=== PATIENT | female | born 2000 | race Caucasian/White ===

== ENCOUNTER 2023-04-11 10:17 | Outpatient (OUT) | payer OTHER, SELFPAY ==
[2023-04-11 11:06] LABS: HCG Quantitative <1 mIU/mL
[2023-04-13 12:04] LABS: HCG Quantitative <1 mIU/mL
== END 2023-04-11 10:18 | disposition home or self-care (01) ==
LOC: LAB 10:24
PROVIDERS: PCP Family Medicine; Visit Provider Obstetrics & Gynecology
DX: N92.5 Other specified irregular menstruation (principal)
CPT/HCPCS: 36415; 84702

== ENCOUNTER 2023-04-13 08:44 | Outpatient (OUT) | payer OTHER, SELFPAY | END 2023-04-13 08:45 | disposition home or self-care (01) | LOC: LAB 04-15 08:46 | PROVIDERS: Visit Provider Obstetrics & Gynecology | DX: N92.6 Irregular menstruation, unspecified (principal) | CPT/HCPCS: 36415; 84702 ==

== ENCOUNTER 2023-04-18 22:11 | Emergency (ER) | payer OTHER, SELFPAY ==
[2023-04-18 22:30] VITALS: BP 122/67; RESP 16; O2SAT 97; BMI 29.1
--- NOTE | 2023-04-18 22:38 | PC.NURSE ---
stuffy nose, sore throat, and headache for 2 weeks.
--- NOTE | 2023-04-18 22:39 | ED.URI1 ---
HPI - URI/Sore Throat General Chief Complaint: Upper Respiratory Infection Stated Complaint: headache Time Seen by Provider: 04/18/23 22:39 Source: patient Limitations: no limitations History of Present Illness HPI Narrative: patient presents complaining of a migraine headache. States long history of migraine headache. Has been taking OTC medications without benefit. No visual complaint or paresthesia. No weakness or fever. Similar to past migraines Related Data Allergies Allergy/AdvReac Type Severity Reaction Status Date / Time No Known Drug Allergies Allergy Verified 04/18/23 22:30 Review of Systems ROS Status of ROS 10 or more systems reviewed and unremarkable except as noted in history and below [facility] Medical History (Updated 04/18/23 @ 23:37 by Tae Glaser MD) Exam Constitutional Vital Signs, click to edit/add: Last Vital Signs Resp 16 04/18/23 22:30 BP 122/67 H 04/18/23 22:30 Pulse Ox 97 04/18/23 22:30 O2 Del Method Room Air 04/18/23 22:30 Common normals: no apparent distress, average body habitus, oriented x3 and healthy appearing Eye Common normals: PERRL, EOMs intact bilaterally and conjunctivae normal Respiratory Common normals: normal respiratory effort, no retractions, no use of accessory muscles and clear to auscultation bilaterally Cardio Common normals: regular rate, regular rhythm, S1 normal heart sound and S2 normal heart sound GI Common normals: Normal to inspection, nondistended, normoactive bowel sounds present and non-tender Extremity Common normals: normal to inspection and full ROM Neuro Common normals: oriented x3, CN's II-XII intact bilaterally, moves all extremities, no focal motor deficits and no sensory deficits noted Psych Appearance: grossly normal Course Vital Signs Vital signs: Vital Signs Respiratory Rate 16 04/18/23 22:30 Blood Pressure 122/67 H 04/18/23 22:30 Pulse Oximetry 97 04/18/23 22:30 Oxygen Delivery Method Room Air 04/18/23 22:30 Respiratory Rate 16 04/18/23 22:30 Blood Pressure 122/67 H 04/18/23 22:30 Pulse Oximetry 97 04/18/23 22:30 Oxygen Delivery Method Room Air 04/18/23 22:30 MDM - URI/Sore Throat MDM Narrative Medical decision making narrative: patient presents complaining of a migraine. treated in the department is feeling better and requesting discharge. Labs WNL. Discharged home in improved condition Lab Data Labs: Lab Results 04/18/23 Range/Units 22:50 WBC 7.3 (4.0-11.0) 10^3/uL RBC 4.50 (4.20-5.40) 10^6/uL Hgb 12.4 (12.0-16.0) g/dL Hct 38.8 (36.0-48.0) % MCV 86.2 (81.0-99.0) fL MCH 27.6 (26.7-34.0) pg MCHC 32.0 (29.9-35.2) g/dL RDW 14.8 (11.0-15.0) % Plt Count 239 (150-450) 10^3/uL MPV 10.8 (9.5-13.5) fL Neut % (Auto) 44.0 (43.0-75.0) % Lymph % (Auto) 42.0 (20.5-60.0) % [place] % (Auto) 8.8 (1.7-12.0) % Eos % (Auto) 4.1 (0.9-7.0) % Baso % (Auto) 1.0 (0.2-2.0) % Neut # (Auto) 3.2 (1.4-6.5) 10^3/uL Lymph # (Auto) 3.1 (1.2-3.8) 10^3/uL [place] # (Auto) 0.6 (0.3-0.8) 10^3/uL Eos # (Auto) 0.3 (0.0-0.7) 10^3/uL Baso # (Auto) 0.1 (0.0-0.1) 10^3/uL Abs Immat Gran (auto) 0.01 (0.00-0.03) 10^3/uL Imm/Tot Granulo (auto) 0.1 (0.0-0.5) % Sodium 140 (136-145) mmol/L Potassium 4.0 (3.5-5.1) mmol/L Chloride 103 (98-107) mmol/L Carbon Dioxide 30.5 (21.0-32.0) mmol/L Anion Gap 10.5 BUN 11.0 (7.0-18.0) mg/dL Creatinine 0.79 (0.55-1.02) mg/dL Est GFR ( Amer) >60 (>=60) Est GFR (Non-Af Amer) >60 (>=60) BUN/Creatinine Ratio 13.9 Glucose 93 (74-106) mg/dL Calcium 9.1 (8.5-10.1) mg/dL Discharge Plan Discharge Chief Complaint: Upper Respiratory Infection Clinical Impression: Migraine Instructions: Migraine Headache (ED) Stand Alone Forms: Portal Instructions Referrals: Physician,Non-Staff, MD [Primary Care Provider] - 1 week
[2023-04-18] MEDS: METHYLPREDNISOLONE SOD SUCC PF 125 MG/2 ML VIAL IVP (22:51)
[2023-04-18] MEDS: METOCLOPRAMIDE HCL 10 MG/2 ML VIAL IVP (22:52)
[2023-04-18] MEDS: DIPHENHYDRAMINE HCL 50 MG/ML (1ML) VIAL IV (22:52)
[2023-04-18 22:58] LABS: Basophils Absolute Auto 0.1 10^3/uL (0.0-0.1); Eosinophils Absolute Auto 0.3 10^3/uL (0.0-0.7); Eosinophils Percent Auto 4.1 % (0.9-7.0); Hematocrit 38.8 % (36.0-48.0); Hemoglobin 12.4 g/dL (12.0-16.0); Immature Granulocytes Abs Auto 0.01 10^3/uL (0.00-0.03); Immature Granulocytes Pct Auto 0.1 % (0.0-0.5); Lymphocytes Absolute Auto 3.1 10^3/uL (1.2-3.8); Mean Corpuscular Hemoglobin 27.6 pg (26.7-34.0); Mean Corpuscular Volume 86.2 fL (81.0-99.0); Mean Platelet Volume 10.8 fL (9.5-13.5); Monocytes Absolute Auto 0.6 10^3/uL (0.3-0.8); Monocytes Percent Auto 8.8 % (1.7-12.0); Neutrophils Absolute Auto 3.2 10^3/uL (1.4-6.5); Platelet Count 239 10^3/uL (150-450); Red Cell Distribution Width 14.8 % (11.0-15.0); White Blood Count 7.3 10^3/uL (4.0-11.0)
[2023-04-18 23:06] LABS: Anion Gap 10.5; BUN Creatinine Ratio 13.9; Calcium 9.1 mg/dL (8.5-10.1); Carbon Dioxide 30.5 mmol/L (21.0-32.0); Chloride 103 mmol/L (98-107); Estimated GFR (African America >60 (>=60); Estimated GFR (Non-African Ame >60 (>=60); Glucose 93 mg/dL (74-106); Sodium 140 mmol/L (136-145)
== END 2023-04-18 23:47 | disposition home or self-care (01) ==
PROVIDERS: Emergency Provider Internal Medicine
DX: G43.909 Migraine, unspecified, not intractable, without status migrainosus (principal)
CPT/HCPCS: 36415; 80048; 85025; 96374; 96375; 99284; J2930

== ENCOUNTER 2023-11-24 15:43 | Emergency (ER) | payer OTHER, SELFPAY ==
[2023-11-24 15:49] VITALS: PULSE 95; RESP 18; O2SAT 98; BMI 28.3
--- NOTE | 2023-11-24 15:52 | XR_ITS ---
The [address] [address] Patient Name: ENRICO PATRICIA MRN: [id number] date: 2000 Sex: F Assigned Patient Location: ER Current Patient Location: ER Accession/Order Number: [id number] Exam Date: 11/24/2023 15:58 Report Date: 11/24/2023 16:25 At the request of: NAYA AZEVEDO Procedure: XR foot RT min 3V IMAGES REVIEWED: XR foot RT min 3V COMPARISON: None available. CLINICAL INDICATION: right foot injury FINDINGS/IMPRESSION: Questionable trace bony irregularity involving the medial aspect of the base of the first proximal phalanx on the final view of the series. Correlate for focal tenderness. No significant focal adjacent soft tissue swelling to suggest acute fracture. Tiny density in the superficial lateral forefoot soft tissues adjacent to the base of the fifth proximal phalanx on the oblique view, projecting adjacent to the base of the fifth proximal phalanx on the final view of the series. Otherwise the right foot appears intact. Electronically authenticated by: MARIA G VILLATORO Date: 11/24/2023 16:25
[2023-11-24 15:54] VITALS: BP 110/74; TEMP 36.4
--- NOTE | 2023-11-24 16:20 | ED_ITS ---
HPI - Extremity Injury (Lower) General Chief Complaint: Extremity Injury, Lower Stated Complaint: Lower Extremity Pain Time Seen by Provider: 11/24/23 15:51 Source: patient Mode of arrival: walk-in Limitations: no limitations History of Present Illness HPI Narrative: Patient is a 23-year-old female presents to the emergency department for multiple injuries to the right foot 4 days ago. She states that she jammed her right foot into the side of the couch and then dropped a hammer on the dorsum of her foot. She is able to ambulate. She is not concerned for . No medications taken prior to arrival. She states she was going to come last night to be evaluated for the persistent right foot pain, but she went to a bar instead. Related Data Previous Rx's Medication Instructions Recorded ketorolac 10 mg tablet 10 mg PO TID PRN pain #10 tabs 11/24/23 tramadol 50 mg tablet 50 mg PO Q4H PRN pain #15 tabs 11/24/23 Allergies Allergy/AdvReac Type Severity Reaction Status Date / Time No Known Drug Allergies Allergy Verified 04/18/23 22:30 Review of Systems ROS Constitutional Denies: fever or chills Ears, nose, mouth, and throat Denies: throat pain or nasal congestion Cardiovascular Denies: chest pain Respiratory Denies: shortness of breath Gastrointestinal Denies: abdominal pain, nausea or vomiting Musculoskeletal Reports: extremity pain; Denies: back pain or neck pain Integumentary/Breast Denies: rash Neurological Denies: headache Endocrine Denies: excessive urination Hematologic/Lymphatic Denies: easy bruising or easy bleeding PFSH [facility] Medical History (Updated 11/24/23 @ 16:31 by RADHA Wiseman) Migraine ?G43.909 - Migraine, unspecified, not intractable, without status migrainosus (ICD-10) Social History Smoking status: Light tobacco smoker Exam Narrative Exam Narrative: Gen.: Awake, alert, in no distress Head: Normocephalic, atraumatic ENT: Moist mucous membranes Respiratory: No respiratory distress Extremities: Moves extremities equally, Healing ecchymosis on the dorsum of the right foot proximal to the great toe as well as on the dorsal lateral aspect of the foot. 2+ DP pulse right foot.No bony point tenderness of the ankle. Psych: Normal mood and affect Neuro: No focal neuro deficit Skin: Warm, dry, intact Constitutional Vital Signs, click to edit/add: Last Vital Signs Temp 97.6 F 11/24/23 15:54 Pulse 95 H 11/24/23 15:49 Resp 18 11/24/23 15:49 BP 110/74 11/24/23 15:54 Pulse Ox 98 11/24/23 15:49 O2 Del Method Room Air 11/24/23 15:49 Course Vital Signs Vital signs: Vital Signs Pulse Rate 95 H 11/24/23 15:49 Respiratory Rate 18 11/24/23 15:49 Pulse Oximetry 98 11/24/23 15:49 Oxygen Delivery Method Room Air 11/24/23 15:49 Temperature 97.6 F 11/24/23 15:54 Pulse Rate 95 H 11/24/23 15:49 Respiratory Rate 18 11/24/23 15:49 Blood Pressure 110/74 11/24/23 15:54 Pulse Oximetry 98 11/24/23 15:49 Oxygen Delivery Method Room Air 11/24/23 15:49 MDM - Extremity Injury (Lower) MDM Narrative Medical decision making narrative: X-rays reviewed by the radiologist with a questionable nondisplaced fracture at the base of the first proximal phalanx. Patient does have bruising over this area although she does not have any bony point tenderness. She was given instructions on treatment of a toe fracture, placed in an Beau wrap and postop shoe and remains neurovascularly intact. Rest, ice, elevate. She is given a short course of analgesics and NSAIDs to follow-up with podiatry. Return to the ER if symptoms change or worsen. Medical Records Attestation: I reviewed the patient's medical records. Imaging Data XR foot: Attestation: I have reviewed the pertinent imaging results. Discharge Plan Discharge Chief Complaint: Extremity Injury, Lower Clinical Impression: Fracture of toe Patient Disposition: Home, Self-Care Time of Disposition Decision: 16:30 Condition: Good Prescriptions / Home Meds: New tramadol 50 mg tablet 50 mg PO Q4H PRN (Reason: pain) Qty: 15 0RF ketorolac 10 mg tablet 10 mg PO TID PRN (Reason: pain) Qty: 10 0RF Instructions: Toe Fracture (ED) Stand Alone Forms: Portal Instructions Referrals: Physician,Non-Staff, [Primary Care Provider] - 1 week Ayaz Higginbotham DPM [Physician] - 1 week
[2023-11-24] MEDS: KETOROLAC TROMETHAMINE 10 MG TABLET PO (16:45)
[2023-11-24 16:53] VITALS: BP 110/70; PULSE 94; RESP 16; O2SAT 99
== END 2023-11-24 16:54 | disposition home or self-care (01) ==
PROVIDERS: Emergency Provider Emergency Medicine
DX: S92.414A Nondisplaced fracture of proximal phalanx of right great toe, initial encounter for closed fracture (principal); F17.210 Nicotine dependence, cigarettes, uncomplicated; W22.03XA Walked into furniture, initial encounter; W20.8XXA Other cause of strike by thrown, projected or falling object, initial encounter
CPT/HCPCS: 73630; 99284

== ENCOUNTER 2023-12-04 13:10 | Outpatient (OUT) | payer OTHER, SELFPAY ==
--- NOTE | 2023-12-04 | XR_ITS ---
[address] [address] Patient Name: ENRICO PATRICIA MRN: [id number] date: 2000 Sex: F Assigned Patient Location: Current Patient Location: Accession/Order Number: [id number] Exam Date: 12/04/2023 13:15 Report Date: 12/04/2023 14:35 At the request of: BRAD BOLDEN Procedure: XR foot RT min 3V PROCEDURE: XR foot RT min 3V COMPARISON: 11/24/2023 HISTORY: RIGHT FOOT PAIN FINDINGS: BONES:No fracture, acute abnormality, or significant arthropathy. SOFT TISSUES:Negative. No visible soft tissue swelling. EFFUSION:None visible. OTHER: Negative. XR/XR foot RT min 3V IMPRESSION: No acute radiographic abnormality Electronically authenticated by: GIANA ZAFAR Date: 12/04/2023 14:35
== END 2023-12-04 13:11 | disposition home or self-care (01) ==
LOC: EC 13:10
PROVIDERS: Visit Provider Podiatrist Foot & Ankle Surgery
DX: M79.671 Pain in right foot (principal)
CPT/HCPCS: 73630

== ENCOUNTER 2024-01-05 01:56 | Emergency (ER) | payer OTHER, SELFPAY ==
[2024-01-05 02:04] VITALS: BP 116/59; PULSE 73; TEMP 36.8; O2SAT 96; BMI 30.3
--- OUTSIDE RECORDS SUMMARY | 2024-01-05 02:11 | XMS_ITS | CCD ---
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 Role Phone House DO, Sr Kris Chavez Primary Care Provider [phone] HOUSE, SR KRIS Chavez Referring Unavailable HOUSE, SR KRIS P Primary Care Unavailable HOUSE, SR KRIS P Referring Unavailable HOUSE, SR KRIS P Primary Care Unavailable HOUSE, SR KRIS P Primary Care Unavailable ENRIQUE EDOUARD Attending Unavailabl e RAQUEL JOHNSON Attending Unavailable RAQUEL JOHNSON Admitting Unavailable GRECHNY ., RADHA PERSON Consulting Unavailabl e HOUSE, DR MIRANDA Primary Care Unavailable KARASIK ., DR BLUNT Consulting Unavailabl e HOUSE, DR MIRANDA Primary Care Unavailable KARASIK ., DR BLUNT Attending Unavailabl e KARASIK ., DR BLUNT Admitting Unavailabl e AMRIT ., DR MORALEZ Consulting Unavailable HOUSE, DR MIRANDA Primary Care Unavailable AMRIT ., DR MORALEZ Attending Unavailable AMRIT ., DR MORALEZ Admitting Unavailable AMRIT ., DR MORALEZ Consulting Unavailable HOUSE, DR MIRANDA Primary Care Unavailable AMRIT ., DR MORALEZ Attending Unavailable AMRIT ., DR MORALEZ Admitting Unavailable KARASIK ., DR BLUNT Consulting Unavailabl e HOUSE, DR MIRANDA Primary Care Unavailable KARASIK ., DR BLUNT Attending Unavailabl e KARASIK ., DR BLUNT Admitting Unavailabl e HOUSE, DR MIRANDA Primary Care Unavailable AMRIT ., DR MORALEZ Attending Unavailable AMRIT ., DR MORALEZ Admitting Unavailable KARASIK ., DR BLUNT Consulting Unavailabl e HOUSE, DR MIRANDA Primary Care Unavailable KARASIK ., DR BLUNT Attending Unavailabl e KARASIK ., DR BLUNT Admitting Unavailabl e AGUBOSIM, CATHY Consulting Unavailable KARASIK ., DR BLUNT Procedure Practitioner Yanelis vailable KARASIK ., DR BLUNT Consulting Unavailabl e HOUSE, DR MIRANDA Primary Care Unavailable KARASIK ., DR BLUNT Attending Unavailabl e KARASIK ., DR BLUNT Admitting Unavailabl e KARASIK ., DR BLUNT Consulting Unavailabl e HOUSE, DR MIRANDA Primary Care Unavailable KARASIK ., DR BLUNT Attending Unavailabl e KARASIK ., DR BLUNT Admitting Unavailabl e HOUSE, DR MIRANDA Primary Care Unavailable KARASIK ., DR BLUNT Attending Unavailabl e KARASIK ., DR BLUNT Admitting Unavailabl e REINECK, DR JAYDON Montoya Consulting Unavailabl e REINECK, DR JAYDON Montoya Attending Unavailabl e REINECK, DR JAYDON Montoya Admitting Unavailabl e HOUSE, DR MIRANDA Primary Care Unavailable ZIEBER, DR KRISTIE Ivory Consulting Unavailable DONNY ., ENRIQUE Attending Unavailable DONNY ., ENRIQUE Admitting Unavailable OAKDALE, DR MIRANDA Primary Care Unavailable DONNY ., ENRIQUE Consulting Unavailable LORA, DR KRISTIE Ivory Consulting Unavailable HAY ., DR PARTIDA Attending Unavailable HAY ., DR PARTIDA Admitting Unavailable OAKDALE, DR MIRANDA Primary Care Unavailable KAMRAN NICKERSON Consulting Unavailable JOLLY ., RADHA PERSON Consulting Unavailyanira CHAND ., NAINA Attending Unavailable MANNIE ., NAINA Admitting Unavailable BATSHEVA, DR MIRANDA Primary Care Unavailable RAQUEL JOHNSON Consulting Unavailable RAQUEL JOHNSON Attending Unavailable RAQUEL JOHNSON Admitting Unavailable BATSHEVA, DR MIRANDA Primary Care Unavailable KAMRAN NICKERSON Consulting Unavailable NO PCP, NO PCP Primary Care Unavailable JEFE LINCOLN Attending Unavailable Allergies Allergy Classification Reported Allergen(s) Allergy Type Date of Onset Reaction(s) Facility (1 source) Latex Propensity to adverse reactions to drug 07-31-2021 [facility] Medications Current Medications Medication Drug Class(es) Dates Sig (Normalized) Sig (Original) amoxicillin 875 mg / clavulanate 125 mg oral tablet (1 source) Penicillin-class Antibacterial Start: 07-31-2021 End: 08-10-2021 take 1 tablet by mouth twice daily amoxicillin-clav ulanate (AUGMENTIN) 875-125 MG per tablet Take 1 tablet by mouth 2 times daily for 10 days 20 tablet 0 07/31/2021 08/10/2021 Active Problems Active Problems Problem Classification Problem Date Documented Da te Episodic/Chronic Conditions associated with dizziness or vertigo (4 sources) Dizziness and giddiness; Translations: [DIZZINESS AND GIDDINESS] Onset: 12-11-2022 Episodic E Codes: Fall (2 sources) Fall (on) (from) unspecified stairs and steps, initial encounter; Translations: [Unspecified fall, initial encounter] Onset: 12-13-2022 Episodic Headache; including migraine (4 sources) Headache; including migraine; Translations: [HEADACHE UNSPECIFIED] Onset: 07-29-2022 Nausea and vomiting (2 sources) Nausea with vomiting, unspecified; Translations: [Vomiting] Onset: 11-05-2023 Episodic Other aftercare (1 source) Other shelter (current) drug therapy; Translations: [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] Onset: 12-03-2022 Episodic Other injuries and conditions due to external causes (1 source) Unspecified injury of head, initial encounter; Translations: [UNSPECIFIED INJURY HEAD INITIAL ENC] Onset: 12-13-2022 Episodic Other upper respiratory infections (7 sources) Acute frontal sinusitis; Translations: [Acute frontal sinusitis, unspecified] Onset: 10-04-2022 Episodic Spondylosis; intervertebral disc disorders; other back problems (1 source) Low back pain; Translations: [Lumbar pain] Episodic Superficial injury; contusion (4 sources) Contusion of left lower leg, initial encounter; Translations: [CONTUSION LEFT LOWER LEG INITIAL] Onset: 01-27-2023 Episodic Unclassified (1 source) CONTACT W/AND (SUSP) EXPOS COVID-19; Translations: [CONTACT W/AND (SUSP) EXPOS COVID-19] Onset: 10-04-2022 Unclassified (2 sources) COUGH, UNSPECIFIED; Translations: [COUGH, UNSPECIFIED] Onset: 10-04-2022 Unclassified (1 source) ILL Onset: 11-05-2023 Urinary tract infections (2 sources) Urinary tract infection, site not specified; Translations: [UTI SITE NOT SPECIFIED] Onset: 10-04-2022 Episodic Past or Other Problems Problem Classification Problem Date Documented Da te Episodic/Chronic Abdominal pain (4 sources) Pelvic and perineal pain; Translations: [Unspecified abdominal pain] Onset: 03-02-2022 Episodic Early or threatened labor (4 sources) False labor before 37 completed weeks of gestation, third trimester; Translations: [FALSE LABR BEFOR 37 WK GEST 3RD TRI] Onset: 03-31-2022 Episodic Immunizations and screening for infectious disease (1 source) Encounter for screening for infections with a predominantly sexual mode of transmission; Translations: [ENC SCREEN INFECTIONS SEXL TRANSMS] Onset: 04-18-2022 Episodic Inflammatory diseases of female pelvic organs (1 source) Acute vaginitis; Translations: [ACUTE VAGINITIS] Onset: 08-27-2022 Episodic OB-related trauma to perineum and vulva (1 source) First degree perineal laceration during delivery; Translations: [FIRST DEG PERINEAL LAC DUR DELIV] Onset: 05-16-2022 Episodic Other aftercare (1 source) 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; Translations: [CORRECTION CURRENT USE OF ASPIRIN] Onset: 08-27-2022 Episodic Other complications of (4 sources) Other specified related conditions, third trimester; Translations: [OTH SPEC PREG RELATED COND 3RD TRI] Onset: 03-28-2022 Episodic Other gastrointestinal disorders (1 source) Heartburn; Translations: [HEARTBURN] Onset: 03-02-2022 Episodic Other and delivery including normal (11 sources) Encounter for care and examination of lactating mother; Translations: [Encounter for routine follow-up] Onset: 05-10-2022 Episodic Other screening for suspected conditions (not mental disorders or infectious disease) (8 sources) Encounter for screening for Streptococcus B; Translations: [Encounter for screening for diabetes mellitus] Onset: 02-20-2022 Episodic Residual codes; unclassified (1 source) 39 weeks gestation of ; Translations: [39 WEEKS GESTATION OF ] Onset: 05-16-2022 Episodic Residual codes; unclassified (1 source) 33 weeks gestation of ; Translations: [33 WEEKS GESTATION OF ] Onset: 04-04-2022 Episodic Residual codes; unclassified (1 source) Edema, unspecified; Translations: [EDEMA UNSPECIFIED] Onset: 03-22-2022 Episodic Residual codes; unclassified (1 source) 31 weeks gestation of ; Translations: [31 WEEKS GESTATION OF ] Onset: 03-22-2022 Episodic Screening and history of mental health and substance abuse codes (1 source) Personal history of nicotine dependence; Translations: [PERSONAL HISTORY OF NICOTINE DEPEND] Onset: 05-16-2022 Episodic Unclassified (1 source) COUGH, UNSPECIFIED; Translations: [COUGH, UNSPECIFIED] Onset: 10-02-2022 Results Test Name Value Interpretation Reference Range Facility CBC AND AUTO DIFFon 11-05-19 ABSOLUTE BASOPHIL 0.1 X10E9/L Normal 0.0-0.2 [facility] Comment on above: Performed By: #### C ROGERIO, 3039-12, CBCA #### [facility] ([id number]) [address] [place] [address] 99856 ABSOLUTE NEUTROPHIL 6.6 X10E9/L Normal 1.5-6.6 [facility] Comment on above: Performed By: #### C ROGERIO, 3039-12, CBCA #### [facility] ([id number]) [address] [place] [address] 24813 Basophils/100 WBC (Bld) 0.6 % Normal [facility] Comment on above: Performed By: #### C ROGERIO, 3039-12, CBCA #### [facility] ([id number]) [address] [place] [address] 18891 Eosinophils (Bld) [#/Vol] 0.2 10*3/uL Normal 0.0-0.4 [facility] Comment on above: Performed By: #### C ROGERIO, 3039-12, CBCA #### [facility] ([id number]) [address] [place] [address] 22655 Eosinophils/100 WBC (Bld) 1.8 % Normal [facility] Comment on above: Performed By: #### C ROGERIO, 3, CBCA #### [facility] ([id number]) [address] [place] [address] 61012 Erythrocyte distribution width (RBC) [Ratio] 14.2 % Normal 11.5-15.0 [facility] Comment on above: Performed By: #### Nini BEATTY, 3039-12, CBCA #### [facility] ([id number]) [address] [place] [address] 62231 Hematocrit (Bld) [Volume fraction] 39.3 % Normal 35-47 [facility] Comment on above: Performed By: #### C ROGERIO, 3039-12, CBCA #### [facility] ([id number]) [address] [place] [address] 10727 Hemoglobin (Bld) [Mass/Vol] 13.1 g/dL Normal 11.7-15.5 [facility] Comment on above: Performed By: #### C ROGERIO, 3039-12, CBCA #### [facility] ([id number]) [address] [place] [address] 49344 Lymphocytes (Bld) [#/Vol] 2.4 10*3/uL Normal 1.0-3.5 [facility] Comment on above: Performed By: #### C ROGERIO, 3039-12, CBCA #### [facility] ([id number]) [address] [place] [address] 63764 Lymphocytes/100 WBC (Bld) 24.1 % Normal [facility] Comment on above: Performed By: #### C ROGERIO, 3039-12, CBCA #### [facility] ([id number]) [address] [place] [address] 06413 MCH (RBC) [Entitic mass] 28.7 pg Normal 27-34 [facility] Comment on above: Performed By: #### C ROGERIO, 3039-12, CBCA #### [facility] ([id number]) [address] [place] [address] 79855 MCHC (RBC) [Mass/Vol] 33.5 g/dL Normal 32-36 [facility] Comment on above: Performed By: #### C ROGERIO, 3039-12, CBCA #### [facility] ([id number]) [address] [place] [address] 44894 MCV (RBC) [Entitic vol] 86 fL Normal 80-100 [facility] Comment on above: Performed By: #### C ROGERIO, 3039-12, CBCA #### [facility] ([id number]) [address] [place] [address] 97686 Monocytes (Bld) [#/Vol] 0.6 10*3/uL Normal 0-0.9 [facility] Comment on above: Performed By: #### C ROGERIO, 3039-12, CBCA #### [facility] ([id number]) [address] [place] [address] 64129 Monocytes/100 WBC (Bld) 6.4 % Normal [facility] Comment on above: Performed By: #### C ROGERIO, 3039-12, CBCA #### [facility] ([id number]) [address] [place] [address] 35013 Neutrophils/100 WBC (Bld) 67.1 % Normal [facility] Comment on above: Performed By: #### Nini BEATTY, 3039-12, CBCA #### [facility] ([id number]) [address] [place] [address] 87331 Platelet mean volume (Bld) [Entitic vol] 9.1 fL Normal 7-12 [facility] Comment on above: Performed By: #### Nini BEATTY, 3039-12, CBCA #### [facility] ([id number]) [address] [place] [address] 45630 Platelets (Bld) [#/Vol] 236 10*3/uL Normal 150-450 [facility] Comment on above: Performed By: #### Nini BEATTY, 3039-12, CBCA #### [facility] ([id number]) [address] [place] [address] 66334 RBC COUNT 4.59 X10E12/L Normal 3.80-5.20 [facility] Comment on above: Performed By: #### C ROGERIO, 3039-12, CBCA #### [facility] ([id number]) [address] [place] [address] 75689 WBC (Bld) [#/Vol] 9.8 10*3/uL Normal 4.0-11.0 [facility] Comment on above: Performed By: #### C ROGERIO, 3039-12, CBCA #### [facility] ([id number]) [address] [place] [address] 35677 COMPREHENSIVE METABOLIC PANE Alex 11-05-2023 Albumin [Mass/Vol] 4.1 g/dL Normal 3.2-5.3 [facility] Comment on above: Performed By: #### C ROGERIO, 3039-12, CBCA #### [facility] ([id number]) [address] [place] [address] [place] [address] ALP [Catalytic activity/Vol] 94 U/L Normal 39-130 [facility] Comment on above: Performed By: #### C ROGERIO, 3039-12, CBCA #### [facility] ([id number]) [address] [place] [address] 11643 ALT [Catalytic activity/Vol] 15 U/L Normal 0-31 [facility] Comment on above: Performed By: #### C ROGERIO, 3039-12, CBCA #### [facility] ([id number]) [address] [place] [address] [place] [address] Anion gap [Moles/Vol] 9 mmol/L Normal 5-15 [facility] Comment on above: Performed By: #### C ROGERIO, 3039-12, CBCA #### [facility] ([id number]) [address] [place] [address] 90463 AST [Catalytic activity/Vol] 22 U/L Normal 0-41 [facility] Comment on above: Performed By: #### C ROGERIO, 3039-3, CBCA #### [facility] ([id number]) [address] [place] [address] 81352 Bilirubin [Mass/Vol] 0.8 mg/dL Normal 0.3-1.2 [facility] Comment on above: Performed By: #### C ROGERIO, 3039-3, CBCA #### [facility] ([id number]) [address] [place] [address] 28765 Calcium [Mass/Vol] 8.9 mg/dL Normal 8.5-10.5 [facility] Comment on above: Performed By: #### C ROGERIO, 3039-12, CBCA #### [facility] ([id number]) [address] [place] [address] 06070 Chloride [Moles/Vol] 104 mmol/L Normal 98-109 [facility] Comment on above: Performed By: #### C ROGERIO, 3039-12, CBCA #### [facility] ([id number]) [address] [place] [address] 27119 CO2 [Moles/Vol] 24 mmol/L Normal 22-32 [facility] Comment on above: Performed By: #### Nini BEATTY, 3039-12, CBCA #### [facility] ([id number]) [address] [place] [address] 90258 Creatinine [Mass/Vol] 0.67 mg/dL Normal 0.40-1.00 [facility] Comment on above: Result Comment: METH OD TRACEABLE TO IDMS STANDARD Performed By: #### C ROGERIO, 3039-3, CBCA #### [facility] ([id number]) [address] [place] [address] 59473 eGFR (CKD-EPI) NON-RACE DEPENDENT >90 Normal >59 [facility] Comment on above: Result Comment: Reported eGFR is based on the CKD-EPI 2020 equation that does not use a race coefficient. Performed By: #### C ROGERIO, 304-3, CBCA #### [facility] ([id number]) [address] [place] [address] 01711 Glucose [Mass/Vol] 112 mg/dL High 65-99 [facility] Comment on above: Performed By: #### C ROGERIO, 304-3, CBCA #### [facility] ([id number]) [address] [place] [address] 53640 Potassium [Moles/Vol] 3.4 mmol/L Low 3.5-5.0 [facility] Comment on above: Performed By: #### C ROGERIO, 3039-3, CBCA #### [facility] ([id number]) [address] [place] [address] 22727 Protein [Mass/Vol] 8.0 g/dL Normal 6.0-8.0 [facility] Comment on above: Performed By: #### C ROGERIO, 3, CBCA #### [facility] ([id number]) [address] [place] [address] 86438 Sodium [Moles/Vol] 137 mmol/L Normal 134-146 [facility] Comment on above: Performed By: #### C ROGERIO, 3, CBCA #### [facility] ([id number]) [address] [place] [address] 21795 Urea nitrogen [Mass/Vol] 12 mg/dL Normal 5-23 [facility] Comment on above: Performed By: #### C ROGERIO, 304-3, CBCA #### [facility] ([id number]) [address] [place] [address] 37112 HCG ( test) Ql (U)o n 11-05-2023 Beta HCG ( test) Ql (U) Negative Normal NEG [facility] Comment on above: Performed By: #### 2 106-3 #### [facility] ([id number]) [address] [facility], [place] [address] LIPASEon 11-05-2023 Lipase [Catalytic activity/Vol] 33 U/L Normal 17-40 [facility] Comment on above: Performed By: #### C MP, 3040-3, CBCA #### [facility] ([id number]) [address] [facility], [place] [address] SARS/FLU A+B/RSV by NAAT/Mol ecularon 11-05-2023 SARS/FLU A+B/RSV by NAAT/Molecular FLU A PCR Negative (qualifier value) FLU B PCR Negative (qualifier value) RSV by PCR Negative (qualifier value) SARS CoV 2 Not detected (qualifier value) NOTE The Xpert Xpress SARS-CoV-2/Flu/RSV Plus test is a rapid, multiplexed real-time RT-PCR test intended for the simultaneous qualitative detection and differentiation of SARS-CoV-2, influenza A, influenza B and respiratory syncytial virus (RSV) viral RNA from individuals suspected of respiratory viral infection consistent with COVID-19 by their healthcare provider. This test has not been validated in asymptomatic patients. The Xpert Xpress SARS-CoV-2 test is intended for use by qualified and trained operators who are performing tests using either [employer] DX or STWA systems and is limited to laboratories that meet the CLIA requirements to perform high and moderate complexity tests. The Xpert Xpress SARS-CoV-2/Flu/RSV Plus is only for use under the Food and Drug Administration's Emergency Use Authorization. Results are for the simultaneous detection and differentiation of SARS-CoV-2, influenza A, influenza B and RSV nucleic acids in clinical specimens. SARS-CoV-2, influenza A, influenza B and RSV RNA identified by this test are generally detectable in upper respiratory samples during the acute phase of infection. Positive results are indicative of the presence of the identified virus, but do not rule out bacterial infection or co-infection with other pathogens not detected by this test. Clinical correlation with patient history and other diagnostic information is necessary to determine patient infection status. The agent detected may not be the definite cause of disease. Negative results do not preclude SARS-CoV-2, influenza A, influenza B and RSV infection and should not be used as the sole basis for treatment or other patient management decisions. Negative results must be combined with clinical observations, patient history and epidemiological information. An Invalid result may occur with specimen-associated inhibition unable to be resolved with specimen repeat. Fact Sheet for Healthcare Providers: https://www.fda.gov/ media/087389/downloa d Fact Sheet for Patients: https://www.fda.gov/ media/810833/downloa d Normal [facility] Comment on above: Performed By: #### C OVFLR #### [facility] ([id number]) [address] [place] [address] 08930 URN MACROSCOPIC NURon 2023 BILIRUBIN CASSY Negative Normal NEG [facility] Comment on above: Performed By: #### N UM #### [facility] ([id number]) [address] [place] [address] 52830 BLOOD/HGB CASSY Negative Normal NEG [facility] Comment on above: Performed By: #### N UM #### [facility] ([id number]) [address] [place] [address] 00045 GLUCOSE CASSY Negative Normal NEG [facility] Comment on above: Performed By: #### N UM #### [facility] ([id number]) [address] [place] [address] 04108 KETONES CASSY Negative Normal NEG [facility] Comment on above: Performed By: #### N UM #### [facility] ([id number]) [address] [place] [address] [place] [address] LEUKOCYTE ESTERASE CASSY Trace Abnormal NEG [facility] Comment on above: Performed By: #### N UM #### [facility] ([id number]) [address] [place] [address] 00204 NITRITE CASSY Negative Normal [facility] Comment on above: Performed By: #### N UM #### [facility] ([id number]) [address] [place] [address] 19935 PH CASSY 6.5 Normal 5.0-8.5 [facility] Comment on above: Performed By: #### N UM #### [facility] ([id number]) [address] [place] [address] 85737 PROTEIN CASSY Negative Normal NEG [facility] Comment on above: Performed By: #### N UM #### [facility] ([id number]) [address] [place] [address] 37070 SPECIFIC GRAVITY CASSY >=1.030 Normal 1.003-1.035 [facility] Comment on above: Performed By: #### N UM #### [facility] ([id number]) [address] [place] [address] 25292 UROBILINOGEN CASSY 0.2 eu/dL Normal <1.1 [facility] Comment on above: Performed By: #### N UM #### [facility] ([id number]) [address] [place] [address] 12184 CULTURE URINEon 12-13-2022 CULTURE URINE Isolate 1 Escherichia coli >100,000 cfu/mL of ORGANISM 1 Escherichia coli ANTIBIOTIC M.I.C RX STATUS Ampicillin >=32 R F Ampicillin/Sulbactam 8 S F Piperacillin/Tazobac weller <=4 S F Cefazolin <=4 S F Ceftazidime <=1 S F Ceftriaxone <=1 S F Ertapenem <=0.5 S F Imipenem <=0.25 S F Amikacin <=2 S F Gentamicin <=1 S F Tobramycin <=1 S F Ciprofloxacin <=0.25 S F Levofloxacin 0.5 S F Nitrofurantoin 32 S F Trimethoprim/Sulfame thoxazole <=20 S F Normal [facility] Comment on above: Performed By: #### U ACSINDXENIAICRO #### [facility] [address] [place] [address] Dr. Zaheer Bridges CBC AUTO DIFFon 12-11-2022 BASO # 0.0 103/ul Normal 0.0-0.1 [facility] Comment on above: Performed By: #### LESLIE ARROYO UMICRO #### [facility] [address] [place] [address] Dr. Zaheer Bridges Basophils/100 WBC (Bld) 0.2 % Normal 0.2-2.0 [facility] Comment on above: Performed By: #### LESLIE ARROYO UMICRO #### [facility] [address] [place] [address] Dr. Zaheer Bridges EO # 0.1 103/ul Normal 0.0-0.7 [facility] Comment on above: Performed By: #### LESLIE ARROYO UMICRO #### [facility] [address] [place] [address] Dr. Zaheer Bridges Eosinophils/100 WBC (Bld) 0.7 % Critically low 0.9-7.0 [facility] Comment on above: Performed By: #### LESLIE ARROYO UMICRO #### [facility] [address] [place] [address] Dr. Zaheer Bridges Erythrocyte distribution width (RBC) [Ratio] 14.6 % Normal 11.0-15.0 [facility] Comment on above: Performed By: #### LESLIE ARROYO UMICRO #### [facility] [address] [place] [address] Dr. Zaheer Bridges Hematocrit (Bld) [Volume fraction] 36.3 % Normal 36.0-48.0 [facility] Comment on above: Performed By: #### LESLIE ARROYO UMICRO #### [facility] [address] [place] [address] Dr. Zaheer Bridges Hemoglobin (Bld) [Mass/Vol] 12.0 g/dL Normal 12.0-16.0 [facility] Comment on above: Performed By: #### LESLIE ARROYO UMICRO #### [facility] [address] [place] [address] Dr. Zaheer Bridges IG # 0.07 10e3/ul Critically high 0.00-0.03 [facility] Comment on above: Performed By: #### LESLIE ARROYO UMICRO #### [facility] [address] [place] [address] Dr. Zaheer Bridges IG % 0.5 % Normal 0.0-0.5 [facility] Comment on above: Performed By: #### LESLIE ARROYO UMICRO #### [facility] [address] [place] [address] Dr. Zaheer Bridges LYMPH # 1.4 103/ul Normal 1.2-3.8 [facility] Comment on above: Performed By: #### LESLIE ARROYO UMICRO #### [facility] [address] [place] [address] Dr. Zaheer Bridges Lymphocytes/100 WBC (Bld) 9.4 % Critically low 20.5-60.0 [facility] Comment on above: Performed By: #### LESLIE ARROYO UMICRO #### [facility] [address] [place] [address] Dr. Zaheer Bridges MANUAL DIFF REQ NO Normal [facility] Comment on above: Performed By: #### LESLIE ARROYO UMICRO #### [facility] [address] [place] [address] Dr. Zaheer Bridges MCH (RBC) [Entitic mass] 27.4 pg Normal 26.7-34.0 [facility] Comment on above: Performed By: #### LESLIE ARROYO UMICRO #### [facility] [address] [place] [address] Dr. Zaheer Bridges MCHC (RBC) [Mass/Vol] 33.1 g/dL Normal 29.9-35.2 [facility] Comment on above: Performed By: #### LESLIE ARROYO UMICRO #### [facility] [address] [place] [address] Dr. Zaheer Bridges MCV (RBC) [Entitic vol] 82.9 fL Normal 81.0-99.0 [facility] Comment on above: Performed By: #### Ugo GRUBER PREGU UMICRO #### [facility] [address] [address] [address] Zaheer Bridges MONO # 1.1 103/ul Critically high 0.3-0.8 [facility] Comment on above: Performed By: #### Ugo GRUBER PREGU, UMICRO #### [facility] [address] [address] [address] Zaheer Bridges Monocytes/100 WBC (Bld) 6.9 % Normal 1.7-12.0 [facility] Comment on above: Performed By: #### Ugo GRUBER PREGU, UMICRO #### [facility] [address] [place] [address] Dr. Zaheer Bridges NEUT # 12.7 103/ul Critically high 1.4-6.5 [facility] Comment on above: Performed By: #### JONO ARROYOU UMICRO #### [facility] [address] [place] [address] Dr. Zaheer Bridges Neutrophils/100 WBC (Bld) 82.3 % Critically high 43.0-75.0 [facility] Comment on above: Performed By: #### LESLIE ARROYO UMICRO #### [facility] [address] [place] [address] Dr. Zaheer Bridges Platelet mean volume (Bld) [Entitic vol] 9.7 fL Normal 9.5-13.5 [facility] Comment on above: Performed By: #### Ugo GRUBER PREGU UMICRO #### [facility] [address] [place] [address] Dr. Zaheer Bridges PLT 227 103/ul Normal 150-450 [facility] Comment on above: Performed By: #### Ugo GRUBER PREGU UMICRO #### [facility] [address] [place] [address] Dr. Zaheer Bridges RBC 4.38 106/ul Normal 4.20-5.40 [facility] Comment on above: Performed By: #### Ugo GRUBER PREGU UMICRO #### [facility] [address] [address] [address] Zaheer Bridges WBC 15.4 103/ul Critically high 4.0-11.0 [facility] Comment on above: Performed By: #### E RUR, PREGU, UMICRO #### [facility] [address] [address] [address] Zaheer Bridges ER URINE PROFILEon 3 Bilirubin Ql (U) Negative Normal NEGATIVE [facility] Comment on above: Performed By: #### E RUR, PREGU, UMICRO #### [facility] [address] [place] [address] Dr. Zaheer Bridges Clarity (U) CLEAR Normal CLEAR [facility] Comment on above: Performed By: #### E RUR, PREGU, UMICRO #### [facility] [address] [place] [address] Dr. Zaheer Bridges Color (U) LT. YELLOW Normal YELLOW [facility] Comment on above: Performed By: #### E RUR, PREGU, UMICRO #### [facility] [address] [place] [address] Dr. Zaheer Bridges ERUTara A micrscopic examination will be performed if indicated. Normal [facility] Comment on above: Performed By: #### E RUR, PREGU, UMICRO #### [facility] [address] [place] [address] Dr. Zaheer Bridges Glucose Ql (U) Negative Normal NEGATIVE [facility] Comment on above: Performed By: #### E RUR, PREGU, UMICRO #### [facility] [address] [place] [address] Dr. Zaheer Bridges Hemoglobin Ql (U) TRACE-INTACT Abnormal NEGATIVE [facility] Comment on above: Performed By: #### E RUR, PREGU, UMICRO #### [facility] [address] [place] [address] Dr. Zaheer Bridges Ketones Ql (U) Negative Normal NEGATIVE [facility] Comment on above: Performed By: #### E RUR, PREGU, UMICRO #### [facility] [address] [address] [address] Zaheer Bridges LEUKOCYTES LARGE Abnormal NEGATIVE [facility] Comment on above: Performed By: #### Ugo GRUBER PREGU, UMICRO #### [facility] [address] [address] [address] Zaheer Bridges Nitrite Ql (U) Positive Abnormal NEGATIVE [facility] Comment on above: Performed By: #### Ugo GRUBER PREGU, UMICRO #### [facility] [address] [address] [address] Zaheer Bridges pH (U) 7.0 [pH] Normal 5-9 [facility] Comment on above: Performed By: #### LESLIE ARROYO UMICRO #### [facility] [address] [address] [address] Zaheer Bridges SPEC GRAVITY 1.010 Normal 1.005-<=1.025 [facility] Comment on above: Performed By: #### Ugo GRUBER PREGU, UMICRO #### [facility] [address] [address] [address] Zaheer Bridges UA PROTEIN Negative Normal NEGATIVE/ TRACE [facility] Comment on above: Performed By: #### LESLIE ARROYO, UMICRO #### [facility] [address] [address] [address] Zaheer rBidges UR MICRO IND INDICATED Normal [facility] Comment on above: Performed By: #### JONO ARROYOU, UMICRO #### [facility] [address] [address] [address] Zaheer Bridges Urobilinogen Qn (U) 0.2 {Tereza'U}/dL Normal 0.2 - 1. 0 [facility] Comment on above: Performed By: #### Ugo GRUBER PREGU, UMICRO #### [facility] [address] [address] [address] Zaheer Bridges URon 12-11-2022 , QUAL Negative Normal NEGATIVE [facility] Comment on above: Performed By: #### Ugo OSUNAR PREGU, UMICRO #### [facility] [address] [place] [address] Dr. Zaheer Bridges PROF CHEM 8 (BAS METB)on Anion gap [Moles/Vol] 12.4 mmol/L Normal [facility] Comment on above: Performed By: #### E RUR PREGU, UMICRO #### [facility] [address] [address] [address] Zaheer Bridges Calcium [Mass/Vol] 9.1 mg/dL Normal 8.5-10.1 [facility] Comment on above: Performed By: #### E YASMANI PREGU, UMICRO #### [facility] [address] [place] [address] Dr. Zaheer Bridges Chloride [Moles/Vol] 104 mmol/L Normal 98-107 [facility] Comment on above: Performed By: #### Ugo GRUBER PREGU UMICRO #### [facility] [address] [place] [address] Dr. Zaheer Bridges CO2 [Moles/Vol] 28.0 mmol/L Normal 21.0-32.0 [facility] Comment on above: Performed By: #### JONO ARROYOU UMICRO #### [facility] [address] [place] [address] Dr. Zaheer Bridges Creatinine [Mass/Vol] 0.82 mg/dL Normal 0.55-1.02 [facility] Comment on above: Performed By: #### Ugo RUR PREGU, UMICRO #### [facility] [address] [place] [address] Dr. Zaheer Bridges EGFR-AF VIET[place]ESE >60 Normal >=60 [facility] Comment on above: Performed By: #### Ugo RUR PREGU, UMICRO #### [facility] [address] [place] [address] Dr. Zaheer Bridges EGFR-NON AF [place]ESE >60 Normal >=60 [facility] Comment on above: Performed By: #### E RUR PREGU, UMICRO #### [facility] [address] [address] [address] Zaheer Bridges Glucose [Mass/Vol] 95 mg/dL Normal 74-106 [facility] Comment on above: Performed By: #### E RUR PREGU, UMICRO #### [facility] [address] [place] [address] Dr. Zaheer Bridges Potassium [Moles/Vol] 3.4 mmol/L Critically low 3.5-5.1 [facility] Comment on above: Performed By: #### E RUR PREGU, UMICRO #### [facility] [address] [address] [address] Zaheer Bridges Sodium [Moles/Vol] 141 mmol/L Normal 136-145 [facility] Comment on above: Performed By: #### E RUR PREGU, UMICRO #### [facility] [address] [place] [address] Dr. Zaheer Bridges Urea nitrogen [Mass/Vol] 11.0 mg/dL Normal 7.0-18.0 [facility] Comment on above: Performed By: #### Ugo GRUBER PREGU, UMICRO #### [facility] [address] [address] [address] Zaheer Bridges Urea nitrogen/Creatinine [Mass ratio] 13.4 mg/mg Normal [facility] Comment on above: Performed By: #### E RUR PREGU, UMICRO #### [facility] [address] [place] [address] Dr. Zaheer Bridges URINE MICROSCOPIC ONLYon BACTERIA SMALL Abnormal NONE SEEN [facility] Comment on above: Performed By: #### E THAOR PREGU, UMICRO #### [facility] [address] [place] [address] Dr. Zaheer Bridges Bacteria identified Cx Nom (U) INDICATED Normal [facility] Comment on above: Performed By: #### E RUR, PREGU, UMICRO #### [facility] [address] [place] [address] Dr. Zaheer Bridges CAST NONE SEEN Normal NONE SEEN [facility] Comment on above: Performed By: #### E RUR, PREGU, UMICRO #### [facility] [address] [address] [address] Zaheer Bridges Crystals LM Nom (Urine sed) NONE SEEN Normal NONE SEEN [facility] Comment on above: Performed By: #### E RUR, PREGU, UMICRO #### [facility] [address] [address] [address] Zaheer Bridges Epithelial cells LM Ql (Urine sed) FEW Abnormal NONE SEEN /RARE [facility] Comment on above: Performed By: #### E RUR, PREGU, UMICRO #### [facility] [address] [address] [address] Zaheer Bridges MUCOUS NONE SEEN Normal NONE SEEN [facility] Comment on above: Performed By: #### E RUR, PREGU, UMICRO #### [facility] [address] [address] [address] Zaheer Bridges RBC 5-10 Abnormal 0-2 [facility] Comment on above: Performed By: #### E RUR, PREGU, UMICRO #### [facility] [address] [address] [address] Zaheer Bridges WBC 50-75 Abnormal NONE SEEN [facility] Comment on above: Performed By: #### E RUR, PREGU, UMICRO #### [facility] [address] [address] [address] Zaheer Bridges XR CSPINE 2_3 VIEWSon 2022 XR CSPINE 2_3 VIEWS EXAMINATION: XR CSPINE 2_3 VIEWS HISTORY: Unspecified fall ; acute neck pain after falling and hitting right side of head COMPARISON: No relevant comparison available. FINDINGS: BONES: No significant spondylosis, scoliosis, fracture, or visible bony lesion. DISC SPACES: No significant disc height narrowing, subluxation, or endplate abnormality. PARASPINOUS: Negative. No paraspinous abnormality is seen. OTHER: Negative. IMPRESSION: 1. No acute bone abnormality or significant degenerative changes. Electronically authenticated by: KRISTIE PAULINO Date: 2022-12-11 14:42 Normal [facility] GROUP A STREP CULTUREon 11-08 S. pyogenes Ag Ql (Unsp spec) Culture Observations: NEGATIVE FOR GROUP A STREPTOCOCCUS. Normal [facility] Comment on above: Performed By: #### E LESLIE GRUBER UMICRO #### [facility] [address] [place] [address] Dr. Zaheer Bridges URon 11-29-2022 , QUAL Negative Normal NEGATIVE [facility] Comment on above: Performed By: #### E LESLIE GRUBER UMICRO #### [facility] [address] [address] [address] Zaheer Bridges STREPT SCREENon 11-29-2022 STREP SCREEN A Negative Normal NEGATIVE [facility] Comment on above: Performed By: #### E LESLIE GRUBER UMICRO #### [facility] [address] [place] [address] Dr. Zaheer Bridges CULTURE URINEon 10-04-2022 CULTURE URINE Isolate 1 Escherichia coli >100,000 cfu/mL of ORGANISM 1 Escherichia coli ANTIBIOTIC M.I.C RX STATUS Ampicillin <=2 S F Ampicillin/Sulbactam <=2 S F Piperacillin/Tazobac weller <=4 S F Cefazolin <=4 S F Ceftazidime <=1 S F Ceftriaxone <=1 S F Ertapenem <=0.5 S F Imipenem <=0.25 S F Amikacin <=2 S F Gentamicin <=1 S F Tobramycin <=1 S F Ciprofloxacin <=0.25 S F Levofloxacin <=0.12 S F Nitrofurantoin <=16 S F Trimethoprim/Sulfame thoxazole <=20 S F Normal [facility] Comment on above: Performed By: #### U ACSIND UMICRO #### [facility] [address] [place] [address] Dr. Zaheer Bridges Covid-19 PCR (CVDTB)on 09-07 SARS-CoV-2 (COVID-19) RNA NAI+probe Ql (Unsp spec) Not detected Normal NOT DETECTED [facility] Comment on above: Result Comment: This test is not yet approved or cleared by the [place] FDA. When there are no FDA-approved or cleared tests available, and other criteria are met, FDA can make tests available under an emergency access mechanism called an Emergency Use Authorization (EUA). The EUA for this test is supported by the Form Tamping Machine Operator of Health and Human Service's (HHS's) declaration that circumstances exist to justify the emergency use of in vitro diagnostics for the detection and/or diagnosis of the virus that causes COVID-19. This EUA will remain in effect (meaning this test can be used) for the duration of the COVID-19 declaration justifying emergency of IVDs, unless it is terminated or revoked by FDA (after which the test may no longer be used). When diagnostic testing is negative, the possibility of a false negative should be considered in the context of a patient's recent exposures and the presence of clinical signs and symptoms consistent with SARS-CoV-2. Performed By: #### E RUR PREGU, UMICRO #### [facility] [address] [place] [address] Dr. Zaheer Bridges ER URINE PROFILEon 2 Bilirubin Ql (U) Negative Normal NEGATIVE [facility] Comment on above: Performed By: #### Ugo RUR PREGU, UMICRO #### [facility] [address] [address] [address] Zaheer Bridges Clarity (U) SL CLOUDY Abnormal CLEAR [facility] Comment on above: Performed By: #### E RUR PREGU, UMICRO #### [facility] [address] [place] [address] Dr. Zaheer Bridges Color (U) LT. YELLOW Normal YELLOW [facility] Comment on above: Performed By: #### E RUR PREGU, UMICRO #### [facility] [address] [address] [address] Zaheer Bridges ERUAHD A micrscopic examination will be performed if indicated. Normal [facility] Comment on above: Performed By: #### E RUR, PREGU, UMICRO #### [facility] [address] [place] [address] Dr. Zaheer Bridges Glucose Ql (U) Negative Normal NEGATIVE [facility] Comment on above: Performed By: #### E RUR, PREGU, UMICRO #### [facility] [address] [address] [address] Zaheer Bridges Hemoglobin Ql (U) MODERATE Abnormal NEGATIVE [facility] Comment on above: Performed By: #### E RUR, PREGU, UMICRO #### [facility] [address] [address] [address] Zaheer Bridges Ketones Ql (U) Negative Normal NEGATIVE [facility] Comment on above: Performed By: #### E RUR, PREGU, UMICRO #### [facility] [address] [place] [address] Dr. Zaheer Bridges LEUKOCYTES SMALL Abnormal NEGATIVE [facility] Comment on above: Performed By: #### E RUR, PREGU, UMICRO #### [facility] [address] [place] [address] Dr. Zaheer Bridges Nitrite Ql (U) Negative Normal NEGATIVE [facility] Comment on above: Performed By: #### E RUR, PREGU, UMICRO #### [facility] [address] [place] [address] Dr. Zaheer Bridges pH (U) 5.5 [pH] Normal 5-9 [facility] Comment on above: Performed By: #### E RUR, PREGU, UMICRO #### [facility] [address] [place] [address] Dr. Zaheer Bridges Protein (U) [Mass/Vol] 30 mg/dL Abnormal NEGATIVE/ TRACE [facility] Comment on above: Performed By: #### E RUR, PREGU, UMICRO #### [facility] [address] [place] [address] Dr. Zaheer Bridges SPEC GRAVITY 1.015 Normal 1.005-<=1.025 [facility] Comment on above: Performed By: #### E RUR, PREGU, UMICRO #### [facility] [address] [place] [address] Dr. Zaheer Bridges UR MICRO IND INDICATED Normal [facility] Comment on above: Performed By: #### E RUR, PREGU, UMICRO #### [facility] [address] [place] [address] Dr. Zaheer Bridges Urobilinogen Qn (U) 0.2 {Tereza'U}/dL Normal 0.2 - 1. 0 [facility] Comment on above: Performed By: #### LESLIE ARROYO UMICRO #### [facility] [address] [place] [address] Dr. Zaheer Bridges INFLUENZA A AND B AGon 10-02 INFLUANEGH SEE BELOW Normal [facility] Comment on above: Result Comment: Nega tive for Flu A protein angiten. Infection due to Flu A cannot be ruled out. Flu A angiten in the sample may be below the detection limit of the test. Performed By: #### LESLIE ARROYO UMICRO #### [facility] [address] [place] [address] Dr. Zaheer Bridges INFLUBNEGH SEE BELOW Normal [facility] Comment on above: Result Comment: Nega tive for Flu B protein antigen. Infection due to Flu B cannot be ruled out. Flu B antigen in the sample may be below the detection limit of the test. Performed By: #### LESLIE ARROYO UMICRO #### [facility] [address] [place] [address] Dr. Zaheer Bridges INFLUENZA A AG Negative Normal NEGATIVE SEE COMMENT [facility] Comment on above: Performed By: #### LESLIE ARROYO UMICRO #### [facility] [address] [place] [address] Dr. Zaheer Bridges INFLUENZA B AG Negative Normal NEGATIVE SEE COMMENT [facility] Comment on above: Performed By: #### LESLIE ARROYO UMICRO #### [facility] [address] [place] [address] Dr. Zaheer Bridges INTERNAL CONTROLS Within Normal Limits Normal Wi thin Normal Limits [facility] Comment on above: Performed By: #### LESLIE ARROYO UMICRO #### [facility] [address] [place] [address] Dr. Zaheer Bridges URon 10-02-2022 , QUAL Negative Normal NEGATIVE [facility] Comment on above: Performed By: #### E RUR, PREGU, UMICRO #### [facility] [address] [address] [address] Zaheer Bridges URINE MICROSCOPIC ONLYon BACTERIA SMALL Abnormal NONE SEEN [facility] Comment on above: Performed By: #### E RUR, PREGU, UMICRO #### [facility] [address] [address] [address] Zaheer Bridges Bacteria identified Cx Nom (U) INDICATED Normal [facility] Comment on above: Performed By: #### E RUR, PREGU, UMICRO #### [facility] [address] [place] [address] Dr. Zaheer Bridges CAST NONE SEEN Normal NONE SEEN [facility] Comment on above: Performed By: #### E RUR, PREGU, UMICRO #### [facility] [address] [address] [address] Zaheer Birdges Crystals LM Nom (Urine sed) NONE SEEN Normal NONE SEEN [facility] Comment on above: Performed By: #### E RUR, PREGU, UMICRO #### [facility] [address] [place] [address] Dr. Zaheer Bridges Epithelial cells LM Ql (Urine sed) RARE Normal NONE SEEN /RARE [facility] Comment on above: Performed By: #### E RUR, PREGU, UMICRO #### [facility] [address] [address] [address] Zaheer Bridges MUCOUS NONE SEEN Normal NONE SEEN [facility] Comment on above: Performed By: #### E RUR, PREGU, UMICRO #### [facility] [address] [address] [address] Zaheer Bridges RBC 20-50 Abnormal 0-2 [facility] Comment on above: Performed By: #### E RUR, PREGU, UMICRO #### [facility] [address] [address] [address] Zaheer Bridges WBC (U) [#/Vol] /uL Abnormal NONE SEEN [facility] Comment on above: Performed By: #### E LESLIE GRUBER UMICRO #### [facility] [address] [place] [address] Dr. Zaheer Bridges CHLAMYDIA/GONOCOCCUS NAI ( AB/URINE/PAPon 08-26-2022 Chlamydia trachomatis, NAI Negative Normal Negative [facility] Comment on above: Performed By: #### E LESLIE GRUBER UMICRO #### [facility] [address] [place] [address] Dr. Zaheer Bridges Neisseria gonorrhoeae, NAI Negative Normal Negative [facility] Comment on above: Performed By: #### E LESLIE GRUBER UMICRO #### [facility] [address] [place] [address] Dr. Zaheer Bridges CULTURE URINEon 08-25-2022 CULTURE URINE Isolate 1 Streptococcus agalactiae 10,000 cfu/mL of ORGANISM 1 Streptococcus agalactiae ANTIBIOTIC M.I.C RX STATUS Benzylpenicillin <=0.06 S F Ampicillin <=0.25 S F Cefotaxime <=0.12 S F Ceftriaxone <=0.12 S F Levofloxacin 0.5 S F Inducible Clindamycin Resistance Neg NEG F Erythromycin <=0.12 S F Clindamycin <=0.25 S F Linezolid <=2 S F Vancomycin 0.5 S F Tetracycline >=16 R F Normal [facility] Comment on above: Performed By: #### U ACSINDDAJA #### [facility] [address] [place] [address] Dr. Zaheer Bridges ER URINE PROFILEon 2 Bilirubin Ql (U) Negative Normal NEGATIVE [facility] Comment on above: Performed By: #### U LESLIE ALAS ERUR #### [facility] [address] [place] [address] Dr. Zaheer Bridges Clarity (U) CLOUDY Abnormal CLEAR [facility] Comment on above: Performed By: #### U MICRO PREGU, ERUR #### [facility] [address] [place] [address] Dr. Zaheer Bridges Color (U) YELLOW Normal YELLOW [facility] Comment on above: Performed By: #### U MICRO, PREGU, ERUR #### [facility] [address] [address] [address] Zaheer SIERRA A micrscopic examination will be performed if indicated. Normal [facility] Comment on above: Performed By: #### U MICRO, PREGU, ERUR #### [facility] [address] [address] [address] Zaheer Bridges Glucose Ql (U) Negative Normal NEGATIVE [facility] Comment on above: Performed By: #### U MICRO, PREGU, ERUR #### [facility] [address] [address] [address] Zaheer Bridges Hemoglobin Ql (U) Negative Normal NEGATIVE [facility] Comment on above: Performed By: #### U MICRO, PREGU, ERUR #### [facility] [address] [address] [address] Zaheer Bridges Ketones Ql (U) Negative Normal NEGATIVE [facility] Comment on above: Performed By: #### U MICRO, PREGU, ERUR #### [facility] [address] [address] [address] Zaheer Bridges LEUKOCYTES MODERATE Abnormal NEGATIVE [facility] Comment on above: Performed By: #### U MICRO, PREGU, ERUR #### [facility] [address] [address] [address] Zaheer Bridges Nitrite Ql (U) Negative Normal NEGATIVE [facility] Comment on above: Performed By: #### U MICRO, PREGU, ERUR #### [facility] [address] [address] [address] Zaheer Bridges pH (U) 6.0 [pH] Normal 5-9 [facility] Comment on above: Performed By: #### U MICRO, PREGU, ERUR #### [facility] [address] [address] [address] Zaheer Bridges SPEC GRAVITY >=1.030 Abnormal 1.005-<=1.025 [facility] Comment on above: Performed By: #### U MICRO, PREGU, ERUR #### [facility] [address] [address] [address] Zaheer Bridges UA PROTEIN Negative Normal NEGATIVE/ TRACE [facility] Comment on above: Performed By: #### U MICRO, PREGU, ERUR #### [facility] [address] [address] [address] Zaheer Bridges UR MICRO IND INDICATED Normal [facility] Comment on above: Performed By: #### U MICRO, PREGU, ERUR #### [facility] [address] [address] [address] Zaheer Bridges Urobilinogen Qn (U) 0.2 {Tereza'U}/dL Normal 0.2 - 1. 0 [facility] Comment on above: Performed By: #### U MICRO, PREGU, ERUR #### [facility] [address] [place] [address] Dr. Zaheer Bridges URon 08-23-2022 , QUAL Negative Normal NEGATIVE [facility] Comment on above: Performed By: #### U MICRO, PREGU, ERUR #### [facility] [address] [address] [address] Zaheer Bridges URINE MICROSCOPIC ONLYon BACTERIA MODERATE Abnormal NONE SEEN [facility] Comment on above: Performed By: #### U MICRO, PREGU, ERUR #### [facility] [address] [address] [address] Zaheer Bridges Bacteria identified Cx Nom (U) INDICATED Normal [facility] Comment on above: Performed By: #### U MICRO, PREGU, ERUR #### [facility] [address] [address] [address] Zaheer Bridges CA OX CRYSTALS MODERATE Normal [facility] Comment on above: Performed By: #### U MICRO, PREGU, ERUR #### [facility] [address] [address] [address] Zaheer Bridges CAST NONE SEEN Normal NONE SEEN [facility] Comment on above: Performed By: #### U MICRO, PREGU, ERUR #### [facility] [address] [address] [address] Zaheer Bridges Crystals LM Nom (Urine sed) SEEN Abnormal NONE SEEN [facility] Comment on above: Performed By: #### U MICRO, PREGU, ERUR #### [facility] [address] [place] [address] Dr. Zaheer Bridges Epithelial cells LM Ql (Urine sed) MANY Abnormal NONE SEEN /RARE [facility] Comment on above: Performed By: #### U MICRO, PREGU, ERUR #### [facility] [address] [place] [address] Dr. Zaheer Bridges MUCOUS NONE SEEN Normal NONE SEEN [facility] Comment on above: Performed By: #### U MICRO, PREGU, ERUR #### [facility] [address] [place] [address] Dr. Zaheer Bridges RBC NONE SEEN Abnormal 0-2 [facility] Comment on above: Performed By: #### U MICRO, PREGU, ERUR #### [facility] [address] [place] [address] Dr. Zaheer Bridges WBC 5-10 Abnormal NONE SEEN [facility] Comment on above: Performed By: #### U MICRO, PREGU, ERUR #### [facility] [address] [place] [address] Dr. Zaheer Bridges WET PREPon 08-23-2022 CLUE CELLS SEEN Abnormal NONE SEEN [facility] Comment on above: Performed By: #### W P #### [facility] [address] [place] [address] Dr. Zaheer Bridges FUNGAL ELEMENTS NONE SEEN Normal NONE SEEN [facility] Comment on above: Performed By: #### W P #### [facility] [address] [place] [address] Dr. Zaheer Bridges RBC -WET PREP RARE Abnormal NONE SEEN [facility] Comment on above: Performed By: #### W P #### [facility] [address] [place] [address] Dr. Zaheer Bridges TRICHOMONAS NONE SEEN Normal NONE SEEN [facility] Comment on above: Performed By: #### W P #### [facility] [address] [place] [address] Dr. Zaheer Bridges WBC- WET PREP MODERATE Abnormal NONE SEEN [facility] Comment on above: Performed By: #### W P #### [facility] [address] [address] [address] Zaheer Bridges WET PREP BACTERIA RARE Abnormal NONE SEEN [facility] Comment on above: Performed By: #### W P #### [facility] [address] [place] [address] Dr. Zaheer Bridges ER URINE PROFILEon 2 Bilirubin Ql (U) Negative Normal NEGATIVE [facility] Comment on above: Performed By: #### E RUR, PREGU, UMICRO #### [facility] [address] [place] [address] Dr. Zaheer Bridges Clarity (U) CLEAR Normal CLEAR [facility] Comment on above: Performed By: #### E RUR, PREGU, UMICRO #### [facility] [address] [place] [address] Dr. Zaheer Bridges Color (U) LT. YELLOW Normal YELLOW [facility] Comment on above: Performed By: #### E RUR, PREGU, UMICRO #### [facility] [address] [place] [address] Dr. Zaheer SIERRA A micrscopic examination will be performed if indicated. Normal [facility] Comment on above: Performed By: #### E RUR, PREGU, UMICRO #### [facility] [address] [place] [address] Dr. Zaheer Bridges Glucose Ql (U) Negative Normal NEGATIVE [facility] Comment on above: Performed By: #### E RUR, PREGU, UMICRO #### [facility] [address] [place] [address] Dr. Zaheer Bridges Hemoglobin Ql (U) Negative Normal NEGATIVE [facility] Comment on above: Performed By: #### E RUR, PREGU, UMICRO #### [facility] [address] [place] [address] Dr. Zaheer Bridges Ketones Ql (U) Negative Normal NEGATIVE [facility] Comment on above: Performed By: #### E RUR, PREGU, UMICRO #### [facility] [address] [place] [address] Dr. Zaheer Bridges LEUKOCYTES Negative Normal NEGATIVE [facility] Comment on above: Performed By: #### E RUR, PREGU, UMICRO #### [facility] [address] [address] [address] Zaheer Bridges Nitrite Ql (U) Negative Normal NEGATIVE [facility] Comment on above: Performed By: #### E RUR, PREGU, UMICRO #### [facility] [address] [address] [address] Zaheer Bridges pH (U) 6.5 [pH] Normal 5-9 [facility] Comment on above: Performed By: #### E RUR, PREGU, UMICRO #### [facility] [address] [place] [address] Dr. Zaheer Bridges SPEC GRAVITY 1.015 Normal 1.005-<=1.025 [facility] Comment on above: Performed By: #### E RUR, PREGU, UMICRO #### [facility] [address] [place] [address] Dr. Zaheer Bridges UA PROTEIN Negative Normal NEGATIVE/ TRACE [facility] Comment on above: Performed By: #### E RUR, PREGU, UMICRO #### [facility] [address] [address] [address] Zaheer Bridges UR MICRO IND NOT INDICATED Normal [facility] Comment on above: Performed By: #### E RUR, PREGU, UMICRO #### [facility] [address] [address] [address] Zaheer Bridges Urobilinogen Qn (U) 0.2 {Tereza'U}/dL Normal 0.2 - 1. 0 [facility] Comment on above: Performed By: #### E RUR, PREGU, UMICRO #### [facility] [address] [place] [address] Dr. Zaheer Bridges URon 07-29-2022 , QUAL Negative Normal NEGATIVE [facility] Comment on above: Performed By: #### E RUR, PREGU, UMICRO #### [facility] [address] [place] [address] Dr. Zaheer Bridges CBC AUTO DIFFon 05-12-2022 BASO # 0.1 103/ul Normal 0.0-0.1 [facility] Comment on above: Performed By: #### E RUR, PREGU, UMICRO #### [facility] [address] [place] [address] Dr. Zaheer Bridges Basophils/100 WBC (Bld) 0.4 % Normal 0.2-2.0 [facility] Comment on above: Performed By: #### E RUR, PREGU, UMICRO #### [facility] [address] [place] [address] Dr. Zaheer Bridges EO # 0.2 103/ul Normal 0.0-0.7 [facility] Comment on above: Performed By: #### E RUR, PREGU, UMICRO #### [facility] [address] [place] [address] Dr. Zaheer Bridges Eosinophils/100 WBC (Bld) 1.6 % Normal 0.9-7.0 [facility] Comment on above: Performed By: #### E RUR, PREGU, UMICRO #### [facility] [address] [place] [address] Dr. Zaheer Bridges Erythrocyte distribution width (RBC) [Ratio] 14.6 % Normal 11.0-15.0 [facility] Comment on above: Performed By: #### E RUR, PREGU, UMICRO #### [facility] [address] [place] [address] Dr. Zaheer Bridges Hematocrit (Bld) [Volume fraction] 26.1 % Critically low 36.0-48.0 [facility] Comment on above: Performed By: #### E RUR, PREGU, UMICRO #### [facility] [address] [place] [address] Dr. Zaheer Bridges Hemoglobin (Bld) [Mass/Vol] 8.2 g/dL Critically low 12.0-16.0 [facility] Comment on above: Performed By: #### LESLIE ARROYO UMICRO #### [facility] [address] [address] [address] Zaheer Bridges IG # 0.10 10e3/ul Critically high 0.00-0.03 [facility] Comment on above: Performed By: #### LESLIE ARROYO UMICRO #### [facility] [address] [place] [address] Dr. Zaheer Bridges IG % 0.9 % Critically high 0.0-0.5 [facility] Comment on above: Performed By: #### LESLIE ARROYO UMICRO #### [facility] [address] [place] [address] Dr. Zaheer Bridges LYMPH # 2.7 103/ul Normal 1.2-3.8 [facility] Comment on above: Performed By: #### LESLIE ARROYO UMICRO #### [facility] [address] [place] [address] Dr. Zaheer Bridges Lymphocytes/100 WBC (Bld) 23.3 % Normal 20.5-60.0 [facility] Comment on above: Performed By: #### LESLIE ARROYO UMICRO #### [facility] [address] [place] [address] Dr. Zaheer Bridges MANUAL DIFF REQ NO Normal [facility] Comment on above: Performed By: #### JONO ARROYOU, UMICRO #### [facility] [address] [place] [address] Dr. Zaheer Bridges MCH (RBC) [Entitic mass] 25.8 pg Critically low 26.7-34.0 [facility] Comment on above: Performed By: #### JONO ARROYOU, UMICRO #### [facility] [address] [place] [address] Dr. Zaheer Bridges MCHC (RBC) [Mass/Vol] 31.4 g/dL Normal 29.9-35.2 [facility] Comment on above: Performed By: #### LESLIE ARROYO UMICRO #### [facility] [address] [address] [address] Zaheer Bridges MCV (RBC) [Entitic vol] 82.1 fL Normal 81.0-99.0 [facility] Comment on above: Performed By: #### LESLIE ARROYO UMICRO #### [facility] [address] [place] [address] Dr. Zaheer Bridges MONO # 1.1 103/ul Critically high 0.3-0.8 [facility] Comment on above: Performed By: #### LESLIE ARROYO UMICRO #### [facility] [address] [place] [address] Dr. Zaheer Bridges Monocytes/100 WBC (Bld) 9.1 % Normal 1.7-12.0 [facility] Comment on above: Performed By: #### LESLIE ARROYO UMICRO #### [facility] [address] [place] [address] Dr. Zaheer Bridges NEUT # 7.5 103/ul Critically high 1.4-6.5 [facility] Comment on above: Performed By: #### LESLIE ARROYO UMICRO #### [facility] [address] [place] [address] Dr. Zaheer Bridges Neutrophils/100 WBC (Bld) 64.7 % Normal 43.0-75.0 [facility] Comment on above: Performed By: #### LESLIE ARROYO UMICRO #### [facility] [address] [place] [address] Dr. Zaheer Bridges Platelet mean volume (Bld) [Entitic vol] 10.7 fL Normal 9.5-13.5 [facility] Comment on above: Performed By: #### LESLIE ARROYO UMICRO #### [facility] [address] [place] [address] Dr. Zaheer Bridges PLT 172 103/ul Normal 150-450 [facility] Comment on above: Performed By: #### LESLIE ARROYO UMICRO #### [facility] [address] [address] [address] Zaheer Bridges RBC 3.18 106/ul Critically low 4.20-5.40 [facility] Comment on above: Performed By: #### JONO ARROYOU UMICRO #### [facility] [address] [place] [address] Dr. Zaheer Bridges WBC 11.6 103/ul Critically high 4.0-11.0 [facility] Comment on above: Performed By: #### LESLIE ARROYO UMICRO #### [facility] [address] [place] [address] Dr. Zaheer Bridges CBC AUTO DIFFon 05-10-2022 BASO # 0.0 103/ul Normal 0.0-0.1 [facility] Comment on above: Performed By: #### LESLIE ARROYO UMICRO #### [facility] [address] [address] [address] Zaheer Bridges Basophils/100 WBC (Bld) 0.3 % Normal 0.2-2.0 [facility] Comment on above: Performed By: #### LESLIE ARROYO UMICRO #### [facility] [address] [place] [address] Dr. Zaheer Bridges EO # 0.1 103/ul Normal 0.0-0.7 [facility] Comment on above: Performed By: #### LESLIE ARROYO UMICRO #### [facility] [address] [place] [address] Dr. Zaheer Bridges Eosinophils/100 WBC (Bld) 1.0 % Normal 0.9-7.0 [facility] Comment on above: Performed By: #### LESLIE ARROYO UMICRO #### [facility] [address] [place] [address] Dr. Zaheer Bridges Erythrocyte distribution width (RBC) [Ratio] 14.6 % Normal 11.0-15.0 [facility] Comment on above: Performed By: #### LESLIE ARROYO UMICRO #### [facility] [address] [place] [address] Dr. Zaheer Bridges Hematocrit (Bld) [Volume fraction] 32.2 % Critically low 36.0-48.0 [facility] Comment on above: Performed By: #### LESLIE ARROYO UMICRO #### [facility] [address] [place] [address] Dr. Zaheer Bridges Hemoglobin (Bld) [Mass/Vol] 10.0 g/dL Critically low 12.0-16.0 [facility] Comment on above: Performed By: #### LESLIE ARROYO UMICRO #### [facility] [address] [place] [address] Dr. Zaheer Bridges IG # 0.09 10e3/ul Critically high 0.00-0.03 [facility] Comment on above: Performed By: #### LESLIE ARROYO UMICRO #### [facility] [address] [place] [address] Dr. Zaheer Bridges IG % 0.7 % Critically high 0.0-0.5 [facility] Comment on above: Performed By: #### LESLIE ARROYO UMICRO #### [facility] [address] [place] [address] Dr. Zaheer Bridges LYMPH # 1.9 103/ul Normal 1.2-3.8 [facility] Comment on above: Performed By: #### LESLIE ARROYO UMICRO #### [facility] [address] [place] [address] Dr. Zaheer Bridges Lymphocytes/100 WBC (Bld) 15.7 % Critically low 20.5-60.0 [facility] Comment on above: Performed By: #### LESLIE ARROYO UMICRO #### [facility] [address] [place] [address] Dr. Zaheer Bridges MANUAL DIFF REQ NO Normal [facility] Comment on above: Performed By: #### LESLIE ARROYO UMICRO #### [facility] [address] [address] [address] Zaheer Bridges MCH (RBC) [Entitic mass] 25.5 pg Critically low 26.7-34.0 [facility] Comment on above: Performed By: #### E RUR PREGU, UMICRO #### [facility] [address] [place] [address] Dr. Zaheer Bridges MCHC (RBC) [Mass/Vol] 31.1 g/dL Normal 29.9-35.2 [facility] Comment on above: Performed By: #### E RUR, PREGU, UMICRO #### [facility] [address] [place] [address] Dr. Zaheer Bridges MCV (RBC) [Entitic vol] 82.1 fL Normal 81.0-99.0 [facility] Comment on above: Performed By: #### E RUR PREGU, UMICRO #### [facility] [address] [place] [address] Dr. Zaheer Bridges MONO # 1.0 103/ul Critically high 0.3-0.8 [facility] Comment on above: Performed By: #### Ugo RUR PREGU, UMICRO #### [facility] [address] [place] [address] Dr. Zaheer Bridges Monocytes/100 WBC (Bld) 8.2 % Normal 1.7-12.0 [facility] Comment on above: Performed By: #### E RUR PREGU, UMICRO #### [facility] [address] [place] [address] Dr. Zaheer Bridges NEUT # 9.1 103/ul Critically high 1.4-6.5 [facility] Comment on above: Performed By: #### E RUR, PREGU, UMICRO #### [facility] [address] [place] [address] Dr. Zaheer Bridges Neutrophils/100 WBC (Bld) 74.1 % Normal 43.0-75.0 [facility] Comment on above: Performed By: #### E RUR, PREGU, UMICRO #### [facility] [address] [place] [address] Dr. Zaheer Bridges Platelet mean volume (Bld) [Entitic vol] 10.9 fL Normal 9.5-13.5 [facility] Comment on above: Performed By: #### LESLIE ARROYO UMICRO #### [facility] [address] [address] [address] Zaheer Bridges PLT 234 103/ul Normal 150-450 [facility] Comment on above: Performed By: #### E LESLIE GRUBER UMICRO #### [facility] [address] [place] [address] Dr. Zaheer Bridges RBC 3.92 106/ul Critically low 4.20-5.40 [facility] Comment on above: Performed By: #### LESLIE ARROYO UMICRO #### [facility] [address] [place] [address] Dr. Zaheer Bridges WBC 12.3 103/ul Critically high 4.0-11.0 [facility] Comment on above: Performed By: #### LESLIE ARROYO UMICRO #### [facility] [address] [place] [address] Dr. Zaheer Bridges Covid-19 PCR ([facility])on SARS-CoV-2 (COVID-19) RNA NAI+probe Ql (Unsp spec) Not detected Normal NOT DETECTED [facility] Comment on above: Result Comment: When diagnostic testing is negative, the possibility of a false negative should be considered in the context of a patient's recent exposures and the presence of clinical signs and symptoms consistent with SARS-CoV-2. This test is not yet approved or cleared by the [place] FDA. When there are no FDA-approved or cleared tests available, and other criteria are met, FDA can make tests available under an emergency access mechanism called an Emergency Use Authorization (EUA). The EUA for this test is supported by the Form Tamping Machine Operator of Health and Human Service's declaration that circumstances exist to justify the emergency use of in vitro diagnostics for the detection and/or diagnosis of the virus that causes COVID-19. This EUA will remain in effect for the duration of the COVID-19 declaration justifying emergency of IVDs, unless it is terminated or revoked by the FDA (after which the test may no longer be used). Performed By: #### E LESLIE GRUBER UMICRO #### [facility] [address] [address] [address] Zaheer Bridges DRUG SCREEN RAPID (URINE)on 05-10-2022 AMP Negative Normal NEGATIVE [facility] Comment on above: Performed By: #### D RUGRPD #### [facility] [address] [address] [address] Zaheer Bridges BAR Negative Normal NEGATIVE [facility] Comment on above: Performed By: #### D RUGRPD #### [facility] [address] [place] [address] Dr. Zaheer Bridges BUP Negative Normal NEGATIVE [facility] Comment on above: Performed By: #### D RUGRPD #### [facility] [address] [place] [address] Dr. Zaheer Bridges BZO Negative Normal NEGATIVE [facility] Comment on above: Performed By: #### D RUGRPD #### [facility] [address] [address] [address] Zaheer Bridges TAYLOR Negative Normal NEGATIVE [facility] Comment on above: Performed By: #### D RUGRPD #### [facility] [address] [place] [address] Dr. Zaheer Bridges CUT-OFFS SEE BELOW Normal [facility] Comment on above: Result Comment: AMP (Amphetamine): 500ng/mL, BAR (Barbituates): 200 ng/mL, BZO (Benzodiazepines): 150 ng/mL, BUP (Buprenorphine): 10 ng/mL, TAYLOR (Cocaine): 150 ng/mL, mAMP (Methamphetamine): 500 ng/mL, MTD (Methadone): 200 ng/mL, OPI (Opiates): 100 ng/mL, OXY (Oxycodone): 100 ng/mL, PCP (Phencyclidine): 25 ng/mL, PPX (Propoxyphene): 300 ng/mL, THC (Cannabinoids): 50 ng/mL, TCA (Trycyclic Antidepressants): 300 ng/mL Performed By: #### D RUGRPD #### [facility] [address] [place] [address] Dr. Zaheer Bridges DRUG CUT HEADER DRUG CLASS TEST SYSTEM CUT-OFF CONCENTRATIONS ARE FOLLOWS: Normal [facility] Comment on above: Performed By: #### D RUGRPD #### [facility] [address] [place] [address] Dr. Zaheer Bridges mAMP Negative Normal NEGATIVE [facility] Comment on above: Performed By: #### D RUGRPD #### [facility] [address] [place] [address] Dr. Zaheer Bridges MTD Negative Normal NEGATIVE [facility] Comment on above: Performed By: #### D RUGRPD #### [facility] [address] [place] [address] Dr. Zaheer Bridges OPI Negative Normal NEGATIVE [facility] Comment on above: Performed By: #### D RUGRPD #### [facility] [address] [place] [address] Dr. Zaheer Bridges OXY Negative Normal NEGATIVE [facility] Comment on above: Performed By: #### D RUGRPD #### [facility] [address] [address] [address] Zaheer Bridges PCP Negative Normal NEGATIVE [facility] Comment on above: Performed By: #### D RUGRPD #### [facility] [address] [place] [address] Dr. Zaheer Bridges PPX Negative Normal NEGATIVE [facility] Comment on above: Performed By: #### D RUGRPD #### [facility] [address] [place] [address] Dr. Zaheer Bridges TCA Negative Normal NEGATIVE [facility] Comment on above: Performed By: #### D RUGRPD #### [facility] [address] [place] [address] Dr. Zaheer Bridges THC Negative Normal NEGATIVE [facility] Comment on above: Performed By: #### D RUGRPD #### [facility] [address] [place] [address] Dr. Zaheer Bridges TYPE AND SCREENon 08-04-2022 TYPE AND SCREEN Negative Normal [facility] Comment on above: Performed By: #### U ACSHIMANSHU, UMICRO #### [facility] [address] [address] [address] Zaheer Bridges CHLAMYDIA/GONOCOCCUS NAI (SW AB/URINE/PAPon 04-19-2022 Chlamydia trachomatis, NAI Positive Abnormal Negative [facility] Comment on above: Result Comment: . Performed By: #### E LESLIE GRUBER UMICRO #### [facility] [address] [address] [address] Zaheer Bridges Neisseria gonorrhoeae, NAI Negative Normal Negative [facility] Comment on above: Performed By: #### LESLIE ARROYO UMICRO #### [facility] [address] [place] [address] Dr. Zaheer Bridges GROUP B STREP CULTUREon 04-06 S. agalactiae Ag Ql (Unsp spec) Culture Observations: NEGATIVE FOR GROUP B STREPTOCOCCUS. Normal [facility] Comment on above: Performed By: #### U ACSHIMANSHU UMICRO #### [facility] [address] [place] [address] Dr. Zaheer Bridges UA (CLEAN/CATCH) TRUCK ENGINE TECHNICIAN/MICRO I F IND.on 03-31-2022 Bilirubin Ql (U) Negative Normal NEGATIVE [facility] Comment on above: Performed By: #### JONO ARROYOU, UMICRO #### [facility] [address] [place] [address] Dr. Zaheer Bridges Clarity (U) CLEAR Normal CLEAR [facility] Comment on above: Performed By: #### Ugo GRUBER PREGU, UMICRO #### [facility] [address] [place] [address] Dr. Zaheer Bridges Color (U) YELLOW Normal YELLOW [facility] Comment on above: Performed By: #### E THAOR PREGU, UMICRO #### [facility] [address] [place] [address] Dr. Zaheer Bridges Glucose Ql (U) Negative Normal NEGATIVE [facility] Comment on above: Performed By: #### E RUDianelys PREGU UMICRO #### [facility] [address] [address] [address] Zaheer Bridges Hemoglobin Ql (U) Negative Normal NEGATIVE [facility] Comment on above: Performed By: #### E RUR, PREGU, UMICRO #### [facility] [address] [address] [address] Zahere Bridges Ketones Ql (U) Negative Normal NEGATIVE [facility] Comment on above: Performed By: #### E RUR PREGU, UMICRO #### [facility] [address] [address] [address] Zaheer Bridges LEUKOCYTES Negative Normal NEGATIVE [facility] Comment on above: Performed By: #### E RUR PREGU, UMICRO #### [facility] [address] [place] [address] Dr. Zaheer Bridges Nitrite Ql (U) Negative Normal NEGATIVE [facility] Comment on above: Performed By: #### Ugo GRUBER PREGU, UMICRO #### [facility] [address] [address] [address] Zaheer Bridges pH (U) 6.0 [pH] Normal 5-9 [facility] Comment on above: Performed By: #### E RUR PREGU, UMICRO #### [facility] [address] [address] [address] Zaheer Bridges SPEC GRAVITY >=1.030 Abnormal 1.005-<=1.025 [facility] Comment on above: Performed By: #### E RUR PREGU, UMICRO #### [facility] [address] [address] [address] Zaheer Bridges UA PROTEIN Negative Normal NEGATIVE/ TRACE [facility] Comment on above: Performed By: #### E RUR, PREGU, UMICRO #### [facility] [address] [address] [address] Zaheer Bridges UR MICRO IND NOT INDICATED Normal [facility] Comment on above: Performed By: #### E RUR PREGU, UMICRO #### [facility] [address] [address] [address] Zaheer Bridges Urobilinogen Qn (U) 1.0 {Tereza'U}/dL Normal 0.2 - 1. 0 [facility] Comment on above: Performed By: #### E RURJONOU, UMICRO #### [facility] [address] [address] [address] Zaheer Bridges UA (CLEAN/CATCH) TRUCK ENGINE TECHNICIAN/MICRO I F IND.on 03-28-2022 Bilirubin Ql (U) Negative Normal NEGATIVE [facility] Comment on above: Performed By: #### U ACSIND, UMICRO #### [facility] [address] [address] [address] Zaheer Bridges Clarity (U) CLEAR Normal CLEAR [facility] Comment on above: Performed By: #### U ACSIND, UMICRO #### [facility] [address] [place] [address] Dr. Zaheer Bridges Color (U) YELLOW Normal YELLOW [facility] Comment on above: Performed By: #### U ACSIND, ICRO #### [facility] [address] [place] [address] Dr. Zaheer Bridges Glucose Ql (U) Negative Normal NEGATIVE [facility] Comment on above: Performed By: #### U ACSIND, UMICRO #### [facility] [address] [place] [address] Dr. Zaheer Bridges Hemoglobin Ql (U) Negative Normal NEGATIVE [facility] Comment on above: Performed By: #### U ACSIND, UMICRO #### [facility] [address] [place] [address] Dr. Zaheer Bridges Ketones Ql (U) Negative Normal NEGATIVE [facility] Comment on above: Performed By: #### U ACSIND, UMICRO #### [facility] [address] [place] [address] Dr. Zaheer Bridges LEUKOCYTES Negative Normal NEGATIVE [facility] Comment on above: Performed By: #### U ACSIND, UMICRO #### [facility] [address] [place] [address] Dr. Zaheer Bridges Nitrite Ql (U) Negative Normal NEGATIVE [facility] Comment on above: Performed By: #### U ACSHIMANSHU UMICRO #### [facility] [address] [place] [address] Dr. Zaheer Bridges pH (U) 6.5 [pH] Normal 5-9 [facility] Comment on above: Performed By: #### U ACSHIMANSHU UMICRO #### [facility] [address] [place] [address] Dr. Zaheer Bridges SPEC GRAVITY 1.025 Normal 1.005-<=1.025 [facility] Comment on above: Performed By: #### U ACSHIMANSHU UMICRO #### [facility] [address] [place] [address] Dr. Zaheer Bridges UA PROTEIN Negative Normal NEGATIVE/ TRACE [facility] Comment on above: Performed By: #### U ACSHIMANSHU UMICRO #### [facility] [address] [place] [address] Dr. Zaheer Bridges UR MICRO IND NOT INDICATED Normal [facility] Comment on above: Performed By: #### U ACSHIMANSHU UMICRO #### [facility] [address] [place] [address] Dr. Zaheer Bridges Urobilinogen Qn (U) 1.0 {Tereza'U}/dL Normal 0.2 - 1. 0 [facility] Comment on above: Performed By: #### U ACSHIMANSHU UMICRO #### [facility] [address] [place] [address] Dr. Zaheer Bridges CULTURE URINEon 03-20-2022 CULTURE URINE Culture Observations: MODERATE GROWTH OF MIXED GENITAL VIJAYA. NO POTENTIAL PATHOGENS SEEN. Normal [facility] Comment on above: Performed By: #### U ACSHIMANSHU UMICRO #### [facility] [address] [place] [address] Dr. Zaheer Bridges UA (CLEAN/CATCH) TRUCK ENGINE TECHNICIAN/MICRO I F IND.on 03-20-2022 Bilirubin Ql (U) Negative Normal NEGATIVE [facility] Comment on above: Performed By: #### U ACSHIMANSHU UMICRO #### [facility] [address] [address] [address] Zaheer Bridges Clarity (U) CLEAR Normal CLEAR [facility] Comment on above: Performed By: #### U ACSIND, UMICRO #### [facility] [address] [address] [address] Zaheer Bridges Color (U) BROWN Abnormal YELLOW [facility] Comment on above: Performed By: #### U ACSIND, UMICRO #### [facility] [address] [address] [address] Zaheer Bridges Glucose Ql (U) Negative Normal NEGATIVE [facility] Comment on above: Performed By: #### U ACSIND, UMICRO #### [facility] [address] [address] [address] Zaheer Bridges Hemoglobin Ql (U) TRACE-LYSED Abnormal NEGATIVE [facility] Comment on above: Performed By: #### U ACSIND, UMICRO #### [facility] [address] [address] [address] Zaheer Bridges Ketones Ql (U) TRACE Abnormal NEGATIVE [facility] Comment on above: Performed By: #### U ACSIND, UMICRO #### [facility] [address] [address] [address] Zaheer Bridges LEUKOCYTES SMALL Abnormal NEGATIVE [facility] Comment on above: Performed By: #### U ACSIND, UMICRO #### [facility] [address] [address] [address] Zaheer Bridges Nitrite Ql (U) Negative Normal NEGATIVE [facility] Comment on above: Performed By: #### U ACSIND, UMICRO #### [facility] [address] [address] [address] Zaheer Bridges pH (U) 6.0 [pH] Normal 5-9 [facility] Comment on above: Performed By: #### U ACSIND, UMICRO #### [facility] [address] [address] [address] Zaheer Bridges SPEC GRAVITY >=1.030 Abnormal 1.005-<=1.025 [facility] Comment on above: Performed By: #### U ACSIND, UMICRO #### [facility] [address] [address] [address] Zaheer Bridges UA PROTEIN Negative Normal NEGATIVE/ TRACE [facility] Comment on above: Performed By: #### U ACSIND, UMICRO #### [facility] [address] [address] [address] Zaheer Bridges UR MICRO IND INDICATED Normal [facility] Comment on above: Performed By: #### U ACSIND, UMICRO #### [facility] [address] [address] [address] Zaheer Bridges Urobilinogen Qn (U) 1.0 {Tereza'U}/dL Normal 0.2 - 1. 0 [facility] Comment on above: Performed By: #### U ACSIND, UMICRO #### [facility] [address] [address] [address] Zaheer Bridges URINE MICROSCOPIC ONLYon BACTERIA LARGE Abnormal NONE SEEN [facility] Comment on above: Performed By: #### U ACSIND, UMICRO #### [facility] [address] [address] [address] Zaheer Bridges Bacteria identified Cx Nom (U) INDICATED Normal [facility] Comment on above: Performed By: #### U ACSIND, UMICRO #### [facility] [address] [address] [address] Zaheer Bridges CAST NONE SEEN Normal NONE SEEN [facility] Comment on above: Performed By: #### U ACSIND, UMICRO #### [facility] [address] [address] [address] Zaheer Bridges Crystals LM Nom (Urine sed) NONE SEEN Normal NONE SEEN [facility] Comment on above: Performed By: #### U ACSIND, UMICRO #### [facility] [address] [address] [address] Zaheer Bridges Epithelial cells LM Ql (Urine sed) MANY Abnormal NONE SEEN /RARE [facility] Comment on above: Performed By: #### U ACSIND, UMICRO #### [facility] [address] [address] [address] Zaheer Bridges MUCOUS NONE SEEN Normal NONE SEEN [facility] Comment on above: Performed By: #### U PRIYANKA UMICRO #### [facility] [address] [place] [address] Dr. Zaheer Bridges RBC 5-10 Abnormal 0-2 [facility] Comment on above: Performed By: #### U ACSHIMANSHU UMICRO #### [facility] [address] [place] [address] Dr. Zaheer Bridges WBC 10-20 Abnormal NONE SEEN [facility] Comment on above: Performed By: #### U PRIYANKA UMICRO #### [facility] [address] [place] [address] Dr. Zaheer Bridges CULTURE URINEon 03-01-2022 CULTURE URINE Culture Observations: HEAVY GROWTH OF MIXED GENITAL VIJAYA. NO POTENTIAL PATHOGENS SEEN. Normal [facility] Comment on above: Performed By: #### U PRIYANKA UMICRO #### [facility] [address] [place] [address] Dr. Zaheer Bridges UA (CLEAN/CATCH) TRUCK ENGINE TECHNICIAN/MICRO I F IND.on 03-01-2022 Bilirubin Ql (U) Negative Normal NEGATIVE [facility] Comment on above: Performed By: #### JONO ARROYOU, UMICRO #### [facility] [address] [place] [address] Dr. Zaheer Bridges Clarity (U) CLEAR Normal CLEAR [facility] Comment on above: Performed By: #### E RUR PREGU, UMICRO #### [facility] [address] [place] [address] Dr. Zaheer Bridges Color (U) YELLOW Normal YELLOW [facility] Comment on above: Performed By: #### E RURJONOU, UMICRO #### [facility] [address] [place] [address] Dr. Zaheer Bridges Glucose Ql (U) Negative Normal NEGATIVE [facility] Comment on above: Performed By: #### Ugo RUR PREGU, UMICRO #### [facility] [address] [address] [address] Zaheer Bridges Hemoglobin Ql (U) Negative Normal NEGATIVE [facility] Comment on above: Performed By: #### E RUDianelys PREGU, UMICRO #### [facility] [address] [place] [address] Dr. Zaheer Bridges Ketones Ql (U) TRACE Abnormal NEGATIVE [facility] Comment on above: Performed By: #### E RUR PREGU, UMICRO #### [facility] [address] [place] [address] Dr. Zaheer Bridges LEUKOCYTES SMALL Abnormal NEGATIVE [facility] Comment on above: Performed By: #### E RUR PREGU, UMICRO #### [facility] [address] [place] [address] Dr. Zaheer Bridges Nitrite Ql (U) Negative Normal NEGATIVE [facility] Comment on above: Performed By: #### Ugo RUR PREGU, UMICRO #### [facility] [address] [address] [address] Zaheer Bridges pH (U) 6.0 [pH] Normal 5-9 [facility] Comment on above: Performed By: #### Ugo GRUBER PREGU, UMICRO #### [facility] [address] [place] [address] Dr. Zaheer Bridges SPEC GRAVITY >=1.030 Abnormal 1.005-<=1.025 [facility] Comment on above: Performed By: #### E RUR PREGU, UMICRO #### [facility] [address] [place] [address] Dr. Zaheer Bridges UA PROTEIN TRACE Normal NEGATIVE/ TRACE [facility] Comment on above: Performed By: #### E RUR PREGU, UMICRO #### [facility] [address] [place] [address] Dr. Zaheer Bridges UR MICRO IND INDICATED Normal [facility] Comment on above: Performed By: #### E RUR PREGU, UMICRO #### [facility] [address] [place] [address] Dr. Zaheer Bridges Urobilinogen Qn (U) 1.0 {Tereza'U}/dL Normal 0.2 - 1. 0 [facility] Comment on above: Performed By: #### JONO ARROYOU UMICRO #### [facility] [address] [address] [address] Zaheer Bridges URINE MICROSCOPIC ONLYon BACTERIA SMALL Abnormal NONE SEEN [facility] Comment on above: Performed By: #### Ugo GRUBER PREGU, UMICRO #### [facility] [address] [address] [address] Zaheer Bridges Bacteria identified Cx Nom (U) INDICATED Normal [facility] Comment on above: Performed By: #### Ugo GRUBER PREGU, UMICRO #### [facility] [address] [place] [address] Dr. Zaheer Bridges CAST NONE SEEN Normal NONE SEEN [facility] Comment on above: Performed By: #### LESLIE ARROYO, UMICRO #### [facility] [address] [address] [address] Zaheer Bridges Crystals LM Nom (Urine sed) NONE SEEN Normal NONE SEEN [facility] Comment on above: Performed By: #### Ugo GRUBER PREGU, UMICRO #### [facility] [address] [place] [address] Dr. Zaheer Bridges Epithelial cells LM Ql (Urine sed) FEW Abnormal NONE SEEN /RARE [facility] Comment on above: Performed By: #### Ugo GRUBER PREGU, UMICRO #### [facility] [address] [address] [address] Zaheer Bridges MUCOUS TRACE Abnormal NONE SEEN [facility] Comment on above: Performed By: #### Ugo GRUBER PREGU, UMICRO #### [facility] [address] [place] [address] Dr. Zaheer Bridges RBC 0-2 Normal 0-2 [facility] Comment on above: Performed By: #### JONO ARROYOU, UMICRO #### [facility] [address] [address] [address] Zaheer Bridges WBC 5-10 Abnormal NONE SEEN [facility] Comment on above: Performed By: #### LESLIE ARROYO UMICRO #### [facility] [address] [place] [address] Dr. Zaheer Bridges GLUCOSE - 1HRon 02-20-2022 Glucose [Mass/Vol] 98 mg/dL Normal 74-106 [facility] Comment on above: Performed By: #### LESLIE ARROYO UMICRO #### [facility] [address] [place] [address] Dr. Zaheer Bridges HEMOGRAM AND PLATELon 2021 Hematocrit (Bld) [Volume fraction] 33.1 % Critically low 36.0-48.0 [facility] Comment on above: Performed By: #### LESLIE ARROYO UMICRO #### [facility] [address] [place] [address] Dr. Zaheer Bridges Hemoglobin (Bld) [Mass/Vol] 10.7 g/dL Critically low 12.0-16.0 [facility] Comment on above: Performed By: #### LESLIE ARROYO UMICRO #### [facility] [address] [place] [address] Dr. Zaheer Bridges MCH (RBC) [Entitic mass] 28.6 pg Normal 26.7-34.0 [facility] Comment on above: Performed By: #### LESLIE ARROYO UMICRO #### [facility] [address] [place] [address] Dr. Zaheer Bridges MCHC (RBC) [Mass/Vol] 32.3 g/dL Normal 29.9-35.2 [facility] Comment on above: Performed By: #### LESLIE ARROYO UMICRO #### [facility] [address] [place] [address] Dr. aZheer Bridges MCV (RBC) [Entitic vol] 88.5 fL Normal 81.0-99.0 [facility] Comment on above: Performed By: #### LESLIE ARROYO UMICRO #### [facility] [address] [address] [address] Zaheer Bridges PLT 230 103/ul Normal 150-450 [facility] Comment on above: Performed By: #### LESLIE ARROYO UMICRO #### [facility] [address] [address] [address] Zaheer Bridges RBC 3.74 106/ul Critically low 4.20-5.40 [facility] Comment on above: Performed By: #### E LELSIE GRUBER UMICRO #### [facility] [address] [address] [address] Zaheer Bridges WBC 10.4 103/ul Normal 4.0-11.0 [facility] Comment on above: Performed By: #### LESLIE ARROYO UMICRO #### [facility] [address] [address] [address] Zaheer Bridges COVID-19, RapidOrdered By: Edwin Amaya on 07-31-2021 SARS-CoV-2 (COVID-19) RNA NAI+probe Ql (Unsp spec) Not detected Not Detected bookletmobile Phone: Comment on above: Rapid NAAT: The specimen is NEGATIVE for SARS-CoV-2, the novel coronavirus associated with COVID-19. The ID NOW COVID-19 assay is designed to detect the virus that causes COVID-19 in patients with signs and symptoms of infection who are suspected of COVID-19. An individual without symptoms of COVID-19 and who is not shedding SARS-CoV-2 virus would expect to have a negative (not detected) result in this assay. Negative results should be treated as presumptive and, if inconsistent with clinical signs and symptoms or necessary for patient management, should be tested with an alternative molecular assay. Negative results do not preclude SARS-CoV-2 infection and should not be used as the sole basis for patient management decisions. Fact sheet for Healthcare Providers: https://www.fda.gov/media/483676/download Fact sheet for Patients: https://www.fda.gov/media/060957/download Methodology: Isothermal Nucleic Acid Amplification Specimen Description .NASOPHARYNGEAL SWAB bookletmobile Phone: bookletmobile Phone: HCG, ,Urineon 07-31 Beta HCG ( test) Ql (U) Negative Normal NEG [facility] Comment on above: Result Comment: Spec imens with hCG levels near the threshold of the test (25 mIU/mL) may give a negative or indeterminate result. In such cases, another test should be performed with a new specimen in 48-72 hours. If early is suspected clinically in this setting, correlation with quantitative serum b-hCG level is suggested. Performed By: #### U HCG #### [facility] [address] [place] [address] Track Welder: Andry Corona DO HCG, ,UrineOrdered By: Kari Amaya on 07-31-2021 Beta HCG ( test) Ql (U) Negative NEGATIVE [facility] [employer] Phone: Comment on above: Specimens with hCG l evels near the threshold of the test (25 mIU/mL) may give a negative or indeterminate result. In such cases, another test should be performed with a new specimen in 48-72 hours. If early is suspected clinically in this setting, correlation with quantitative serum b-hCG level is suggested. bookletmobile Phone: [id number] 07-31-2021 SARS-CoV-2 (COVID-19) RNA NAI+probe Ql (Unsp spec) Not detected Normal NOTDET [facility] Comment on above: Result Comment: Rapid NAAT: The specimen is NEGATIVE for SARS-CoV-2, the novel coronavirus associated with COVID-19. The ID NOW COVID-19 assay is designed to detect the virus that causes COVID-19 in patients with signs and symptoms of infection who are suspected of COVID-19. An individual without symptoms of COVID-19 and who is not shedding SARS-CoV-2 virus would expect to have a negative (not detected) result in this assay. Negative results should be treated as presumptive and, if inconsistent with clinical signs and symptoms or necessary for patient management, should be tested with an alternative molecular assay. Negative results do not preclude SARS-CoV-2 infection and should not be used as the sole basis for patient management decisions. Fact sheet for Healthcare Providers: https://www.fda.gov/media/739162/download Fact sheet for Patients: https://www.fda.gov/media/723124/download Methodology: Isothermal Nucleic Acid Amplification Performed By: #### C OVRB #### [facility] [address] [place] [address] Track Welder: Andry Corona DO XR CHEST PORTABLEon 07-31-20 XR CHEST PORTABLE EXAMINATION: ONE XRAY VIEW OF THE CHEST 07/31/2021 11:24 am COMPARISON: None. HISTORY: ORDERING SYSTEM PROVIDED HISTORY: cough x 2 weeks TECHNOLOGIST PROVIDED HISTORY: cough x 2 weeks Reason for Exam: cough x 2 weeks Acuity: Unknown Type of Exam: Unknown FINDINGS: Overlying brassiere related metal. Nipple piercings. Top-normal cardiac silhouette for AP technique. Mediastinal structures midline and WNL. No localized pulmonary opacity or blunting of the costophrenic angles. Slight convex-right curvature thoracic spine. Bones otherwise WNL. IMPRESSION: No acute cardiopulmonary disease. Interpreted by: Saud Singh MD Signed by: Saud Singh MD 07/31/21 Final result Normal [facility] XR CHEST PORTABLEOrdered By: Kari Amaya on 07-31-2021 No acute cardiopulmonary disease. bookletmobile Phone: EXAMINATION: ONE XRAY VIEW OF THE CHEST 07/31/2021 11:24 am COMPARISON: None. HISTORY: ORDERING SYSTEM PROVIDED HISTORY: cough x 2 weeks TECHNOLOGIST PROVIDED HISTORY: cough x 2 weeks Reason for Exam: cough x 2 weeks Acuity: Unknown Type of Exam: Unknown FINDINGS: Overlying brassiere related metal. Nipple piercings. Top-normal cardiac silhouette for AP technique. Mediastinal structures midline and WNL. No localized pulmonary opacity or blunting of the costophrenic angles. Slight convex-right curvature thoracic spine. Bones otherwise WNL. bookletmobile Phone: Sawyer, Mhpn Incoming Radiant Results From [employer] - 07/31/2021 11:44 AM EDT EXAMINATION: ONE XRAY VIEW OF THE CHEST 07/31/2021 11:24 am COMPARISON: None. HISTORY: ORDERING SYSTEM PROVIDED HISTORY: cough x 2 weeks TECHNOLOGIST PROVIDED HISTORY: cough x 2 weeks Reason for Exam: cough x 2 weeks Acuity: Unknown Type of Exam: Unknown FINDINGS: Overlying brassiere related metal. Nipple piercings. Top-normal cardiac silhouette for AP technique. Mediastinal structures midline and WNL. No localized pulmonary opacity or blunting of the costophrenic angles. Slight convex-right curvature thoracic spine. Bones otherwise WNL. IMPRESSION: No acute cardiopulmonary disease. bookletmobile Phone: bookletmobile Phone: XR LUMBAR SPINE (2-3 VIEWS)o n 07-10-2021 XR LUMBAR SPINE (2-3 VIEWS) EXAMINATION: THREE XRAY VIEWS OF THE LUMBAR SPINE 07/10/2021 11:06 am COMPARISON: None. HISTORY: ORDERING SYSTEM PROVIDED HISTORY: Lumbar pain TECHNOLOGIST PROVIDED HISTORY: Reason for Exam: no injury, since giving lower back pain has occupied, ongoing x 2 months FINDINGS: Lumbar vertebral bodies are normal in height and alignment. No evidence of fracture. Visualized sacrum is unremarkable. No significant degenerative changes. IMPRESSION: Unremarkable examination of the lumbar spine. Interpreted by: Alec Rehman MD Signed by: Alec Rehman MD 07/10/21 Final result Normal [facility] XR LUMBAR SPINE (2-3 VIEWS)O rdered By: Sr Herman on 07-10-2021 Unremarkable examination of the lumbar spine. bookletmobile Phone: EXAMINATION: THREE XRAY VIEWS OF THE LUMBAR SPINE 07/10/2021 11:06 am COMPARISON: None. HISTORY: ORDERING SYSTEM PROVIDED HISTORY: Lumbar pain TECHNOLOGIST PROVIDED HISTORY: Reason for Exam: no injury, since giving lower back pain has occupied, ongoing x 2 months FINDINGS: Lumbar vertebral bodies are normal in height and alignment. No evidence of fracture. Visualized sacrum is unremarkable. No significant degenerative changes. bookletmobile Phone: Sawyer, [employer] Incoming Radiant Results From [employer] - 07/10/2021 11:43 AM EDT EXAMINATION: THREE XRAY VIEWS OF THE LUMBAR SPINE 07/10/2021 11:06 am COMPARISON: None. HISTORY: ORDERING SYSTEM PROVIDED HISTORY: Lumbar pain TECHNOLOGIST PROVIDED HISTORY: Reason for Exam: no injury, since giving lower back pain has occupied, ongoing x 2 months FINDINGS: Lumbar vertebral bodies are normal in height and alignment. No evidence of fracture. Visualized sacrum is unremarkable. No significant degenerative changes. IMPRESSION: Unremarkable examination of the lumbar spine. bookletmobile Phone: bookletmobile Phone: Coding Summaryon 04-24-2021 Coding Summary [employer] 64 TqrjqarfUQk5yVn+PGhl YWQ+ZA2QLQEgS64kuJXc dN7AQ3jJPK7MYGQGQZLY ZE3TFX7ygZQ0HTzqE7Da biAv WdqcpADdKG40UVj4VCH0 gFbjMVeocN7vlRQvI7n8 LhOrAB27sW09RJcnNKPh OaZ6InVmrsloiRUk Y0inBuIhnTGnTvk+PHRh YmxlIHdpZHRoPScxMDAl QgIllRraNK3oAo2jPHZa LWNvbGxhcHNlOiBj u0pjKAKgOWkaWC3gaQml N5HgsZF6MYZli2z6Ze23 dHI+UZLoTJA2mYuxVFoi g254TjFay4ptZSJ5 uTSnMYkaODS3J35bn1A6 ANBrEQVqMHN3sZE4nA1s cFznfsbnW5RofUHzHnM0 XAW0dVTohN1faFke eqrlrS7kOgl+F90HDY8N KQVSMF6VTro2W4EmDbwa dHI+MM24CDQfRU44iPCw yDIuh3mieVz1MxMo FPGzFOE5zPkjINsmd8Mg LLXpO34inZKry3O2MRTf wQfeeAHpWdVbfNS4sN3k ZWthqdzub4gvxmjf Vfgfa5bwlr89iT54B02q JQtoNWNgPFQ3DKAmPEJj nNhoii5dkM3tQp4+IDxj c6yeu3juzFp1BaBn PJRlhmOjhBtkWML6t1Nq Ua84U9TvmTjhy1GtEyp8 ay50oXDsg5U4yVM0PJsh RDVgpY4cJMuvUvS6 IHKtMwGvoU38mAUjRPyv Ec6vzWzbaOcoPM3iCNWi cjwlMFAvcY0rFHVysDQt jLiiTV8vIMIthyup v324KdIgIFG3WGZfdEOh T4AyhA4wHaKvNGBrIQCn D1NeuAYyHOnvN105YEdt QhF8GLQoicVyU6Am ANEcnBclNgT2v2Z2Qd7R u4ZsuausFJS9CPktPNT8 QyQ8SjXtDuT9F9LsPow1 OMErdIcoLX8mM6Ni AZRgesmsrrymgCM8VCGc HLSojN74rZZrCBqzQv8p i7S8u573SVMiMUSnqM01 Qh4agQinQJVlrADH bB0vlywmg0nmjkkbAhDh OUOpWGp1ITq3IPZplUbe FxJpRGC3VfJ1NUO5cMCu mC8akOyhujavzD9a Oyc+H74qoC3sKRJ9BCD5 kbseVRGxzgRjSJ95DG00 Z9KjSmfpaTNwmJJ+PGRp juCyqDyePU0pBeIs t7sjb1SeGTyeL5RjFMKf OOvoNrw9KMMtSZP0xLW9 cH3gJHLtSTpal6K2bCK6 B4DnbfMydu6wi6ft KBJmBUnbQ16bhEZud8N8 KWLprZK2NLYaxUvnUvHt iT02Omu+BWMwcDeez8Px Gblsj2xsb4jfiCy7 IjMwJSIgdmFsaWduPSJ0 d3HoDa83A72jHCooJEDe BGHwAJKeEORfxNecof6x fE8lHq5+PGNvbCB3 zWT0xK5cSQEuClP9OLrf G030QvQoxINsBlanc6qy v5uvuTh8CvArCOCnypUx eYxnDBD4i6LrSu15 V89tKDlmTQNtFIJkXICk WWKsvKpnmq0eqH8eFh0+ FI6yp7sbzp67zQ25eKD+ EPOlHPH3dSadZXuu EOKylP1xPOdyJtA2VQZb TuTttN66wZIvLDtbBt7x pXhdcXcpRV1pNNMejlbj a390DsXbu6amAMKe fQNxVNhxYMQ8V28hf5F9 SYArDSOiQDI4uJZ1cT2o bGlnbjogbGVmdDsgdmVy rUjcRQrgQWnjP800 IHRvcDsnPlBhdGllbnQg KiNzCTj3H3QdRck8BKGc vHorFV9rzIZxFMivFi2w hUwarKutZO9iPOOh hehrc841MrKxr7scCAYe bJVnJNyaFJT2Y29qn0G4 JDOaEVVkNIH7uQM0sQ7l bGlnbjogbGVmdDsg fgMjqQxjFNvtAMhwP910 IHRvcDsnPkJpcnRoIERh pKJ1GC96NX05xXMey2G0 uGH5U4XwAKPgzxar axfgdKL6YFBuWTWkeH43 Ft2laZbeUc4bTJOlIMO1 NKHnoWXcJ4NnbP4pYuZs GFLpLGTiT3JsbOGp RYkdN504KCkrFdD4MJZj dyExH4RmJXCqaHbuDwQ9 y9G7Af1PC3L9LJ51ST83 iYMkr9G1cPR8A2Fc URYdnliqcpyudYB3HGVv SGJtgG40Oi4dpRjfVh0j UBDnNQH4RGEpjMQlL1Ez sU6kRhZeYZVeILHg H9ZaoZAdASrsA179AKxz VeF0FZZpfyWuE4KsPAHs aAdhUuH4b7A3Qk3JUVm2 QO66QT97hMFtj4B1 xKV3A0ZzYOXgldwdfoyw cUD4TWOeAQAcmZ16Re4h pOjfVo6xDIIiWZF4WSFj nVYpP0SyzJ1uJqYk EELqSIKxW6JwvRSbESgj X135TChcFkS7KCMyeqMy E8RfYWMwwSkqJzX1t2W0 Wo9URNBdOX73DJO8 tHT9HE43JZ28E4IoBrwo dGFibGU+PHRhYmxlIHdp ZHRoPScxMDAlJyBzdHls ZN6kUk5hAIXnTENl kMtafQYsClMtl7llGMUs UAdvNX3syChfI0QjaKS4 LYJwm5e8On83L73eN3Rk dXA+EQGumZJ7oNP5 rX6mIhQvWvA5XJgeA029 XgIgdOKxErkas8eqv5yh yBb2LeN7JTNlrnYewIwm VCW2b4NuRv21U42d IHdpZHRoPSIxNSUiIHZh eFtoza5iiW7vUy3+PGNv lPS8xPG6oE4zRxJfQjG3 GPnoH026GyRaxEHf Lnpxa6atp0qtaZy5MyFh BYLxwkNqlTswGVA9e3Bq Xe75E7DosUmoh2EhDtw4 bn41bSJpd0X0nPV2 I9YnTXAniiyfxMJofWoq UM7iBXXnduxbJODumH9n TSWxZ6p7QgUzBkW5XHze C3MvheP6BXJvlXEy WWjfFOD2Z19xo4A9CNGj PWToTGT1gEZ2cS0hsUtr bjogbGVmdDsgdmVydGlj HBbtPKvmZ641WDTb nRlxFMVxdZ1fOBSwuPTr dSheDF4jIWMscghfYnCQ SUNFLCBFTElaQUJFVEgg NXZMVC2XUN74SH13 cAElz5P8sNS5A2QjHFHj apfkulymhFY3MUTmHICf zE50ySQzNTbsBn7uu0T4 b539YRMpMOZbfE87 Df7wjUnwGZRpjZTHlV1t wvqvt8tygkmjHdNhRTAx KSk3BMs9UOYqfEnzPwWd JTS5FjF5CRY4vVWv qA1jgFncunhyoT5vIpx+ MDUvMjkvMjAwMTwvdGQ+ AEFwDZF1vCzsHMldOZIb bY7nBGAgW5p0UkIn VlT3JHqkV0UbHDCavigb Qf31kV1kJmEeLwP2FFiv H5SbhvK3RVGrlUQiOEyr JCJ3T69ke4Z1GTQa BVMoNQG4zXJ2jA0quMnz bjogbGVmdDsgdmVydGlj PScoAIlyG460ANQkxHzk EaBwWElbVDIzVP23 CM61yHSpm1Z5gLV9E8Gd BUUkfdyfwxtpmMF2XXGy GHRxaM09cTUeEXopWp0i a8M2p536TTLeIIPb cV27Xo5mmCnfQPWqnEZG iR0ethtfc5kkvrmhNlKj WCDpDAi0CZz5RHEeuWkv CnLaQLT5ThY4OEG3 pJCumL3rfIpxtirvoU5w Oyc+RwOCYHoGRN20VX04 xLNvu4H7vWY5F8BkAXPp htncdljdaSA8DTLb TBSjtB73yWShZBkcWr4m x2V8c654DTSkIPHoqN21 Er9cgXdiCJVclYLScG2t btelv8mgplugNdOe JCIhBRp5VLy3BMDflXom XmNkTEZ9CnA9CCH5dFLz rU0fmToztfefuE7hXjo+ O2P6W9UwLuqppTR+ MN26FYXoBU15dAEpoENf j6cbtOh2RbTaJJWlBCF6 wIwgIDjxo0BwBYKlB28p fERke3V6APFwmTkh yYIfEoLksLU2bJ8zLDcs bynie5nfyuhrDdanc8wj kw99cA78I58nNNieNLQx PSIzMCUiIHZhbGln vp8pfR5pKf0+PGNvbCB3 hWJ3zK2lXuTuXdZ2PUrx T237JnYgaIAvUfxnr3ur m9xvlHl1UbKqGEBx dqXloOmqBFN0p2DcGb65 A15uKVczSDHxCVDwVPCv SYOmaIgltb5ggO8nKp2+ RU6aw1vvri42qR47 dHI+ZVKgDAI5pVybOOxb LXMzcB2xFAscEkR6DDQs ZfYtpA11iULbJNeeMk0g tTapmKjiFA4vQEHi ukiaw985VhFxk2caJNXx nAUiDNgxEXG5D57ms1E3 JFKjWHTnHQJ7kTM9kV2a bGlnbjogbGVmdDsg auUtxRsqJWsaNIkxG016 YYGheZitJnRkpOWgP3jl ylKNPE1fXiygwCR+PHRk BKU6uRkjRUkmIYWb rJ9lWJDvC8v1JoIsWnO3 KWktN8NzimH1VPHtdJPo AWXbyYRSyK0vdfwpq2hi cjogIzAwMDAwMDt0 JGu6HCXbqBikSjZxQPT4 WdN3IEJ3oQPqaW3jjHok jttkaK3pHkb+RklOOjwv dGQ+FKAgQZP6pKjl WNerCRIsgX0xCKOeO7q6 InJbPvG1UMfgC4JtrrC5 GJKypAGkSFAbdNDLoY9k xllfe6mxmlyrUdKa EDHzXKy9BWg7ZGVzlElc VwZcSXA8TnI5KCV0eZLq qA3atNztdzjexD2aHbc+ TVJOOjwvdGQ+PHRk GUC0eHpsWXhvIINqgN1p BPUbU1w6WsSlRyY1IBrr A5HrjtU8DIUrxBWxSEEv fZSWmR7iefzml9zb afleNjAnRJMsEVx4OSt9 WEGppJsvAoPyYLH3FfJ9 SFT5rVQyoW6raSmcicuz oO8lYsg+JIV3ARW7 IK89PX10W4NiPwxcvAJx bGU+PHRhYmxlIHdpZHRo AEssYSKtSeQohTxgVI6i Ph4aUOTjGYYgqUom cHN (more content not included)... [facility] Coding Summary HTMLBase 64 CceybjwvJVv1qVg+PGhl YWQ+TV9RVUIoH24imUQn iK1QR8fPPM5YNLOHZQFI DG8UEJ6wiUE4YGosO8Ez biAv UrjelYByWB28JIl8IDO3 mRpmCBdvhM3haTWkS7g2 UtJxDZ84hA89TNioWWNf ZkV0EhDmfdpokPRx Z5wxOsYoeQOjGzn+PHRh YmxlIHdpZHRoPScxMDAl FmPjgMuhIZ3yIc2kMBTj LWNvbGxhcHNlOiBj f6plLFKoQEbaVT0huBve I8EmcZX3RKKjv9s2Ij89 dHI+JARnOEO9lEcbDUdl v169WoJmx2gcWUT4 pMGjFWgdBWH3O31oh2Y7 VRPaWUAjZNC9oBK7bS2i mGbqqdrmU4IdaBNvSvT4 CJO6eJRgrL6ajBqr crkymB4sWyi+Y11YCA9F JYFWIL7ARrr8K0AqPmob dHI+UE67SMSgYT02cZKw wPSxu8vyqPb7XdZb PXFlSPS6qVlnFJxlu3Vj PAMeH18edZXin3U2SRSp hNuwnDIkYxMgvDE4qQ0y VEvgmyrro3jtxned Exlep4stel00nL68C00n QIjfKOFbCHY7KTZcXQJw qXctef8fmP4aFg2+IDxj p8isz9yppIl9YkRa OJPvbbFnfDqdPFQ2w9Nx Gm42C7BblDnyj0JtMac4 qk73sQKhl1B2eQW3RQpw NQOqnC5pIJanOcH3 BNZbXlXkaN70yNNuATvl No4qnJmaiJasVN8rRMXw opeeBAXejL9bWEYerBYz iJisIE4mORFdkays y491KsAeAVR7KXAnoDGh J2VgtB7zKcSqPREwNQVt C7EvaGObRHesE461WYpw PrN9AMPpbgKoG5Xx GHLosTegCxK2j0C5Kx9W q3ZitznrZBN1EZeyQCR6 DrB4UgZoKfD5M2XtCbn5 GEHkpFqkQK4pN9Ay NSPzngyleoqbmQE1TSUf NRRdrN06pKAaBHmmOy5y n4N9q520AUDgZIWwsX39 Mf0deHbsQHVcqVAN yG9hjlzxg7wbcnmgWkRe KYYqGYo1KYi7YBChlRrq SfOtQDE2XkM0IEO9dTFj eB9uhJityefilI6y Oyc+V58bfL2pOMB6HYG7 qdxpTONnfjNwES27UH84 P3BsCmzqpRMaiLT+PGRp fsKliBgsHO7oFaPl o6eeg2IbSFhuR3FdRHOc FKnjBvb5EYLmHHH5eXX0 zZ2vOKBxLPhji0I3eRU6 I5NoqcAzbv8fg4ye JZBsBEtlL03hlZQvm8Y8 LOKqkON3RIBzrUuoKyNv fI47Tna+PUNehDrgx5Xx Oyjku9hjq8yfbGo3 IjMwJSIgdmFsaWduPSJ0 f1RkIc34F78mLXyrRGIq SMWoPBVjAFXfjHadxb3p oW6rQt6+PGNvbCB3 hIC2dN9fKYZpElQ2JUqw P950DmAjfDHuTgyie5mg e4bpjNu9BzTpTITizqQx kKloPSH1l7TxJt77 C57dVTvsNYBnJOPqTWIw DUOclFbain6ffP8pOn9+ FO6gv2azqr75tS51wKF+ BXXdWVK0rMbjMPvx GISdyA2iXIjzUcN1WALs FoVxqU82tTUnPWbnJw2o tOmqeApcTG2gPPScaoil w301KhBzw6cbBGAf wKDxRWkrKYG3H38aj1Z4 NXXfFXXjORT7dOT5aN4n bGlnbjogbGVmdDsgdmVy ePifSOlvZQhbC918 IHRvcDsnPlBhdGllbnQg UuXjYZe3T9HjTqv2MYGd gEeuHG9rxYPlKJeoBw3y gOvuaPkuMR8eHUGa dfyof102VuFfr9ojBCEh yLXuVAhiRVL4G56su2R0 RZEnEFCxYXN4lZV1gB9x bGlnbjogbGVmdDsg xdOumOrgQOcnTKqzY611 IHRvcDsnPkJpcnRoIERh aOS1OU88ZS61wHBvm2G7 cGM8D0FvTNUqflmh cdkjrEI2KTWvDWBdgI14 Pu4xrDfsAp1lJQNmAZH9 UBXqhTYfS8HcyQ2dRgGn AUPaJKBtJ1UmoRJa QOhdU179NKxnLyH4EMVz qiNtP2YsCHEvpYtmPeE0 i5F2Cs7CO2C7HG82JH52 jQZol5I6aWG2D2Je YOAvgxqvpeynrWW3MPLo AYCesE08Yt5asHvgAj9s JQJcJOY9LEMchEQcN0Ad yL9uMqDaNHUtGMAd C6KhyIXxCXsbP057HTsb ShN9HBLjxgJzJ0FsFESa sVkbKnY8k1Y6Ep0PJXe5 OU13PO77tMEkq5R6 yTO3U6GvUBRdaltjlvcq nJO1HLNvETKvjK56Wo3r sXtqHf2cTQVwWVF4TPVc lQXiT9CmdY3cLdLj HMLiDTRkH0XdpZJfUNyf H606DPusFkE5JTTiwlEl S5CcSDJvjAmuTkX5r4G8 Mt0OIVNfUY54FWL5 jTW3UL43YD48F0SjXmeb dGFibGU+PHRhYmxlIHdp ZHRoPScxMDAlJyBzdHls JA3qTy1cYYKmDKKm yNplqWEhWuWrn2woRCNe JWfeJX2bpPvnS1PrzBE9 GVWny5v5Yv20H34jL1Pd dXA+SXPypGY8wNY8 zS2wQpImBqH2HBmgV142 XsSeuLRvUapiz3xih9rl hDn9GnP1SEOmhpKkuBei ZRJ4r3MtRb80G89i IHdpZHRoPSIxNSUiIHZh eDzrhr4liV2cMz2+PGNv uCT7aYP3aS6lWfVjXaV9 PYbqN682GsDnyNTf Foguf5nmx6jcaQu2YoFp SWFcqnWshPfmGYD4q5Vu Et75X8EayTnst7UkNbh2 hg61hUGwo6P2bUF4 R1BmRTGyfevynQPmiYsd ZG2aMGMstsddNPYveZ2b QOJrE8d1GzPsThS9ULva F7ZdyxW3WQUtiGJl YAnyCKB4C93xl7M2BTJr UPMxPUB8pYX0jL7bvEyv bjogbGVmdDsgdmVydGlj BQoxMKknL852WKAc fTnuXWVzgK2sABSfxVJt qKqtXS8wOIAfjwwpUoQE SUNFLCBFTElaQUJFVEgg ZGAMXN9NBB77YZ03 yINgu7J1qAZ2M0LhGIEv fhqfnmdsdRP7BDKfYXCk pG22aTGpSFaxYy3jp8K9 w006EUXhUODwrY93 Kr9ceJxgYEEhmPNFlK1d retry2xjiaapRcNoMQVn MMz1GUw2XMQwjCavBoOb VAR7FiU8JOY1fTFj hM0ryKiirvwsoC0yXuc+ MDUvMjkvMjAwMTwvdGQ+ NVDxVPC4wQvvBMucTGZi pO1hGKAhV6j4SqLw RwW5DEfbR9HiGINxivko Xy96aU7kQlMdNcY6VTke F1KgqiQ1SCVcwHCzIIrf EVM1Y10mg1Y0AOAr DERlBHW2tOK3lR5rjIrf bjogbGVmdDsgdmVydGlj ZGiqLReeA149OPWgeJbq WnXwHIiyOAZpXD95 UC07cENkn0X6aSJ6C7Iy SSNemtndnczipCQ3ZDHp DOZtoP14lJEpWZybDj7f f4J4o347LKGkMQDi kP81Db2ctIvaQMFqvYSF pY9kzvltj8flfnvkJfOd BZNrYSg8NNp7IWDyuMel NjTmLTT9QuY2XVA8 iPCfgJ6xqKxpgmbxwK1k Oyc+ZcDDNRvJSX92MZ64 fGUxi0C1vIU8D3WwWRKb jydcvvdmbON9JSNx UNYvoL44eUFpXFiuEr9b s8Y9l632OKRtFHCwlZ93 Zj2qwMvcRYPxuKABoU6m qqogz4kcbamjCvDs PEFgWAl5XBq2FPRsePnr SjExYBU9OcX9WBQ1wVHl qI0ogCznassslR2oMlu+ T4M5I3XaGqzidUX+ LI67ELJtKP49zTOqoLZe m3zioZk1UxVyOPLxJWQ5 eZaiZWkuq6XhTPXdY94r lCKwn0H6CLSyqSmp kKZrBwVobZZ3lZ8tJPls xgubb9vivnwqZtlna5jh fe16sS26M33lOYaoNVQv PSIzMCUiIHZhbGln lq7faA9pFs8+PGNvbCB3 tXT6oI9nZiTiTtB7RSod B260VeBrsBHiOfkkk5go q9ltvZg5JkFlOQNz iyIkeSyhDUK1u1CaZu55 E34fOOveHINdELKwZFUe ZWBznFzhst7gnH3gEz9+ HM1av1kcxc11rD24 dHI+GZArZLP4bEufPBry WRPxmC1tCAfcMbC3DBYx XfFpkQ29xOZxUBubWk4d pDhnfBpeAC3uWTVv nwuon355CpTrc3hgUVWd kRKfLIjgLQI8E21mi6J1 PPAiVITaTHL7aVV0xR1c bGlnbjogbGVmdDsg mnEegOwlTVmiYNewC008 TEDloGxnXuDpqYTxR7nl waPYTH4xNeepqNP+PHRk BQF0cYmkFImkHOZv gV6qCEHsZ0g8HdHbNpO9 MMtuL0FpfjH0EIArlRTd NOGkfUTSgU9qetqsc7my cjogIzAwMDAwMDt0 YQo5UQRktBvmUvJzFUF6 MtL7WFH7lCMxhI8qaGuw sdbbyR1nKnt+RklOOjwv dGQ+IMMyTRT9fJuq OHfjHYGefG2mAYFyA5m1 VbYzHzG7MGslX8NkmiJ8 NWBcsAIgGIJvhUBYdF2z ohvwf2ztmfgpCbTo WLHaQEe3RTd7LMWnrIjc PeAsPZO8EyC3VFZ8aHEi pZ0brRxotsmjnX2hExs+ TVJOOjwvdGQ+PHRk ZVH3rVylZRekDWXimL5t RCCsS3j4ImNjZnA1ZNcz H4XelnD1HFLkfREzQKWt wXMDwD0symhei3cl gpgiUuWjUUSwUUt8GVw6 KROhxRyeYgAmYWB8ZyE8 ERH3yUWbqL6ehKkauzkr mK2oBrw+AXB9NTA4 AI99JQ95D2GoOsrrbWAx bGU+PHRhYmxlIHdpZHRo YFciBFSuYeIymOavBQ9o Oo9lZACqUSPmeYwq cHN (more content not included)... [facility] Coding Summary HTMLBase 64 DbvnlfutOPg6yEp+PGhl YWQ+ND5DFMDeH20esQFi jF9HB8yCAH4AAQTFBYAF IT5QUE0fkNA8KGogI8Dy biAv EgqzcKBqPU58QGw0HNB2 xXvhDKzbsG4aoICzB9j2 YvZhEP58gN04VAyfDKWo RuM1DhCojvxduJJz B0doFaDcsTTpRqv+PHRh YmxlIHdpZHRoPScxMDAl MwDwlYpxIY2oOq9zTBQe LWNvbGxhcHNlOiBj u3meULYdHVkaCT8yxGso L4SliFY3MNXdy4p2Wc69 dHI+SOExQFF5kOtaRTus t457OsCuq6nqIDQ7 iACaXRsnCRB9V67te9B5 EQGhBHCmYRE3pHO8jE9z xEouavnqK2HerRXpNgC2 THR9dOPzaG3taCtv prnvmK4bAyg+L14ZYT2G MNBDCV8MXzj5Z9GuFked dHI+AS33JMScWR60oYGa hNCod7khzVd0JhRc WEXaCNH7vDjaRNcpc1Eo HRGwT72smBMrx2T0KAJn mEwdrYYgWsTfuVQ4oV4f CZiypkyqp6umjsvt Tntrw4rhjt32aT98V03q COfbFOWiSMA5WVJbVFOi tIhzdg8owW3pFm7+IDxj q1ekj5lrvId2WcKg BCZrfkZevDygOBF7o8Qn Eb84G9JyaQthd6YnFgu4 tw47zBFuy6R8jPO1ZIyb KQRdiP5uFKlfWmI3 OGXaWuTwoZ59xEBeUKxe Hr7zpVgpgYynYV5uFZQx qrdkYYEvvX0sEWYovRBl iAvmVK6yHILhlmtu m850UvZyUHC3RZWvmOBt S4GuuG5rAcBbWRCgXXOs A4QxdHDlGPkaF683LWek BoB2CDBjofAoC2Mv WFGlfWoySzN9t8G3Xf3Q c6MexzuaZZN2IIxcPOG4 PuT4GnOqAkQ1V4NyQmq1 SRUplFenOQ3hJ4Zm XMAiqeaaovoldQW9PCMo LBTknC13qGCeTRslYl2x d4A5z952RVVcIQZngW43 Mw0xgDsbJSSqbBUH dP9uujibi2bteyyqQrFk FAEnDRd4WCv3FDWjmRbx LaIyWPO7PpE9DSA9iULc bU7esUmidhbitF6p Oyc+X98ixE7oPUM6PFE5 xmadPFNzwoXuGM43FB14 N9CmYpfmzQWiaMY+PGRp ncDyeJnqQE2sRwEm z6xkq3BuIZzaQ7TcEYCv YPkxDzu4WRJtZTZ1iWA6 uX6oJJGpQCzkp2G3pSK6 O0XvsnVldi5kt5ah PPUzBTsoR15etMHuy5L9 CVJfxFH8TUHeuVccPrYv sF51Dky+CNDmzKwmq6Xp Nlwzb4win9xafMw7 IjMwJSIgdmFsaWduPSJ0 g1ByMc56A62wKJwqACQy EUQrNHSkIGMmyHvsqw5e uB3nMp9+PGNvbCB3 uFY3mE0jVRDlFnR4MAfl V675DuIgsXLmXgzyv6ai c1srzTf5YtNnYGHhqtFt lOtcMUQ4s3LoUt09 S75lQHcwYQMnHPDuQNWy TFJwaHvfyx6ipL1oXl9+ WL1vb3wdyv21aH67nSB+ CAOqWNT8nIlhJGfo LUFhaJ8vZMbyZrU1DAJm AnNgpX51eMHpNVjyKy6w bEitlOifVW0pYQAfdpnu a819HzSoq1llUMEs sVPuOZteBPC0S39go6S9 PJOqBZKnRSK9sHS9nR9a bGlnbjogbGVmdDsgdmVy kWduQYnaTAzcP116 IHRvcDsnPlBhdGllbnQg LpDxMZk8B3XjMzc0DFQd aOplMC3stAVtVEjrYm0o vSsvjBmyWN0kSJFs ciyjx668QtAqs7yfAQPl lHMnHPrmBWQ6W72tl9H9 GXCbWGKhKSX1vBU6bB0s bGlnbjogbGVmdDsg ezNcbTaiWHuoMFjuO899 IHRvcDsnPkJpcnRoIERh bTD6NN30LV12xOAke9H5 uRP7W6FjEKUpjzix uocgjHQ4SUJcMPDnyH96 Zx0xxWzcMe4yQESbCYK6 NRAsmPPrC9BizD9mYzWv FCCkUVYyE4RbmBKl NXraS029FZfmUxZ3QZMv gsQuX0XgFPTodEdeCcU6 k1I8Um0GF7B5HL36GZ67 lSFjj0R6oAA1Q6Rz MKWbmavbsiahlXC8YKYn QQFxtL11Kx7obGlaLy7h GAQzKAL4BJRrcKRsJ5Za yI7gYjNrFJQrOKLd S4BvjSAuFTcnE586DPlw KeK7GRXhwqOtS0VzESYt kBjaTeI0b7R5Ej3FFXx8 OB45KE73yEEvv8V5 xZD5U0OwFXMhrpzrejoa vUY4XQWjJFYyrN00Vy6p wBehOz7eDSWnLSD8SZWf pOQfR2UnwM7dZpUr BRSlJYTnH2DejAVwSMss J803EWebZeN9HDPupsWz Q0RtMSPteEpvOrZ4d0S2 Gz3ZKFHgAK90OHN1 xKU1ZK69EF92F2UuPqjt dGFibGU+PHRhYmxlIHdp ZHRoPScxMDAlJyBzdHls FJ5qGz5rLJMtREOj qTnsmRNiBuBah0ulDBFj XAbbVF0tiHjjG3VafAE6 EDIhe6y3Wc55U23xS1Qi dXA+CNIamWU0uBZ8 uF7gBxUnVpZ4WGuvK962 HrWzcMQfGhzsg4kij9yz fHh3SyN3BNJumbOnfPby LKE7i3TaVk75L67s IHdpZHRoPSIxNSUiIHZh sOdmpu8fvX0pHp0+PGNv lPY0jSG9xK2tBwLqGlO6 QYukC414GeOobUWg Zdhbu1uvd4slkRh4DvSg AQJezdPoaXekOZL4e2Jc Vm34R0WfuTgaa0ZmFke9 tx79nBAam7Z1dHS8 P8BbBQPsfobbuHYwpIdl VD3fBTUrsjpfJPHguT9f GEAgJ4z6VqGtSrP7RPnh D1LwodR0XKZzcVBc UWkqPQO2A75rw9H8DBQo MWXsGEA9iFK2aE4wzVlp bjogbGVmdDsgdmVydGlj SBfiWYnaG893YDCd yLtwXAVosO5gDZErbKMb bSwsAI4ySYYoeumhXrCH SUNFLCBFTElaQUJFVEgg VIMWNR3KVZ83RY31 hEApd0H8yVN4N4KkTACo dgmjbuvypJW4XWJdILDd aF12wOLwQCtnTj8ra4P7 m068RVEdVAWknZ41 Lt8ejIvsAPHjpKCNjT7w zaefj6szsvnySsPrPEOu TBs2SRs7QCDisNcxLeVf PZR7MmT3VXU3lFIf jW6fsEbivplzeH7rPpy+ MDUvMjkvMjAwMTwvdGQ+ MKQxIVG1tOpuYDrcAHBs cC7pCEEwD2r6RsKk BvC9JOjxT4YrDNZebred Wj63uX7mBlCaUkS6MCbr A5KhgzY5ZHWtpRGmBFmr XHR5H90gl0A2CENr RGOjQNR5vDU0nE6xoTgx bjogbGVmdDsgdmVydGlj OQseRGixJ175DAEzyKkn LuCnXErbFYFbCD49 LN79aYJfh3J9lSP1A9Wv FXZokbsdxqgbyIF1VBCx CHOeyE16vYChZFxhKp8c r5H6c329VDUlEWGn uY37Xm2dtLlaLNBzmVYM oM1cbsytt6gvpnpzZnKc KSMcRDy5EXb8SFMdfKni FuRzBVQ2SyB3WJH5 gQHfiP3bpAbqghwsoV4u Oyc+HpNFWBuQGY21YR04 dUGyn3P0pBO8F7XaSGMr yaqddriolGL6HLVk ESNmzM40fJNnGAqsKn0j q2U8q315GJXkZZCkbJ19 Wx1vjHpiXDAkaPILtF4k xdupt6hgwzntMbOr YFJkPMa1YUe8IGQcwGoh LsXiHMC0ByC3BEC1yCLe aM4xfQbqpypulS9aHcu+ OC5lfzzvsoV6SQ85 ER01X9BiXpixxWVlwOU+ PHRhYmxlIHdpZHRoPScx FXHiZtIxgAjaRH3iXe0f ZGVyLWNvbGxhcHNl EhMsj3pdMNNtQFphDV0a jUyzD9CzcUJ8XHBnt2t3 Is42G99zB0MagOT+PGNv rQZ3hZM5jI1cLqAh YlG5IZatU964UcVbrXDt Potug4ynk9ddyDa6McTx RWAtehQozVkxYFM0z0Fk Av64N01hQCrkQYRi ZAInBPKnNNZzgOcfum7m mL7lRd8+ZEJqyOB8lVN8 wI6zGzPcMcY9AYrcQ954 DxFxnUGlKeraU62p X4RkaHX+YKNjBoo7SJDi bAdsHT1yhDHmYHpoSy3v SOM9KyFtUcVsXJgfK5Wd ZGRpbmctcmlnaHQ6 RNPbJWHomU89Xw8kbNuy Tz1nRDRnSJW2VGXxkEDk J4HdeV8kJfXqVYTpJKFc N3SmsDNsNLtcX312 XQpyRbT2IRLqrpKrK3Kl WTXygKizBwX6t0H5Wg2M yLcrfNGbZA4jBqEvSIw8 Y5WcZyl7FZSzfTsb JE2caJXwODrfJg0ggYbn fXfvNJ4zXZFwfrhve758 YaYza4hyZQMnfZLbSNrb ILC1T83vq6R5MZVa ZAByEME8dEQ2tV7lyCli bjogbGVmdDsgdmVydGlj TIdvLQvvC228QRFpaYwf YqVIOzc1K2ScLna6 SFNswRxgML9gpPRbZGhl Lc3czSevwMzwHU2bJQPf stele544VeWor6joCJUh aJCxDRxiFVK2K82l s4L7YFUuMSQrPYV5yYM6 cX8axHhmwwrytUBemJoc liYuvRfyUWzaSAkoO341 RNMxtIebPh3IIrs8 R2HcPzh0BKXixCdpME1r yGUtZCyoGo0mlWoiyOgd FR7jTUGxtajyp735AzSr p5ghHEFnkRQfJMte BHL8P17eo4P6ZFMkUCXl GGF5wQL7oR1mqIgwhzbc bGVmdDsgdmVydGljYWwt JAaiO539SPDxsQkg PlBheWVyOjwvdGQ+PC90 ey93V7ZcOfolLok1DZHj LDC8yLC6yP1tEQRtPAez a3U8sNA0N2XaduMg ci1 (more content not included)... Normal [facility] ED Clinical Summaryon 2020 ED Clinical Summary [facility] - Emergency Department [address] [place], [place] [id number] ED Clinical Summary PERSON INFORMATION Name: ENRICO PATRICIA Age: 21 Years Sex: FEMALE : 2000 MRN: Acct#: Visit Reason: Throat pain - Adult; HEADACHE, THROAT PAIN Arrival: 04/14/2021 13:29:22 Discharge: 04/14/2021 14:10:00 LOS: 000 00:41 Check In: 04/14/2021 13:29:22 Checkout:04/14/2021 14:10:00 Address: [address] [place] [address] PCP: Provider, None PROVIDER INFORMATION Provider Role Assigned Unassigned SAUD FRAGA ED PA 04/14/2021 13:33:03 Adam Romero [employer] Nurse 04/14/2021 13:35:30 04/14/2021 13:35:49 Garce Torres [employer] Nurse 04/14/2021 13:43:51 VITALS INFORMATION Vital Sign Triage Latest Temperature Tympanic Temperature Temporal Artery Pulse Rate 100 bpm 100 bpm O2 Sat 96 % 96 % Respiratory Rate 16 br/min 16 br/min Blood Pressure /66 mmHg /66 mmHg MEDICAL INFORMATION Medications Given: Allergy Information: No Known Medication Allergies PHYSICIAN DOCUMENTATION Patient: ENRICO PATRICIA Age: 21 years Sex: FEMALE : 2000 Associated Diagnoses: Pharyngitis; Sinus congestion Author: SAUD FRAGA Basic Information Time seen: Date & time 04/14/2021 13:34:00. History source: Patient. Arrival mode: Private vehicle, walking. History of Present Illness 21-year-old female presenting to the emergency department with complaint of sinus pressure congestion, postnasal drip, sore throat and headache. Patient indicates this started approximately 1 to 2 days ago with sinus pressure congestion. She indicates she feels mucus running down the back of her throat and now she has irritated throat. She also states that she has a pressure type headache over her frontal r her sinuses. She reports body aches and possibly having fever at home. States she has felt chilled. She also states that her boyfriend just got over being sick. She states she had similar symptoms for approximately 1 day. She denies any trouble breathing or swallowing, chest pains or shortness of breath, denies any abdominal pains, nausea vomiting or problems with bowels or bladder. States she is currently on her menstrual cycle and no chance of . Patient also reports she has been vaccinated against Covid. Review of Systems Constitutional symptoms: Chills, No fever, Skin symptoms: No rash, Eye symptoms: Vision unchanged. ENMT symptoms: Sore throat, nasal congestion, sinus pain. Respiratory symptoms: No shortness of breath, no cough. Cardiovascular symptoms: No chest pain, Gastrointestinal symptoms: No abdominal pain, no nausea, no vomiting. Genitourinary symptoms: No dysuria, Musculoskeletal symptoms: Muscle pain, No back pain, Neurologic symptoms: Headache, No dizziness, Health Status Allergies: No active allergies have been recorded.. Past Medical/ Family/ Social History Family history: No family history items have been selected or recorded.. Social history: Social & Psychosocial Habits No Data Available . Physical Examination CONST: -Well-developed well-nourished. -Acute distress: No -Vitals: reviewed. SKIN: -Gross abnormalities: No EYES: -EOM intact, MARK: -Sclera conjunctiva: Unremarkable. ENT: -Pharynx is pink and moist, uvula midline tolerating oral secretions without any problems, no tripoding or hot potato voice appreciated. -Increased discomfort with palpation of frontal and maxillary sinuses. -Bilateral ear canals clear, tympanic membranes pearly mayer. NECK: -Supple ([id number]): non-tender. -Kernig's and Brudzinski sign are negative -No lymphadenopathy appreciated, no pain with palpation of thyroid/cricoid cartilage, no swelling of anterior neck or submandibular space appreciated. CARD: -Rate and rhythm: Regular -Edema: No -Calf pain: No RESP: -Respiratory effort and chest excursion with respirations: Normal -Breath sounds equal bilaterally: Clear -Wheezes: No -Rales: No BACK: -Signs of pain with movement: No ABD: -Distended: No -Deep palpation: Non-tender, soft, no guarding or rebound tenderness EXT: Gross appearance and use of all four extremities: Unremarkable NEURO: -Patient: alert -Gross CN or Focal Neuro deficits: No -Oriented to: person, place and time. -Appearance and judgment: appropriate. Medical Decision Making 21-year-old female presented to the emergency department complaining of sinus pressure congestion, postnasal drip irritated throat, body aches. Patient states she did take ibuprofen earlier this morning approximately 6 to 8 hours prior to arrival, afebrile in the emergency department. Patient does have increased discomfort with palpation of sinuses, throat appears well, uvula midline tolerating oral secretions without any problems. Indicated the patient I believe she has sinus congestion causing postnasal drip that is then in turn causing her irritated throat. I would recommend c (more content not included)... Normal [facility] ED Note - Physicianon 2020 ED Note - Physician Patient: ENRICO PATRICIA Age: 21 years Sex: FEMALE : 2000 Associated Diagnoses: Pharyngitis; Sinus congestion Author: SAUD FRAGA Basic Information Time seen: Date & time 04/14/2021 13:34:00. History source: Patient. Arrival mode: Private vehicle, walking. History of Present Illness 21-year-old female presenting to the emergency department with complaint of sinus pressure congestion, postnasal drip, sore throat and headache. Patient indicates this started approximately 1 to 2 days ago with sinus pressure congestion. She indicates she feels mucus running down the back of her throat and now she has irritated throat. She also states that she has a pressure type headache over her frontal r her sinuses. She reports body aches and possibly having fever at home. States she has felt chilled. She also states that her boyfriend just got over being sick. She states she had similar symptoms for approximately 1 day. She denies any trouble breathing or swallowing, chest pains or shortness of breath, denies any abdominal pains, nausea vomiting or problems with bowels or bladder. States she is currently on her menstrual cycle and no chance of . Patient also reports she has been vaccinated against Covid. Review of Systems Constitutional symptoms: Chills, No fever, Skin symptoms: No rash, Eye symptoms: Vision unchanged. ENMT symptoms: Sore throat, nasal congestion, sinus pain. Respiratory symptoms: No shortness of breath, no cough. Cardiovascular symptoms: No chest pain, Gastrointestinal symptoms: No abdominal pain, no nausea, no vomiting. Genitourinary symptoms: No dysuria, Musculoskeletal symptoms: Muscle pain, No back pain, Neurologic symptoms: Headache, No dizziness, Health Status Allergies: No active allergies have been recorded.. Past Medical/ Family/ Social History Family history: No family history items have been selected or recorded.. Social history: Social & Psychosocial Habits No Data Available . Physical Examination CONST: -Well-developed well-nourished. -Acute distress: No -Vitals: reviewed. SKIN: -Gross abnormalities: No EYES: -EOM intact, MARK: -Sclera conjunctiva: Unremarkable. ENT: -Pharynx is pink and moist, uvula midline tolerating oral secretions without any problems, no tripoding or hot potato voice appreciated. -Increased discomfort with palpation of frontal and maxillary sinuses. -Bilateral ear canals clear, tympanic membranes pearly mayer. NECK: -Supple ([id number]): non-tender. -Kernig's and Brudzinski sign are negative -No lymphadenopathy appreciated, no pain with palpation of thyroid/cricoid cartilage, no swelling of anterior neck or submandibular space appreciated. CARD: -Rate and rhythm: Regular -Edema: No -Calf pain: No RESP: -Respiratory effort and chest excursion with respirations: Normal -Breath sounds equal bilaterally: Clear -Wheezes: No -Rales: No BACK: -Signs of pain with movement: No ABD: -Distended: No -Deep palpation: Non-tender, soft, no guarding or rebound tenderness EXT: Gross appearance and use of all four extremities: Unremarkable NEURO: -Patient: alert -Gross CN or Focal Neuro deficits: No -Oriented to: person, place and time. -Appearance and judgment: appropriate. Medical Decision Making 21-year-old female presented to the emergency department complaining of sinus pressure congestion, postnasal drip irritated throat, body aches. Patient states she did take ibuprofen earlier this morning approximately 6 to 8 hours prior to arrival, afebrile in the emergency department. Patient does have increased discomfort with palpation of sinuses, throat appears well, uvula midline tolerating oral secretions without any problems. Indicated the patient I believe she has sinus congestion causing postnasal drip that is then in turn causing her irritated throat. I would recommend continue with supportive care at home with plenty of rest and fluids, Tylenol ibuprofen for aches and pains, nasal decongestant [id number], Vicks VapoRub for congestion, honey for any mild cough or to help soothe her throat. I educated on sinus infections and most likely viral infection. Patient indicated she understood was in agreement. I did inform her I would give her a prescription for antibiotic and if she is not having any improvement in the next few days or having worsening symptoms she can then start the antibiotic and probiotic and also recommended returning to the emergency department or urgent care for reevaluation along with following up closely primary care provider next few days. Patient indicated she understood was in agreement. Offered Covid swab, patient declined. Told return anytime will be discharged Impression and Plan Diagnosis Pharyngitis ([id number] J02.9, Discharge, Medical) Sinus congestion ([id number] R09.81, Discharge, Medical) Plan Condition: Stable. Disposition: Discharged: to home. Prescriptions: (more content not included)... [facility] ED Note-Nursingon 04-14-2021 ED Note-Nursing Patient arrives via private car for c/o sore throat, cough, and body aches for 48 hours. Patient is A/O X4. She denied any needs. Will continue to monitor. [facility] ED Patient Summaryon 021 ED Patient Summary [facility] - Emergency Department [address] [place] [address] PATIENT DISCHARGE INSTRUCTIONS Patient Information Name: ENRICO PATRICIA Age: 21 Years Date of : 2000 Reason For Visit: Throat pain - Adult; HEADACHE, THROAT PAIN Arrival Time: 04/14/2021 13:29:22 Primary Care Physician: Provider, None Attending Physician: Luigi Syed MD Comment: Visit Diagnosis: Diagnoses This Visit Pharyngitis (J02.9) Sinus congestion (R09.81) Throat pain - Adult ([id number]) Prescription Information: If you have been given a prescription for narcotics, seek immediate medical attention if you have any difficulty breathing or any sudden status changes such as confusion and sleepiness. If you or anyone you know is experiencing suicidal thoughts, mental health, alcohol and/or drug addiction problems; contact the [facility]/04 Crisis Hotline -Text 4HBXY fl [phone]. If you received any narcotics, sedation, or any other medication that causes drowsiness for the next 24 hours, unless otherwise directed: ? Do not drive a car. ? Do not operate machinery such as power tools, lawn mowers, drills, sewing machines, or stoves ? Avoid alcoholic beverages and drugs for allergies, nerves, or sleep ? Do not make important personal or business decisions or sign any legal documents With: Address: When: [facility], [address] [address] [facility] [address] [place] [address] Business (1) Within 3 to 5 days Comments: Follow-up primary care provider next few days for reevaluation. Continue with supportive care at home as discussed with plenty of rest and fluids, Vicks vapor rub for congestion, honey as a natural cough suppressant and to help soothe your throat. Continue with Tylenol and ibuprofen for aches and pains low-grade fevers. Hold off with antibiotics for the next few days continue supportive care measures. If you are not having any improvement or having worsening symptoms you may then start antibiotic at that time. Use probiotics if taking antibiotics. With: Address: When: Glenda Murillo [phone] EXT: [phone] Call for family Physician Within 3 to 5 days Medication Information: The exam and treatment you received today in the [facility] Emergency Department were for an urgent problem and are not intended as complete care. It is important for you to follow up with a doctor, nurse practitioner, or physician?s media center assistant for ongoing care. If your symptoms become worse or you do not improve as expected and you are unable to reach your usual health care provider, you should return to the Emergency Department, we are available 24 hours a day. For those patients who have received Radiology results, the interpretation of your X-ray as given to you by our Emergency Department physician is only a preliminary report. The Radiologist will review your films and if there is a change in the diagnosis you will be notified by phone. Please make sure you have provided a working phone number so we can reach you if necessary. In the event that you had a lab culture while you were a patient in the Emergency Department, you will be notified by phone if there is a need to change your antibiotic. Please make sure you have provided a working phone number so we can reach you if necessary. [facility] Emergency Department has provided you with a complete list of medications post discharge. Please inform your safety patrol officer/provider of your visit and for further instruction on these medications. Any specific questions regarding your chronic medications and dosages should be discussed with your primary care physician(s) and/or pharmacist. New Medications Printed Prescriptions amoxicillin-clavulan ate (Augmentin 875 mg-125 mg oral tablet) 1 tab(s) Oral Every 12 hours scheduled time for 7 Days. Refills: 0. lactobacillus acidophilus (Acidophilus Extra Strength oral capsule) 1 cap(s) Oral every day. Refills: 0. Medications to Continue That Have Not Changed Other Medications sertraline (sertraline 50 mg oral tablet) take 1 tablet by mouth once daily. topiramate (topiramate 50 mg oral tablet) take 1 tablet by mouth once daily. Visit Information Allergies: Substance Reaction Symptoms Type Comments No Known Medication Allergies Drug Vital Signs: Vitals and Measurements this Visit (last charted value for your 04/14/2021 visit) Vital Signs This Visit Temperature Oral: 37.0 DegC Peripheral Pulse Rate: 100 bpm Respiratory Rate: 16 br/min Systolic Blood Pressure: 123 mmHg Diastolic Blood Pressure: 66 mmHg SpO2: 96 % Oxygen Therapy: Room air Measurements This Visit Height/Length Dosin.640 cm Height/Length Estimated: 167.640 cm Weight Dosin.550 kg Weight Estimated: 82.550 kg Problems List: Problem Onset Comments No Problems found Pa (more content not included)... Normal [facility] CTPCRon 05-17-2020 C. trachomatis Interp Abnormal See CT Interp N [facility] ([place]) Comment on above: Result Comment: DNA detection by non-culture technique (PCR). Sensitivity testing not available with this method. This organism causes a reportable disease Results have been reported to the [place] [facility] See CT Interp P Performed By: #### C TPCR, NGPCR1 #### [address] [address] C.trachomatis PCR Positive Abnormal Negative [facility] ([place]) Comment on above: Result Comment: Mole cular (PCR) assay performed on the [employer] Stephanie 4800 system. Performed By: #### C TPCR, NGPCR1 #### [address] [address] Chlam Source Urine Normal [facility] ([place]) Comment on above: Performed By: #### C TPCR, NGPCR1 #### [address] [address] [id number] 05-17-2020 GC PCR Source Urine Normal [facility] ([place]) Comment on above: Performed By: #### C TPCR, NGPCR1 #### [address] [address] N. gonorrhoeae (PCR) Negative Normal Negative [facility] ([place]) Comment on above: Result Comment: Mole cular (PCR) assay performed on the [employer] Stephanie 4800 System. Performed By: #### C TPCR, NGPCR1 #### [address] [address] N. gonorrhoeae Interp Normal See NG Interp N [facility] ([place]) Comment on above: Result Comment: N. g onorrhoeae DNA not detected. Specimen is presumptive negative for N. gonorrhoeae. A negative result does not preclude Neisseria gonorrhoeae infection because results depend on adequate specimen collection, absence of inhibitors, and sufficient DNA to be detected. See NG Interp N Performed By: #### C TPCR, NGPCR1 #### [address] [address] .Urinalysis Microscopic (AO) on 05-14-2020 RBC (U) [#/Vol] 0-5 Abnormal None Seen [facility] ([place]) Comment on above: Performed By: #### P REGU, UA, UAMICAO #### [address] [address] UA Bacteria 1+ /hpf Abnormal [facility] ([place]) Comment on above: Performed By: #### P REGU, UA, UAMICAO #### [address] [address] UA Squam Epithelial 5-10 Abnormal None Seen [facility] ([place] Comment on above: Performed By: #### P REGU, UA, UAMICAO #### [address] [address] UA WBC 5-10 Abnormal None Seen [facility] ([place] Comment on above: Performed By: #### P REGU, UA, UAMICAO #### [address] [address] PREGUon 05-14-2020 HCG ( test) Ql (U) Negative Normal [facility] ([place] Comment on above: Performed By: #### P REGU, UA, UAMICAO #### [place] [address] test (u) int HCG not detected. [facility] ([place] Comment on above: Performed By: #### P REGU, UA, UAMICAO #### [place] [address] UAon 05-14-2020 Color (U) Yellow Normal [facility] ([place] Comment on above: Performed By: #### P REGU, UA, UAMICAO #### [place] [address] Glucose (U) [Mass/Vol] Negative Normal Negative [facility] ([place] Comment on above: Performed By: #### P REGU, UA, UAMICAO #### [place] [address] Ketones Ql (U) Negative Normal Negative [facility] ([place]) Comment on above: Performed By: #### P REGU, UA, UAMICAO #### [place] [address] UA Appear Cloudy Abnormal Clear [facility] ([place] Comment on above: Performed By: #### P REGU, UA, UAMICAO #### [address] [address] UA Blood Negative Normal Negative [facility] ([place] Comment on above: Performed By: #### P REGU, UA, UAMICAO #### [place] [address] UA Leuk Est Moderate Abnormal Negative [facility] ([place] Comment on above: Performed By: #### P REGU, UA, UAMICAO #### [place] [id number] UA Nitrite Negative Normal Negative [facility] ([place] Comment on above: Performed By: #### P REGU, UA, UAMICAO #### [address] [address] UA pH 6.5 Normal 5.0 - 8.0 [facility] ([place] Comment on above: Performed By: #### P REGU, UA, UAMICAO #### [address] [address] UA Protein Negative Normal Negative [facility] ([place] Comment on above: Performed By: #### P REGU, UA, UAMICAO #### [address] [address] UA Spec Grav 1.025 Normal 1.015-1.025 [facility]) Comment on above: Performed By: #### P REGU, UA, UAMICAO #### [address] [address] UA Specimen Type Void Normal [facility] ([place] Comment on above: Performed By: #### P REGU, UA, UAMICAO #### [address] [address] UA Urobilinogen 0.2 E.U./dL Normal 0.2-1.0 [facility] ([place] Comment on above: Performed By: #### P REGU, UA, UAMICAO #### [place] [address] Urobilinogen Qn (U) Negative Normal Negative [facility] ([place] Comment on above: Performed By: #### P REGU, UA, UAMICAO #### [place] [address] .Auto Diffon 07-22-2019 Ammonia (P) [Mass/Vol] 0.90 10 3/mcL Normal 0.15-1.00 [facility] ([place]) Comment on above: Performed By: #### C BC, ADIFF, ANEU #### [place] [address] #### GLU1P #### [address] [address] Basophils (Bld) [#/Vol] 0.10 10 3/mcL Normal 0.00-0.19 [facility] ([place]) Comment on above: Performed By: #### MAURICE HERNANDEZ, ANEU #### [address] [address] #### GLU1P #### [address] [address] Basophils/100 WBC (Bld) 0.6 % Normal 0.0-2.5 [facility] ([place]) Comment on above: Performed By: #### C MAURICE BUTLER, ANEU #### [address] [address] #### GLU1P #### [address] [address] Eosinophils (Bld) [#/Vol] 0.30 10 3/mcL Normal 0.00-0.40 [facility] ([place]) Comment on above: Performed By: #### C MAURICE BUTLER, ANEU #### [address] [address] #### GLU1P #### [address] [address] Eosinophils/100 WBC (Bld) 3.1 % Normal 0.0-7.0 [facility] ([place]) Comment on above: Performed By: #### MAURICE HERNANDEZ ANEU #### [address] [address] #### GLU1P #### [address] [address] Lymphocytes (Bld) [#/Vol] 1.50 10 3/mcL Normal 0.77-3.85 [facility] ([place]) Comment on above: Performed By: #### C MAURICE BUTLER, ANEU #### [address] [address] #### GLU1P #### [address] [address] Lymphocytes/100 WBC (Bld) 13.6 % Normal 10.0-50.0 [facility] ([place]) Comment on above: Performed By: #### MAURICE HERNANDEZ, ANEU #### [address] [address] #### GLU1P #### [address] [address] Monocytes/100 WBC (Bld) 8.7 % Normal 1.7-13.0 [facility] ([place]) Comment on above: Performed By: #### MAURICE HERNANDEZ, ANEU #### [address] [address] #### GLU1P #### [address] [address] Neutrophils/100 WBC (Bld) 74.0 % Normal 37.0-80.0 [facility] ([place]) Comment on above: Performed By: #### MAURICE HERNANDEZ, ANEU #### [place] [address] #### GLU1P #### [address] [address] .NEUABSon 07-22-2019 Neutrophils (Bld) [#/Vol] 8.00 10 3/mcL High 2.85-6.16 [facility] ([place]) Comment on above: Performed By: #### MAURICE HERNANDEZ, ANEU #### [place] [address] #### GLU1P #### [address] [address] CBCon 07-22-2019 Erythrocyte distribution width (RBC) [Ratio] 13.9 % Normal 11.5-14.5 [facility] ([place]) Comment on above: Performed By: #### MAURICE HERNANDEZ, ANEU #### [address] [address] #### GLU1P #### [address] [address] Hematocrit (Bld) [Volume fraction] 38.1 % Normal 37.0-47.0 [facility] ([place]) Comment on above: Performed By: #### MAURICE HERNANDEZ ANEU #### [address] [address] #### GLU1P #### [address] [address] Hemoglobin (Bld) [Mass/Vol] 12.9 G/dL Normal 12.0-16.0 [facility] ([place]) Comment on above: Performed By: #### C MAURICE BUTLER, ANEU #### [place] [address] #### GLU1P #### [address] [address] MCH (RBC) [Entitic mass] 30.9 pg Normal 27.0-31.2 [facility] ([place]) Comment on above: Performed By: #### MAURICE HERNANDEZ ANEU #### [place] [address] #### GLU1P #### [address] [address] MCHC (RBC) [Mass/Vol] 34.0 G/dL Normal 33.0-37.0 [facility] ([place]) Comment on above: Performed By: #### MAURICE HERNANDEZ ANEU #### [address] [address] #### GLU1P #### [address] [address] MCV (RBC) [Entitic vol] 90.9 fL Normal 80.0-94.0 [facility] ([place]) Comment on above: Performed By: #### MAURICE HERNANDEZ ANEU #### [address] [address] #### GLU1P #### [address] [address] Platelet mean volume (Bld) [Entitic vol] 9.5 fL Normal 7.4-10.4 [facility] ([place]) Comment on above: Performed By: #### MAURICE HERNANDEZ ANEU #### [address] [address] #### GLU1P #### [address] [address] Platelets (Bld) [#/Vol] 177 10 3/mcL Normal 130-400 [facility] ([place]) Comment on above: Performed By: #### C BCMAURICE, ANEU #### [address] [address] #### GLU1P #### [address] [address] RBC (Bld) [#/Vol] 4.19 10 6/mcL Low 4.20-5.40 [facility] ([place]) Comment on above: Performed By: #### C MAURICE BUTLER, ANEU #### [address] [address] #### GLU1P #### [address] [address] WBC (Bld) [#/Vol] 10.90 10 3/mcL High 4.60-10.80 [facility] ([place]) Comment on above: Performed By: #### C BCMAURICE, ANEU #### [address] [address] #### GLU1P #### [address] [address] [id number] 07-22-2019 Glucose [Mass/Vol] 93 mg/dL Normal 70-140 [facility] ([place]) Comment on above: Performed By: #### C BCMAURICE, ANEU #### [address] [address] #### GLU1P #### [address] [address] Vital Signs Date Time Vital Sign Value Performing Clinician Martine rasmussen 07-31-2021 11:09-0400 Body height 167.6 cm Enrique Pacheco Work Phone: [facility] Work Phone: 07-31-2021 11:09-0400 Body mass index (BMI) [Ratio] 30.67 kg/m2 Enrique Edouard MD Work Phone: [employer] Work Phone: 07-31-2021 11:09-0400 Body temperature 97.9 [degF] Enrique Pacheco Work Phone: [employer] Work Phone: 07-31-2021 11:09-0400 Body weight 86.18 kg Enrique Pacheco Work Phone: [employer] Work Phone: 07-31-2021 11:09-0400 Diastolic blood pressure 54 mm[Hg] Enrique Edouard MD Work Phone: [employer] Work Phone: 07-31-2021 11:09-0400 Heart rate 82 /min Enrique Pacheco Work Phone: [employer] Work Phone: 07-31-2021 11:09-0400 Respiratory rate 16 /min Enrique Pacheco Work Phone: [employer] Work Phone: 07-31-2021 11:09-0400 SaO2% (BldA) [Mass fraction] 99 % Enrique Edouard MD Work Phone: [employer] Work Phone: 07-31-2021 11:09-0400 Systolic blood pressure 113 mm[Hg] Enrique Edouard MD Work Phone: [employer] Work Phone: Encounters Encounter Date Encounter Type Care Provider Facility Start: 11-05-2023 End: 11-05-2023 Emergency department patient visit NO PCP NO PCP [facility] Start: 01-27-2023 End: 04-23-[address] KRISTIE PAULINO Facility:[facility] Start: 12-11-2022 End: 12-11-[address] KRISTIE PAULINO Facility:[facility] Start: 11-29-2022 End: 11-29-2022 ambulatory RADHA AZEVEDO . Facility:[facility] Start: 10-02-2022 End: 10-02-2022 ambulatory RAQUEL JOHNSON Facility:[facility] Start: 08-23-2022 End: 08-23-2022 ambulatory RAQUEL JOHNSON Facility:[facility] Start: 07-29-2022 End: 07-29-[address] JAYDON CAMERON Facility:[facility] Start: 06-01-2022 End: 06-01-[address] KRIS HERMAN Facility:[facility] Start: 05-15-2022 End: 05-15-[address] KRIS HERMAN Facility:[facility] Start: 05-10-2022 End: 05-12-2022 Evaluation and management of inpatient DR MERLENE ECHEVARRIA . Facility:[facility] Start: 04-17-2022 End: 04-17-[address] MERLENE ECHEVARRIA . Facility:[facility] Start: 03-31-2022 End: 03-31-[address] NAOMY MARCUS . Facility:[facility] Start: 03-28-2022 End: 03-28-[address] MERLENE ECHEVARRIA . Facility:[facility] Start: 03-20-2022 End: 03-20-[address] NAOMY MARCUS . Facility:[facility] Start: 03-01-2022 End: 03-01-[address] MERLENE ECHEVARRIA . Facility:[facility] Start: 02-20-2022 End: 02-21-[address] MERLENE ECHEVARRIA . Facility:[facility] Start: 07-31-2021 End: 07-31-2021 Emergency department patient visit SR KRIS [facility] Start: 07-31-2021 End: 07-31-2021 Emergency department patient visit Enrique Edouard MD Work Phone: [facility] ED Comment on above: Acute non-recurrent frontal sinusitis (Primary Dx) Start: 07-10-2021 End: 07-13-2021 ambulatory SR KRIS [facility] Start: 07-10-2021 End: 07-12-2021 Subsequent hospital visit by physician Giovanni Xr Room 4 [facility] Radiology Comment on above: Lumbar pain Procedures Date Procedure Procedure Detail Performing Clinician Start: 05-11-2022 Delivery of Products of Conception, External Approach RAQUEL JOHNSON Start: 05-11-2022 Drainage of Amniotic Fluid, Therapeutic from Products of Conception, Via Natural or Artificial Opening RAQUEL JOHNSON Start: 05-11-2022 Introduction of Othe r Hormone into Peripheral Vein, Percutaneous Approach RAQUEL JOHNSON Start: 05-11-2022 Repair Vulva, Flight Crew Ordnanceman al Approach RAQUEL JOHNSON Start: 05-10-2022 Introduction of Horm one into Female Reproductive, Via Natural or Artificial Opening RAQUEL JOHNSON Start: 07-31-2021 COVID-19, RAPID [facility] Work Phone: Start: 07-31-2021 Urine test visual color cmprsn meths Kari Amaya [facility] Work Phone: Start: 07-31-2021 Radiologic exam ches t single view Kari Amaya [facility] Work Phone: Start: 07-10-2021 Radex spine lumbosac ral 2/3 views Sr Kris P House DO Work Phone: Plan of Treatment Date Care Activity Detail Author Start: 09-03-2029 DTaP/Tdap/Td vaccine (6 - Td or Tdap) DTaP/Tdap/Td vaccine (6 - Td or Tdap) [facility]: Start: 06-07-2021 Influenza vaccination Flu vaccine (# 1) [facility] [employer] Phone: Start: 2017 Screening for Chlamy marylin trachomatis Chlamydia screen [facility] [employer] Work Phone: Start: 2016 HIV screening HIV screen [facility] Work Phone: Start: 11-10-2015 Hepatitis A vaccine (2 of 2 - 2-dose series) Hepatitis A vaccine (2 of 2 - 2-dose series) [facility] [employer] Work Phone: Start: 2001 Hepatitis C screening Hepatitis C [facility] Work Phone: Payers Date Payer Category Payer Unknown [id number] 2.16.8 [id number] 2001 Unknown [id number] 2.16.8 [id number] 2001 Unknown [id number] 2.16.8 [id number] 2001 Unknown [id number] 2.16.84 0.1.612204.3.579.2.593 2001 Unknown [id number] 2.16.84 0.1.515067.3.579.2.593 2001 Unknown [id number] 2.16.84 0.1.352772.3.579.2.593 2001 Unknown [id number] 2.16.84 0.1.144106.3.579.2.593 2001 Unknown [id number] 2.16.84 0.1.360716.3.579.2.593 2001 Unknown [id number] 2.16.84 0.1.631830.3.579.2.593 2001 Unknown [id number] 2.16.84 0.1.074939.3.579.2.593 2001 Unknown [id number] 2.16.84 0.1.105147.3.579.2.593 2001 Unknown [id number] 2.16.84 0.1.603100.3.579.2.593 2001 Unknown [id number] 2.16.84 0.1.640194.3.579.2.593 2001 Unknown [id number] 2.16.84 0.1.259068.3.579.2.593 2001 Unknown [id number] 2.16.84 0.1.814414.3.579.2.593 2001 Unknown [id number] 2.16.84 0.1.645025.3.579.2.593 2001 Unknown [id number] 2.16.84 0.1.791298.3.579.2.593 2001 Unknown [id number] 2.16.84 0.1.456630.3.579.2.593 2001 Unknown [id number] 2.16.8 40.1.180120.3.579.2.1286 1959 Unknown [id number] 1. [id number] Social History Date Type Detail Facility Tobacco smoking stat [facility] [employer] Unknown if ever smoked [employer] Phone: Start: 2001 Sex Assigned At Not on file [facility] [employer] Phone: Start: 07-31-2021 Tobacco smoking stat [employer] [facility] Never smoker [employer] Phone: Start: 07-31-2021 Tobacco use and exposure Never used [employer] Start: 07-31-2021 Alcohol intake Ex-drinker (finding) [employer] Phone: Exposure to SARS-CoV -2 (event) Not sure [employer] Clinical Note 01-27-2023 Note Date & Type Note Facility 01-27-2023 Note PROCEDURE: XR HIP LT 2 3V W PELVIS HISTORY: Pain in left leg after falling on stairs; left hip pain COMPARISON: None. FINDINGS: BONES:No fracture, acute abnormality, or significant arthropathy. SOFT TISSUES:No visible soft tissue swelling. EFFUSION:None visible. OTHER: Negative. IMPRESSION: 1. No acute bone abnormality. Electronically authenticated by: KRISTIE PAULINO Date: 2023-01-27 13:47 [facility] Clinical Note 01-27-2023 Note Date & Type Note Facility 01-27-2023 Note PROCEDURE: XR KNEE L T 4V or > HISTORY: Pain in left leg after falling on stairs COMPARISON: None. FINDINGS: BONES:No fracture, acute abnormality, or significant arthropathy. SOFT TISSUES:No visible soft tissue swelling. EFFUSION:None visible. OTHER: Negative. IMPRESSION: 1. No acute bone abnormality. Electronically authenticated by: KRISTIE PAULINO Date: 2023-01-27 13:46 [facility] Clinical Note 04-14-2021 Note Date & Type Note Facility 04-14-2021 Note [employer] ENT Sinus Headache A sinus headache occurs when your sinuses become clogged or swollen. Sinuses are air-filled spaces in your skull that are behind the bones of your face and forehead. Sinus headaches can range from mild to severe. What are the causes? A sinus headache can result from various conditions that affect the sinuses. Common causes include: ? Colds. ? Sinus infections. ? Allergies. Many people confuse sinus headaches with migraines or tension headaches because those headaches can also cause facial pain and nasal symptoms. What are the signs or symptoms? The main symptom of this condition is a headache that may feel like pain or pressure in your face, forehead, ears, or upper teeth. People who have a sinus headache often have other symptoms, such as: ? Congested or runny nose. ? Fever. ? Inability to smell. Weather changes can make symptoms worse. How is this diagnosed? This condition may be diagnosed based on: ? A physical exam and medical history. ? Imaging tests, such as a CT scan or MRI, to check for problems with the sinuses. ? Examination of the sinuses using a thin tool with a camera that is inserted through your nose (endoscopy). How is this treated? Treatment for this condition depends on the cause. ? Sinus pain that is caused by a sinus infection may be treated with antibiotic medicine. ? Sinus pain that is caused by allergies may be helped by allergy medicines (antihistamines) and medicated nasal sprays. ? Sinus pain that is caused by congestion may be helped by rinsing out (flushing) the nose and sinuses with saline solution. ? Sinus surgery may be needed in some cases if other treatments do not help. Follow these instructions at home: General instructions ? If directed: ? Apply a warm, moist washcloth to your face to help relieve pain. ? Use a nasal saline wash. Medicines ? Take stpm-ujo-iojiumm and prescription medicines only as told by your health care provider. ? If you were prescribed an antibiotic medicine, take it as told by your health care provider. Do not stop taking the antibiotic even if you start to feel better. ? If you have congestion, use a nasal spray to help lessen pressure. Hydrate and humidify ? Drink enough water to keep your urine clear or pale yellow. Staying hydrated will help to thin your mucus. ? Use a cool mist humidifier to keep the humidity level in your home above 50%. ? Inhale steam for 10?15 minutes, 3?4 times a day or as told by your health care provider. You can do this in the bathroom while a hot shower is running. ? Limit your exposure to cool or dry air. Contact a health care provider if: ? You have a headache more than one time a week. ? You have sensitivity to light or sound. ? You develop a fever. ? You feel nauseous or you vomit. ? Your headaches do not get better with treatment. Many people think that they have a sinus headache when they actually have a migraine or a tension headache. Get help right away if: ? You have vision problems. ? You have sudden, severe pain in your face or head. ? You have a seizure. ? You are confused. ? You have a stiff neck. Summary ? A sinus headache occurs when your sinuses become clogged or swollen. ? A sinus headache can result from various conditions that affect the sinuses, such as a cold, a sinus infection, or an allergy. ? Treatment for this condition depends on the cause. It may include medicine, such as antibiotics or antihistamines. This information is not intended to replace advice given to you by your health care provider. Make sure you discuss any questions you have with your health care provider. Document Revised: 09/05/2018 Document Reviewed: 07/04/2018 [employer] Patient Education ? 2020 [employer] Infectious Disease Sinusitis, Adult Sinusitis is inflammation of your sinuses. Sinuses are hollow spaces in the bones around your face. Your sinuses are located: ? Around your eyes. ? In the middle of your forehead. ? Behind your nose. ? In your cheekbones. Mucus normally drains out of your sinuses. When your nasal tissues become inflamed or swollen, mucus can become trapped or blocked. This allows bacteria, viruses, and fungi to grow, which leads to infection. Most infections of the sinuses are caused by a virus. Sinusitis can develop quickly. It can last for up to 4 weeks (acute) or for more than 12 weeks (chronic). Sinusitis often develops after a cold. What are the causes? This condition is caused by anything that creates swelling in the sinuses or stops mucus from draining. This includes: ? Allergies. ? Asthma. ? Infection from bacteria or viruses. ? Deformities or blockages in your nose or sinuses. ? Abnormal growths in the nose (nasal polyps). ? Pollutants, such as chemicals or irritants in the air. ? Infection from f (more content not included)... [facility] Evaluation note Note Date & Type Note Facility Evaluation note Diagnosis Lumbar pain Lumbago documented in this encounter bookletmobile Phone: Evaluation note Note Date & Type Note Facility Evaluation note Diagnosis Acute non-recurrent frontal sinusitis- Primary documented in this encounter bookletmobile Phone: Hospital Discharge instructions Attachments Note Date & Type Note Facility Hospital Discharge instructions The following attachments cannot be sent through Care Everywhere.Sinusitis (Honduran)documented in this encounter bookletmobile Phone: Summary Purpose Family History No Family History Records FoundNo Family History Records FoundNo Family History Records FoundNo Family History Records FoundNo Family History Records Found Advance Directives No Advanced Directives Records FoundNo Advanced Directives Records FoundNo Advanced Directives Records FoundNo Advanced Directives Records FoundNo Advanced Directives Records Found Additional Source Comments INFORMATION SOURCE (unrecogn ized section and content) DATE CREATED AUTHOR 05/17/2020 [facility] ([place]) DATE CREATED AUTHOR AUTHOR'S ORGANIZ ATION 04/25/2021 [facility] DATE CREATED AUTHOR AUTHOR'S ORGANIZ ATION 07/31/2021 [facility] DATE CREATED AUTHOR AUTHOR'S ORGANIZ ATION 01/29/2023 [facility] DATE CREATED AUTHOR AUTHOR'S ORGANIZ ATION 11/10/2023 [facility] Reason for Visit (unrecogniz ed section and content) Reason Comments Cough Ordered Prescriptions (unrec ognized section and content) Prescription Sig Dispensed Refills Start Date End Da te amoxicillin-clavulanate (AUGMENTIN) 967-125 MG per tablet Take 1 tablet by mouth 2 times daily for 10 days 20 tablet 0 07/31/2021 08/10/2021 FOR RECORDS PERTAINING TO PATIENTS WHO ARE OR HAVE BEEN ENROLLED IN A CHEMICAL DEPENDENCY/SUBSTANCEABUSE PROGRAM, SOME INFORMATION MAY BE OMITTED. This clinical summary was aggregated from multiple sources. Caution should be exercised in using it in the provision of clinical care. This summary normalizes information from multiple sources, and as a consequence, information in this document may materially change the coding, format and clinical context of patient data. In addition, data may be omitted in some cases. CLINICAL DECISIONS SHOULD BE BASED ON THE PRIMARY CLINICAL RECORDS. [facility] [employer] [facility]. provides no warranty or guarantee of the accuracy or completeness of information in this document.
--- NOTE | 2024-01-05 02:17 | ED.GENADUL1 ---
HPI HPI - General Adult General Chief complaint: Nausea/Vomiting/Diarrhea Stated complaint: fever headache Time Seen by Provider: 01/05/24 02:12 Source: patient Mode of arrival: walk-in Limitations: no limitations History of Present Illness HPI narrative: 23-year-old female presents for nausea vomiting and sore throat and headache of 1 to 2 days duration. She took a home COVID test and it was negative. Her children have an ear infection. No diarrhea but she states she had a fever at home but it was not documented. She was afebrile here. Related Data Previous Rx's ?Medication ?Instructions ?Recorded ketorolac 10 mg tablet 10 mg PO TID PRN pain #10 tabs 11/24/23 tramadol 50 mg tablet 50 mg PO Q4H PRN pain #15 tabs 11/24/23 amoxicillin 500 mg capsule 500 mg PO TID 10 days #30 caps 01/05/24 ondansetron 4 mg disintegrating 4 mg PO Q6H PRN nausea and 01/05/24 tablet vomiting #20 tabs Allergies Allergy/AdvReac Type Severity Reaction Status Date / Time No Known Drug Allergies Allergy Verified 01/05/24 02:04 Opioid HPI Opioid Management Most Recent Opioid Data: Last Pain Scale 9 11/24/23 15:54 Review of Systems ROS Narrative A ten point review of systems is negative except as noted above. [facility] Medical History (Updated 01/05/24 @ 02:59 by Gaurav Adair MD) Migraine ?G43.909 - Migraine, unspecified, not intractable, without status migrainosus (ICD-10) Social History Smoking status: Light tobacco smoker Exam Narrative Exam Narrative: Nurses note and vital signs reviewed and patient is not hypoxic. General: The patient appear in no apparent respiratory distress. Skin: Warm, dry, no pallor noted. There is no rash noted. Head: Normocephalic, atraumatic Eye: Normal conjunctiva, no drainage, EOMI. PERRL Ears, Nose, Mouth, and Throat: oral mucosa is moist. Nares patent. Mild pharyngeal erythema present without swelling or exudates. Cardiovascular: Regular Rate and Rhythm Respiratory: Patient is in no distress, no accessory muscle use, lungs are clear to auscultation, no wheezing, rales or rhonchi Back: non-tender GI: Soft and nontender Musculoskeletal: The patient has no evidence of calf tenderness, no pitting edema, symmetrical pulses noted bilaterally Neurological: A&O, normal speech Psychiatric: Cooperative Constitutional Vital Signs, click to edit/add: Last Vital Signs Temp 98.3 F 01/05/24 02:04 Pulse 73 01/05/24 02:04 Resp 16 01/05/24 02:04 BP 116/59 01/05/24 02:04 Pulse Ox 96 01/05/24 02:04 O2 Del Method Room Air 01/05/24 02:04 Course Vital Signs Vital signs: Vital Signs Temperature 98.3 F 01/05/24 02:04 Pulse Rate 73 01/05/24 02:04 Respiratory Rate 16 01/05/24 02:04 Blood Pressure 116/59 01/05/24 02:04 Pulse Oximetry 96 01/05/24 02:04 Oxygen Delivery Method Room Air 01/05/24 02:04 Temperature 98.3 F 01/05/24 02:04 Pulse Rate 73 01/05/24 02:04 Respiratory Rate 16 01/05/24 02:04 Blood Pressure 116/59 01/05/24 02:04 Pulse Oximetry 96 01/05/24 02:04 Oxygen Delivery Method Room Air 01/05/24 02:04 Medical Decision Making MDM Narrative Medical decision making narrative: Strep test is positive. COVID and influenza are negative. She was prescribed amoxicillin and started on that here. Treatment diagnosis and follow-up were discussed with the patient. Lab Data Lab results reviewed: Yes I reviewed the patient's lab results Labs: Lab Results 01/05/24 Range/Units 02:22 Influenza Type A Ag Negative Influenza Type B Ag Negative SARS-CoV-2 Ag (CV2AG) Negative (NEGATIVE) Streptococcus Screen Positive A Discharge Plan Discharge Stand Alone Forms: Portal Instructions Chief Complaint: Nausea/Vomiting/Diarrhea Clinical Impression: Strep throat Patient Disposition: Home, Self-Care Time of Disposition Decision: 02:59 Condition: Good Mode of Transportation: Private Vehicle Prescriptions / Home Meds: New amoxicillin 500 mg capsule 500 mg PO TID 10 Days Qty: 30 0RF ondansetron 4 mg tablet,disintegrating 4 mg PO Q6H PRN (Reason: nausea and vomiting) Qty: 20 0RF No Action tramadol 50 mg tablet 50 mg PO Q4H PRN (Reason: pain) Qty: 15 0RF ketorolac 10 mg tablet 10 mg PO TID PRN (Reason: pain) Qty: 10 0RF Print Language: Hebrew Instructions: Strep Throat (ED) Referrals: Physician,Non-Staff, MD [Primary Care Provider] - 1 week
[2024-01-05] MEDS: KETOROLAC TROMETHAMINE 60 MG/2 ML VIAL IM (02:34)
[2024-01-05] MEDS: PROMETHAZINE HCL 25 MG/ML VIAL IM (02:34)
[2024-01-05 02:35] LABS: Internal Control Within Normal Limits; Strep A Antigen Screen Positive
[2024-01-05 02:39] LABS: Influenza Virus A Antigen Negative; Influenza Virus B Antigen Negative; Internal Control Within Normal Limits; SARS-CoV-2 Ag NEGATIVE (NEGATIVE)
[2024-01-05] MEDS: AMOXICILLIN 500 MG CAPSULE PO (03:18)
== END 2024-01-05 03:19 | disposition home or self-care (01) ==
PROVIDERS: Emergency Provider Emergency Medicine
DX: J02.0 Streptococcal pharyngitis (principal); Z20.822 Contact with and (suspected) exposure to COVID-19; F17.210 Nicotine dependence, cigarettes, uncomplicated
CPT/HCPCS: 87804; 87811; 87880; 99284

== ENCOUNTER 2024-01-06 11:10 | Emergency (ER) | payer OTHER, SELFPAY ==
[2024-01-06 11:14] VITALS: BP 120/74; PULSE 84; TEMP 36.6; O2SAT 97; BMI 30.3
--- NOTE | 2024-01-06 11:23 | XR_ITS ---
The [address] [address] Patient Name: ENRICO PATRICIA MRN: [id number] date: 2000 Sex: F Assigned Patient Location: ER Current Patient Location: ED.MAIN Accession/Order Number: [id number] Exam Date: 01/06/2024 11:35 Report Date: 01/06/2024 11:54 At the request of: JAYDON CAMERON Procedure: XR knee LT 3V PROCEDURE: XR knee LT 3V HISTORY: pain since falling 2 days ago COMPARISON: None. FINDINGS: BONES:No fracture, acute abnormality, or significant arthropathy. SOFT TISSUES:No visible soft tissue swelling. EFFUSION:None visible. OTHER: Negative. XR/XR knee LT 3V IMPRESSION: 1. No acute bone abnormality. Electronically authenticated by: KRISTIE PAULINO Date: 01/06/2024 11:54
--- NOTE | 2024-01-06 11:58 | ED_ITS ---
HPI HPI - Extremity Injury (Lower) General Chief Complaint: Extremity Injury, Lower Stated Complaint: LOWER EXTREMITY PAIN Time Seen by Provider: 01/06/24 11:48 Source: patient Mode of arrival: walk-in Limitations: no limitations History of Present Illness HPI Narrative: This patient is here complaining of knee. She states about a week ago she was horsing around in a bar with friends and fell and struck her kneecap. She did not really apply much ice or treated at that time. Still states sore directly over the patella. She has some radiation of pain to the thigh. She has no previous knee surgeries or problems. She was triaged x-ray department reviews were taken of the knee. She does not have any other injury to the lower leg. Incidentally she was here yesterday for sore throat and did not mention it to the physician. Related Data Previous Rx's ?Medication ?Instructions ?Recorded ketorolac 10 mg tablet 10 mg PO TID PRN pain #10 tabs 11/24/23 tramadol 50 mg tablet 50 mg PO Q4H PRN pain #15 tabs 11/24/23 amoxicillin 500 mg capsule 500 mg PO TID 10 days #30 caps 01/05/24 ondansetron 4 mg disintegrating 4 mg PO Q6H PRN nausea and 01/05/24 tablet vomiting #20 tabs Allergies Allergy/AdvReac Type Severity Reaction Status Date / Time No Known Drug Allergies Allergy Verified 01/05/24 02:04 Opioid HPI Opioid Management Most Recent Pain and Opioid Data: Last Pain Scale 8 01/06/24 11:20 PFSH PFS Medical History (Updated 01/06/24 @ 12:01 by Wilner Beck MD) Migraine ?G43.909 - Migraine, unspecified, not intractable, without status migrainosus (ICD-10) Social History Smoking status: Light tobacco smoker Exam Narrative Exam Narrative: Awake alert lying down no apparent distress. Examining her knees. She does have a old bruise in the robbing the right lower leg and then on the left side she does have some minor bruising directly over the patella itself in fact the patella is slightly tender to palpation. There is no knee effusion. Stress testing the knee discloses no instability there is good endpoints. There is no pain with varus and valgus stressing the knee in flexion or extension. Neurovascular examination distal extremity is normal. The quadriceps and the patella tendon are intact. Isolated pain directly over the kneecap itself. X- rays were reviewed by myself and preliminary review shows no acute fracture I am awaiting radiologist interpretation. Constitutional Vital Signs, click to edit/add: Last Vital Signs Temp 97.8 F 01/06/24 11:14 Pulse 84 01/06/24 11:14 Resp 18 01/06/24 11:14 BP 120/74 01/06/24 11:14 Pulse Ox 97 01/06/24 11:14 O2 Del Method Room Air 01/06/24 11:14 Course Vital Signs Vital signs: Vital Signs Temperature 97.8 F 01/06/24 11:14 Pulse Rate 84 01/06/24 11:14 Respiratory Rate 18 01/06/24 11:14 Blood Pressure 120/74 01/06/24 11:14 Pulse Oximetry 97 01/06/24 11:14 Oxygen Delivery Method Room Air 01/06/24 11:14 Temperature 97.8 F 01/06/24 11:14 Pulse Rate 84 01/06/24 11:14 Respiratory Rate 18 01/06/24 11:14 Blood Pressure 120/74 01/06/24 11:14 Pulse Oximetry 97 01/06/24 11:14 Oxygen Delivery Method Room Air 01/06/24 11:14 MDM - Extremity Injury (Lower) MDM Narrative Medical decision making narrative: Patient here with bruising over the patella and mild tenderness after direct fall 1 week ago. Pending x-ray evaluation I am recommending ice intermittently Beau wrap evaluation and this should heal with no necessary follow-up at this time there is no indication of intra-articular injury on the clinical exam Discharge Plan Discharge Stand Alone Forms: Portal Instructions Chief Complaint: Extremity Injury, Lower Clinical Impression: Contusion of left patella Patient Disposition: Home, Self-Care Time of Disposition Decision: 12:01 Prescriptions / Home Meds: No Action amoxicillin 500 mg capsule 500 mg PO TID 10 Days Qty: 30 0RF ondansetron 4 mg tablet,disintegrating 4 mg PO Q6H PRN (Reason: nausea and vomiting) Qty: 20 0RF tramadol 50 mg tablet 50 mg PO Q4H PRN (Reason: pain) Qty: 15 0RF ketorolac 10 mg tablet 10 mg PO TID PRN (Reason: pain) Qty: 10 0RF Print Language: Nigerian Additional Instructions: Beau wrap, ice as needed. [id number] NSAIDs/follow-up with primary care doctor Referrals: Physician,Non-Staff, MD [Primary Care Provider] - 1 week
[2024-01-06 12:05] VITALS: BP 122/86; PULSE 88; O2SAT 98
== END 2024-01-06 12:07 | disposition home or self-care (01) ==
PROVIDERS: Emergency Provider Emergency Medicine Emergency Medical Services
DX: S80.02XA Contusion of left knee, initial encounter (principal); W19.XXXA Unspecified fall, initial encounter; F17.210 Nicotine dependence, cigarettes, uncomplicated
CPT/HCPCS: 73562; 99283

== ENCOUNTER 2024-01-26 21:04 | Emergency (ER) | payer OTHER, SELFPAY ==
--- OUTSIDE RECORDS SUMMARY | 2024-01-26 21:11 | XMS_ITS | CCD ---
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 Care Estimating Manager Name Role Phone House DO, Sr Kris Chavez Primary Care Provider HOUSE, SR KRIS Chavez Referring Unavailable HOUSE, SR KRIS P Primary Care Unavailable HOUSE, SR KRIS P Referring Unavailable HOUSE, SR KRIS P Primary Care Unavailable HOUSE, SR KRIS P Primary Care Unavailable ENRIQUE EDOUARD Attending Unavailabl e ELIZABETH, RAQUEL Pacheco Attending Unavailable RAQUEL JOHNSON Admitting Unavailable GRECHNY [...] KARASIK ., DR BLUNT Admitting Unavailabl e AGUBOSIMCATHY Consulting Unavailable KARASIK ., DR BLUNT Procedure [...] e HOUSE, DR MIRANDA Primary Care Unavailable ARNOLDEBKHOI, DR KRISTIE Ivory Consulting Unavailable DONNY ., ENRIQUE Attending Unavailable DONNY ., ENRIQUE Admitting Unavailable QUEMADO, DR MIRANDA Primary Care Unavailable DONNY ., ENRIQUE Consulting Unavailable LORA, DR KRISTIE Ivory Consulting Unavailable BERNADETTE ., DR PARTIDA Attending Unavailable HAY ., DR PARTIDA Admitting Unavailable QUEMADO, DR MIRANDA Primary Care Unavailable KAMRAN NICKERSON [...] Primary Care Unavailable JEFE LINCOLN Attending Unavailable Andrei Campos Attending Unavailab Andrei Morel Admitting Unavailab vance NON STAFF Primary Care Unavailable Allergies Allergy Classification Reported Allergen(s) Allergy Type Date of Onset Reaction(s) Facility (1 source) Latex Propensity to adverse reactions to drug 07-31-2021 [facility] Medications Current Medications Medication Drug Class(es) [...] 11-05-2023 Episodic Other aftercare (1 source) Other fpc (current) drug therapy; 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] Onset: 12-03-2022 Episodic Other [...] Onset: 05-16-2022 Episodic Other aftercare (1 source) [facility] (current) use of aspirin; Translations: [NURSING HOME CURRENT USE OF ASPIRIN] Onset: 08-27-2022 Episodic [...] Range Facility CBC AND AUTO DIFFon 11-05-19 24 ABSOLUTE BASOPHIL 0.1 X10E9/L Normal 0.0-0.2 [facility] Comment on above: Performed By: #### C ROGERIO, 3, CBCA #### [facility] ([id number]) [address] [place] [address] 36641 ABSOLUTE NEUTROPHIL 6.6 X10E9/L Normal 1.5-6.6 [facility] Comment on above: Performed By: #### Nini BEATTY, 3039-12, CBCA #### [facility] ([id number]) [address] [place] [address] 72074 Basophils/100 WBC (Bld) 0.6 % Normal [facility] Comment on above: Performed By: #### Nini BEATTY, 3039-12, CBCA #### [facility] ([id number]) [address] [place] [address] 84198 Eosinophils (Bld) [#/Vol] 0.2 10*3/uL Normal 0.0-0.4 [facility] Comment on above: Performed By: #### Nini BEATTY, 3, CBCA #### [facility] ([id number]) [address] [place] [address] 35970 Eosinophils/100 WBC (Bld) 1.8 % Normal [facility] Comment on above: Performed By: #### Nini BEATTY, 3, CBCA #### [facility] ([id number]) [address] [place] [address] 27583 Erythrocyte distribution width (RBC) [Ratio] 14.2 % Normal 11.5-15.0 [facility] Comment on above: Performed By: #### C ORGERIO, 3039-12, CBCA #### [facility] ([id number]) [address] [place] [address] 57018 Hematocrit (Bld) [Volume fraction] 39.3 % Normal 35-47 [facility] Comment on above: Performed By: #### C ROGERIO, 3039-12, CBCA #### [facility] ([id number]) [address] [place] [address] 35142 Hemoglobin (Bld) [Mass/Vol] 13.1 g/dL Normal 11.7-15.5 [facility] Comment on above: Performed By: #### C ROGERIO, 3039-12, CBCA #### [facility] ([id number]) [address] [place] [address] 03631 Lymphocytes (Bld) [#/Vol] 2.4 10*3/uL Normal 1.0-3.5 [facility] Comment on above: Performed By: #### C ROGERIO, 3039-12, CBCA #### [facility] ([id number]) [address] [place] [address] 46859 Lymphocytes/100 WBC (Bld) 24.1 % Normal [facility] Comment on above: Performed By: #### C ROGERIO, 3039-12, CBCA #### [facility] ([id number]) [address] [place] [address] 27523 MCH (RBC) [Entitic mass] 28.7 pg Normal 27-34 [facility] Comment on above: Performed By: #### C ROGERIO, 3039-12, CBCA #### [facility] ([id number]) [address] [place] [address] 53546 MCHC (RBC) [Mass/Vol] 33.5 g/dL Normal 32-36 [facility] Comment on above: Performed By: #### C ROGERIO, 3039-3, CBCA #### [facility] ([id number]) [address] [place] [address] 15052 MCV (RBC) [Entitic vol] 86 fL Normal 80-100 [facility] Comment on above: Performed By: #### C ROGERIO, 3039-3, CBCA #### [facility] ([id number]) [address] [place] [address] 92019 Monocytes (Bld) [#/Vol] 0.6 10*3/uL Normal 0-0.9 [facility] Comment on above: Performed By: #### C ROGERIO, 3039-12, CBCA #### [facility] ([id number]) [address] [place] [address] 98199 Monocytes/100 WBC (Bld) 6.4 % Normal [facility] Comment on above: Performed By: #### Nini BEATTY, 3039-12, CBCA #### [facility] ([id number]) [address] [place] [address] 01891 Neutrophils/100 WBC (Bld) 67.1 % Normal [facility] Comment on above: Performed By: #### Nini BEATTY, 3039-12, CBCA #### [facility] ([id number]) [address] [place] [address] 76610 Platelet mean volume (Bld) [Entitic vol] 9.1 fL Normal 7-12 [facility] Comment on above: Performed By: #### Nini BEATTY, 3039-3, CBCA #### [facility] ([id number]) [address] [place] [address] 66880 Platelets (Bld) [#/Vol] 236 10*3/uL Normal 150-450 [facility] Comment on above: Performed By: #### Nini BEATTY, 3039-3, CBCA #### [facility] ([id number]) [address] [place] [address] 36496 RBC COUNT 4.59 X10E12/L Normal 3.80-5.20 [facility] Comment on above: Performed By: #### C ROGERIO, 3039-3, CBCA #### [facility] ([id number]) [address] [place] [address] 78534 WBC (Bld) [#/Vol] 9.8 10*3/uL Normal 4.0-11.0 [facility] Comment on above: Performed By: #### C ROGERIO, 3, CBCA #### [facility] ([id number]) [address] [place] [address] 82809 COMPREHENSIVE METABOLIC PANE Alex 11-05-2023 Albumin [Mass/Vol] 4.1 g/dL Normal 3.2-5.3 [facility] Comment on above: Performed By: #### C ROGERIO, 3, CBCA #### [facility] ([id number]) [address] [place] [address] 67280 ALP [Catalytic activity/Vol] 94 U/L Normal 39-130 [facility] Comment on above: Performed By: #### C ROGERIO, 3, CBCA #### [facility] ([id number]) [address] [place] [address] 89011 ALT [Catalytic activity/Vol] 15 U/L Normal 0-31 [facility] Comment on above: Performed By: #### C ROGERIO, 3, CBCA #### [facility] ([id number]) [address] [place] [address] 98475 Anion gap [Moles/Vol] 9 mmol/L Normal 5-15 [facility] Comment on above: Performed By: #### C ROGERIO, 3039-3, CBCA #### [facility] ([id number]) [address] [place] [address] 86644 AST [Catalytic activity/Vol] 22 U/L Normal 0-41 [facility] Comment on above: Performed By: #### C ROGERIO, 3039-12, CBCA #### [facility] ([id number]) [address] [place] [address] 05546 Bilirubin [Mass/Vol] 0.8 mg/dL Normal 0.3-1.2 [facility] Comment on above: Performed By: #### C ROGERIO, 3039-12, CBCA #### [facility] ([id number]) [address] [place] [address] 12069 Calcium [Mass/Vol] 8.9 mg/dL Normal 8.5-10.5 [facility] Comment on above: Performed By: #### C ROGERIO, 3039-12, CBCA #### [facility] ([id number]) [address] [place] [address] 12363 Chloride [Moles/Vol] 104 mmol/L Normal 98-109 [facility] Comment on above: Performed By: #### Nini BEATTY, 3039-12, CBCA #### [facility] ([id number]) [address] [place] [address] 58783 CO2 [Moles/Vol] 24 mmol/L Normal 22-32 [facility] Comment on above: Performed By: #### Nini BEATTY, 3039-12, CBCA #### [facility] ([id number]) [address] [place] [address] 14085 Creatinine [Mass/Vol] 0.67 mg/dL Normal 0.40-1.00 [facility] Comment on above: Result Comment: METH OD TRACEABLE TO IDMS STANDARD Performed By: #### C ROGERIO, 3039-12, CBCA #### [facility] ([id number]) [address] [place] [address] 63750 eGFR (CKD-EPI) NON-RACE DEPENDENT >90 Normal >59 [facility] Comment on above: Result Comment: Reported eGFR is based on the CKD-EPI 2020 equation that does not use a race coefficient. Performed By: #### C ROGERIO, 3039-12, CBCA #### [facility] ([id number]) [address] [place] [address] 16065 Glucose [Mass/Vol] 112 mg/dL High 65-99 [facility] Comment on above: Performed By: #### Nini BEATTY, 3039-12, CBCA #### [facility] ([id number]) [address] [place] [address] 47765 Potassium [Moles/Vol] 3.4 mmol/L Low 3.5-5.0 [facility] Comment on above: Performed By: #### Nini BEATTY, 3039-12, CBCA #### [facility] ([id number]) [address] [place] [address] 17211 Protein [Mass/Vol] 8.0 g/dL Normal 6.0-8.0 [facility] Comment on above: Performed By: #### Nini BEATTY, 3039-12, CBCA #### [facility] ([id number]) [address] [place] [address] 58677 Sodium [Moles/Vol] 137 mmol/L Normal 134-146 [facility] Comment on above: Performed By: #### Nini BEATTY, 3039-12, CBCA #### [facility] ([id number]) [address] [place] [address] 39215 Urea nitrogen [Mass/Vol] 12 mg/dL Normal 5-23 [facility] Comment on above: Performed By: #### Nini BEATTY, 3039-12, CBCA #### [facility] ([id number]) [address] [place] [address] 35429 HCG ( test) Ql (U)o n 11-05-2023 Beta HCG ( test) Ql (U) Negative Normal NEG [facility] Comment on above: Performed By: #### 2 106-3 #### [facility] ([id number]) [address] [place] [address] LIPASEon 11-05-2023 Lipase [Catalytic activity/Vol] 33 U/L Normal 17-40 [facility] Comment on above: Performed By: #### C MP, 3040-3, CBCA #### [facility] ([id number]) [address] [place] [address] SARS/FLU A+B/RSV by NAAT/Mol ecularon 11-05-2023 SARS/FLU [...] operators who are performing tests using either Genezappit DX or GeneIQuum systems and is limited to laboratories that [...] repeat. Fact Sheet for Healthcare Providers: https://www.fda.gov/ media/293739/downloa d Fact Sheet for Patients: https://www.fda.gov/ media/835760/downloa d Normal [facility] Comment on above: Performed By: #### C OVFLR #### [facility] ([id number]) [address] [place] [address] 27703 URN MACROSCOPIC NURon 2023 BILIRUBIN CASSY Negative Normal NEG [facility] Comment on above: Performed By: #### N UM #### [facility] ([id number]) [address] [place] [address] 77186 BLOOD/HGB CASSY Negative Normal [facility] Comment on above: Performed By: #### N UM #### [facility] ([id number]) [address] [place] [address] 50208 GLUCOSE CASSY Negative Normal [facility] Comment on above: Performed By: #### N UM #### [facility] ([id number]) [address] [place] [address] 50933 KETONES CASSY Negative Normal NEG [facility] Comment on above: Performed By: #### N UM #### [facility] ([id number]) [address] [place] [address] 04594 LEUKOCYTE ESTERASE CASSY Trace Abnormal [facility] Comment on above: Performed By: #### N UM #### [facility] ([id number]) [address] [place] [address] 89808 NITRITE CASSY Negative Normal NEG [facility] Comment on above: Performed By: #### N UM #### [facility] ([id number]) [address] [place] [address] 06296 PH CASSY 6.5 Normal 5.0-8.5 [facility] Comment on above: Performed By: #### N UM #### [facility] ([id number]) [address] [place] [address] 40403 PROTEIN CASSY Negative Normal NEG [facility] Comment on above: Performed By: #### N UM #### [facility] ([id number]) [address] [place] [address] 31648 SPECIFIC GRAVITY CASSY >=1.030 Normal 1.003-1.035 [facility] Comment on above: Performed By: #### N UM #### [facility] ([id number]) [address] [place] [address] 61250 UROBILINOGEN CASSY 0.2 eu/dL Normal <1.1 [facility] Comment on above: Performed By: #### N UM #### [facility] ([id number]) [address] [place] [address] 31490 CULTURE URINEon 12-13-2022 CULTURE URINE Isolate 1 [...] F Trimethoprim/Sulfame thoxazole <=20 S F Normal [facility] Comment on above: Performed By: #### U DAJA MATHEW #### [facility] [address] [place] [address] Dr. Zaheer Bridges CBC AUTO DIFFon 12-11-2022 BASO # 0.0 103/ul Normal 0.0-0.1 [facility] Comment on above: Performed By: #### LESLIE ARROYO UMICRO #### [facility] [address] [place] [address] Dr. Zaheer Bridges Basophils/100 WBC (Bld) 0.2 % Normal 0.2-2.0 [facility] Comment on above: Performed By: #### LESLIE ARROYO UMICRO #### [facility] [address] [place] [address] Dr. Zaheer Bridges EO # 0.1 103/ul Normal 0.0-0.7 [facility] Comment on above: Performed By: #### LESLIE ARROYO UMICRO #### [facility] [address] [place] [address] Dr. Zaheer Bridges Eosinophils/100 WBC (Bld) 0.7 % Critically low 0.9-7.0 [facility] Comment on above: Performed By: #### LESLIE ARROYO UMICRO #### [facility] [address] [place] [address] Dr. Zaheer Bridges Erythrocyte distribution width (RBC) [Ratio] 14.6 % Normal 11.0-15.0 [facility] Comment on above: Performed By: #### LESLIE ARROYO UMICRO #### [facility] [address] [place] [address] Dr. Zaheer Bridges Hematocrit (Bld) [Volume fraction] 36.3 % Normal 36.0-48.0 [facility] Comment on above: Performed By: #### LESLIE ARROYO UMICRO #### [facility] [address] [place] [address] Dr. Zaheer Bridges Hemoglobin (Bld) [Mass/Vol] 12.0 g/dL Normal 12.0-16.0 [facility] Comment on above: Performed By: #### E RUR, PREGU, UMICRO #### [facility] [address] [address] [address] Zaheer Bridges IG # 0.07 10e3/ul Critically high 0.00-0.03 [facility] Comment on above: Performed By: #### E RUR, PREGU, UMICRO #### [facility] [address] [address] [address] Zaheer Bridges IG % 0.5 % Normal 0.0-0.5 [facility] Comment on above: Performed By: #### E RUR, PREGU, UMICRO #### [facility] [address] [place] [address] Dr. Zaheer Bridges LYMPH # 1.4 103/ul Normal 1.2-3.8 [facility] Comment on above: Performed By: #### E RUR, PREGU, UMICRO #### [facility] [address] [place] [address] Dr. Zaheer Bridges Lymphocytes/100 WBC (Bld) 9.4 % Critically low 20.5-60.0 [facility] Comment on above: Performed By: #### E RUR, PREGU, UMICRO #### [facility] [address] [place] [address] Dr. Zaheer Bridges MANUAL DIFF REQ NO Normal [facility] Comment on above: Performed By: #### E RUR, PREGU, UMICRO #### [facility] [address] [place] [address] Dr. Zaheer Bridges MCH (RBC) [Entitic mass] 27.4 pg Normal 26.7-34.0 [facility] Comment on above: Performed By: #### E RUR, PREGU, UMICRO #### [facility] [address] [place] [address] Dr. Zaheer Bridges MCHC (RBC) [Mass/Vol] 33.1 g/dL Normal 29.9-35.2 [facility] Comment on above: Performed By: #### E RUR, PREGU, UMICRO #### [facility] [address] [place] [address] Dr. Zaheer Bridges MCV (RBC) [Entitic vol] 82.9 fL Normal 81.0-99.0 [facility] Comment on above: Performed By: #### LESLIE ARROYO UMICRO #### [facility] [address] [address] [address] Zaheer Bridges MONO # 1.1 103/ul Critically high 0.3-0.8 [facility] Comment on above: Performed By: #### Ugo GRUBER PREGU, UMICRO #### [facility] [address] [address] [address] Zaheer Bridges Monocytes/100 WBC (Bld) 6.9 % Normal 1.7-12.0 [facility] Comment on above: Performed By: #### LESLIE ARROYO, UMICRO #### [facility] [address] [place] [address] Dr. Zaheer Bridges NEUT # 12.7 103/ul Critically high 1.4-6.5 [facility] Comment on above: Performed By: #### LESLIE ARROYO, UMICRO #### [facility] [address] [place] [address] Dr. Zaheer Bridges Neutrophils/100 WBC (Bld) 82.3 % Critically high 43.0-75.0 [facility] Comment on above: Performed By: #### LESLIE ARROYO, UMICRO #### [facility] [address] [address] [address] Zaheer Bridges Platelet mean volume (Bld) [Entitic vol] 9.7 fL Normal 9.5-13.5 [facility] Comment on above: Performed By: #### Ugo GRUBER PREGU, UMICRO #### [facility] [address] [address] [address] Zaheer Bridges PLT 227 103/ul Normal 150-450 [facility] Comment on above: Performed By: #### Ugo GRUBER PREGU, UMICRO #### [facility] [address] [address] [address] Zaheer Bridges RBC 4.38 106/ul Normal 4.20-5.40 [facility] Comment on above: Performed By: #### E RUR, PREGU, UMICRO #### [facility] [address] [place] [address] Dr. Zaheer Bridges WBC 15.4 103/ul Critically high 4.0-11.0 [facility] Comment on above: Performed By: #### E RUR, PREGU, UMICRO #### [facility] [address] [place] [address] Dr. Zaheer Bridges ER URINE PROFILEon 3 Bilirubin Ql (U) Negative Normal NEGATIVE [facility] Comment on above: Performed By: #### E RUR PREGU, UMICRO #### [facility] [address] [place] [address] Dr. Zaheer Bridges Clarity (U) CLEAR Normal CLEAR [facility] Comment on above: Performed By: #### Ugo RUR PREGU, UMICRO #### [facility] [address] [place] [address] Dr. Zaheer Bridges Color (U) LT. YELLOW Normal YELLOW [facility] Comment on above: Performed By: #### Ugo RUR PREGU, UMICRO #### [facility] [address] [place] [address] Dr. Zaheer SIERRA A micrscopic examination will be performed if indicated. Normal [facility] Comment on above: Performed By: #### Ugo RUR PREGU, UMICRO #### [facility] [address] [place] [address] Dr. Zaheer Bridges Glucose Ql (U) Negative Normal NEGATIVE [facility] Comment on above: Performed By: #### E RUR PREGU, UMICRO #### [facility] [address] [place] [address] Dr. Zaheer Bridges Hemoglobin Ql (U) TRACE-INTACT Abnormal NEGATIVE [facility] Comment on above: Performed By: #### E RUR, PREGU, UMICRO #### [facility] [address] [place] [address] Dr. Zaheer Bridges Ketones Ql (U) Negative Normal NEGATIVE [facility] Comment on above: Performed By: #### E RUR, PREGU, UMICRO #### [facility] [address] [place] [address] Dr. Zaheer Bridges LEUKOCYTES LARGE Abnormal NEGATIVE [facility] Comment on above: Performed By: #### E RUR, PREGU, UMICRO #### [facility] [address] [address] [address] Zaheer Bridges Nitrite Ql (U) Positive Abnormal NEGATIVE [facility] Comment on above: Performed By: #### E RUR, PREGU, UMICRO #### [facility] [address] [place] [address] Dr. Zaheer Brdiges pH (U) 7.0 [pH] Normal 5-9 [facility] Comment on above: Performed By: #### E RUR, PREGU, UMICRO #### [facility] [address] [place] [address] Dr. Zaheer Bridges SPEC GRAVITY 1.010 Normal 1.005-<=1.025 [facility] Comment on above: Performed By: #### E RUR, PREGU, UMICRO #### [facility] [address] [place] [address] Dr. Zaheer Bridges UA PROTEIN Negative Normal NEGATIVE/ TRACE [facility] Comment on above: Performed By: #### E RUR, PREGU, UMICRO #### [facility] [address] [address] [address] Zaheer Bridges UR MICRO IND INDICATED Normal [facility] Comment on above: Performed By: #### E RUR, PREGU, UMICRO #### [facility] [address] [address] [address] Zaheer Bridges Urobilinogen Qn (U) 0.2 {Tereza'U}/dL Normal 0.2 - 1. 0 [facility] Comment on above: Performed By: #### E RUR, PREGU, UMICRO #### [facility] [address] [place] [address] Dr. Zaheer Bridges URon 12-11-2022 , QUAL Negative Normal NEGATIVE [facility] Comment on above: Performed By: #### E RUR, PREGU, UMICRO #### [facility] [address] [address] [address] Zaheer Bridges PROF CHEM 8 (BAS METB)on Anion gap [Moles/Vol] 12.4 mmol/L Normal [facility] Comment on above: Performed By: #### E RUR, PREGU, UMICRO #### [facility] [address] [address] [address] Zaheer Bridges Calcium [Mass/Vol] 9.1 mg/dL Normal 8.5-10.1 [facility] Comment on above: Performed By: #### E RUR, PREGU, UMICRO #### [facility] [address] [place] [address] Dr. Zaheer Bridges Chloride [Moles/Vol] 104 mmol/L Normal 98-107 [facility] Comment on above: Performed By: #### E RUR, PREGU, UMICRO #### [facility] [address] [address] [address] Zaheer Bridges CO2 [Moles/Vol] 28.0 mmol/L Normal 21.0-32.0 [facility] Comment on above: Performed By: #### E RUR, PREGU, UMICRO #### [facility] [address] [address] [address] Zaheer Bridges Creatinine [Mass/Vol] 0.82 mg/dL Normal 0.55-1.02 [facility] Comment on above: Performed By: #### E RUR, PREGU, UMICRO #### [facility] [address] [address] [address] Zaheer Bridges EGFR-AF GRENADIAN >60 Normal >=60 [facility] Comment on above: Performed By: #### E RUR, PREGU, UMICRO #### [facility] [address] [address] [address] Zaheer Bridges EGFR-NON AF GRENADIAN >60 Normal >=60 [facility] Comment on above: Performed By: #### LESLIE ARROYO UMICRO #### [facility] [address] [address] [address] Zaheer Bridges Glucose [Mass/Vol] 95 mg/dL Normal 74-106 [facility] Comment on above: Performed By: #### LESLIE ARROYO UMICRO #### [facility] [address] [address] [address] Zaheer Bridges Potassium [Moles/Vol] 3.4 mmol/L Critically low 3.5-5.1 [facility] Comment on above: Performed By: #### LESLIE ARROYO UMICRO #### [facility] [address] [address] [address] Zaheer Bridges Sodium [Moles/Vol] 141 mmol/L Normal 136-145 [facility] Comment on above: Performed By: #### LESLIE ARROYO UMICRO #### [facility] [address] [address] [address] Zaheer Bridges Urea nitrogen [Mass/Vol] 11.0 mg/dL Normal 7.0-18.0 [facility] Comment on above: Performed By: #### LESLIE ARROYO UMICRO #### [facility] [address] [address] [address] Zaheer Bridges Urea nitrogen/Creatinine [Mass ratio] 13.4 mg/mg Normal [facility] Comment on above: Performed By: #### LESLIE ARROYO UMICRO #### [facility] [address] [address] [address] Zaheer Bridges URINE MICROSCOPIC ONLYon BACTERIA SMALL Abnormal NONE SEEN [facility] Comment on above: Performed By: #### LESLIE ARROYO UMICRO #### [facility] [address] [address] [address] Zaheer Bridges Bacteria identified Cx Nom (U) INDICATED Normal [facility] Comment on above: Performed By: #### LESLIE ARROYO UMICRO #### [facility] [address] [address] [address] Zaheer Bridges CAST NONE SEEN Normal NONE SEEN [facility] Comment on above: Performed By: #### LESLIE ARROYO UMICRO #### [facility] [address] [address] [address] Zaheer Bridges Crystals LM Nom (Urine sed) NONE SEEN Normal NONE SEEN [facility] Comment on above: Performed By: #### LESLIE ARROYO UMICRO #### [facility] [address] [place] [address] Dr. Zaheer Bridges Epithelial cells LM Ql (Urine sed) FEW Abnormal NONE SEEN /RARE [facility] Comment on above: Performed By: #### LESLIE ARROYO UMICRO #### [facility] [address] [place] [address] Dr. Zaheer Bridges MUCOUS NONE SEEN Normal NONE SEEN [facility] Comment on above: Performed By: #### LESLIE ARROYO UMICRO #### [facility] [address] [place] [address] Dr. Zaheer Bridges RBC 5-10 Abnormal 0-2 [facility] Comment on above: Performed By: #### LESLIE ARROYO UMICRO #### [facility] [address] [place] [address] Dr. Zaheer Bridges WBC 50-75 Abnormal NONE SEEN [facility] Comment on above: Performed By: #### LESLIE ARROYO UMICRO #### [facility] [address] [place] [address] Dr. Zaheer Bridges XR CSPINE 2_3 VIEWSon [...] KRISTIE PAULINO Date: 2022-12-11 14:42 Normal [facility] GROUP A STREP CULTUREon 11-08 S. pyogenes Ag Ql (Unsp spec) Culture Observations: NEGATIVE FOR GROUP A STREPTOCOCCUS. Normal [facility] Comment on above: Performed By: #### E RUR PREGU, UMICRO #### [facility] [address] [place] [address] Dr. Zaheer Bridges URon 11-29-2022 , QUAL Negative Normal NEGATIVE [facility] Comment on above: Performed By: #### E RUR PREGU, UMICRO #### [facility] [address] [place] [address] Dr. Zaheer Bridges STREPT SCREENon 11-29-2022 STREP SCREEN A Negative Normal NEGATIVE [facility] Comment on above: Performed By: #### E RUR PREGU, UMICRO #### [facility] [address] [place] [address] Dr. Zaheer Bridges CULTURE URINEon 10-04-2022 CULTURE [...] Trimethoprim/Sulfame thoxazole <=20 S F Normal [facility] Comment on above: Performed By: #### U ACSIND, UMICRO #### [facility] [address] [place] [address] Dr. Zaheer Bridges [facility] SARS-CoV-2 (COVID-19) RNA NAI+probe Ql (Unsp spec) Not detected Normal NOT DETECTED [facility] Comment on above: Result Comment: This test is not yet approved or cleared by the [place] FDA. When there are no FDA-approved or cleared tests available, and other criteria are met, FDA can make tests available under an emergency access mechanism called an Emergency Use Authorization (EUA). The EUA for this test is supported by the [place] [employer] and Human Service's (HHS's) declaration [...] symptoms consistent with SARS-CoV-2. Performed By: #### LESLIE ARROYO UMICRO #### [facility] [address] [place] [address] Dr. Zaheer Bridges ER URINE PROFILEon 2 Bilirubin Ql (U) Negative Normal NEGATIVE [facility] Comment on above: Performed By: #### LESLIE ARROYO UMICRO #### [facility] [address] [place] [address] Dr. Zaheer Bridges Clarity (U) SL CLOUDY Abnormal CLEAR [facility] Comment on above: Performed By: #### LESLIE ARROYO UMICRO #### [facility] [address] [place] [address] Dr. Zaheer Bridges Color (U) LT. YELLOW Normal YELLOW [facility] Comment on above: Performed By: #### LESLIE ARROYO UMICRO #### [facility] [address] [place] [address] Dr. Zaheer Bridges ERUAHD A micrscopic examination will be performed if indicated. Normal [facility] Comment on above: Performed By: #### LESLIE ARROYO UMICRO #### [facility] [address] [address] [address] Zaheer Bridges Glucose Ql (U) Negative Normal NEGATIVE [facility] Comment on above: Performed By: #### JONO ARROYOU UMICRO #### [facility] [address] [place] [address] Dr. Zaheer Bridges Hemoglobin Ql (U) MODERATE Abnormal NEGATIVE [facility] Comment on above: Performed By: #### Ugo RUDianelys PREGU UMICRO #### [facility] [address] [address] [address] Zaheer Bridges Ketones Ql (U) Negative Normal NEGATIVE [facility] Comment on above: Performed By: #### LESLIE ARROYO UMICRO #### [facility] [address] [place] [address] Dr. Zaheer Bridges LEUKOCYTES SMALL Abnormal NEGATIVE [facility] Comment on above: Performed By: #### LESLIE ARROYO UMICRO #### [facility] [address] [place] [address] Dr. Zaheer Bridges Nitrite Ql (U) Negative Normal NEGATIVE [facility] Comment on above: Performed By: #### LESLIE ARROYO UMICRO #### [facility] [address] [place] [address] Dr. Zaheer Bridges pH (U) 5.5 [pH] Normal 5-9 [facility] Comment on above: Performed By: #### LESLIE ARROYO UMICRO #### [facility] [address] [address] [address] Zaheer Bridges Protein (U) [Mass/Vol] 30 mg/dL Abnormal NEGATIVE/ TRACE [facility] Comment on above: Performed By: #### JONO ARROYOU UMICRO #### [facility] [address] [place] [address] Dr. Zaheer Bridges SPEC GRAVITY 1.015 Normal 1.005-<=1.025 [facility] Comment on above: Performed By: #### JONO ARROYOU UMICRO #### [facility] [address] [place] [address] Dr. Zaheer Bridges UR MICRO IND INDICATED Normal [facility] Comment on above: Performed By: #### LESLIE ARROYO UMICRO #### [facility] [address] [place] [address] Dr. Zaheer Bridges Urobilinogen Qn (U) 0.2 {Tereza'U}/dL Normal 0.2 - 1. 0 [facility] Comment on above: Performed By: #### LESLIE ARROYO UMICRO #### [facility] [address] [place] [address] Dr. Zaheer Bridges INFLUENZA A AND B AGon 10-02 INFLUANE SEE BELOW Normal [facility] Comment on above: Result Comment: Nega tive for Flu A protein angiten. Infection due to Flu A cannot be ruled out. Flu A angiten in the sample may be below the detection limit of the test. Performed By: #### LESLIE ARROYO UMICRO #### [facility] [address] [place] [address] Dr. Zaheer Bridges INFLUBNEGH SEE BELOW Normal [facility] Comment on above: Result Comment: Nega tive for Flu B protein antigen. Infection due to Flu B cannot be ruled out. Flu B antigen in the sample may be below the detection limit of the test. Performed By: #### LESLIE ARROYO UMICRO #### [facility] [address] [place] [address] Dr. Zaheer Bridges INFLUENZA A AG Negative Normal NEGATIVE SEE COMMENT [facility] Comment on above: Performed By: #### LESLIE ARROYO UMICRO #### [facility] [address] [place] [address] Dr. Zaheer Bridges INFLUENZA B AG Negative Normal NEGATIVE SEE COMMENT [facility] Comment on above: Performed By: #### LESLIE ARROYO UMICRO #### [facility] [address] [place] [address] Dr. Zaheer Bridges INTERNAL CONTROLS Within Normal Limits Normal Wi thin Normal Limits [facility] Comment on above: Performed By: #### E RUR, PREGU, UMICRO #### [facility] [address] [address] [address] Zaheer Bridges URon 10-02-2022 , QUAL Negative Normal NEGATIVE [facility] Comment on above: Performed By: #### E RUR, PREGU, UMICRO #### [facility] [address] [address] [address] Zaheer Bridges URINE MICROSCOPIC ONLYon BACTERIA SMALL Abnormal NONE SEEN [facility] Comment on above: Performed By: #### E RUR, PREGU, UMICRO #### [facility] [address] [address] [address] Zaheer Bridges Bacteria identified Cx Nom (U) INDICATED Normal [facility] Comment on above: Performed By: #### E RUR, PREGU, UMICRO #### [facility] [address] [address] [address] Zaheer Bridges CAST NONE SEEN Normal NONE SEEN [facility] Comment on above: Performed By: #### E RUR, PREGU, UMICRO #### [facility] [address] [address] [address] Zaheer Bridges Crystals LM Nom (Urine sed) NONE SEEN Normal NONE SEEN [facility] Comment on above: Performed By: #### E RUR, PREGU, UMICRO #### [facility] [address] [address] [address] Zaheer Bridges Epithelial cells LM Ql (Urine sed) RARE Normal NONE SEEN /RARE [facility] Comment on above: Performed By: #### E RUR, PREGU, UMICRO #### [facility] [address] [address] [address] Zaheer Bridges MUCOUS NONE SEEN Normal NONE SEEN [facility] Comment on above: Performed By: #### E RUR, PREGU, UMICRO #### [facility] [address] [address] [address] Zaheer Bridges RBC 20-50 Abnormal 0-2 [facility] Comment on above: Performed By: #### E RUR, PREGU, UMICRO #### [facility] [address] [address] [address] Zaheer Bridges WBC (U) [#/Vol] /uL Abnormal NONE SEEN [facility] Comment on above: Performed By: #### E LESLIE GRUBER UMICRO #### [facility] [address] [address] [address] Zaheer Bridges CHLAMYDIA/GONOCOCCUS NAI (SW AB/URINE/PAPon 08-26-2022 Chlamydia trachomatis, NAI Negative Normal Negative [facility] Comment on above: Performed By: #### E LESLIE GRUBER UMICRO #### [facility] [address] [place] [address] Dr. Zaheer Bridges Neisseria gonorrhoeae, NAI Negative Normal Negative [facility] Comment on above: Performed By: #### E LESLIE GRUBER UMICRO #### [facility] [address] [place] [address] Dr. Zaheer Bridges CULTURE URINEon 08-25-2022 CULTURE [...] F Tetracycline >=16 R F Normal [facility] Comment on above: Performed By: #### U ACSIND UMICRO #### [facility] [address] [place] [address] Dr. Zaheer Bridges ER URINE PROFILEon 2 Bilirubin Ql (U) Negative Normal NEGATIVE [facility] Comment on above: Performed By: #### U BISHOP PREGU, ERUR #### [facility] [address] [place] [address] Dr. Zaheer Bridges Clarity (U) CLOUDY Abnormal CLEAR [facility] Comment on above: Performed By: #### U BISHOP, PREGU, ERUR #### [facility] [address] [address] [address] Zaheer Bridges Color (U) YELLOW Normal YELLOW [facility] Comment on above: Performed By: #### U MICRO, PREGU, ERUR #### [facility] [address] [address] [address] Zaheer SIERRA A micrscopic examination will be performed if indicated. Normal [facility] Comment on above: Performed By: #### U MICRO, PREGU, ERUR #### [facility] [address] [address] [address] Zaheer Bridges Glucose Ql (U) Negative Normal NEGATIVE [facility] Comment on above: Performed By: #### U MICRO, PREGU, ERUR #### [facility] [address] [place] [address] Dr. Zaheer Bridges Hemoglobin Ql (U) Negative Normal NEGATIVE [facility] Comment on above: Performed By: #### U MICRO, PREGU, ERUR #### [facility] [address] [place] [address] Dr. Zaheer Bridges Ketones Ql (U) Negative Normal NEGATIVE [facility] Comment on above: Performed By: #### U MICRO, PREGU, ERUR #### [facility] [address] [place] [address] Dr. Zaheer Bridges LEUKOCYTES MODERATE Abnormal NEGATIVE [facility] Comment on above: Performed By: #### U MICRO, PREGU, ERUR #### [facility] [address] [address] [address] Zaheer Bridges Nitrite Ql (U) Negative Normal NEGATIVE [facility] Comment on above: Performed By: #### U MICRO, PREGU, ERUR #### [facility] [address] [address] [address] Zaheer Bridges pH (U) 6.0 [pH] Normal 5-9 [facility] Comment on above: Performed By: #### U MICRO, PREGU, ERUR #### [facility] [address] [place] [address] Dr. Zaheer Bridges SPEC GRAVITY >=1.030 Abnormal 1.005-<=1.025 [facility] Comment on above: Performed By: #### U MICRO, PREGU, ERUR #### [facility] [address] [address] [address] Zaheer Bridges UA PROTEIN Negative Normal NEGATIVE/ TRACE [facility] Comment on above: Performed By: #### U MICRO, PREGU, ERUR #### [facility] [address] [address] [address] Zaheer Bridges UR MICRO IND INDICATED Normal [facility] Comment on above: Performed By: #### U MICRO, PREGU, ERUR #### [facility] [address] [address] [address] Zaheer Bridges Urobilinogen Qn (U) 0.2 {Tereza'U}/dL Normal 0.2 - 1. 0 [facility] Comment on above: Performed By: #### U MICRO, PREGU, ERUR #### [facility] [address] [address] [address] Zaheer Bridges URon 08-23-2022 , QUAL Negative Normal NEGATIVE [facility] Comment on above: Performed By: #### U MICRO, PREGU, ERUR #### [facility] [address] [address] [address] Zaheer Bridges URINE MICROSCOPIC ONLYon BACTERIA MODERATE Abnormal NONE SEEN [facility] Comment on above: Performed By: #### U MICRO, PREGU, ERUR #### [facility] [address] [address] [address] Zaheer Bridges Bacteria identified Cx Nom (U) INDICATED Normal [facility] Comment on above: Performed By: #### U MICRO, PREGU, ERUR #### [facility] [address] [place] [address] Dr. Zaheer Bridges CA OX CRYSTALS MODERATE Normal [facility] Comment on above: Performed By: #### U MICRO, PREGU, ERUR #### [facility] [address] [address] [address] Zaheer Bridges CAST NONE SEEN Normal NONE SEEN [facility] Comment on above: Performed By: #### U MICRO, PREGU, ERUR #### [facility] [address] [address] [address] Zaheer Bridges Crystals LM Nom (Urine sed) SEEN Abnormal NONE SEEN [facility] Comment on above: Performed By: #### U MICRO, PREGU, ERUR #### [facility] [address] [address] [address] Zaheer Bridges Epithelial cells LM Ql (Urine sed) MANY Abnormal NONE SEEN /RARE [facility] Comment on above: Performed By: #### U MICRO, PREGU, ERUR #### [facility] [address] [address] [address] Zaheer Bridges MUCOUS NONE SEEN Normal NONE SEEN [facility] Comment on above: Performed By: #### U MICRO, PREGU, ERUR #### [facility] [address] [address] [address] Zaheer Bridges RBC NONE SEEN Abnormal 0-2 [facility] Comment on above: Performed By: #### U MICRO, PREGU, ERUR #### [facility] [address] [address] [address] Zaheer Bridges WBC 5-10 Abnormal NONE SEEN [facility] Comment on above: Performed By: #### U MICRO, PREGU, ERUR #### [facility] [address] [address] [address] Zaheer Bridges WET PREPon 08-23-2022 CLUE CELLS SEEN Abnormal NONE SEEN [facility] Comment on above: Performed By: #### W P #### [facility] [address] [address] [address] Zaheer Bridges FUNGAL ELEMENTS NONE SEEN Normal NONE SEEN [facility] Comment on above: Performed By: #### W P #### [facility] [address] [address] [address] Zaheer Bridges RBC -WET PREP RARE Abnormal NONE SEEN [facility] Comment on above: Performed By: #### W P #### [facility] [address] [address] [address] Zaheer Bridges TRICHOMONAS NONE SEEN Normal NONE SEEN [facility] Comment on above: Performed By: #### W P #### [facility] [address] [address] [address] Zaheer Bridges WBC- WET PREP MODERATE Abnormal NONE SEEN [facility] Comment on above: Performed By: #### W P #### [facility] [address] [address] [address] Zaheer Bridges WET PREP BACTERIA RARE Abnormal NONE SEEN [facility] Comment on above: Performed By: #### W P #### [facility] [address] [address] [address] Zaheer Bridges ER URINE PROFILEon 2 Bilirubin Ql (U) Negative Normal NEGATIVE [facility] Comment on above: Performed By: #### E RUR, PREGU, UMICRO #### [facility] [address] [place] [address] Dr. Zaheer Bridges Clarity (U) CLEAR Normal CLEAR [facility] Comment on above: Performed By: #### E RUR, PREGU, UMICRO #### [facility] [address] [place] [address] Dr. Zaheer Bridges Color (U) LT. YELLOW Normal YELLOW [facility] Comment on above: Performed By: #### E RUR, PREGU, UMICRO #### [facility] [address] [place] [address] Dr. Zaheer Bridges ERUD A micrscopic examination will be performed if indicated. Normal [facility] Comment on above: Performed By: #### E RUR, PREGU, UMICRO #### [facility] [address] [address] [address] Zaheer Bridges Glucose Ql (U) Negative Normal NEGATIVE [facility] Comment on above: Performed By: #### E RUR, PREGU, UMICRO #### [facility] [address] [place] [address] Dr. Zaheer Bridges Hemoglobin Ql (U) Negative Normal NEGATIVE [facility] Comment on above: Performed By: #### E RUR, PREGU, UMICRO #### [facility] [address] [address] [address] Zaheer Bridges Ketones Ql (U) Negative Normal NEGATIVE [facility] Comment on above: Performed By: #### Ugo GRUBER PREGU, UMICRO #### [facility] [address] [address] [address] Zaheer Bridges LEUKOCYTES Negative Normal NEGATIVE [facility] Comment on above: Performed By: #### Ugo GRUBER PREGU UMICRO #### [facility] [address] [address] [address] Zaheer Bridges Nitrite Ql (U) Negative Normal NEGATIVE [facility] Comment on above: Performed By: #### LESLIE ARROYO UMICRO #### [facility] [address] [place] [address] Dr. Zaheer Bridges pH (U) 6.5 [pH] Normal 5-9 [facility] Comment on above: Performed By: #### Ugo GRUBER PREGU UMICRO #### [facility] [address] [place] [address] Dr. Zaheer Bridges SPEC GRAVITY 1.015 Normal 1.005-<=1.025 [facility] Comment on above: Performed By: #### Ugo GRUBER PREGU UMICRO #### [facility] [address] [address] [address] Zaheer Bridges UA PROTEIN Negative Normal NEGATIVE/ TRACE [facility] Comment on above: Performed By: #### Ugo GRUBER PREGU UMICRO #### [facility] [address] [address] [address] Zaheer Bridges UR MICRO IND NOT INDICATED Normal [facility] Comment on above: Performed By: #### Ugo GRUBER PREGU, UMICRO #### [facility] [address] [address] [address] Zaheer Bridges Urobilinogen Qn (U) 0.2 {Tereza'U}/dL Normal 0.2 - 1. 0 [facility] Comment on above: Performed By: #### Ugo RUR PREGU, UMICRO #### [facility] [address] [address] [address] Zaheer Bridges URon 07-29-2022 , QUAL Negative Normal NEGATIVE [facility] Comment on above: Performed By: #### E RUR PREGU, UMICRO #### [facility] [address] [place] [address] Dr. Zaheer Bridges CBC AUTO DIFFon 05-12-2022 BASO # 0.1 103/ul Normal 0.0-0.1 [facility] Comment on above: Performed By: #### E RUR PREGU, UMICRO #### [facility] [address] [address] [address] Zaheer Bridges Basophils/100 WBC (Bld) 0.4 % Normal 0.2-2.0 [facility] Comment on above: Performed By: #### Ugo GRUBER PREGU UMICRO #### [facility] [address] [place] [address] Dr. Zaheer Bridges EO # 0.2 103/ul Normal 0.0-0.7 [facility] Comment on above: Performed By: #### Ugo GRUBER PREGU, UMICRO #### [facility] [address] [place] [address] Dr. Zaheer Bridges Eosinophils/100 WBC (Bld) 1.6 % Normal 0.9-7.0 [facility] Comment on above: Performed By: #### E RUDianelys PREGU, UMICRO #### [facility] [address] [place] [address] Dr. Zaheer Bridges Erythrocyte distribution width (RBC) [Ratio] 14.6 % Normal 11.0-15.0 [facility] Comment on above: Performed By: #### Ugo RUR PREGU, UMICRO #### [facility] [address] [place] [address] Dr. Zaheer Bridges Hematocrit (Bld) [Volume fraction] 26.1 % Critically low 36.0-48.0 [facility] Comment on above: Performed By: #### E RUR PREGU, UMICRO #### [facility] [address] [place] [address] Dr. Zaheer Bridges Hemoglobin (Bld) [Mass/Vol] 8.2 g/dL Critically low 12.0-16.0 [facility] Comment on above: Performed By: #### E RUR, PREGU, UMICRO #### [facility] [address] [place] [address] Dr. Zaheer Bridges IG # 0.10 10e3/ul Critically high 0.00-0.03 [facility] Comment on above: Performed By: #### E RUR, PREGU, UMICRO #### [facility] [address] [place] [address] Dr. Zaheer Bridges IG % 0.9 % Critically high 0.0-0.5 [facility] Comment on above: Performed By: #### E RUR PREGU, UMICRO #### [facility] [address] [place] [address] Dr. Zaheer Bridges LYMPH # 2.7 103/ul Normal 1.2-3.8 [facility] Comment on above: Performed By: #### E RUR PREGU, UMICRO #### [facility] [address] [place] [address] Dr. Zaheer Bridges Lymphocytes/100 WBC (Bld) 23.3 % Normal 20.5-60.0 [facility] Comment on above: Performed By: #### E RUR PREGU, UMICRO #### [facility] [address] [place] [address] Dr. Zaheer Bridges MANUAL DIFF REQ NO Normal [facility] Comment on above: Performed By: #### E RUR PREGU, UMICRO #### [facility] [address] [place] [address] Dr. Zaheer Bridges MCH (RBC) [Entitic mass] 25.8 pg Critically low 26.7-34.0 [facility] Comment on above: Performed By: #### E RUR, PREGU, UMICRO #### [facility] [address] [place] [address] Dr. Zaheer Bridges MCHC (RBC) [Mass/Vol] 31.4 g/dL Normal 29.9-35.2 [facility] Comment on above: Performed By: #### E YASMANI PREGU, UMICRO #### [facility] [address] [place] [address] Dr. Zaheer Bridges MCV (RBC) [Entitic vol] 82.1 fL Normal 81.0-99.0 [facility] Comment on above: Performed By: #### E RUR PREGU, UMICRO #### [facility] [address] [place] [address] Dr. Zaheer Bridges MONO # 1.1 103/ul Critically high 0.3-0.8 [facility] Comment on above: Performed By: #### E RUR PREGU, UMICRO #### [facility] [address] [place] [address] Dr. Zaheer Bridges Monocytes/100 WBC (Bld) 9.1 % Normal 1.7-12.0 [facility] Comment on above: Performed By: #### Ugo GRUBER PREGU, UMICRO #### [facility] [address] [place] [address] Dr. Zaheer Bridges NEUT # 7.5 103/ul Critically high 1.4-6.5 [facility] Comment on above: Performed By: #### E RUR PREGU, UMICRO #### [facility] [address] [place] [address] Dr. Zaheer Bridges Neutrophils/100 WBC (Bld) 64.7 % Normal 43.0-75.0 [facility] Comment on above: Performed By: #### E THAOR PREGU, UMICRO #### [facility] [address] [place] [address] Dr. Zaheer Bridges Platelet mean volume (Bld) [Entitic vol] 10.7 fL Normal 9.5-13.5 [facility] Comment on above: Performed By: #### E RUR, PREGU, UMICRO #### [facility] [address] [place] [address] Dr. Zaheer Bridges PLT 172 103/ul Normal 150-450 [facility] Comment on above: Performed By: #### LESLIE ARROYO UMICRO #### [facility] [address] [address] [address] Zaheer Bridges RBC 3.18 106/ul Critically low 4.20-5.40 [facility] Comment on above: Performed By: #### LESLIE ARROYO UMICRO #### [facility] [address] [address] [address] Zaheer Bridges WBC 11.6 103/ul Critically high 4.0-11.0 [facility] Comment on above: Performed By: #### LESLIE ARROYO UMICRO #### [facility] [address] [place] [address] Dr. Zaheer Bridges CBC AUTO DIFFon 05-10-2022 BASO # 0.0 103/ul Normal 0.0-0.1 [facility] Comment on above: Performed By: #### Ugo GRUBER PREGU UMICRO #### [facility] [address] [place] [address] Dr. Zaheer Bridges Basophils/100 WBC (Bld) 0.3 % Normal 0.2-2.0 [facility] Comment on above: Performed By: #### JONO ARROYOU, UMICRO #### [facility] [address] [address] [address] Zaheer Bridges EO # 0.1 103/ul Normal 0.0-0.7 [facility] Comment on above: Performed By: #### Ugo GRUBER PREGU, UMICRO #### [facility] [address] [address] [address] Zaheer Bridges Eosinophils/100 WBC (Bld) 1.0 % Normal 0.9-7.0 [facility] Comment on above: Performed By: #### Ugo GRUBER PREGU, UMICRO #### [facility] [address] [place] [address] Dr. Zaheer Bridges Erythrocyte distribution width (RBC) [Ratio] 14.6 % Normal 11.0-15.0 [facility] Comment on above: Performed By: #### LESLIE ARROYO UMICRO #### [facility] [address] [place] [address] Dr. Zaheer Bridges Hematocrit (Bld) [Volume fraction] 32.2 % Critically low 36.0-48.0 [facility] Comment on above: Performed By: #### LESLIE ARROYO UMICRO #### [facility] [address] [address] [address] Zaheer Bridges Hemoglobin (Bld) [Mass/Vol] 10.0 g/dL Critically low 12.0-16.0 [facility] Comment on above: Performed By: #### LESLIE ARROYO UMICRO #### [facility] [address] [place] [address] Dr. Zaheer Bridges IG # 0.09 10e3/ul Critically high 0.00-0.03 [facility] Comment on above: Performed By: #### Ugo GRUBER PREGKeith UMICRO #### [facility] [address] [place] [address] Dr. Zaheer Bridges IG % 0.7 % Critically high 0.0-0.5 [facility] Comment on above: Performed By: #### LESLIE ARROYO UMICRO #### [facility] [address] [place] [address] Dr. Zaheer Bridges LYMPH # 1.9 103/ul Normal 1.2-3.8 [facility] Comment on above: Performed By: #### E YASMANI PREGKeith, UMICRO #### [facility] [address] [address] [address] Zaheer Bridges Lymphocytes/100 WBC (Bld) 15.7 % Critically low 20.5-60.0 [facility] Comment on above: Performed By: #### Ugo GRUBER PREGU, UMICRO #### [facility] [address] [place] [address] Dr. Zaheer Bridges MANUAL DIFF REQ NO Normal [facility] Comment on above: Performed By: #### E THAOR PREGU, UMICRO #### [facility] [address] [address] [address] Zaheer Bridges MCH (RBC) [Entitic mass] 25.5 pg Critically low 26.7-34.0 [facility] Comment on above: Performed By: #### E YASMANI PREGU, UMICRO #### [facility] [address] [place] [address] Dr. Zaheer Bridges MCHC (RBC) [Mass/Vol] 31.1 g/dL Normal 29.9-35.2 [facility] Comment on above: Performed By: #### Ugo GRUBER PREGU, UMICRO #### [facility] [address] [place] [address] Dr. Zaheer Bridges MCV (RBC) [Entitic vol] 82.1 fL Normal 81.0-99.0 [facility] Comment on above: Performed By: #### Ugo GRUBER PREGU, UMICRO #### [facility] [address] [place] [address] Dr. Zaheer Bridges MONO # 1.0 103/ul Critically high 0.3-0.8 [facility] Comment on above: Performed By: #### Ugo GRUBER PREGU, UMICRO #### [facility] [address] [place] [address] Dr. Zaheer Bridges Monocytes/100 WBC (Bld) 8.2 % Normal 1.7-12.0 [facility] Comment on above: Performed By: #### E RUR, PREGU, UMICRO #### [facility] [address] [place] [address] Dr. Zaheer Bridges NEUT # 9.1 103/ul Critically high 1.4-6.5 [facility] Comment on above: Performed By: #### E RUR, PREGU, UMICRO #### [facility] [address] [place] [address] Dr. Zaheer Bridges Neutrophils/100 WBC (Bld) 74.1 % Normal 43.0-75.0 [facility] Comment on above: Performed By: #### E LESLIE GRUBER UMICRO #### [facility] [address] [address] [address] Zaheer Bridges Platelet mean volume (Bld) [Entitic vol] 10.9 fL Normal 9.5-13.5 [facility] Comment on above: Performed By: #### E RUDianelys PREGKetih UMICRO #### [facility] [address] [place] [address] Dr. Zaheer Bridges PLT 234 103/ul Normal 150-450 [facility] Comment on above: Performed By: #### E LESLIE GRUBER UMICRO #### [facility] [address] [place] [address] Dr. Zaheer Bridges RBC 3.92 106/ul Critically low 4.20-5.40 [facility] Comment on above: Performed By: #### LESLIE ARROYO UMICRO #### [facility] [address] [place] [address] Dr. Zaheer Bridges WBC 12.3 103/ul Critically high 4.0-11.0 [facility] Comment on above: Performed By: #### LESLIE ARROYO UMICRO #### [facility] [address] [place] [address] Dr. Zaheer Bridges [facility]on SARS-CoV-2 (COVID-19) RNA NAI+probe Ql (Unsp spec) Not detected Normal NOT DETECTED [facility] Comment on above: Result Comment: When [...] for this test is supported by the [place] of [employer] and Human Service's declaration that [...] By: #### E LESLIE GRUBER UMICRO #### [facility] [address] [place] [address] Dr. Zaheer Bridges DRUG SCREEN RAPID (URINE)on 05-10-2022 AMP Negative Normal NEGATIVE [facility] Comment on above: Performed By: #### D RUGRPD #### [facility] [address] [place] [address] Dr. Zaheer Bridges BAR Negative Normal NEGATIVE [facility] Comment on above: Performed By: #### D RUGRPD #### [facility] [address] [place] [address] Dr. Zaheer Bridges BUP Negative Normal NEGATIVE [facility] Comment on above: Performed By: #### D RUGRPD #### [facility] [address] [place] [address] Dr. Zaheer Bridges BZO Negative Normal NEGATIVE [facility] Comment on above: Performed By: #### D RUGRPD #### [facility] [address] [place] [address] Dr. Zaheer Bridges TAYLOR Negative Normal NEGATIVE [facility] Comment on above: Performed By: #### D RUGRPD #### [facility] [address] [place] [address] Dr. Zaheer Bridges CUT-OFFS SEE BELOW Normal [facility] Comment on above: Result Comment: AMP [...] ng/mL Performed By: #### D RUGRPD #### [facility] [address] [place] [address] Dr. Zaheer Bridges DRUG CUT HEADER DRUG CLASS TEST SYSTEM CUT-OFF CONCENTRATIONS ARE FOLLOWS: Normal [facility] Comment on above: Performed By: #### D RUGRPD #### [facility] [address] [place] [address] Dr. Zaheer Bridges mAMP Negative Normal NEGATIVE [facility] Comment on above: Performed By: #### D RUGRPD #### [facility] [address] [place] [address] Dr. Zaheer Bridges MTD Negative Normal NEGATIVE [facility] Comment on above: Performed By: #### D RUGRPD #### [facility] [address] [place] [address] Dr. Zaheer Bridges OPI Negative Normal NEGATIVE [facility] Comment on above: Performed By: #### D RUGRPD #### [facility] [address] [place] [address] Dr. Zaheer Bridges OXY Negative Normal NEGATIVE [facility] Comment on above: Performed By: #### D RUGRPD #### [facility] [address] [place] [address] Dr. Zaheer Bridges PCP Negative Normal NEGATIVE [facility] Comment on above: Performed By: #### D RUGRPD #### [facility] [address] [place] [address] Dr. Zaheer Bridges PPX Negative Normal NEGATIVE [facility] Comment on above: Performed By: #### D RUGRPD #### [facility] [address] [place] [address] Dr. Zaheer Bridges TCA Negative Normal NEGATIVE [facility] Comment on above: Performed By: #### D RUGRPD #### [facility] [address] [place] [address] Dr. Zaheer Bridges THC Negative Normal NEGATIVE [facility] Comment on above: Performed By: #### D RUGRPD #### [facility] [address] [place] [address] Dr. Zaheer Bridges TYPE AND SCREENon 05-10-2022 TYPE AND SCREEN Negative Normal [facility] Comment on above: Performed By: #### U ACSHIMANSHU UMICRO #### [facility] [address] [place] [address] Dr. Zaheer Bridges CHLAMYDIA/GONOCOCCUS NAI (SW AB/URINE/PAPon 04-19-2022 Chlamydia trachomatis, NAI Positive Abnormal Negative [facility] Comment on above: Result Comment: . Performed By: #### E LESLIE GRUBER UMICRO #### [facility] [address] [place] [address] Dr. Zaheer Bridges Neisseria gonorrhoeae, NAI Negative Normal Negative [facility] Comment on above: Performed By: #### E LESLIE GRUBER UMICRO #### [facility] [address] [place] [address] Dr. Zaheer Bridges GROUP B STREP CULTUREon 04-06 S. agalactiae Ag Ql (Unsp spec) Culture Observations: NEGATIVE FOR GROUP B STREPTOCOCCUS. Normal [facility] Comment on above: Performed By: #### U PRIYANKA UMICRO #### [facility] [address] [place] [address] Dr. Zaheer Bridges UA (CLEAN/CATCH) CAR ELECTRONICS INSTALLER/MICRO I F IND.on 03-31-2022 Bilirubin Ql (U) Negative Normal NEGATIVE [facility] Comment on above: Performed By: #### LESLIE ARROYO UMICRO #### [facility] [address] [place] [address] Dr. Zaheer Bridges Clarity (U) CLEAR Normal CLEAR [facility] Comment on above: Performed By: #### LESLIE ARROYO UMICRO #### [facility] [address] [place] [address] Dr. Zaheer Bridges Color (U) YELLOW Normal YELLOW [facility] Comment on above: Performed By: #### E JONO GRUBERU UMICRO #### [facility] [address] [place] [address] Dr. Zaheer Bridges Glucose Ql (U) Negative Normal NEGATIVE [facility] Comment on above: Performed By: #### E RUR, PREGU, UMICRO #### [facility] [address] [place] [address] Dr. Zaheer Bridges Hemoglobin Ql (U) Negative Normal NEGATIVE [facility] Comment on above: Performed By: #### E RUR, PREGU, UMICRO #### [facility] [address] [address] [address] Zaheer Bridges Ketones Ql (U) Negative Normal NEGATIVE [facility] Comment on above: Performed By: #### E RUR, PREGU, UMICRO #### [facility] [address] [place] [address] Dr. Zaheer Bridges LEUKOCYTES Negative Normal NEGATIVE [facility] Comment on above: Performed By: #### E RUR, PREGU, UMICRO #### [facility] [address] [place] [address] Dr. Zaheer Bridges Nitrite Ql (U) Negative Normal NEGATIVE [facility] Comment on above: Performed By: #### E RUR, PREGU, UMICRO #### [facility] [address] [place] [address] Dr. Zaheer Bridges pH (U) 6.0 [pH] Normal 5-9 [facility] Comment on above: Performed By: #### E RUR, PREGU, UMICRO #### [facility] [address] [address] [address] Zaheer Bridges SPEC GRAVITY >=1.030 Abnormal 1.005-<=1.025 [facility] Comment on above: Performed By: #### E RUR, PREGU, UMICRO #### [facility] [address] [place] [address] Dr. Zaheer Bridges UA PROTEIN Negative Normal NEGATIVE/ TRACE [facility] Comment on above: Performed By: #### E RUR, PREGU, UMICRO #### [facility] [address] [place] [address] Dr. Zaheer Bridges UR MICRO IND NOT INDICATED Normal [facility] Comment on above: Performed By: #### E RURLESLIE, UMICRO #### [facility] [address] [address] [address] Zaheer Bridges Urobilinogen Qn (U) 1.0 {Tereza'U}/dL Normal 0.2 - 1. 0 [facility] Comment on above: Performed By: #### E LESLIE GRUBER UMICRO #### [facility] [address] [address] [address] Zaheer Bridges UA (CLEAN/CATCH) CAR ELECTRONICS INSTALLER/MICRO I F IND.on 03-28-2022 Bilirubin Ql (U) Negative Normal NEGATIVE [facility] Comment on above: Performed By: #### U ACSIND, UMICRO #### [facility] [address] [place] [address] Dr. Zaheer Bridges Clarity (U) CLEAR Normal CLEAR [facility] Comment on above: Performed By: #### U ACSIND, UMICRO #### [facility] [address] [place] [address] Dr. Zaheer Bridges Color (U) YELLOW Normal YELLOW [facility] Comment on above: Performed By: #### U ACSIND, UMICRO #### [facility] [address] [address] [address] Zaheer Bridges Glucose Ql (U) Negative Normal NEGATIVE [facility] Comment on above: Performed By: #### U ACSIND, UMICRO #### [facility] [address] [place] [address] Dr. Zaheer Bridges Hemoglobin Ql (U) Negative Normal NEGATIVE [facility] Comment on above: Performed By: #### U ACSIND, UMICRO #### [facility] [address] [address] [address] Zaheer Bridges Ketones Ql (U) Negative Normal NEGATIVE [facility] Comment on above: Performed By: #### U ACSIND, UMICRO #### [facility] [address] [place] [address] Dr. Zaheer Bridges LEUKOCYTES Negative Normal NEGATIVE [facility] Comment on above: Performed By: #### U ACSIND, UMICRO #### [facility] [address] [place] [address] Dr. Zaheer Bridges Nitrite Ql (U) Negative Normal NEGATIVE [facility] Comment on above: Performed By: #### U ACSIND, UMICRO #### [facility] [address] [place] [address] Dr. Zaheer Bridges pH (U) 6.5 [pH] Normal 5-9 [facility] Comment on above: Performed By: #### U ACSHIMANSHU, UMICRO #### [facility] [address] [place] [address] Dr. Zaheer Bridges SPEC GRAVITY 1.025 Normal 1.005-<=1.025 [facility] Comment on above: Performed By: #### U ACSHIMANSHU, UMICRO #### [facility] [address] [place] [address] Dr. Zaheer Brdiges UA PROTEIN Negative Normal NEGATIVE/ TRACE [facility] Comment on above: Performed By: #### U ACSHIMANSHU, UMICRO #### [facility] [address] [place] [address] Dr. Zaheer Bridges UR MICRO IND NOT INDICATED Normal [facility] Comment on above: Performed By: #### U ACSHIMANSHU, UMICRO #### [facility] [address] [place] [address] Dr. Zaheer Bridges Urobilinogen Qn (U) 1.0 {Tereza'U}/dL Normal 0.2 - 1. 0 [facility] Comment on above: Performed By: #### U ACSHIMANSHU, UMICRO #### [facility] [address] [place] [address] Dr. Zaheer Bridges CULTURE URINEon 03-20-2022 CULTURE URINE Culture Observations: MODERATE GROWTH OF MIXED GENITAL VIJAYA. NO POTENTIAL PATHOGENS SEEN. Normal [facility] Comment on above: Performed By: #### U ACSIND, UMICRO #### [facility] [address] [place] [address] Dr. Zaheer Bridges UA (CLEAN/CATCH) CAR ELECTRONICS INSTALLER/MICRO I F IND.on 03-20-2022 Bilirubin Ql (U) Negative Normal NEGATIVE [facility] Comment on above: Performed By: #### U ACSIND, UMICRO #### [facility] [address] [address] [address] Zaheer Bridges Clarity (U) CLEAR Normal CLEAR [facility] Comment on above: Performed By: #### U ACSIND, UMICRO #### [facility] [address] [address] [address] Zaheer Bridges Color (U) BROWN Abnormal YELLOW [facility] Comment on above: Performed By: #### U ACSIND, UMICRO #### [facility] [address] [address] [address] Zaheer Bridges Glucose Ql (U) Negative Normal NEGATIVE [facility] Comment on above: Performed By: #### U ACSIND, UMICRO #### [facility] [address] [place] [address] Dr. Zaheer Bridges Hemoglobin Ql (U) TRACE-LYSED Abnormal NEGATIVE [facility] Comment on above: Performed By: #### U ACSIND, UMICRO #### [facility] [address] [place] [address] Dr. Zaheer Bridges Ketones Ql (U) TRACE Abnormal NEGATIVE [facility] Comment on above: Performed By: #### U ACSIND, UMICRO #### [facility] [address] [place] [address] Dr. Zaheer Bridges LEUKOCYTES SMALL Abnormal NEGATIVE [facility] Comment on above: Performed By: #### U ACSIND, UMICRO #### [facility] [address] [place] [address] Dr. Zaheer Bridges Nitrite Ql (U) Negative Normal NEGATIVE [facility] Comment on above: Performed By: #### U ACSIND, UMICRO #### [facility] [address] [place] [address] Dr. Zaheer Bridges pH (U) 6.0 [pH] Normal 5-9 [facility] Comment on above: Performed By: #### U ACSIND, UMICRO #### [facility] [address] [place] [address] Dr. Zaheer Bridges SPEC GRAVITY >=1.030 Abnormal 1.005-<=1.025 [facility] Comment on above: Performed By: #### U ACSHIMANSHU, UMICRO #### [facility] [address] [place] [address] Dr. Zaheer Bridges UA PROTEIN Negative Normal NEGATIVE/ TRACE [facility] Comment on above: Performed By: #### U ACSHIMANSHU, UMICRO #### [facility] [address] [place] [address] Dr. Zaheer Bridges UR MICRO IND INDICATED Normal [facility] Comment on above: Performed By: #### U ACSHIMANSHU UMICRO #### [facility] [address] [place] [address] Dr. Zaheer Bridges Urobilinogen Qn (U) 1.0 {Tereza'U}/dL Normal 0.2 - 1. 0 [facility] Comment on above: Performed By: #### U ACSHIMANSHU UMICRO #### [facility] [address] [place] [address] Dr. Zaheer Bridges URINE MICROSCOPIC ONLYon BACTERIA LARGE Abnormal NONE SEEN [facility] Comment on above: Performed By: #### U ACSHIMANSHU, UMICRO #### [facility] [address] [place] [address] Dr. Zaheer Bridges Bacteria identified Cx Nom (U) INDICATED Normal [facility] Comment on above: Performed By: #### U ACSHIMANSHU, UMICRO #### [facility] [address] [place] [address] Dr. Zaheer Bridges CAST NONE SEEN Normal NONE SEEN [facility] Comment on above: Performed By: #### U ACSHIMANSHU, UMICRO #### [facility] [address] [place] [address] Dr. Zaheer Bridges Crystals LM Nom (Urine sed) NONE SEEN Normal NONE SEEN [facility] Comment on above: Performed By: #### U ACSIND, UMICRO #### [facility] [address] [place] [address] Dr. Zaheer Bridges Epithelial cells LM Ql (Urine sed) MANY Abnormal NONE SEEN /RARE [facility] Comment on above: Performed By: #### U ACSIND, UMICRO #### [facility] [address] [place] [address] Dr. Zaheer Bridges MUCOUS NONE SEEN Normal NONE SEEN [facility] Comment on above: Performed By: #### U ACSIND, UMICRO #### [facility] [address] [place] [address] Dr. Zaheer Bridges RBC 5-10 Abnormal 0-2 [facility] Comment on above: Performed By: #### U ACSIND, UMICRO #### [facility] [address] [place] [address] Dr. Zaheer Bridges WBC 10-20 Abnormal NONE SEEN [facility] Comment on above: Performed By: #### U ACSIND, UMICRO #### [facility] [address] [place] [address] Dr. Zaheer Bridges CULTURE URINEon 03-01-2022 CULTURE URINE Culture Observations: HEAVY GROWTH OF MIXED GENITAL VIJAYA. NO POTENTIAL PATHOGENS SEEN. Normal [facility] Comment on above: Performed By: #### U ACSHIMANSHU, UMICRO #### [facility] [address] [place] [address] Dr. Zaheer Bridges UA (CLEAN/CATCH) CAR ELECTRONICS INSTALLER/MICRO I F IND.on 03-01-2022 Bilirubin Ql (U) Negative Normal NEGATIVE [facility] Comment on above: Performed By: #### E RUR PREGU, UMICRO #### [facility] [address] [place] [address] Dr. Zaheer Bridges Clarity (U) CLEAR Normal CLEAR [facility] Comment on above: Performed By: #### E RUR PREGU, UMICRO #### [facility] [address] [place] [address] Dr. Zaheer Bridges Color (U) YELLOW Normal YELLOW [facility] Comment on above: Performed By: #### E RUR PREGU, UMICRO #### [facility] [address] [place] [address] Dr. Zaheer Bridges Glucose Ql (U) Negative Normal NEGATIVE [facility] Comment on above: Performed By: #### E RUR, PREGU, UMICRO #### [facility] [address] [address] [address] Zaheer Bridges Hemoglobin Ql (U) Negative Normal NEGATIVE [facility] Comment on above: Performed By: #### E RUR, PREGU, UMICRO #### [facility] [address] [address] [address] Zaheer Bridges Ketones Ql (U) TRACE Abnormal NEGATIVE [facility] Comment on above: Performed By: #### E RUR, PREGU, UMICRO #### [facility] [address] [address] [address] Zaheer Bridges LEUKOCYTES SMALL Abnormal NEGATIVE [facility] Comment on above: Performed By: #### E RUR, PREGU, UMICRO #### [facility] [address] [address] [address] Zaheer Bridges Nitrite Ql (U) Negative Normal NEGATIVE [facility] Comment on above: Performed By: #### E RUR, PREGU, UMICRO #### [facility] [address] [address] [address] Zaheer Bridges pH (U) 6.0 [pH] Normal 5-9 [facility] Comment on above: Performed By: #### E RUR, PREGU, UMICRO #### [facility] [address] [address] [address] Zaheer Bridges SPEC GRAVITY >=1.030 Abnormal 1.005-<=1.025 [facility] Comment on above: Performed By: #### E RUR, PREGU, UMICRO #### [facility] [address] [address] [address] Zaheer Bridges UA PROTEIN TRACE Normal NEGATIVE/ TRACE [facility] Comment on above: Performed By: #### E RUR, PREGU, UMICRO #### [facility] [address] [address] [address] Zaheer Bridges UR MICRO IND INDICATED Normal [facility] Comment on above: Performed By: #### E RUR, PREGU, UMICRO #### [facility] [address] [address] [address] Zaheer Bridges Urobilinogen Qn (U) 1.0 {Tereza'U}/dL Normal 0.2 - 1. 0 [facility] Comment on above: Performed By: #### E RUR, PREGU, UMICRO #### [facility] [address] [place] [address] Dr. Zaheer Bridges URINE MICROSCOPIC ONLYon BACTERIA SMALL Abnormal NONE SEEN [facility] Comment on above: Performed By: #### E RUR, PREGU, UMICRO #### [facility] [address] [place] [address] Dr. Zaheer Bridges Bacteria identified Cx Nom (U) INDICATED Normal [facility] Comment on above: Performed By: #### E RUR, PREGU, UMICRO #### [facility] [address] [place] [address] Dr. Zaheer Bridges CAST NONE SEEN Normal NONE SEEN [facility] Comment on above: Performed By: #### E RUR, PREGU, UMICRO #### [facility] [address] [place] [address] Dr. Zaheer Bridges Crystals LM Nom (Urine sed) NONE SEEN Normal NONE SEEN [facility] Comment on above: Performed By: #### E RUR, PREGU, UMICRO #### [facility] [address] [place] [address] Dr. Zaheer Bridges Epithelial cells LM Ql (Urine sed) FEW Abnormal NONE SEEN /RARE [facility] Comment on above: Performed By: #### E RUR, PREGU, UMICRO #### [facility] [address] [place] [address] Dr. Zaheer Bridges MUCOUS TRACE Abnormal NONE SEEN [facility] Comment on above: Performed By: #### E RUR, PREGU, UMICRO #### [facility] [address] [place] [address] Dr. Zaheer Bridges RBC 0-2 Normal 0-2 [facility] Comment on above: Performed By: #### E RUR, PREGU, UMICRO #### [facility] [address] [address] [address] Zaheer Bridges WBC 5-10 Abnormal NONE SEEN [facility] Comment on above: Performed By: #### LESLIE ARROYO UMICRO #### [facility] [address] [address] [address] Zaheer Bridges GLUCOSE - 1HRon 02-20-2022 Glucose [Mass/Vol] 98 mg/dL Normal 74-106 [facility] Comment on above: Performed By: #### LESLIE ARROYO UMICRO #### [facility] [address] [address] [address] Zaheer Bridges HEMOGRAM AND PLATELon 2021 Hematocrit (Bld) [Volume fraction] 33.1 % Critically low 36.0-48.0 [facility] Comment on above: Performed By: #### LESLIE ARROYO UMICRO #### [facility] [address] [place] [address] Dr. Zaheer Bridges Hemoglobin (Bld) [Mass/Vol] 10.7 g/dL Critically low 12.0-16.0 [facility] Comment on above: Performed By: #### LESLIE ARROYO UMICRO #### [facility] [address] [address] [address] Zaheer Bridges MCH (RBC) [Entitic mass] 28.6 pg Normal 26.7-34.0 [facility] Comment on above: Performed By: #### LESLIE ARROYO UMICRO #### [facility] [address] [address] [address] Zaheer Bridges MCHC (RBC) [Mass/Vol] 32.3 g/dL Normal 29.9-35.2 [facility] Comment on above: Performed By: #### JONO ARROYOU UMICRO #### [facility] [address] [address] [address] Zaheer Bridges MCV (RBC) [Entitic vol] 88.5 fL Normal 81.0-99.0 [facility] Comment on above: Performed By: #### E RUR PREGU UMICRO #### [facility] [address] [address] [address] Zaheer Bridges PLT 230 103/ul Normal 150-450 [facility] Comment on above: Performed By: #### E RUR PREGU, UMICRO #### [facility] [address] [address] [address] Zaheer Bridges RBC 3.74 106/ul Critically low 4.20-5.40 [facility] Comment on above: Performed By: #### E RUR PREGKeith UMICRO #### [facility] [address] [place] [address] Dr. Zaheer Bridges WBC 10.4 103/ul Normal 4.0-11.0 [facility] Comment on above: Performed By: #### LESLIE ARROYO UMICRO #### [facility] [address] [place] [address] Dr. Zaheer Bridges COVID-19, RapidOrdered By: Edwin Amaya on 07-31-2021 SARS-CoV-2 (COVID-19) RNA NAI+probe Ql (Unsp spec) Not detected Not Detected [facility] Phone: Comment on above: Rapid NAAT: The [...] management decisions. Fact sheet for Healthcare Providers: https://www.fda.gov/media/925591/download Fact sheet for Patients: https://www.fda.gov/media/052234/download Methodology: Isothermal Nucleic Acid Amplification Specimen Description .NASOPHARYNGEAL SWAB [facility] Phone: [facility] Phone: HCG, ,Urineon 07-31 Beta HCG ( test) Ql (U) Negative Normal NEG [facility] Comment on above: Result Comment: Spec imens with hCG levels near the threshold of the test (25 mIU/mL) may give a negative or indeterminate result. In such cases, another test should be performed with a new specimen in 48-72 hours. If early is suspected clinically in this setting, correlation with quantitative serum b-hCG level is suggested. Performed By: #### U HCG #### [facility] [address] [place] [address] Media Aid: Andry Corona DO HCG, ,UrineOrdered By: Kari Amaya on 07-31-2021 Beta HCG ( test) Ql (U) Negative NEGATIVE [facility]: Comment on above: Specimens with hCG l evels near the threshold of the test (25 mIU/mL) may give a negative or indeterminate result. In such cases, another test should be performed with a new specimen in 48-72 hours. If early is suspected clinically in this setting, correlation with quantitative serum b-hCG level is suggested. [facility] Phone: [id number] 07-31-2021 SARS-CoV-2 (COVID-19) RNA NAI+probe Ql (Unsp spec) Not detected Normal NOTDET [facility] Comment on above: Result Comment: Rapid NAAT: [...] management decisions. Fact sheet for Healthcare Providers: https://www.fda.gov/media/199029/download Fact sheet for Patients: https://www.fda.gov/media/627042/download Methodology: Isothermal Nucleic Acid Amplification Performed By: #### C OVRB #### [facility] [address] [place] [address] Media Aid: Andry Corona DO XR CHEST PORTABLEon 07-31-20 [...] Saud Singh MD 07/31/21 Final result Normal [facility] XR CHEST PORTABLEOrdered By: Kari Amaya on 07-31-2021 No acute cardiopulmonary disease. [facility] Work Phone: EXAMINATION: ONE XRAY VIEW OF THE [...] convex-right curvature thoracic spine. Bones otherwise WNL. [facility] Phone: [place]yer, Mhpn Incoming Radiant Results From [employer] - 07/31/2021 11:44 AM EDT EXAMINATION: ONE [...] otherwise WNL. IMPRESSION: No acute cardiopulmonary disease. [facility] Work Phone: [facility] Work Phone: XR LUMBAR SPINE (2-3 VIEWS)o n [...] Alec Rehman MD 07/10/21 Final result Normal [facility] XR LUMBAR SPINE (2-3 VIEWS)O rdered By: Sr Herman on 07-10-2021 Unremarkable examination of the lumbar spine. [facility] Work Phone: EXAMINATION: THREE XRAY VIEWS OF THE LUMBAR SPINE 07/10/2021 11:06 am COMPARISON: None. HISTORY: ORDERING SYSTEM PROVIDED HISTORY: Lumbar pain TECHNOLOGIST PROVIDED HISTORY: Reason for Exam: no injury, since giving lower back pain has occupied, ongoing x 2 months FINDINGS: Lumbar vertebral bodies are normal in height and alignment. No evidence of fracture. Visualized sacrum is unremarkable. No significant degenerative changes. [facility] Phone: Sawyer, Mhpn Incoming Radiant Results From [employer] - 07/10/2021 11:43 AM EDT EXAMINATION: THREE [...] IMPRESSION: Unremarkable examination of the lumbar spine. [facility] Phone: [facility] Phone: Coding Summaryon 04-24-2021 Coding Summary [employer] 64 [id number] [id number] YO4SJU1emSR3XEwsV2Vi biAv FovilGIjXE97IKg6WCN8 cGvgPQrdaC6ptPEvF0j1 FfLvFS63qJ73GHkkMHQs CbH5YlYhbdbxuXVu Q8edHcKtsZNmXzy+PHRh YmxlIHdpZHRoPScxMDAl CxNmpDahTP9rLm3zUAWr LWNvbGxhcHNlOiBj b7toVBDjTUkmYA9vuMow C6ZfjQW8KBNzx8o9Ow68 dHI+IWTnQMB9lCzpXQex f707FwKef8zvDQD7 nLQjQPtrRBV0C38nv0Z2 VOVzLGMzULF9uHM6cS9b qOxtogrjW1KoiCUbDpN3 PDX7wLKulO5hbZka lqjcaD3pGub+N03XZH8E GOYKRX4VScb2E1RgDcgw dHI+LI93IEQuNU17bTUy lJLxd1knwWv7PdZh LDLaOED5tXarWZmld7Lm MCAvA92fvWDwd4K1RBXj jHxujBCwAnPpeQZ2kI0c NEdlggpkf5rebrjf Xvjzj5rylg65tH99U06m DWytGPFyJSZ1QLQjBOGz qQcghp3wfC5hFu1+IDxj a4tvr4eagRo9CkWd OQDdaqLzzDmsCBM2w2Xx Lx14Q1QnaSpfj5YmDbc0 sp56bCJaz2A1rZR2UTji BBDrtD9aWDcfCnI9 BYMnPhQufK99uDEpFAfb Ny8azDgpeLwvQW2vLOLh yhilJTSdfP1bZNOyqBZg lCkwPX3aSEIaefqs z631HkPgOYK4YKVpdGEn V5SsdX7xFzIaMJEzSTUa R5NuhQWwJGvsQ198MTbg ZhG1MJRtqeVtC7Kh QPXkwNjhEnW9d6V8Jh4W t1MgwjjuGPI5JFpbTVH1 DcJ2XnPqExX4S4KlGmr4 ZVImvJqsFX1lV6Gf WZYolnwveoluaXA1PTHd EEUhgM99gBZfNKmjHx3m l1I6o563HBBzEGBsuU36 Zx2gtVeoTRSxcKGW mX4tlcwby2ptsrksYcOk QLUuKFx8ADa1EKVwyTmz XjLpYRF4QxN5UHC9yPRf cK5akAanqnqtvG3s Oyc+D47leX4vHYX3VFX6 ndoiOFVncuHsTR90EX37 X3SyTzlsjZNrpLH+PGRp bvOurBpjBX1uTsFt h4ejg5ToUNwxO7UoKHHx JVaoNnf8SIWgUYO4vFN9 hA9sSACwUGmrw7A4ySP9 E3LwxyKmpe8ex3ql ODJcXUcrZ32xhNIdq3I7 VCDraXD2KQKppZjrOeEb yI89Nut+OKIwvRkhn6Ub Embdw0gaf3vuoBo2 IjMwJSIgdmFsaWduPSJ0 k9GsAk97I95uWRzcCTRp IAGhUSRhKNKrdQrlce3e lR6vIh4+PGNvbCB3 sVB0zB9vAQAyKpY1NEub U371LhLzoOEnKoarg6yv r7icnIb1WlBeUJGyqhIm tYjqIFH6w8PtWf72 T69pRDyoMMGmNXDfNHRm AUBlpGwofv2paT5gLl3+ GG6aa3ullu83qG68rOU+ KDCsTJT1uFlmLPez PCQtkS0cNZfsRpW1GVLo ThJdoA75mVUlXEpdRn3f bXbrwEurAP4oUAOhaknf n690SlVur7jpWORe xKUjNXnhINE9O14io3B4 NJPsVUKeJVR1fFE9vN5f bGlnbjogbGVmdDsgdmVy oNvcETfkNGvvC798 IHRvcDsnPlBhdGllbnQg SiGwJHk9Y0ZvOfq3QDTq wQsiFA3qcDKcIBhiTs9w pDqhoIviHC7eIBIu ttufj397NxHru2pxYBBq zVGoHXqgACP0P04tk5D4 NZEwEQIqZHL2mCG2xH2m bGlnbjogbGVmdDsg nmWanPxxGYdmSKzhT620 IHRvcDsnPkJpcnRoIERh xUC8UG04ON62zEVos2X6 yIX2S5IcOYGmtmqi rwcgvBE8LTZpFVQmpE01 Mc8tpVdgIt3nOHFtVHS2 YUAfjKEwQ4FeuP8fJoYq FVOrURJdM1EbqJWk MNhcK285IUfuMtB4JDMv uzGtT8AfIESuiLbrMxM1 x7T8In4TD6F4TU33HN01 vUWvl4I4wBV1R8Cw NFFuilhqhontjKL7HYNv UTPhcG85Sp9ljQjmPb0d FDRlPSH6GETbdGWtV3Pu zN6hWrRlESWkYONf H7QlaPHrFBiuH474PRwx DtA9NZBjrjImC0ChQTQi lFptBqL0u3N7Bk8DZCl7 YU14FZ56vUOzi9V3 uGH8C5WdEQWyafuvtyok oTB3YNDiFKBkkM32Nr5m uHitUx1mXRPuWOA0FMQp zYSgR8KslJ0jFaXp GZHlEKKuW2IjmYEkMGmv L068RPzwTsL5KEGxpeEy U6TbJDMijDjeYfX0o8K5 Ya7NJHPoUB52SGQ0 oHB9RJ07ED17D1UoPaau dGFibGU+PHRhYmxlIHdp ZHRoPScxMDAlJyBzdHls YO0hYo7bWPVxEZFr fNlmjESbIdEze0rzPGAb KSxyHE9gtXmbC6VrmTJ4 XDWgl8v9Gf28E86fC9Jk dXA+YQXtiME8dLL8 lY5jClLlVzS5OWqhQ935 YjXyfWTvAzfuz2hri3az qNv5TaI8YGXxolYnpIce ELW2w4BhNt12C37o IHdpZHRoPSIxNSUiIHZh xLjosu5shZ1pBe7+PGNv nXN5aCL8dS0iCmQeLyC4 WXmtC295SkVecLZr Rvuyh6mha4tmqTi8DmBe LLMbzoEchXxuXEN0q8Pj Er53S0XfnRfoy8VnJuq2 pj38oIYef7D8rST2 I8ZsMNPxehdonXTwsHpy GJ6qVHYkpxodQSVoyG0f BTMdL5v5MzQtYbJ8ZRlb Q2ZvfcD4QELwtDFd LRkgSZN5C39qz6Z3ERYn ODHtFYB9aUY8lA0arErs bjogbGVmdDsgdmVydGlj JYciABpjN060MDRx sJgvCZCkwF2jLDBquITz gWbeTA0vDYZuczlfAaWG SUNFLCBFTElaQUJFVEgg WXREVT3QDT09JI18 mLOpm6X4xFR9Y9CoQMRg welllqogmVS6CCBgLPWn cJ31gAWpLUecVr2bf7R9 d002GWGmWEVooT75 Jv0qvKehSFTxcZFCpW9f dngew3uwllkkBiHuEXIg JKb0CQm4PISkoGsvJgRb MJL1MdA0WDP9fPHn xR9ycUdjupnrqF8pFgy+ MDUvMjkvMjAwMTwvdGQ+ FQEwFZH0vJbaPImbRGSp fV7jFYWgH0t2JvDh LiT4LEruJ9CsNRHwglzt Gi79zE2nYbGgWmA9MEew S6ArvmC3XTHeiJQrNKss CKE0Y57fq8P3OYXm RFNhJHN5hXI4iM3biFia bjogbGVmdDsgdmVydGlj ZAxwLZchT299JCMfwNlv QiDfRRyqYLNzQF75 FC66zIHhw6I4iOM9I9Mb JPEboqgoujvtiSL5FEHz QYSuvJ01fFZeZUxbSb0c n1O9s126NRBjGMJk xI62Cp2mtDamWQRlsDGK gQ2yzivml3qwhqvsLcKn PCGbWFr2RGf7EZItqHmo NmFkOHS9NaL6IQK7 hHGkuZ5trHgdhepfqZ0t Oyc+EvVJIEuUNB97MC46 fZPbk4Y9hYT5H8EwVBCi eahywcwzlYS7ZOEc GZXmwS28oCCwRHxaHj0m u8Z4d136NLNyHNQumW66 Xk3ptQqtMENhxTABkB1m eonrx2msxidrEqSe YBRaGOo1YTr1YRDolWpn DwWwAXS8HrI6PPY2sUJt hL9fzQrssgangG6yMln+ F2G5E5OuSyyccFM+ ZE38HXJwGU20pNJxoURn z6ovzIm1XtYiSSLbYYA4 wWpbKAgyy8DiJPVfS47x qBZfz2J4QYEptOcu aFPqOqDwsGN8zJ4yJEix rzdzs7xgtdxnQkajy6uz la94fJ53T59oLOzvVAGm PSIzMCUiIHZhbGln zj3xeX3kEb8+PGNvbCB3 nNU0jG2tYqViMiT6TDrb H148PgRtkNLsOlrcp6pp f8pfqSa2EiWtEIKu neOnmUonYTY2b7NhKi37 B09iLWtwMFMmOJBjUQOq BCQtuRplxn4crY8jLz3+ TF0cp5nrqg37hH85 dHI+JOPkNZS3hUffZAeb ESDptQ8nIFtcVuM8VWOb FpIsuA67aNCtRIvqJj4y tDgliLqhOA8wOHWp lguwv083ZbLqa0klGCKx qEOgISyxVLA7C45dw4O6 XIZdITNhBNB4mAY5xW9j bGlnbjogbGVmdDsg vlEisQdbBUknWVzpV678 VDCecTxhHeIovTOzN7uz tzELHJ4uBdditQF+PHRk NSH1yIywMAobMIOh lA9cYYUhM2g9MvYdByQ6 UCboG3EjlsA2EBBorTSg TZYumETIuC2stbiyy7xl cjogIzAwMDAwMDt0 QHq3VJNcdQtqBmIcNYH7 RoA6JUD8rGFoeC5udTdx xhkhnI6kSuk+RklOOjwv dGQ+JKHqKBU7lZhi WSghKITcmS4vWEOwX2y4 NoFePjY3XEcuI9MrrnS7 RTAstRMzADCacUIBqU8i doogq9pzvqoqLtEh WDCiGRx7YQn6ESZxxJeb ZrXdUOU4MbU5WTY3sHDl oH9ghCvjjxldsP6pIcz+ TVJOOjwvdGQ+PHRk PMG9nNzbXGogXBWrwL3i FKNdZ4z0FwBkAqF2GQpi A4VkjtE2OINoiVYeBVUo dLCNjI0wcrvus6df mybuKpWhQXZeHWy3OIl1 NQYwvSemFbZlIYD3MeE7 YVZ0bMNneF4vpFqzgvqb fV6kMwn+AAP7ZJO5 OV95AD41G8MjVlzkpQCj bGU+PHRhYmxlIHdpZHRo FMlyBNOyIzKcxJdtXQ0z Vs4lJJDqQKNakXza cHN (more content not included)... [facility] Coding Summary HTMLBase 64 XmbgjbrcIAr3bOv+PGhl YWQ+KI8NPMRrF91mwRDn yE6IG9gEAS7CHGLZQCIU TI2XEP9zeKP2NJazE3Ts biAv WzreyTZwDD42KXf6IWG9 zZlxEUxelR0owCLnQ6h0 TvLsML10rO84BDuiMDSu XvB6McQuszrpmIEn W4zzNyQfaLNaNyq+PHRh YmxlIHdpZHRoPScxMDAl PaRbaJqcEQ4uPh0rKWNe LWNvbGxhcHNlOiBj j3lkCAXiYJyiLI6elNnp F5NjgWW5OSJjq7i9Lh89 dHI+KAYdDGM4xQfjVWuq k084FuAty7flBKL6 gXRqABjrYQH3S66yz7Y1 VBOsXGVsMUE9hSJ0xB5t pYbixiaxQ6AlnDCjKaX9 ZHH6xNJohY6tbZcs rsbljT0lGpt+L22QDZ0F BTBKOX2JBhz1W5IsKjdf dHI+BL75MIXcXU49gEEi aZPwi3rxgFc1ZpKw HJDaVFG4iQikZJezz7Lu EAOrJ34qqFDcc3V9WTQs gEvdjOFyLaGruMM8nX1g TLhpxvdbk6mtxbmc Ovxmn0gscu50nB85H22v ZSdrEUYcJAI2FHVdYQKf xYfswt9juQ6iAl5+IDxj c7btp2grcAe0YuZp YQPucwJrmCwqCIB5x9Tj Bb70E0GavJcmp5AtHwt3 uw04jXQon6C1aAX2YAwu EISbuJ6dOJcnUaL6 LUSbLdLmvF52dLPyIIos Jl1iyPknoLobWS9yRGQc ehkqLGJiqX6xSWTwvCLp zBorAM7cGKQtpaqh f756VrIxPEJ7ZCXfkPTf D2BmdM7bUsUfYVBoMOGj Z1LcbSJoMOsdB694KEeb ClL1LKKsgwFeS1Ax EIYxpOhoTkE6u8K5Fk6W r2VqwggmYKY3QOcdNVE6 PdS6AgNgKzC2I6KkVdf4 BCHqjTvbKJ0oD9Tu LZNtpleyllxldDQ8FXEc XHUqsX46vTSmOQylOb4u b4J2y658GVVaWKGpsY76 Qt8heJpdHKMzjRHH nI1xgwrkk4mdpizlXiFe PELhJQq9BMf5LQOpuYtd OjAoXFY4CaM1TYD7dYQq rG9tdPoqasnioT0m Oyc+U94syZ7dCXP3SQY4 mjubNBBanwPpEP03EK19 L9JtRchddXRcdLL+PGRp miNxyRtnUP1vWsEi n9rmc7VrBLpaY9ZwQAAr FYjsApq5AIGlCAK9sYH0 wW1yHTEkMGimb5D8fWX6 I4LbzeCaon4rq2up TJTcQUwkQ91thYNed9U3 FCEhvEO4XWFnaZuaEoOn iG50Elr+WXTznHspo6Yl Qiisa8ynn7dwlUr6 IjMwJSIgdmFsaWduPSJ0 i3PlMc14E19dEKwaYJZo AEMwFBExMMOtrPualr0b fE1jQc8+PGNvbCB3 wUG6jC9yFVFvFkD5BSlf T545YuIvhEJtBzcbb4dh r3dkoBo4QeGpZBVqdeYo sMkySTG4w2AgXa31 M49wBTdrVQPqQMGaJSWc FXJjcJqouq1vnQ1pZt5+ PB3xb8zxbl23rA95oXR+ SVXjGKO0tSahZLvx BYKumC5xADbsKdB1NJAj SaGxrW70uUOfQDbySd7s cBzhsYofJH5wCOTrauea j656QkWdi4trNBNu zRRaXHzqVGG9W85xi6R0 AOMtSNKpYLH0kUA7rJ5g bGlnbjogbGVmdDsgdmVy aVuaDMvyQHshT871 IHRvcDsnPlBhdGllbnQg PpTeTMg2P6FyKzl2PZIp eJuvBC9joJIsECnqHy0j sOzclZgpJJ3qYDGt ktqtb602AgGqd2djMOIt wWZqRDwbONF0Y20gq7J2 RJUfHNJnCYZ1fKM2lT9i bGlnbjogbGVmdDsg frVopGsfEXgoKXvfT546 IHRvcDsnPkJpcnRoIERh yUM3HC99GQ84fLTit6J9 kNY9N4PgMELeghte yujcgTP9EEHmRGGuuI43 Pr7mxQskZq8sFWXwGYG3 ZFFugHGbW8GbvJ6eDaBx GYDkTJIiM1CppYCc MYezI982UTiaKsS1FRUf uyJhI8OnPPTiaKzxUeV7 p5K3Oe8TH3M7KU59FU15 uJEny2T2pRF5A7Tl WHMuygosnyosdNR1BEVx UYUahJ44Iv2utBbuSl8w HDCoONL7DJDonHZzF1Fp rE3eDxPlQRMoZZTm A4OtpRTjIElgN235VEej FsH9KVMzcbXgB1TmNCWq iWndPdE3i2A6Sp9RBIx2 GH51LM09vULup9B9 qML0A3AaWSNfcbbqzqpw nLE9GWWpKVTiuU61Lv8x cCspGa1wBJWyOOY7TLDb lIHgF4IqhV2tDtPk UNSqPNIbD3CdrYGuSCpi X726AXxqPkM7BLTbwpAy C2EsHKXqgSvwKeR3n3O6 Gy6EMTNvLM97CQT5 jXF4EX74JT56F5UfQtkp dGFibGU+PHRhYmxlIHdp ZHRoPScxMDAlJyBzdHls LH5nNd5pZRSxKPBk mWxosXViVdYlt4fkGYJe OCyiOF8bmSwyN2WiaHJ7 QUOnk1b8Wb65A59aN4Ts dXA+MRMykYP6cRM6 tK3vMaBqMtI0GFnxA951 XhHqoYMqJqgej7vln0ez zMu4XeM1UZNatxGifZav HKA7f7RgEf05X66w IHdpZHRoPSIxNSUiIHZh cWfyfy0quZ2qOz9+PGNv gJA3oXV8mS7rXtZiDvR3 KFvtN487MkZfoYEk Yyvxk2dyi1wjoXr9IoKq FJLtvuYcdXryNTA6e0Qw Ln06A6NjhVemf9BuWuv9 cc54nZJsz5H8tZA6 A6XaMYGhdeeeaOCwqSph UA8bORIacytzAHTndT4q RPZvE2h3RrCxYyT4CGkf W8YmqvY2BOUdrRTw NIlsNGZ1Y32po2F6KFVa ECKaTIQ6vXM4iG4lnHce bjogbGVmdDsgdmVydGlj XBppPYvvQ567ICAh uQmdBKLwzL8wHKTcaTUe iHtsUZ8nOODbvvmeCcDB SUNFLCBFTElaQUJFVEgg QIPAIO0ERZ81WY67 pSOip9O1vKD4I0RpJHGp reaoqwcrhSE8WPUnAHTd gD11pDXiQOnuIw1ke4R9 x580LPXxMJBmyF39 Zp3lrWwlKCZxoYKTbL2i mhkge7cykjznUaOrHTGv DMa1POb5TSXpvKqrLmBp DKQ9UsE9WZC4dPCw hT2zoIdnpjhirJ0yKia+ MDUvMjkvMjAwMTwvdGQ+ VJHmYNW9mSfwYKxqLTPe pH2tFIWkZ8i8OtVw NsE2XRipJ2LzTCMnzgzz Tc52lZ4rNhMgPzU2OTxp I9VjqzO5PBMbuRIrZHyh BLH0M98hr0U6GUEe HIJwWSP6bZM4xL8viQsm bjogbGVmdDsgdmVydGlj NEnsVRiiE997LJQbaRyq TmWlUYxeMJYmKK86 MP98sRZfb5F2nRS1Z6Nv MFVsbviwcnppyKZ0QFKm ZQGbqG68qQWxALqbCf4x v5A4f852IBSxZWYo dW90Zv0bgEojHVYyvQXA wL2fdqbpx1mzvsxoFpTa ASRaSEg3KYg9MYHkyKcg MuTpOZS1GpF9YCK6 hAEzsW1myDptsmeveS0w Oyc+FpWPIMhUSI84QB99 kQGby0N2zJX3T8ArDLQk gyhgvilvuFO6XXBd JUMbdD00oRSdVVhnMc3r i9B7r633NODmYIRazE19 Ks5upXekCXNvgAKHzU9b zaovn0kpmvtnFjHq QMWyHQy7TOo5QTOazXjt CeGfBVT2WbV1OUJ9vPNc kJ1whJoqjvwloS3nMar+ V7P8Y9KvVrlpzUF+ RO31TAIaVZ89aZCbbLNg h7vazHc6TvBdENCuEWL7 jSmdJPlzz8UxTIXgJ07p aVMtw8O5ZDXdvDdk eKGzMcSvkCP1nH5nVIut obmbf7giaxaqZrpwt6th gs94fP91C46zBKtaZNCf PSIzMCUiIHZhbGln me6nzA2oMz9+PGNvbCB3 gUM5oM9cVuBsZvL0IEcc Y149IjCcpFIgObjry2kk g2jjdIa8RqBhLFNz xxBixCasKKF3y9YrGq94 Z23lKUriLCUhJOZyOBUb OVVxnBzspy6xdB1oKj4+ EZ3oj9wtvy75tZ12 dHI+SPBoUYL1wAziKKmj LVGmhW5zEKspZcF5ZODd DaMqyU12aUDsWFanJg9i cMwazWjbJX7eIEJy tdcdo951PyRtg6tpDWGd bYPgCFamOZU6M51ld7Q4 IXOtQRSzBHS5aXL0zE6h bGlnbjogbGVmdDsg dzKduLfcDQznDLjzJ101 KACiqExpMxJdzZPuT9qv ngTCCR5wWpynsBV+PHRk KZP6vZaoSDmpCBIx mB1pRLOjY2e1UgAmVwQ7 FYtfP8SjryQ9PITmuGNf AWBdkXHUmI2gqulhl9ty cjogIzAwMDAwMDt0 FBy4GBPdsFkhDcRpPOW8 OoR9VRI2qVUyrT1yqWhz pwwwbI8gZom+RklOOjwv dGQ+ZBTcOIP6eDnf ZHfvPQBepJ9bPRCgK9p2 CaNnGhB9YRmbH2HwfuF7 MSPjiACkJZXxnXVWoV3r lqnhm1saalqdYiZv XMSdBHr8BGz4FOMqnRzk DxQqHOM2DrI4WZG7kHEw eZ5ynWnxdnsryI9yWtj+ TVJOOjwvdGQ+PHRk FIX3qKkxOUwkEMHalX6v KNUvK4j3IwFqHzF3KTls F0YliyR4FTCixTNbNRDi nMINvM0cfjzjy8bc qxwzPfAiVZZzVOi1PMh9 HCIvvNupNoAsWUO1WwL4 GAG9yFFmjA5rcBbgvrru zT7cLwx+DZW5ZGR4 XA86GS82E0OvPoxabQBy bGU+PHRhYmxlIHdpZHRo JAphTHVqCnPqsVghYZ1c Bb0mDGHeMVXxtTjy cHN (more content not included)... [facility] Coding Summary HTMLBase 64 LcmnwfhtLPy7dOo+PGhl YWQ+MN5BAUZrF68azCGk tJ3IP0qDCO9QDHVHJAPW AQ3PSJ2pvPQ5UNyaC3Sx biAv GaqozSMmTL98FAr1TIU2 qHjiVZkyvX5phLIuK3d7 VvLzKJ04uU36DUnzELOx HkM3DjPougnmaWIk O3wyGcRgdHCcPor+PHRh YmxlIHdpZHRoPScxMDAl VwSvtRqlYA0pAx9pVGHm LWNvbGxhcHNlOiBj g6kdBEAjHNfdVX7vmNyy E5ZrcBV7OWQer2r9Tu94 dHI+JHSbKNZ2aCccBAjr i250GrDug4nhMQQ0 qBUiOXgePOO8J01dl3S9 PRPpMFNtMAS3hSE5yF4i tKubqurxB8LdyYVdSlQ8 OWF5sTPjqZ1fyGdy wtsknG2pKkw+R75MBD1J YMLDZY3DExv9V3PjDaho dHI+WP75MCDoEO68cIOq kLWaw0wpbQu4EsEx YKGyNWH5oTqsXDuzx8Yx QKJjC93hnCRaw3E7YKKv fUggnSEuHvCfuJA3vQ7l XGjxazvax7dfvknl Binrg4spmi61hN78O15q OPezISQcMIC4CLKnYZOx nQjezx8nuC8bAz0+IDxj u1but3ozhQa3QgTh VEAgrvFjiVkdPLU8p0Lk Fy56R4IviZdth6EiElz3 xq95mEAua4J4vNL7NLwj EREupN1wNPiyVbS8 CLRxRkOubJ94jOKkMErs Vn5okDmopZgfOI7jHDOn xyaqVZYmiO4hDRBbpXLq nPprRI7uCDNtbkce i719QsGgYFV2VAMjyXUq A4HdvU7aSoQeRRLmXPQp L7QhyCQzHXaiW993OYis QqW6OALjujFdA9Rn TRYrtVvpOwX6m5U0Ct2O p8FdctqrZEE9VSzpJCO1 KqB1GvDoKjA5D5JfVvb6 BMFjcFouLQ7aN3Mm XIBryasajdoxzZA0DXPd GGLudK59gKCeMYihSw1v a0J8v327KSImXVBnfD48 Sl3twZspSWTqzYKC eR7uokioe4aclhqyQtEb MVRhUYc0FTz5UUKwgJfm OtXmVAM8LmI0XWO6pSKv qB5akIdmbvntbU3g Oyc+T66vxO5vQPB2GAY6 gyzaXYAjanQtJY71GN05 P2UmVnnqqFSadZE+PGRp mmXfzUliJX2dKrLw y4ssb0FrNEwxY4UiXHSy JZydCsm4SZNhUFX0cDO4 tC9sSOHkXLxni4K1oOJ6 K9ZviuHewl4jo9nu AVLnNQftU92xxYTxk3F7 LUNbgBW7HMKegGlaKlAf qD52Iaz+VGVnoApdg4Lf Yjgod9vyi2nyfSi8 IjMwJSIgdmFsaWduPSJ0 h2ZwXy58I88fKVawNUOc BPByACRqYQUisXhdpa2c oI7qFr3+PGNvbCB3 yRD2iF3dGODcIeI0DJif B993YvSeaKSzTdyvr3rh v2rxsPq2GzSsWHImhnDf vMvcIOR3z9OjBj72 Q35wDKqrHGPkTHGcLQZe RYJebArtfn2idH8oRj8+ LC9al6ceiq59pS04mGF+ IGQsYMA6xNdcMYcr KELlwP4dUFlvLrY7HSXc VzSzbM44cSAkSDqtYx3n pNhtaNevWZ8fCKMbbckn b293EuNrh0naECVz pRMiYHbyHBH2Q63iz7F2 NNFmTGOfTKE7dKJ6fX8u bGlnbjogbGVmdDsgdmVy rWyeKAmtQFowF511 IHRvcDsnPlBhdGllbnQg DvNmFHt3B4TgOdr1MDIk cVbcWL3bvKLtAExxCd7d hCoyzVwaZG8iNARh ckkiw320RkAja6giHPBf hCHpYYkgMLT6W04zz3H8 TLQdXGVuXNR8iLM0iE0c bGlnbjogbGVmdDsg hbAljMlsTGifELehW097 IHRvcDsnPkJpcnRoIERh nJO8MG51RI52oHAse1F5 xTM4J7JfEYHsncci urebdPS0FHGgRXGueQ26 Sd0txHcyNz6uQPNqPAN5 DJZzkQJkH7HhcX6wDjTu CJHvSVPwS4LtfKZy IMmmJ076CKdoAnU8ALRk cxLjB6YjMWJtmJrpEwD4 f3V0Dd4LZ9V0XI88VS04 mSSfh8E6aEN2G8Sq EAHhufzltnllgIQ3WHEq UAJzsG31Xm4myIccVl3o MJNfVUI2ADOdcIUqL0Aq hT9fVjXjQHRdZKAl L3MsnVXyCIwvA760LJph HhW6LGPkmwOjS3UnOSXx sGvuTtS9j5Q1Nk8ODCx1 QK35SJ40bMEsw1J6 tXJ4D5BePJIlqwzbqufd eXJ0MYFvADYkkJ41Zu1n vThrUl7sWPYfNOF8RFWb gTAsG5TqqL6mSmEf EZKwNXHhI0PrfLKhUBfa K078FFkiOkA9KLJuqhOx M9LfRHWnmMpfOpI2y8F4 Uw7YMCElDA09PUP2 aQF4MJ42AI64C3ZhPllh dGFibGU+PHRhYmxlIHdp ZHRoPScxMDAlJyBzdHls AC7pBu8bJCLtVRYz gElnsYObStGnr3hbFTFi RFntMS2zpFoxG4FwoMB2 LPCin6t0Uy12N92qB7Gy dXA+HNJtdXX8xOL6 xP0nJwQjDlN0ABpfO577 WfObiZFgXmqaw9llp3td zNx8BjT8WZApqlAwoDdj MLO6a5RkCu74S63e IHdpZHRoPSIxNSUiIHZh iDpgzi7wtN4mAw6+PGNv mSP9pDC9cO6pVyYnIoK8 QOgkY868GfKtvTBh Fuguu0ktw6zcjPl2LnWc VDCugpTcfHxkZMQ9l2Op Nn48M8SbsJhzj2AdFnd0 is30vZPtn3H5rRU0 S1HmTNDktvwicUAksPzj ZQ7yVKDamhzhSTFqvM4p WXFvM8k8QvWmOsW1BLix X3EuymP6NUPwyLKb FKqfSVA1T61sr7A2RLAt QXGaUDD0nAW9jZ7rwYsl bjogbGVmdDsgdmVydGlj HClzDRzoW178SFId aCzpYJPnqY4iBHEavTMl oJtiDJ2eAHUakeybChFF SUNFLCBFTElaQUJFVEgg CSKSNV0WJO38GX57 wRJid9B7tNR8X1BpZOHm bzildayqaYK8WTVePQPa kL78aGCrSTwwIr4de9L1 g427MFAbUUTbhX50 Pw1mmZbwENZgdUOFrJ0e ujkbb8xdztacZmQoNXQq QGm5LHj8MXIpmIjiLhCu VGW2AwH4TEB6dWZh rJ3whJjkuweovG7uYgs+ MDUvMjkvMjAwMTwvdGQ+ HXNvGME5rUhfPEihOWXu uJ4uSAQkU3v1ZzUe ItR2PGrnI8ZoCBQyuvlv Cd04eP4bSuBsReW7GEto G1EdrbE3VPCclSNtOZyx XJL2A26jh8Q9RZUd ZMYnWYQ9fFX0kR7tjOfh bjogbGVmdDsgdmVydGlj UYkaJSlhE645VKNpyJsy FkNfUXlyTUJtUV41 IH89eREjv2Z4wQF5J3Ht VJAudcryhbrjlIR6KVTx KCVrwC35pGUvLFivYe3j x0B2n933JZHcHFJl cC99Hc9dnKixOVHepKBD jD5wckjet9rqzodiNoFw ONMtORp6GGu8NLQtqSxg AyVeMNN2CgV7OKJ6 eJAubO1iyEicgjyqcU4m Oyc+ZlBIZTpMCE18UR57 bDAcn4I6yOG6Q5BiDKCa thzvnfwhgGL0CVZo EPNonC73qSNuHHetIn3h m7W5m605SRCoJEPdnE86 Yo4skVyqGVNurLMRgP1x wtnqt2dcvuspMdPa LAPmFRs2QYn4MBTcaQan InWhXRM0EeA0PGR5yVEw mK9guOiedvktzU8oNyj+ EF8zgyqhbzY1CX17 CD27D0YbNxxcqEOqdIL+ PHRhYmxlIHdpZHRoPScx FPDkHiEgxCpiZQ5kCe8t ZGVyLWNvbGxhcHNl RjVue9bxAHTfQYjuAF4w tAqhZ8YhmHY2AQHpe5g2 Ze75E07eT7GciTJ+PGNv mZI0fTF2eU1oPwYc EpM5EFjaI039NeYawBNe Unbvq8weg0jgcQa4JaQx NHQtusPsaSdjADT5m4Sp Ue57O19ySAaqEITb WILgOJXuMHCrxVhczm1i eJ5uCx6+GOGljIP0mJN7 jH5cMrPmStV9RRzjC333 PjCqqHXhQxdaB18h L8SvdIA+QTNhOla4YVFr vNvxRM8ixDWaOHdeTg0b QHU0JwAiTyYsKTciK4Jl ZGRpbmctcmlnaHQ6 SCWiNOHazE81Wk3gbUyu Wc5gTLUpAGJ7ZPUcwEVc W9YidN9eRvXgGMSnVSWs O3WzgDZiDAawO345 SBghWsR7UNQmbfAuY8Tn UDHutSrnZoV8w8R6Og0W zPcezWMrWW8iJeCwKXj5 L1CqYhe0ADDejYas RZ7gaRFjFCfqYe7szFab cAivPN4wRSMdtefkz173 BaHff8neRFRxdWMqMOxt BOE4X45op4M7TRLj PWQwZZV2oDN5cN7plWaa bjogbGVmdDsgdmVydGlj OObgWGpaZ358IVBlqLce KqROWcm2X7AcNnt9 DXCnpLvlAA1qfDXiWOot Sa9dqHhovErfUX3aBFUo jphqc036YmPed1wsNRAl tFEaEItkBRH0F64a w1W2NHPxMNZiSXG7uWF5 jY7dwNeopetckIQieFdq mlSjdBfsAFmpWSenZ019 PETucScsBa9RRje2 I7ZqMtd8BYAcoZxoKF4k lVWuYWxsTd4rhMcooWbv ET8zSBDrykbtg692NwZm s8xtKSNpgRGhFDif EXU7Q21bj1T6UBQfZULn AHZ5mDY5jI8djUttubym bGVmdDsgdmVydGljYWwt MCttY686JRBrtUkn PlBheWVyOjwvdGQ+PC90 xh63V1UoJuxdZqr3VYJw OUZ3yVW3gS6wUQFtPBtz w6S2uHG8Z4LibnQy ci1 (more content not included)... [facility] ED Clinical Summaryon 2020 ED Clinical Summary [facility] - Emergency Department [address] [place] [id number] ED Clinical Summary PERSON INFORMATION Name: NICOLE POTTER Age: 21 Years Sex: FEMALE : 2000 MRN: Acct#: Visit Reason: Throat pain - Adult; HEADACHE, THROAT PAIN Arrival: 04/14/2021 13:29:22 Discharge: 04/14/2021 14:10:00 LOS: 000 00:41 Check In: 04/14/2021 13:29:22 Checkout:04/14/2021 14:10:00 Address: [address] [place] [id number] PCP: Provider, None PROVIDER INFORMATION Provider Role Assigned Unassigned SAUD FRAGA ED PA 04/14/2021 13:33:03 Adam Romero SOLAR ENERGY INSTALLATION MANAGER Nurse 04/14/2021 13:35:30 04/14/2021 13:35:49 Grace Torres SOLAR ENERGY INSTALLATION MANAGER Nurse 04/14/2021 13:43:51 VITALS INFORMATION Vital Sign Triage Latest Temperature Tympanic Temperature Temporal Artery Pulse Rate 100 bpm 100 bpm O2 Sat 96 % 96 % Respiratory Rate 16 br/min 16 br/min Blood Pressure /66 mmHg /66 mmHg MEDICAL INFORMATION Medications Given: Allergy Information: No Known Medication Allergies PHYSICIAN DOCUMENTATION Patient: NICOLE POTTER Age: 21 years Sex: FEMALE : 2000 [...] clear, tympanic membranes pearly mayer. NECK: -Supple (xrnr-ad-dodlr): non-tender. -Kernig's and Brudzinski sign are negative [...] recommend c (more content not included)... [facility] ED Note - Physicianon 2020 ED Note - Physician Patient: NICOLE POTTER Age: 21 years Sex: FEMALE : 2000 [...] clear, tympanic membranes pearly mayer. NECK: -Supple (wetz-tf-svhwe): non-tender. -Kernig's and Brudzinski sign are negative [...] ibuprofen for aches and pains, nasal decongestant srhe-vke-gdcwafb, Vicks VapoRub for congestion, honey for any [...] be discharged Impression and Plan Diagnosis Pharyngitis ([id number]-QH J02.9, Discharge, Medical) Sinus congestion (OCH76-KL R09.81, Discharge, Medical) Plan Condition: Stable. Disposition: Discharged: to home. Prescriptions: (more content not included)... [facility] ED Note-Nursingon 04-14-2021 ED Note-Nursing Patient arrives via private car for c/o sore throat, cough, and body aches for 48 hours. Patient is A/O X4. She denied any needs. Will continue to monitor. [facility] ED Patient Summaryon 021 ED Patient Summary [facility] - Emergency Department [address] [place] [address] PATIENT DISCHARGE INSTRUCTIONS Patient Information Name: NICOLE POTTER Age: 21 Years Date of : 2000 Reason For Visit: Throat pain - Adult; HEADACHE, THROAT PAIN Arrival Time: 04/14/2021 13:29:22 Primary Care Physician: Provider, None Attending Physician: Luigi Vance MD Comment: Visit Diagnosis: Diagnoses This Visit Pharyngitis (J02.9) Sinus congestion (R09.81) Throat pain - Adult ([id number]) Prescription Information: If you have been given a prescription for narcotics, seek immediate medical attention if you have any difficulty breathing or any sudden status changes such as confusion and sleepiness. If you or anyone you know is experiencing suicidal thoughts, mental health, alcohol and/or drug addiction problems; contact the [facility] 29/04 Crisis Hotline -Text [id number] uh [phone]. If you received any narcotics, sedation, or [...] documents With: Address: When: Miguel Angel Aponte [facility], [address] [address] [place] [phone] Business (1) Within 3 to 5 days [...] if taking antibiotics. With: Address: When: Glenda Chidi [phone] EXT: [phone] Call for family Physician Within 3 to 5 days Medication Information: The exam and treatment you received today in the [facility] Emergency Department were for an urgent problem and are not intended as complete care. It is important for you to follow up with a doctor, nurse practitioner, or physician?s assistant offset press operator for ongoing care. If your symptoms become [...] so we can reach you if necessary. [facility] Emergency Department has provided you with a complete list of medications post discharge. Please inform your phys ther/provider of your visit and for further instruction [...] found [place] (more content not included)... [facility] C. trachomatis Interp Abnormal See CT Interp N [facility] ([place]) Comment on above: Result Comment: DNA detection by non-culture technique (PCR). Sensitivity testing not available with this method. This organism causes a reportable disease Results have been reported to the [place] [facility] See CT Interp P Performed By: #### C TPCR, NGPCR1 #### [address] [address] C.trachomatis PCR Positive Abnormal Negative [facility] ([place]) Comment on above: Result Comment: Mole cular (PCR) assay performed on the [employer] Stephanie 4800 system. Performed By: #### C TPCR, NGPCR1 #### [address] [address] Chlam Source Urine Normal [facility] ([place]) Comment on above: Performed By: #### C TPCR, NGPCR1 #### [facility] [address] [place] [id number] 05-17-2020 GC PCR Source Urine Normal [facility] ([place]) Comment on above: Performed By: #### C TPCR, NGPCR1 #### [facility] [address] [place] [address] N. gonorrhoeae (PCR) Negative Normal Negative [facility] ([place]) Comment on above: Result Comment: Mole cular (PCR) assay performed on the [employer] 4800 System. Performed By: #### C TPCR, NGPCR1 #### [address] [address] N. gonorrhoeae Interp Normal See NG Interp N [facility] ([place]) Comment on above: Result Comment: N. g onorrhoeae DNA not detected. Specimen is presumptive negative for N. gonorrhoeae. A negative result does not preclude Neisseria gonorrhoeae infection because results depend on adequate specimen collection, absence of inhibitors, and sufficient DNA to be detected. See NG Interp N Performed By: #### C TPCR, NGPCR1 #### [address] [address] .Urinalysis Microscopic (AO) on 05-14-2020 RBC (U) [#/Vol] 0-5 Abnormal None Seen [facility] ([place]) Comment on above: Performed By: #### P REGU, UA, UAMICAO #### [address] [address] UA Bacteria 1+ /hpf Abnormal Replaced by [facility] ([place]) Comment on above: Performed By: #### P REGU, UA, UAMICAO #### [address] [address] UA Squam Epithelial 5-10 Abnormal None Seen [facility] ([place]) Comment on above: Performed By: #### P REGU, UA, UAMICAO #### [address] [address] UA WBC 5-10 Abnormal None Seen [facility] ([place] Comment on above: Performed By: #### P REGU, UA, UAMICAO #### [place] [address] PREGUon 05-14-2020 HCG ( test) Ql (U) Negative Normal [facility] ([place] Comment on above: Performed By: #### P REGU, UA, UAMICAO #### [place] [address] test (u) int HCG not detected. [facility] ([place] Comment on above: Performed By: #### P REGU, UA, UAMICAO #### [place] [address] UAon 05-14-2020 Color (U) Yellow Normal [facility] ([place] Comment on above: Performed By: #### P REGU, UA, UAMICAO #### [place] [address] Glucose (U) [Mass/Vol] Negative Normal Negative [facility] ([place] Comment on above: Performed By: #### P REGU, UA, UAMICAO #### [place] [address] Ketones Ql (U) Negative Normal Negative [facility] ([place]) Comment on above: Performed By: #### P REGU, UA, UAMICAO #### [place] [address] UA Appear Cloudy Abnormal Clear [facility] ([place] Comment on above: Performed By: #### P REGU, UA, UAMICAO #### [address] [address] UA Blood Negative Normal Negative [facility] ([place] Comment on above: Performed By: #### P REGU, UA, UAMICAO #### [address] [address] UA Leuk Est Moderate Abnormal Negative Replaced by [facility] ([place] Comment on above: Performed By: #### P REGU, UA, UAMICAO #### [place] [id number] UA Nitrite Negative Normal Negative [facility] ([place] Comment on above: Performed By: #### P REGU, UA, UAMICAO #### [place] [id number] UA pH 6.5 Normal 5.0 - 8.0 [facility] ([place] Comment on above: Performed By: #### P REGU, UA, UAMICAO #### [place] [address] UA Protein Negative Normal Negative [facility] ([place] Comment on above: Performed By: #### P REGU, UA, UAMICAO #### [place] [address] UA Spec Grav 1.025 Normal 1.015-1.025 [facility] ([place]) Comment on above: Performed By: #### P REGU, UA, UAMICAO #### [place] [address] UA Specimen Type Void Normal [facility] ([place] Comment on above: Performed By: #### P REGU, UA, UAMICAO #### [place] [address] UA Urobilinogen 0.2 E.U./dL Normal 0.2-1.0 [facility] ([place] Comment on above: Performed By: #### P REGU, UA, UAMICAO #### [place] [address] Urobilinogen Qn (U) Negative Normal Negative [facility] ([place]) Comment on above: Performed By: #### P REGU, UA, UAMICAO #### [place] [address] .Auto Diffon 07-22-2019 Ammonia (P) [Mass/Vol] 0.90 10 3/mcL Normal 0.15-1.00 [facility] ([place]) Comment on above: Performed By: #### C MAURICE BUTLER, ANEU #### [address] [address] #### GLU1P #### [facility] [address] [place] [address] Basophils (Bld) [#/Vol] 0.10 10 3/mcL Normal 0.00-0.19 [facility] ([place]) Comment on above: Performed By: #### C MAURICE BUTLER, ANEU #### [address] [address] #### GLU1P #### [address] [address] Basophils/100 WBC (Bld) 0.6 % Normal 0.0-2.5 [facility] ([place]) Comment on above: Performed By: #### C MAURICE BUTLER, ANEU #### [address] [address] #### GLU1P #### [address] [address] Eosinophils (Bld) [#/Vol] 0.30 10 3/mcL Normal 0.00-0.40 [facility] ([place]) Comment on above: Performed By: #### C MAURICE BUTLER, ANEU #### [place] [address] #### GLU1P #### [address] [address] Eosinophils/100 WBC (Bld) 3.1 % Normal 0.0-7.0 [facility] ([place]) Comment on above: Performed By: #### C LUKE ADIFF, ANEU #### [address] [address] #### GLU1P #### [address] [address] Lymphocytes (Bld) [#/Vol] 1.50 10 3/mcL Normal 0.77-3.85 [facility] ([place]) Comment on above: Performed By: #### C MAURICE BUTLER, ANEU #### [place] [id number] #### GLU1P #### [address] [address] Lymphocytes/100 WBC (Bld) 13.6 % Normal 10.0-50.0 [facility] ([place]) Comment on above: Performed By: #### MAURICE HERNANDEZ, ANEU #### [address] [address] #### GLU1P #### [address] [address] Monocytes/100 WBC (Bld) 8.7 % Normal 1.7-13.0 [facility] ([place]) Comment on above: Performed By: #### MAURICE HERNANDEZ, ANEU #### [address] [address] #### GLU1P #### [address] [address] Neutrophils/100 WBC (Bld) 74.0 % Normal 37.0-80.0 [facility] ([place]) Comment on above: Performed By: #### MAURICE HERNANDEZ, ANEU #### [address] [address] #### GLU1P #### [address] [address] .NEUABSon 07-22-2019 Neutrophils (Bld) [#/Vol] 8.00 10 3/mcL High 2.85-6.16 [facility] ([place]) Comment on above: Performed By: #### MAURICE HERNANDEZ, ANEU #### [address] [address] #### GLU1P #### [address] [address] CBCon 07-22-2019 Erythrocyte distribution width (RBC) [Ratio] 13.9 % Normal 11.5-14.5 [facility] ([place]) Comment on above: Performed By: #### MAURICE HERNANDEZ, ANEU #### [address] [address] #### GLU1P #### [address] [address] Hematocrit (Bld) [Volume fraction] 38.1 % Normal 37.0-47.0 [facility] ([place]) Comment on above: Performed By: #### MAURICE HERNANDEZ ANEU #### [address] [address] #### GLU1P #### [address] [address] Hemoglobin (Bld) [Mass/Vol] 12.9 G/dL Normal 12.0-16.0 [facility] ([place]) Comment on above: Performed By: #### MAURICE HERNANDEZ ANEU #### [address] [address] #### GLU1P #### [place] [address] MCH (RBC) [Entitic mass] 30.9 pg Normal 27.0-31.2 [facility] ([place]) Comment on above: Performed By: #### MAURICE HERNANDEZ ANEU #### [place] [address] #### GLU1P #### [place] [address] MCHC (RBC) [Mass/Vol] 34.0 G/dL Normal 33.0-37.0 [facility] ([place]) Comment on above: Performed By: #### MAURICE HERNANDEZ ANEU #### [place] [address] #### GLU1P #### [place] [address] MCV (RBC) [Entitic vol] 90.9 fL Normal 80.0-94.0 [facility] ([place]) Comment on above: Performed By: #### MAURICE HERNANDEZ ANEU #### [place] [address] #### GLU1P #### [address] [address] Platelet mean volume (Bld) [Entitic vol] 9.5 fL Normal 7.4-10.4 [facility] ([place]) Comment on above: Performed By: #### C BC, ADIFF, ANEU #### [address] [address] #### GLU1P #### [address] [address] Platelets (Bld) [#/Vol] 177 10 3/mcL Normal 130-400 [facility] ([place]) Comment on above: Performed By: #### C BC, ADIFF, ANEU #### [address] [address] #### GLU1P #### [address] [address] RBC (Bld) [#/Vol] 4.19 10 6/mcL Low 4.20-5.40 [facility] ([place]) Comment on above: Performed By: #### C BC ADIFF, ANEU #### [address] [address] #### GLU1P #### [address] [address] WBC (Bld) [#/Vol] 10.90 10 3/mcL High 4.60-10.80 [facility] ([place]) Comment on above: Performed By: #### C BC ADIFF, ANEU #### [address] [address] #### GLU1P #### [address] [address] TSL0Arh 07-22-2019 Glucose [Mass/Vol] 93 mg/dL Normal 70-140 [facility] ([place]) Comment on above: Performed By: #### C BC, ADIFF, ANEU #### [address] [address] #### GLU1P #### [address] [address] Vital Signs Date Time Vital Sign Value Performing Clinician Martine rasmussen 07-31-2021 11:09-0400 Body height 167.6 cm Enrique Pacheco Work Phone: [facility] Work Phone: 07-31-2021 11:09-0400 Body mass index (BMI) [Ratio] 30.67 kg/m2 Enrique Edouard MD Work Phone: [facility] Work Phone: 07-31-2021 11:09-0400 Body temperature 97.9 [degF] Enrique Pacheco Work Phone: [facility] Work Phone: 07-31-2021 11:09-0400 Body weight 86.18 kg Enrique Pacheco Work Phone: [facility] Work Phone: 07-31-2021 11:09-0400 Diastolic blood pressure 54 mm[Hg] Enrique Edouard MD Work Phone: [facility] Work Phone: 07-31-2021 11:09-0400 Heart rate 82 /min Enrique Smileyhaimaugustina Pacheco Work Phone: [facility] Work Phone: 07-31-2021 11:09-0400 Respiratory rate 16 /min Enrique Meloser M Tara Work Phone: [facility] Work Phone: 07-31-2021 11:09-0400 SaO2% (BldA) [Mass fraction] 99 % Enrique Edouard MD Work Phone: [facility] Work Phone: 07-31-2021 11:09-0400 Systolic blood pressure 113 mm[Hg] Enrique Edouard MD Work Phone: [facility] Work Phone: Encounters Encounter Date Encounter Type Care Provider Facility Start: 11-18-2023 ambulatory Andrei Carter acility:[facility] Start: 11-05-2023 End: 11-05-2023 Emergency department [facility] Start: 01-27-2023 End: 01-27-[address] KRISTIE PAULINO Facility:[facility] Start: 12-11-2022 [...] 07-31-2021 Emergency department patient visit SR KRIS HERMAN [facility] Start: 07-31-2021 End: 07-31-2021 Emergency department patient visit Enrique Edouard MD Work Phone: [facility] ED Comment on above: Acute non-recurrent frontal sinusitis (Primary Dx) Start: 07-10-2021 End: 07-13-2021 ambulatory SR KRIS HERMAN [facility] Start: 07-10-2021 End: 07-12-2021 Subsequent hospital visit by physician Giovanni Xr Room 4 [facility] Radiology Comment on above: Lumbar pain Procedures Date Procedure Procedure Detail Performing Clinician Start: 05-11-2022 Delivery of Products of Conception, External Approach RAQUEL JOHNSON Start: 05-11-2022 Drainage of Amniotic Fluid, Therapeutic from Products of Conception, Via Natural or Artificial Opening RAQUEL JOHNSON Start: 05-11-2022 Introduction of Othe r Hormone into Peripheral Vein, Percutaneous Approach RAQUEL JOHNSON Start: 05-11-2022 Repair Vulva, Jive Developer al Approach RAQUEL JOHNSON Start: 05-10-2022 Introduction of Horm one into Female Reproductive, Via Natural or Artificial Opening RAQUEL JOHNSON Start: 07-31-2021 COVID-19, RAPID Lan Amaya [employer] Work Phone: Start: 07-31-2021 Urine test visual color cmprsn meths Kari Terrazas [employer] Work Phone: Start: 07-31-2021 Radiologic exam ches t single view Kari Amaya [employer] Work Phone: Start: 07-10-2021 Radex spine lumbosac ral 2/3 views Sr Kris Herman DO Work Phone: Plan of Treatment Date Care Activity Detail Author Start: 09-03-2029 DTaP/Tdap/Td vaccine (6 - Td or Tdap) DTaP/Tdap/Td vaccine (6 - Td or Tdap) [facility] Phone: Start: 06-07-2021 Influenza vaccination Flu vaccine (# 1) [facility] Phone: Start: 2017 Screening for Chlamy marylin trachomatis Chlamydia screen [facility]: Start: 2016 HIV screening HIV screen [facility] Work Phone: Start: 11-10-2015 Hepatitis A vaccine (2 of 2 - 2-dose series) Hepatitis A vaccine (2 of 2 - 2-dose series) [facility] [employer] Phone: Start: 2001 Hepatitis C screening Hepatitis C sc zayra [facility] [employer] Phone: Payers Date Payer Category Payer Self-pay 2000 Unknown [id number] 2.16.8 [id number] 2000 Unknown [id number] 2.16.8 [id number] 2001 Unknown [id number] 2.16.8 40.1.171308.3.579.2.176 2001 Unknown [id number] 2.16.84 0.1.491249.3.579.2.593 2001 Unknown [id number] 2.16.84 0.1.808084.3.579.2.593 2001 Unknown [id number] 2.16.84 0.1.851477.3.579.2.593 2001 Unknown [id number] 2.16.84 0.1.459249.3.579.2.593 2001 Unknown [id number] 2.16.84 0.1.423760.3.579.2.593 2001 Unknown [id number] 2.16.84 0.1.245561.3.579.2.593 2001 Unknown [id number] 2.16.84 0.1.004878.3.579.2.593 2001 Unknown [id number] 2.16.84 0.1.759656.3.579.2.593 2001 Unknown [id number] 2.16.84 0.1.670335.3.579.2.593 2001 Unknown [id number] 2.16.84 0.1.968932.3.579.2.593 2001 Unknown [id number] 2.16.84 0.1.147262.3.579.2.593 2001 Unknown [id number] 2.16.84 0.1.031533.3.579.2.593 2001 Unknown [id number] 2.16.84 0.1.880873.3.579.2.593 2001 Unknown [id number] 2.16.84 0.1.101896.3.579.2.593 2001 Unknown [id number] 2.16.84 0.1.162246.3.579.2.593 2001 Unknown [id number] 2.16.8 40.1.086080.3.579.2.1286 1959 Unknown [id number] 1. [id number] Social History Date Type Detail Facility Tobacco smoking stat [facility] Unknown if ever smoked [facility] Phone: Start: 2000 Sex Assigned At Not on file [employer] Phone: Start: 07-31-2021 Tobacco smoking stat [facility] Never smoker [facility] Phone: Start: 07-31-2021 Tobacco use and exposure Never used [facility] Start: 07-31-2021 Alcohol intake Ex-drinker (finding) [facility] Phone: Exposure to SARS-CoV -2 (event) Not sure [facility] Clinical Note 01-27-2023 Note Date & Type [...] by: KRISTIE PAULINO Date: 2023-01-27 13:47 [facility] Clinical Note 01-27-2023 Note Date & [...] by: KRISTIE PAULINO Date: 2023-01-27 13:46 [facility] Clinical Note 04-14-2021 Note Date & [...] a nasal saline wash. Medicines ? Take vmud-hkt-nvbraub and prescription medicines only as told by [...] provider. Document Revised: 09/05/2018 Document Reviewed: 07/04/2018 [employer] Patient Education ? 2019 [employer] Infectious Disease Sinusitis, Adult Sinusitis is [...] Infection from f (more content not included)... [facility] Evaluation note Note Date & Type Note Facility Evaluation note Diagnosis Lumbar pain Lumbago documented in this encounter [facility] Phone: Evaluation note Note Date & Type Note Facility Evaluation note Diagnosis Acute non-recurrent frontal sinusitis- Primary documented in this encounter [facility] Phone: Hospital Discharge instructions Attachments Note Date & Type Note Facility Hospital Discharge instructions The following attachments cannot be sent through Care Everywhere.Sinusitis (Greek)documented in this encounter [facility] Phone: Summary Purpose Family History No Family [...] section and content) DATE CREATED AUTHOR 05/17/2020 [facility] ([place]) DATE CREATED AUTHOR AUTHOR'S ORGANIZ ATION 04/25/2021 [facility] DATE CREATED AUTHOR AUTHOR'S ORGANIZ ATION 07/31/2021 [facility] DATE CREATED AUTHOR AUTHOR'S ORGANIZ ATION 01/29/2023 [facility] DATE CREATED AUTHOR AUTHOR'S ORGANIZ ATION 11/10/2023 [facility] DATE CREATED AUTHOR AUTHOR'S ORGANIZ ATION 01/08/2024 [facility] Reason for Visit (unrecogniz ed section and content) Reason Comments Cough Ordered Prescriptions (unrec ognized section and content) Prescription Sig Dispensed Refills Start Date End Da te amoxicillin-clavulanate (AUGMENTIN) 875-125 MG per tablet Take 1 [...] BE BASED ON THE PRIMARY CLINICAL RECORDS. [facility]. provides no warranty or guarantee of the accuracy or completeness of information in this document.
[2024-01-26 21:13] VITALS: BP 111/74; PULSE 96; TEMP 36.8; O2SAT 100; BMI 29.7
--- NOTE | 2024-01-26 21:22 | XR_ITS ---
The [address] [address] Patient Name: ENRICO PATRICIA MRN: [id number] date: 2000 Sex: F Assigned Patient Location: ER Current Patient Location: ED.MAIN Accession/Order Number: [id number] Exam Date: 01/26/2024 21:55 Report Date: 01/26/2024 22:17 At the request of: RAFAELA YEAGER Procedure: XR chest 2V EXAM: XR chest 2V TECHNIQUE: PA and lateral view of the chest HISTORY: cough, fever COMPARISON: None. FINDINGS: The heart and mediastinum are unremarkable. The lung azar are clear of any acute infiltrate, effusion or mass. No acute bony abnormality. XR/XR chest 2V IMPRESSION: No acute pulmonary disease. Electronically authenticated by: BELIA PLASENCIA Date: 01/26/2024 22:17
--- NOTE | 2024-01-26 21:24 | ED_ITS ---
HPI - URI/Sore Throat General Chief Complaint: Upper Respiratory Infection Stated Complaint: UPPER RESPIRATORY INFECTION hEADACHE Time Seen by Provider: 01/26/24 21:15 Source: patient History of Present Illness HPI Narrative: A 23-year-old female presents to the ER with concerns of persistent sore throat, congestion, mild headache. Patient states symptoms started over a week and a half ago, was seen here with negative influenza COVID but positive strep. Preethi ent reports completing the 10 days of amoxicillin twice a day but had no change in her symptoms. Patient quit using chewing tobacco 2 days ago. She denies any vomiting or diarrhea but has a productive cough. Patient unsure of chance of . Denies dysuria. I feel worse than I did a week and a half ago. MD elicited complaint: Reports cough, sore throat, rhinorrhea and nasal congestion Onset (ago): week(s) (1.5) Consistency: Reports constant Severity: moderate Description of mucous: Reports watery, yellow and green; Denies bloody Exacerbating factors: Reports changing head position Relieving factors: Reports OTC cold medicine and cough suppressant Associated symptoms: Reports fever, headache, rhinorrhea, nasal congestion, sore throat and cough; Denies voice changes, stiff neck, chest pain, vomiting or diarrhea Treatments prior to arrival: Reports cold medicine Related Data Previous Rx's ?Medication ?Instructions ?Recorded ketorolac 10 mg tablet 10 mg PO TID PRN pain #10 tabs 11/24/23 tramadol 50 mg tablet 50 mg PO Q4H PRN pain #15 tabs 11/24/23 amoxicillin 500 mg capsule 500 mg PO TID 10 days #30 caps 01/05/24 ondansetron 4 mg disintegrating 4 mg PO Q6H PRN nausea and 01/05/24 tablet vomiting #20 tabs benzonatate 200 mg capsule 200 mg PO TID PRN cough #15 caps 01/26/24 doxycycline hyclate 100 mg capsule 100 mg PO BID 10 days #20 caps 01/26/24 Allergies Allergy/AdvReac Type Severity Reaction Status Date / Time No Known Drug Allergies Allergy Verified 01/05/24 02:04 Review of Systems ROS Constitutional Reports: fever (subjective) Eyes Denies: change in vision Ears, nose, mouth, and throat Reports: post nasal drip; Denies: throat pain, neck pain, throat swelling or swelling of lips/tongue Cardiovascular Denies: chest pain Respiratory Reports: cough and chest congestion; Denies: shortness of breath or pain on inspiration Gastrointestinal Denies: abdominal pain or nausea Musculoskeletal Denies: back pain Integumentary/Breast Denies: rash Neurological Reports: headache; Denies: numbness in extremities Psychiatric Denies: anxiety [facility] Medical History (Updated 01/26/24 @ 22:18 by RADHA Márquez) Migraine ?G43.909 - Migraine, unspecified, not intractable, without status migrainosus (ICD-10) Social History Smoking status: Light tobacco smoker Exam Narrative Exam Narrative: Nurses notes and vital signs reviewed and patient is not hypoxic. General: The patient appears well and in no apparent distress. Patient is resting comfortably on cart. Skin: Warm, dry, no pallor noted. Head: Normocephalic, atraumatic Neck: Supple, trachea mid-line, no tenderness, no lymphadenopathy Eye: Pupils are equal, round and reactive to light, EOMI Ears, Nose, Mouth, and Throat: TM are clear, normal light reflex, oral mucosa is moist,+ posterior oropharynx erythema no hypertrophy, uvula is mid-line. + postal drainage Cardiovascular: Regular Rate and Rhythm Respiratory: Patient is in no distress, no accessory muscle use, lungs are clear to auscultation, no wheezing, rales or rhonchi. Chest Wall: no tenderness Back: non-tender, no CVA tenderness Musculoskeletal: normal ROM, no tenderness, no swelling GI: Normal bowel sounds, no tenderness to palpation, no masses appreciated. No rebound, guarding, or rigidity noted. Neurological: A&O x4 Psychiatric: Cooperative Constitutional Vital Signs, click to edit/add: Last Vital Signs Temp 98.2 F 01/26/24 21:13 Pulse 96 H 01/26/24 21:13 Resp 16 01/26/24 21:13 BP 111/74 01/26/24 21:13 Pulse Ox 100 01/26/24 21:13 O2 Del Method Room Air 01/26/24 21:13 Course Vital Signs Vital signs: Vital Signs Temperature 98.2 F 01/26/24 21:13 Pulse Rate 96 H 01/26/24 21:13 Respiratory Rate 16 01/26/24 21:13 Blood Pressure 111/74 01/26/24 21:13 Pulse Oximetry 100 01/26/24 21:13 Oxygen Delivery Method Room Air 01/26/24 21:13 Temperature 98.2 F 01/26/24 21:13 Pulse Rate 96 H 01/26/24 21:13 Respiratory Rate 16 01/26/24 21:13 Blood Pressure 111/74 01/26/24 21:13 Pulse Oximetry 100 01/26/24 21:13 Oxygen Delivery Method Room Air 01/26/24 21:13 MDM - URI/Sore Throat MDM Narrative Medical decision making narrative: Discussed length of symptoms, previous strep test positive treated with amoxicillin, symptoms moving into her chest with cough semiproductive, continued sore throat likely from postnasal drainage. Unsure of , will check before treatment with Toradol/Decadron reglan and benadryl. Patient reevaluated, appears no distress talking laughing and joking with her friend at bedside. Patient notes minimal to modest improvement in her symptoms. We discussed the length of her symptoms, recent treatment with amoxicillin. Will change her antibiotic to doxycycline for 10 days with discussion of her upper respiratory symptoms, sinus pain not improving and productive cough. She is encouraged to continue to keep away from tobacco products. The patient is to followup with primary care physician in next 2-3 days or to return to the emergency department should any of the signs or symptoms worsen or new symptoms develop. Patient had questions answered. The patient agrees with the following Diagnosis and Treatment plan and the patient will be discharged home. Lab Data Attestation: I reviewed the patient's lab results. Labs: Lab Results 01/26/24 01/26/24 Range/Units 21:27 21:34 WBC 9.1 (4.0-11.0) 10^3/uL RBC 4.35 (4.20-5.40) 10^6/uL Hgb 12.2 (12.0-16.0) g/dL Hct 38.0 (36.0-48.0) % MCV 87.4 (81.0-99.0) fL MCH 28.0 (26.7-34.0) pg MCHC 32.1 (29.9-35.2) g/dL RDW 13.7 (11.0-15.0) % Plt Count 252 (150-450) 10^3/uL MPV 10.7 (9.5-13.5) fL Neut % (Auto) 59.0 (43.0-75.0) % Lymph % (Auto) 27.2 (20.5-60.0) % [place] % (Auto) 10.2 (1.7-12.0) % Eos % (Auto) 2.6 (0.9-7.0) % Baso % (Auto) 0.8 (0.2-2.0) % Neut # (Auto) 5.4 (1.4-6.5) 10^3/uL Lymph # (Auto) 2.5 (1.2-3.8) 10^3/uL [place] # (Auto) 0.9 H (0.3-0.8) 10^3/uL Eos # (Auto) 0.2 (0.0-0.7) 10^3/uL Baso # (Auto) 0.1 (0.0-0.1) 10^3/uL Abs Immat Gran (auto) 0.02 (0.00-0.03) 10^3/uL Imm/Tot Granulo (auto) 0.2 (0.0-0.5) % Sodium 139 (136-145) mmol/L Potassium 3.7 (3.5-5.1) mmol/L Chloride 104 (98-107) mmol/L Carbon Dioxide 29.6 (21.0-32.0) mmol/L Anion Gap 9.1 BUN 10.0 (7.0-18.0) mg/dL Creatinine 0.78 (0.55-1.02) mg/dL Est GFR ( Amer) >60 (>=60) Est GFR (Non-Af Amer) >60 (>=60) BUN/Creatinine Ratio 12.8 Glucose 86 (74-106) mg/dL Calcium 9.2 (8.5-10.1) mg/dL Urine Color Lt. yellow (YELLOW) Urine Clarity Clear (CLEAR) Urine pH 6.0 (5.0-9.0) Ur Specific [place] 1.015 (1.005-1.025) Urine Protein Negative (NEG/TRACE) mg/dL Urine Glucose (UA) Negative (NEGATIVE) mg/dL Urine Ketones Negative (NEGATIVE) mg/dL Urine Occult Blood Negative (NEGATIVE) Urine Nitrite Negative (NEGATIVE) Urine Bilirubin Negative (NEGATIVE) Urine Urobilinogen 0.2 (0.2-1.0) EU/dL Ur Leukocyte Esterase Small A (NEGATIVE) Urine RBC 0-2 (0-2) #/HPF Urine WBC 0-2 A (NONE SEEN) #/HPF Ur Squamous Epith Cells Many A (NONE/RARE) #/LPF Ur Transition Epith Cell Rare A (NONE SEEN) #/LPF Urine Crystals Seen A (None Seen) #/HPF Amorphous Sediment Moderate Urine Bacteria Trace A (NONE SEEN) #/HPF Urine Casts None seen (NONE SEEN) #/LPF Urine Mucus Trace A (NONE SEEN) Ur Culture Indicated? Yes Urine HCG, Qual Negative (NEGATIVE) Monoscreen Negative (NEGATIVE) Imaging Data Chest x-ray: Attestation: I personally reviewed and interpreted this imaging study as follows: My impression: no pneumo, no infiltrate Radiologist's impression: ITS Impressions Chest X-Ray 01/26/24 21:22 IMPRESSION: No acute pulmonary disease. Electronically authenticated by: BELIA PLASENCIA Date: 01/26/2024 22:17 Discharge Plan Discharge Stand Alone Forms: Portal Instructions Chief Complaint: Upper Respiratory Infection Clinical Impression: Upper respiratory infection, Sinusitis Patient Disposition: Home, Self-Care Time of Disposition Decision: 22:17 Condition: Good Prescriptions / Home Meds: New doxycycline hyclate 100 mg capsule 100 mg PO BID 10 Days Qty: 20 0RF benzonatate 200 mg capsule 200 mg PO TID PRN (Reason: cough) Qty: 15 0RF No Action amoxicillin 500 mg capsule 500 mg PO TID 10 Days Qty: 30 0RF ondansetron 4 mg tablet,disintegrating 4 mg PO Q6H PRN (Reason: nausea and vomiting) Qty: 20 0RF tramadol 50 mg tablet 50 mg PO Q4H PRN (Reason: pain) Qty: 15 0RF ketorolac 10 mg tablet 10 mg PO TID PRN (Reason: pain) Qty: 10 0RF Print Language: B[place]an Instructions: Sinusitis (ED), Upper Respiratory Infection (ED) Additional Instructions: Contact your doctor for follow up in 5-7 days Referrals: Physician,Non-Staff, MD [Primary Care Provider] - 1 week Discharge Date/Time: 01/26/24 22:28
[2024-01-26 21:35] LABS: Bilirubin Urine NEGATIVE (NEGATIVE); Blood Urine NEGATIVE (NEGATIVE); Clarity Urine CLEAR (CLEAR); Color Urine LT. YELLOW (YELLOW); Glucose Urine UA NEGATIVE (NEGATIVE); HCG Qualitative Urine* NEGATIVE (NEGATIVE); Ketones Urine NEGATIVE (NEGATIVE); Leukocyte Esterase Urine SMALL (NEGATIVE); Nitrite Urine NEGATIVE (NEGATIVE); Protein Urine NEGATIVE (NEG/TRACE); Specific Gravity Urine 1.015 (1.005-1.025); Urobilinogen Urine 0.2 EU/dL (0.2-1.0)
[2024-01-26 21:36] LABS: Urine Microscopic Indicated YES
[2024-01-26 21:44] LABS: Amorphous Sediment Urine MODERATE; Bacteria Urine TRACE #/HPF (NONE SEEN); Cast Seen? NONE SEEN #/LPF (NONE SEEN); Crystals Seen? Seen #/HPF (None Seen); Mucus Urine TRACE (NONE SEEN); RBC Urine 0-2 #/HPF (0-2); Squamous Epithelial Cell Urine MANY #/LPF (NONE/RARE); Transitional Epi Cells Urine RARE #/LPF (NONE SEEN); Urine Culture Indicated YES; WBC Urine 0-2 #/HPF (NONE SEEN)
[2024-01-26 21:48] LABS: Basophils Absolute Auto 0.1 10^3/uL (0.0-0.1); Basophils Percent Auto 0.8 % (0.2-2.0); Eosinophils Absolute Auto 0.2 10^3/uL (0.0-0.7); Eosinophils Percent Auto 2.6 % (0.9-7.0); Hemoglobin 12.2 g/dL (12.0-16.0); Immature Granulocytes Abs Auto 0.02 10^3/uL (0.00-0.03); Immature Granulocytes Pct Auto 0.2 % (0.0-0.5); Lymphocytes Absolute Auto 2.5 10^3/uL (1.2-3.8); Lymphocytes Percent Auto 27.2 % (20.5-60.0); Mean Corpuscular HGB Conc 32.1 g/dL (29.9-35.2); Mean Corpuscular Volume 87.4 fL (81.0-99.0); Mean Platelet Volume 10.7 fL (9.5-13.5); Monocytes Absolute Auto 0.9 10^3/uL (0.3-0.8); Monocytes Percent Auto 10.2 % (1.7-12.0); Neutrophils Absolute Auto 5.4 10^3/uL (1.4-6.5); Platelet Count 252 10^3/uL (150-450); Red Blood Count 4.35 10^6/uL (4.20-5.40); Red Cell Distribution Width 13.7 % (11.0-15.0); White Blood Count 9.1 10^3/uL (4.0-11.0)
[2024-01-26] MEDS: DIPHENHYDRAMINE HCL 25 MG CAPSULE PO (21:53)
[2024-01-26] MEDS: METOCLOPRAMIDE HCL 10 MG/10 ML SOLUTION REGLAN PO (21:53)
[2024-01-26] MEDS: DEXAMETHASONE SOD PHOS 10 MG/ML VIAL PO (21:53)
[2024-01-26] MEDS: KETOROLAC TROMETHAMINE 60 MG/2 ML VIAL IM (21:54)
[2024-01-26 21:56] LABS: Anion Gap 9.1; BUN Creatinine Ratio 12.8; Calcium 9.2 mg/dL (8.5-10.1); Carbon Dioxide 29.6 mmol/L (21.0-32.0); Chloride 104 mmol/L (98-107); Estimated GFR (African America >60 (>=60); Estimated GFR (Non-African Ame >60 (>=60); Glucose 86 mg/dL (74-106); Potassium 3.7 mmol/L (3.5-5.1); Sodium 139 mmol/L (136-145)
[2024-01-26 22:00] LABS: Mono Screen NEGATIVE (NEGATIVE)
[2024-01-26] MEDS: DOXYCYCLINE MONOHYDRATE 100 MG CAPSULE PO (22:23)
== END 2024-01-26 22:28 | disposition home or self-care (01) ==
PROVIDERS: Personal Emergency Response Attendant; Emergency Provider Internal Medicine
DX: J06.9 Acute upper respiratory infection, unspecified (principal); J32.9 Chronic sinusitis, unspecified; Z87.891 Personal history of nicotine dependence
CPT/HCPCS: 36415; 71046; 80048; 81001; 84703; 85025; 86308; 87086; 87150; 87186; 96372; 99285; J1100

== ENCOUNTER 2025-10-02 06:39 | Emergency (ER) | payer OTHER, SELFPAY ==
[2025-10-02 07:05] VITALS: BP 116/68; PULSE 86; TEMP 36.8; O2SAT 98; BMI 32.6
[2025-10-02 07:56] LABS: Glucose Urine UA NEGATIVE (NEGATIVE)
[2025-10-02 07:58] LABS: HCG Qualitative Urine* NEGATIVE (NEGATIVE)
[2025-10-02 08:11] LABS: Cast Seen? NONE SEEN #/LPF (NONE SEEN); Crystals Seen? None Seen #/HPF (None Seen); Urine Culture Indicated YES-FRMC
--- NOTE | 2025-10-02 08:22 | ED_ITS ---
HPI HPI - General Adult General Chief complaint: Urogenital-Female Stated complaint: uti symptoms Time Seen by Provider: 10/02/25 07:34 Source: patient Limitations: no limitations History of Present Illness HPI narrative: Patient is a 25-year-old female presenting to the emergency department for evaluation of UTI. Patient states she has had dysuria and itchiness for the last 3 days. She denies fevers or chills. No flank pain, nausea, or vomiting. No history of diabetes or other chronic medical conditions. No chest pain or shortness of breath. No history of kidney stones. Related Data Previous Rx's ?Medication ?Instructions ?Recorded benzonatate 200 mg capsule 200 mg PO TID PRN cough #15 caps 01/26/24 nitrofurantoin 100 mg PO BID 5 days #10 cap s 10/02/25 monohydrate/macrocrystals 100 mg capsule (Macrobid) Allergies Allergy/AdvReac Type Severity Reaction Status Date / Time No Known Drug Allergies Allergy Verified 10/02/25 07:05 Opioid HPI Opioid Management Most Recent Opioid Data: Last Pain Scale 4 Today, 07:05 Review of Systems ROS Status of ROS 10 or more systems reviewed and unremark able except as noted in history and below [facility] Medical History (Updated 10/02/25 @ 08:18 by Isidoro Iraheta DO) Migraine ?G43.909 - Migraine, unspecified, not intractable, without status migrainosus (ICD-10) Social History Smoking status: Light tobacco smoker Little interest or pleasure in doing things: not at all Feeling down, depressed, or hopeless: not at all Exam Narrative Exam Narrative: CONSTITUTIONAL: Well-appearing, answering questions and following commands appropriately SKIN: Was warm and dry. EYES: Sclerae white. EARS, NOSE, THROAT: Moist oral mucosa. RESPIRATORY: Nonlabored respirations. CARDIOVASCULAR: Normal rate and regular rhythm. There is no S3, S4, murmur, rub. GASTROINTESTINAL: Abdomen is soft nontender and nondistended. No CVA tend erness. MUSCULOSKELETAL: No peripheral edema. NEUROLOGIC: Patient is awake and alert. Facies were symmetrical. Constitutional Vital Signs, click to edit/add: Last Vital Signs Temp 98.3 F 10/02/25 07:05 Pulse 86 10/02/25 07:05 Resp 18 10/02/25 07:05 BP 116/68 10/02/25 07:05 Pulse Ox 98 10/02/25 07:05 O2 Del Method Room Air 10/02/25 07:05 Course Vital Signs Vital signs: Vital Signs Temperature 98.3 F 10/02/25 07:05 Pulse Rate 86 10/02/25 07:05 Respiratory Rate 18 10/02/25 07:05 Blood Pressure 116/68 10/02/25 07:05 Pulse Oximetry 98 10/02/25 07:05 Oxygen Delivery Method Room Air 10/02/25 07:05 Temperature 98.3 F 10/02/25 07:05 Pulse Rate 86 10/02/25 07:05 Respiratory Rate 18 10/02/25 07:05 Blood Pressure 116/68 10/02/25 07:05 Pulse Oximetry 98 10/02/25 07:05 Oxygen Delivery Method Room Air 10/02/25 07:05 Medical Decision Making MDM Narrative Medical decision making narrative: Patient is a 25-year-old healthy female presenting to the emergency department dysuria x 3 days. Her vital signs are within normal limits. She is afebrile and hemodynamically stable. Her presentation is likely consistent with uncomplicated cystitis, UTI. No flank pain, fevers, nausea, or vomiting to suggest pyelonephritis. Urinalysis consistent with mild infection. Urine test negative. I do believe the patient is stable for discharge. They were instructed to follow up with her PCP as needed. Return precautions were given including any new or worsening symptoms. They were given a prescription for Macrobid on 100 mg twice daily x 5 days. Patient understands and agrees to the plan. FINAL IMPRESSION: #Acute uncomplicated urinary tract infection DISPOSITION: Discharged home CONDITION: Good Lab Data Lab results reviewed: Yes I reviewed the patient's lab results Labs: Lab Results 10/02/25 Range/Units 07:40 Urine Color Lt. yellow (YELLOW) Urine Clarity Sl cloudy (CLEAR) Urine pH 6.5 (5.0-9.0) Ur Specific [place] 1.010 (1.005-1.025) Urine Protein Negative (NEG/TRACE) mg/dL Urine Glucose (UA) Negative (NEGATIVE) mg/dL Urine Ketones Negative (NEGATIVE) mg/dL Urine Occult Blood Negative (NEGATIVE) Urine Nitrite Negative (NEGATIVE) Urine Bilirubin Negative (NEGATIVE) Urine Urobilinogen 0.2 (0.2-1.0) EU/dL Ur Leukocyte Esterase Small A (NEGATIVE) Urine RBC 0-2 (0-2) #/HPF Urine WBC 2-5 A (NONE SEEN) #/HPF Ur Squamous Epith Cells Few A (NONE/RARE) #/LPF Urine Crystals None seen (None Seen) #/HPF Urine Bacteria Small A (NONE SEEN) #/HPF Urine Casts None seen (NONE SEEN) #/LPF Urine Mucus Trace A (NONE SEEN) Ur Culture Indicated? Yes-[facility] [place] Urine HCG, Qual Negative (NEGATIVE) Discharge Plan Discharge Chief Complaint: Urogenital-Female Clinical Impression: Urinary tract infection Patient Disposition: Home, Self-Care Time of Disposition Decision: 08:18 Condition: Good Mode of Transportation: Private Vehicle Prescriptions / Home Meds: New nitrofurantoin monohyd/m-cryst [Macrobid] 100 mg capsule 100 mg PO BID 5 Days Qty: 10 0RF Rx Instructions: must administer with a meal/food No Action benzonatate 200 mg capsule 200 mg PO TID PRN (Reason: cough) Qty: 15 0RF Print Language: Mohawk Instructions: Urinary Tract Infection in Women (ED) Referrals: Physician,Non-Staff, MD [Primary Care Provider] - 1 week
--- OUTSIDE RECORDS SUMMARY | 2025-10-02 08:36 | XMS_ITS | CCD ---
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 Mechanic Name Role Phone House DO, Sr Kris Chavez Primary Care Provider HOUSE, SR KRIS Chavez Referring Unavailable HOUSE, SR KRIS P Primary Care Unavailable HOUSE, SR KRIS P Referring Unavailable HOUSE, SR KRIS Chavez Primary Care Unavailable HOUSE, SR KRIS Chavez Primary Care Unavailable ENRIQUE EDOUARD Attending Unavailabl e DMITRIKORAQUEL Attending Unavailable RAQUEL JOHNSON Admitting Unavailable GRECHNY [...] KARASIK ., DR BLUNT Admitting Unavailabl e AGUBCATHY ARANGO Unavailable KARASIK ., DR BLUNT Procedure Practitioner [...] DR BLUNT Admitting Unavailabl e REINECK, DR WILNER Montoya Consulting Unavailabl e REINECK, DR WILNER Montoya Attending Unavailabl e REINECK, DR WILNER Montoya Admitting Unavailabl e HOUSE, DR MIRANDA Primary Care Unavailable ZIEBER, DR KRISTIE Ivory Consulting Unavailable DONNY ., ENRIQUE Attending Unavailable DONNY ., ENRIQUE Admitting Unavailable HOUSE, DR MIRANDA Primary Care Unavailable DONNY ., ENRIQUE Consulting Unavailable LORA, DR KRISTIE Ivory Consulting Unavailable HAY ., DR PARTIDA Attending Unavailable HAY ., DR PARTIDA Admitting Unavailable HOUSE, DR MIRANDA Primary Care Unavailable KAMRAN NICKERSON Consulting Unavailable JOLLY ., RADHA PERSON Consulting Unavailabl eleuterio CHAND ., NAINA Attending Unavailable MANNIE ., NAINA Admitting Unavailable BATSHEVA, DR MIRANDA Primary Care Unavailable RAQUEL JOHNSON Consulting Unavailable RAQUEL JOHNSON Attending Unavailable RAQUEL JOHNSON Admitting Unavailable BATSHEVA, DR MIRANDA Primary Care Unavailable KAMRAN NICKERSON Consulting Unavailable Andrei Campos Attending Unavailab Andrei Morel Admitting Unavailab le NON STAFF Primary Care Unavailable DARIUS PATEL Referring Unavailable NO PCP, NO PCP Primary Care Unavailable NO PCP, NO PCP Primary Care Unavailable NO PCP, NO PCP Primary Care Unavailable JEFE LINCOLN Attending Unavailable NO PCP, NO PCP Primary Care Unavailable JUDE DAN Attending Unavailable NO PCP, NO PCP Primary Care Unavailable Batsheva Jacques., Kris PIZANO Primary Care Provider NO, PHYSICIAN Primary Care Unavailable AMBREEN INGRAM Attending Unavailable KRIS HERMAN SR Primary Care Unavailable DARIUS PATEL Referring Unavailabl e HOUSE SR, KRIS P Primary Care Unavailable DARIUS PATEL Referring Unavailabl eleuterio PATEL, DARIUS POSADAS Admitting Unavailabl e JORGE, DARIUS POSADAS Attending Unavailabl e HOUSE SR, KRIS P Primary Care Unavailable D'ROBERTU, WILNER Admitting Unavailable D'ABREAU, WILNER Attending Unavailable HOUSE SR, KRIS P Primary Care Unavailable DARIUS PATEL Referring Unavailabl e HOUSE SR, KRIS P Primary Care Unavailable DARIUS PATEL Referring Unavailabl e PATEL, DARIUS POSADAS Attending Unavailabl e HOUSE SR, KRIS P Primary Care Unavailable DARIUS PATEL Referring Unavailabl e HOUSE SR, KRIS P Primary Care Unavailable HOUSE SR, KRIS P Primary Care Unavailable DARIUS PATEL Referring Unavailabl e HOUSE SR, KRIS P Primary Care Unavailable DARIUS PATEL Referring Unavailabl e PATEL, DARIUS POSADAS Referring Unavailabl e HOUSE SR, KRIS P Primary Care Unavailable DARIUS PATEL Referring Unavailabl e HOUSE SR, KRIS P Primary Care Unavailable DARIUS PATEL Referring Unavailabl e HOUSE SR, KRIS P Primary Care Unavailable DARIUS PATEL Referring Unavailabl e HOUSE SR, KRIS P Primary Care Unavailable NO PCP, NO PCP Primary Care Unavailable CHRISTIANA MAXWELL Attending Unavailable NO PCP, NO PCP Primary Care Unavailable CHRISTIANA BRIDGES JR Attending Unavailable Allergies Allergy ClassificationReported Allergen(s)Allergy TypeDate of OnsetReaction(s) Facility (9 sources)LatexPropensity to adverse reactions to [id number] Medications Current Medications MedicationDrug Class(es)DatesSig (Normalized)Sig (Original)acetaminophen 500 mg oral tablet (2 sources)Start: 68-99-6343lpkt 2 tablets by mouth every six hours as needed for painacetaminophen (TYLENOL) 500 MG tablet Take 2 tablets by mouth every 6 hours as needed for Pain 120 tablet 3 12/26/2024 ActiveStart: 51,000 mg, Oral, EVERY 6 HOURS PRN, Starting on Sat12/25/24 at 0208, Until Discontinued, Pain Mild (1-3), allowed for higher pain score per patient request, Maximum dose of acetaminophen is 4000mg from all sources in 24 hours. Alternate ibuprofen and acetaminophen every 4 hours., Postpartumacetaminophen 325 mg / butalbital 50 mg / caffeine 40 mg oral tablet (7 sources)Barbiturate, Central Nervous System Stimulant, MethylxanthineStart: 45-86-6832emorvvsvpj-acetaminophen-caffeine (FIORICET, ESGIC) 50-325-40 MG per tablet Indications: Headache in , antepartum, first trimester 1-2 tablets every 6 hours prn headache, no more than 6 tablets in 24 hours 30 tablet 1 06/22/2024 Activeamoxicillin 875 mg / clavulanate 125 mg oral tablet (1 source)Penicillin-class AntibacterialStart: 07-31-2021 End: 83-45-7788vrdw 1 tablet by mouth twice dailyamoxicillin-clavulanate (AUGMENTIN) 875-125 MG per tablet Take 1 tablet by mouth 2 times daily for 10 days 20 tablet 0 07/31/2021 08/10/2021 Activeaspirin 81 mg delayed release oral tablet (8 sources)Platelet Aggregation Inhibitor, Nonsteroidal Anti-inflammatory Drug Start: 25-41-9670lqsy 1 tablet by mouth once dailyaspirin 81 MG EC tablet Take 1 tablet by mouth daily 90 tablet 2 04/23/2024 Activebenzocaine 200 mg/ml / menthol 5 mg/ml topical spray (1 source)Standardized Chemical AllergenStart: 50-20-3015Jxellxs, PRN, Pain, Starting on Sat12/25/24 at 0208, Apply to perineal area. Patient is capable and may self administer at bedside., PostpartumBlood Glucose Monitoring Suppl (BLOOD GLUCOSE MONITORING 333) MIKE (6 sources)Start: 61-50-0445Iuisg Glucose Monitoring Suppl (BLOOD GLUCOSE MONITORING 333) MIKE 1 Device by Does not apply route4 times daily 1 each by Other route in the morning, at noon, in the evening, and at bedtime - PER IN SURANCE COVER 1 each 08/18/2024 Active1 ml carboprost 0.25 mg/ml injection (2 sources)Prostaglandin AnalogStart: 01-12-4744hcvcwokm sodium 100 mg oral capsule (2 sources)Start: 18-79-1904avdu 1 capsule by mouth twice daily as needed for constipationdocusate sodium (COLACE, DULCOLAX) 100 MG CAPS Take 100 mg by mouth 2 times daily as needed for Constipation 30 capsule 1 12/26/2024 Activeibuprofen 800 mg oral tablet (2 sources)Nonsteroidal Anti-inflammatory DrugStart: 49-00-8293zeig 1 tablet by mouth every eight hours as needed for painibuprofen (ADVIL;MOTRIN) 800 MG tablet Take 1 tablet by mouth every 8 hours as needed for Pain 120 tablet 3 12/26/2024 Activelanolin 1000 mg/ml topical cream (1 source)Start: ml methylergonovine maleate 0.2 mg/ml injection (2 sources)Ergot DerivativeStart: 69-62-6879jlYQZCZLnwl 0.1 mg oral tablet (1 source)Prostaglandin E1 AnalogStart: 18-38-3003vtktdglgzva (ZOFRAN-ODT) disintegrating tablet 4 mg (1 source)Start: 00-63-8918bhyrmnbxyeq (ZOFRAN-ODT) disintegrating tablet 4 mg5 ml sodium chloride 9 mg/ml injection (1 source)Start: 39-16-8646lxscikcsac acid (CYKLOKAPRON) 1,000 mg in sodium chloride 0.9 % 100 mL IVPB (Robj9Dth) (2 sources)Start: 05-84-4450Nsxol: ,000 mg, IntraVENous, at 600 mL/hr, Administer over 10 Minutes, ONCE PRN, Post Hemorrhage, Starting on Isela 12/24/24 at 1310, For 1 dose, If bleeding continues, give one more gram within 3 hours of . Use 20mm (Blue) Ylhi1Xpd Adapter Preparation instructions: Attach medication vial to bak74tv (Blue) Iacz3Bkn adapter. Nnamdi fluid bag with adapter, mix, and administer per order.witch luzma 500 mg/ml medicated pad (1 source)Start: 33-66-7254Sbjshzp, PRN, Hemorrhoids, Starting on Sat12/25/24 at 0208, Apply to perineal area. Patient is capable and may self administer at bedside., Completed/Discontinued Medications MedicationDrug Class(es)DatesSig (Normalized)Sig (Original)calcium carbonate 500 mg chewable tablet (1 source)Start: 12-24-2024 End: 42-45-6645yapq 500 mg by mouth four times daily as needed for gastroesophageal reflux ypswmkp387 mg, Oral, 4 TIMES DAILY PRN, Starting on Isela 12/24/24 at 1609, Until Sat12/25/24 at 0208, Heartburncalcium chloride 0.0014 meq/ml / potassium chloride 0.004 meq/ml / sodium chloride 0.103 meq/ml / sodium lactate 0.028 meq/ml injectable solution (1 source)Start: 12-24-2024 End: 29-36-1109FmxxpJOAira, at 125 mL/hr, CONTINUOUS, Starting on Isela 12/24/24 at 1330, Labor and Deliveryoxytocin (PITOCIN) 30 units in 500 mL infusion (2 sources)Start: 12-24-2024 End: -24 josefina-units/min (1-24 mL/hr), IntraVENous, CONTINUOUS, Starting on Isela 12/24/24 at 1330, Until Sat12/25/24 at 0208, Begin infusion at 1 josefina-unit/min (1 josefina-unit per min = 1 mL per hour) . Then increase by 2 josefina-units/min as needed, no faster than every 30 minutes, until labor is achieved.Labor is defined as contractions every 2-3 minutes with cervical changes or [place] units (MVU) greater than 200 in a 10-minute window. Maximum infusion rate: 24 josefina-unit/min. Contact provider if maximum rate does not achieve desired response. Provider may order alternative titration goal or other clinically appropriate goal of titration rate (s). Smaller titration increments of 1 josefina-units/min, not faster than every 30 minutes, may be used when approaching therapeutic goal after discussion with provider. If unable to increase call provider and let them know. At time of needed increase, Labor and DeliveryStart: 59-37-0281baolytvl (PITOCIN) 30 units in 500 mL infusionPrenatal Vit-Fe Fumarate-FA ( VITAMINS) 28-0.8 MG TABS (8 sources)Start: 04-23-2024 End: 49-68-3808kxmg 1 tablet by mouth once dailyPrenatal Vit-Fe Fumarate-FA ( VITAMINS) 28-0.8 MG TABS Take 1 tablet by mouth daily 90 tablet 3 04/23/2024 12/26/2024 Discontinued (Stop Taking at Discharge)Start: 04-23-2024 take 1 tablet by mouth once dailyPrenatal Vit-Fe Fumarate-FA ( VITAMINS) 28-0.8 MG TABS Take 1 tablet by mouth daily 90 tablet 3 04/23/2024 Active Problems Active Problems Problem ClassificationProblemDateDocumented DateEpisodic/ChronicAbdominal pain (8 sources)Pelvic and perineal pain; Translations: [Unspecified abdominal pain] Onset: 06-57-4450HukpphmnUxatlpenfjnnlj/social admission (1 source)Other problems related to medical facilities and other health care; Translations: [Other problems related to medical facilities and other health care]Onset: 42-82-7550PdsklgsaNvsvvazayb associated with dizziness or vertigo (4 sources)Dizziness and giddiness; Translations: [DIZZINESS AND GIDDINESS] Onset: 94-35-3272RconiegvJ Codes: Fall (3 sources)Fall (on) (from) unspecified stairs and steps, initial encounter; Translations: [Unspecified fall, initial encounter]Onset: 24-90-3780EudzhqueG Codes: Fall (1 source)FallOnset: 60-20-8333Apdgj or threatened labor (11 sources)False labor before 37 completed weeks of gestation, third trimester; Translations: [Finding of uterine contractions]Onset: 15-05-3604Ekhytptf Headache; including migraine (5 sources)Headache; including migraine; Translations: [HEADACHE UNSPECIFIED] Onset: 91-15-6275Brbqhmrid (2 sources)Influenza due to other identified influenza virus with other respiratory manifestations; Translations: [Influenza due to other identified influenza virus with other respiratory manifestations]Onset: 50-30-5971Uitdrdcm Menstrual disorders (3 sources)Amenorrhea, unspecified; Translations: [Amenorrhea]Onset: 04-21-2024 12-47-4959NnyvfwfZewbg aftercare (1 source)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; Translations: [OTH RETIREMENT CURRENT DRUG THERAPY]Onset: 39-66-5856TettrulhSeyuv complications of (1 source)Dysuria; Translations: [Other specified related conditions, second trimester]23-08-3762AnkuxzxqUgnbt injuries and conditions due to external causes (1 source)Unspecified injury of head, initial encounter; Translations: [UNSPECIFIED INJURY HEAD INITIAL ENC]Onset: 06-78-5987TixjywjfWmsus lower respiratory disease (1 source)Rib pain; Translations: [Pleurodynia]80-91-4348YldxugelBucwz upper respiratory disease (2 sources)Pain in throatOnset: 37-51-7938RsbeemwnAlhdl upper respiratory infections (9 sources)Acute frontal sinusitis; Translations: [Acute frontal sinusitis, unspecified]Onset: 92-68-9814NapicjxpFywldvdy codes; unclassified (3 sources)39 weeks gestation of ; Translations: [39 WEEKS GESTATION OF ]Onset: 55-48-4238FlcvdbkeKdoypanr codes; unclassified (1 source)Less than 8 weeks gestation of ; Translations: [Less than 8 weeks gestation of ]Onset: 23-84-8434ZwgldrqeDmhcmsam codes; unclassified (1 source)Gestation period, 18 weeks; Translations: [18 weeks gestation of ]96-80-0898FaozviikLycdwaol codes; unclassified (1 source)Gestation period, 24 weeks; Translations: [24 weeks gestation of ]45-16-2198QepuretqKnyzfztt codes; unclassified (1 source)Gestation period, 37 weeks; Translations: [37 weeks gestation of ]47-83-4391MgcutfwlHnxcmdka codes; unclassified (2 sources)Gestation period, 39 weeks; Translations: [39 weeks gestation of ]Onset: 313864-27-4705EagcuniqXbhixldg codes; unclassified (2 sources)37 weeks gestation of ; Translations: [37 weeks gestation of ]Onset: 06-48-5330MiyuqelzEhhdsjrmzre; intervertebral disc disorders; other back problems (1 source)Low back pain; Translations: [Lumbar pain]EpisodicSuperficial injury; contusion (4 sources)Contusion of left lower leg, initial encounter; Translations: [CONTUSION LEFT LOWER LEG INITIAL]Onset: 47-34-5641TpkalwceEiukzyuwmvsk (1 source)CONTACT W/AND (SUSP) EXPOS COVID-19; Translations: [CONTACT W/AND (SUSP) EXPOS COVID-19]Onset: 58-29-1852Vznvbtozlvzn (2 sources)COUGH, UNSPECIFIED; Translations: [COUGH, UNSPECIFIED]Onset: 22-54-8419Rpdnzlxvgzsy (1 source)Abdominal Pain Onset: 33-96-7212Rftnzsuwcbgw (1 source)8 weeks , fallOnset: 81-56-6857Tjxaxjk tract infections (2 sources)Urinary tract infection, site not specified; Translations: [UTI SITE NOT SPECIFIED]Onset: 21-07-2300Licitqdr Past or Other Problems Problem ClassificationProblemDateDocumented DateEpisodic/ChronicGenitourinary symptoms and ill-defined conditions (1 source)Dysuria; Translations: [Dysuria]Onset: 17-12-0179TybfnrgjLpypizmwzwwul and screening for infectious disease (1 source)Encounter for screening for infections with a predominantly sexual mode of transmission; Translations: [ENC SCREEN INFECTIONS SEXL TRANSMS]Onset: 70-19-4886IsbbekksOsloyrfqtdii diseases of female pelvic organs (1 source)Acute vaginitis; Translations: [ACUTE VAGINITIS]Onset: 08-27-2022 EpisodicNausea and vomiting (3 sources)Nausea with vomiting, unspecified; Translations: [Vomiting]Onset: 20-81-6154DteljrkuSC-related trauma to perineum and vulva (1 source)First degree perineal laceration during delivery; Translations: [FIRST DEG PERINEAL LAC DUR DELIV]Onset: 94-90-9293UqrbxrfbKlgwz aftercare (1 source)penitentiary (current) use of aspirin; Translations: [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]Onset: 87-32-8786IkuxzddmSrhmo complications of (4 sources)Other specified related conditions, third trimester; Translations: [OTH SPEC PREG RELATEDCOND 3RD TRI]Onset: 90-20-7584WgiipytaBxars complications of (1 source)Other specified related conditions, second trimester; Translations: [Other specified related conditions, second trimester] Onset: 50-66-7282IzpnpmrmQkhmu complications of (1 source) with inconclusive viability, not applicable or unspecified; Translations: [ with inconclusive viability, not applicable or unspecified]Onset: 83-66-6714EfhpacesTtolg gastrointestinal disorders (1 source)Heartburn; Translations: [HEARTBURN]Onset: 87-83-5807KdbcossrMkwia lower respiratory disease (2 sources)Pleurodynia; Translations: [Pleurodynia]Onset: 44-49-4815Beyrgtmm Other and delivery including normal (17 sources)Encounter for care and examination of lactating mother; Translations: [Encounter for routine follow-up]Onset: 05-10-2022 EpisodicOther screening for suspected conditions (not mental disorders or infectious disease) (11 sources)Encounter for screening for Streptococcus B; Translations: [Encounter for screening for diabetes mellitus]Onset: 05-77-8726CmyimhfwCrzktwcf codes; unclassified (1 source)33 weeks gestation of ; Translations: [33 WEEKS GESTATION OF ]Onset: 08-06-4735IqrmwpnuXgxocnrp codes; unclassified (1 source)Edema, unspecified; Translations: [EDEMA UNSPECIFIED]Onset: 03-22-2022 EpisodicResidual codes; unclassified (1 source)31 weeks gestation of ; Translations: [31 WEEKS GESTATION OF ]Onset: 21-55-9946OpaznjzuMlvgvqle codes; unclassified (1 source)History of pre-eclampsia; Translations: [Personal history of other complications of , childbirth and the puerperium]29-71-3510Dsxyvogz Residual codes; unclassified (1 source)24 weeks gestation of ; Translations: [24 weeks gestation of ]Onset: 35-06-6808ZsvxbyjnHtqwmmkx codes; unclassified (1 source)18 weeks gestation of ; Translations: [18 weeks gestation of ]Onset: 73-00-8016UrybgjsaKjqkfmqn codes; unclassified (1 source)Personal history of other complications of , childbirth and the puerperium; Translations: [Personal history of other complications of , childbirth and the puerperium]Onset: 03-05-0588NjesamedHwhqwgoi codes; unclassified (1 source)30 weeks gestation of ; Translations: [30 weeks gestation of ]Onset: 81-08-1283HproalxrZrlneohf codes; unclassified (1 source)20 weeks gestation of ; Translations: [20 weeks gestation of ]Onset: 96-41-6744IvuxfnljBpcqvwchb and history of mental health and substance abuse codes (1 source)Personal history of nicotine dependence; Translations: [PERSONAL HISTORY OF NICOTINE DEPEND]Onset: 50-17-6765FqvuxstpTlvdlrekvmtm (1 source)COUGH, UNSPECIFIED; Translations: [COUGH, UNSPECIFIED]Onset: 97-75-7724YQNRHFJ: Highlighted row has been ruled out!Unclassified (4 sources)No known active dxukyxng95-97-8995 Results Test NameValueInterpretationReference RangeFacilityDIRECT STREP Aon 02-10-2025 DIRECT STREP ANegativeNormalNegativeProMedica Select Medical Ohiohealth Rehabilitation HospitalComment on above:Performed By: #### DSTREP #### [facility] ([facility]) [address] [place] [id number] VIRHemoglobinon 06-18-9980Ptjohjvdqn (Bld) [Mass/Vol]9.2 g/dL Low11.9-15.1Bon Doctors HospitalComment on above:Performed By: #### URC #### [facility] [address] [place], [place] [id number] Bobj Developer: Tyler Domingo MD [facility] [address] [place] [id number] Bobj Developer: Tevin Gupta MDInterpretation and review of laboratory results AbnormalBon Doctors HospitalBon Doctors HospitalCBC auto differentialon 96-83-5488Wlxrjpybb (Bld) [#/Vol]0.04 10*3/uLWythe County Community Hospital Basophils/100 WBC (Bld)0 %0 - 2 %[facility] HealthEosinophils (Bld) [#/Vol]0.09 10*3/uLBon [facility] Centerours [facility] CampusEosinophils/100 WBC (Bld)1 %1 - 4 % [facility] Ohio[facility] HealthErythrocyte distribution width (RBC) [Ratio]14.6 %High 11.8 - 14.4 %[facility] HealthHematocrit (Bld) [Volume fraction]29.8 %Low 36.3 - 47.1 %Bon SecGarfield County Public Hospitaly HealthHemoglobin (Bld) [Mass/Vol]9.5 g/dLLow11.9 - 15.1 g/dLBon Secours Ohiohealthy HealthImmature granulocytes (Bld) [#/Vol]0.05 10*3/uLBon [facility] Mercy HealthImmature granulocytes/100 WBC (Bld)1 %Mcsf4Mkt [facility] HealthInterpretation and review of laboratory resultsAbnormalBon [facility] Ohiohealthy HealthLymphocytes/100 WBC (Bld)20 %Low24 - 43 %[facility] HealthLymphocytes/100 WBC (Bld)2.07 %Bon SecPeoples HospitalH (RBC) [Entitic mass]26.5 pg25.2 - 33.5 pgBon SecPeoples HospitalHC (RBC) [Mass/Vol]31.9 g/dL 28.4 - 34.8 g/dLBon SecPeoples HospitalV (RBC) [Entitic vol]83 fL82.6 - 102.[address] [facility] HealthMonocytes/100 WBC (Bld)10 %3 - 12 %[facility] HealthMonocytes/100 WBC (Bld)1.05 %[facility] CampusNeutrophils/100 WBC (Bld)68 %High36 - 65 %Bon SecGarfield County Public Hospitaly Henry County HospitalNucleated RBC/100 WBC (Bld) [Ratio]0 %0.0 per [address] [facility] Hospital HealthPlatelet mean volume (Bld) [Entitic vol]10.7 fL8.1 - 13.[address] [facility] HealthPlatelets (Bld) [#/Vol] 190 10*3/uLBon [facility] HealthRBC (Bld) [#/Vol]3.59 10*6/uLLow3.95 - 5.11 m/uLBon SecCleveland Clinic Akron GeneralSegmented neutrophils/100 WBC (Bld)7.29 %Bon SecCleveland Clinic Akron GeneralWBC other (Bld) [#/Vol]10.6[facility] SecCleveland Clinic Ak[facility] GeneralCBC with Diffon 74-74-6314Ifa. Basophil0.04 k/uLNormal0.00-0.20[facility] HospitalComment on above:Performed By: #### URC #### [address] [place] [address] Bobj Developer: Tyler Domingo MD [address] [place] [phone] Bobj Developer: MDAbs. RoscoeImm.Granulocyte0.05 k/uLNormal0.00-0.30Uk Healthcare HospitalComment on above:Performed By: #### URC #### [address] [address] Bobj Developer: Tyler Domingo MD [address] [place] [id number] Bobj Developer: Deyvi Malhotra.Neutrophil (Seg)7.29 k/uLNormal1.50-8.10Uk Healthcare HospitalComment on above:Performed By: #### URC #### [address] [address] Bobj Developer: Tyler Domingo MD [address] [place] [phone] Bobj Developer: Tevin Gupta MDBasophils/100 WBC (Bld)0 %Normal0-2MercYale New Haven Psychiatric HospitalComment on above:Performed By: #### URC #### [address] [address] Bobj Developer: Tyler Domingo MD [address] [place] [address] Bobj Developer: Tevin Gupta MDEosinophils (Bld) [#/Vol]0.09 10*3/uLNormal 0.00-0.44German HospitalComment on above:Performed By: #### URC #### [address] [address] Bobj Developer: Tyler Domingo MD [address] [place] [id number] Bobj Developer: Tevin Gupta MDEosinophils/100 WBC (Bld)1 %Normal1-4[facility] Healthcare HospitalComment on above:Performed By: #### URC #### [facility] [address] [place] [address] Bobj Developer: Tyler Domingo MD [address] [place] [phone] Bobj Developer: Tevin Gupta MDErythrocyte distribution width (RBC) [Ratio]14.6 % High11.8-14.4German HospitalComment on above:Performed By: #### URC #### [address] [place] [address] Bobj Developer: Tyler Domingo MD [address] [place] [address] Bobj Developer: Tevin Gupta MDHematocrit (Bld) [Volume fraction]29.8 %Low 36.3-47.1MFulton County Health Center HospitalComment on above:Performed By: #### URC #### [facility] [address] [place] [id number] Bobj Developer: Tyler Domingo MD [address] [place] [address] Bobj Developer: Tevin Gupta MDHemoglobin (Bld) [Mass/Vol]9.5 g/dLLow11.9-15.1 German HospitalComment on above:Performed By: #### URC #### [facility] [address] [place] [address] Bobj Developer: Tyler Domingo MD [address] [place] [address] Bobj Developer: Tevin Gupta MDImmature granulocytes/100 WBC (Bld)1 %Uybl2NmvwzUk Healthcare HospitalComment on above:Performed By: #### URC #### [facility] [address] [place] [address] Bobj Developer: Tyler Domingo MD [address] [place] [address] Bobj Developer: Tevin Gupta MDLymphocytes (Bld) [#/Vol]2.07 10*3/uLNormal 1.10-3.70German HospitalComment on above:Performed By: #### URC #### [facility] [address] [place] [id number] Bobj Developer: Tyler Domingo MD [address] [place] [phone] Bobj Developer: Rashawn Malhotramphocytes/100 WBC (Bld)20 %Ong94-16GuwirGerman HospitalComment on above:Performed By: #### URC #### [address] [address] Bobj Developer: Tyler Domingo MD [address] [place] [phone] Bobj Developer: ZEINA Malhotra (RBC) [Entitic mass]26.5 sxPokvoi95.2-33.5 German HospitalComment on above:Performed By: #### URC #### [facility] [address] [place] [address] Bobj Developer: Tyler Domingo MD [facility] Lab [address] [place] [address] Dr. Oliveros, [facility]83 Bobj Developer: ZEINA MalhotraC (RBC) [Mass/Vol]31.9 g/gAWamxtd12.4-34.8German HospitalComment on above:Performed By: #### URC #### [facility] [address] [place] [address] Bobj Developer: Tyler Domingo MD [address] [place] [address] Bobj Developer: OLY MalhotraCV (RBC) [Entitic vol]83.0 gUMtkhmr51.6-102.9 German HospitalComment on above:Performed By: #### URC #### [address] [address] Bobj Developer: Tyler Domingo MD [address] [place] [phone] Bobj Developer: OLY Malhotraonocytes (Bld) [#/Vol]1.05 10*3/uLNormal0.10-1.20 German HospitalComment on above:Performed By: #### URC #### [address] [address] Bobj Developer: Tyler Domingo MD [address] [place] [address] Bobj Developer: OLY Malhotraonocytes/100 WBC (Bld)10 %Normal3-12German HospitalComment on above:Performed By: #### URC #### [address] [address] Bobj Developer: Tyler Domingo MD [address] [place] [phone] Bobj Developer: Tevin Gupta MDNeutrophil (Seg)68 %Tlfn49-65GzxjsGerman Hospital Comment on above:Performed By: #### URC #### [facility] [address] [place] [address] Bobj Developer: Tyler Domingo MD [address] [place], [place] 8836283 Bobj Developer: Tevin Gupta MDNRBC Automated0.0 per 100 WBCNormal0.0German HospitalComment on above:Performed By: #### URC #### [place] [address] [place] [address] Bobj Developer: Tyler Domingo MD [address] [place] [address] Bobj Developer: Burke Malhotra mean volume (Bld) [Entitic vol]10.7 fL Normal8.1-13.5German HospitalComment on above:Performed By: #### URC #### [address] [address] Bobj Developer: Tyler Domingo MD [address] [place] 3934783 Bobj Developer: Deuce Malhotra (Bld) [#/Vol]190 10*3/lVJcsahl369-432 German HospitalComment on above:Performed By: #### URC #### [address] [address] Bobj Developer: Tyler Domnigo MD [address] [place] [address] Bobj Developer: AISLINN Malhotra (Bld) [#/Vol]3.59 10*6/uLLow3.95-5.11German HospitalComment on above:Performed By: #### URC #### [address] [address] Bobj Developer: Tyler Domingo MD [address] [place], [place] 3297783 Bobj Developer: CASSIE Malhotra (Bld) [#/Vol]10.6 10*3/uLNormal3.5-11.3MClinton Memorial HospitalComment on above:Performed By: #### URC #### [address] [address] Bobj Developer: Tyler Domingo MD [facility] Lab [address] [place] [address] [place] [address] Bobj Developer: OLY Malhotraicroscopic Urinalysison 81-81-2405Wfsrjuka LM Ql (Urine sed)1+AbnormalNoneBon SecGarfield County Public Hospitaly HealthEpithelial cells LM.HPF (Urine sed) [#/Area]5 TO 10Bon SecGarfield County Public Hospitaly HealthInterpretation and review of laboratory resultsAbnormalBon Secours Ohiohealthy HealthRBC LM.HPF (Urine sed) [#/Area]NoneBon SecGarfield County Public Hospitaly HealthWBC LM.HPF (Urine sed) [#/Area]0 TO 2[facility]healthy HealthHonorhealth [facility] SecGarfield County Public Hospitaly HealthTYPE AND SCREENon 61-60-8464IKK and Rh group Nom (Bld)Blood group O Rh(D) positiveBon SecGarfield County Public Hospitaly HealthArm Band [id number] Doctors HospitalBlood Bank Sample Iumkxptaax71/23/2025,2359 Bon SecCleveland Clinic Akron GeneralBlood group antibodies identified NomNegativeBon SecTrumbull Memorial Hospital SecGarfield County Public Hospitaly HealthType + Screenon 10-11-4052Gqwf + Screen Sample Expiration 12/27/2024,2359 Arm Band Number [id number] ABO/Rh(D) O POSITIVE Antibody Screen NEGATIVENoSouthern [place] Medical CenterComment on above:Performed By: #### UR #### [facility] [address] [place], [place] 2863808 Bobj Developer: Tyler Domingo MD [facility] Lab [address] [place] [address] [place] [address] Bobj Developer: Tevin Gupta MDUrinalysison 14-56-4211Xwctbspjh Ql (U)Negative NEGATIVEBon Secours Ohiohealthy HealthClarity (U)ClearClearBon SecGarfield County Public Hospitaly Health Color (U)YellowYellowBon SecGarfield County Public Hospitaly HealthGlucose Test strip (U) [Mass/Vol] NegativeNEGATIVE mg/dLBon SecGarfield County Public Hospitaly HealthHemoglobin Auto test strip Ql (U) NegativeNEGATIVEBon SecGarfield County Public Hospitaly HealthInterpretation and review of laboratory resultsAbnormalBon Secours Mercy HealthKetones (U) [Mass/Vol]NegativeNEGATIVE mg/dLBon Doctors HospitalLeukocyte esterase Test strip Ql (U)TRACEAbnormal NEGATIVEBon SecChristus St. [facility] HealthNitrite Ql (U)NegativeNEGATIVEBon SecChristus St. [facility] HealthpH (U)7 [pH]5.0 - 9.0Bon [facility] HealthProtein (U) [Mass/Vol] NegativeNEGATIVE mg/dLBon SecChristus St. [facility] Hospital HealthSpecific gravity (U) [Rel density] 1.011.010 - 1.020Bon SecCleveland Clinic Akron GeneralUrobilinogen Qn (U)Normal0.0 - 1.0 EU/dLBon Secours Ohiohealthy Henry County HospitalBon SecChristus St. Patrick Hospital HealthUrinalysis, Routineon 65-04-9123Nsgqodimi, SemiQt,UrNegativeNormalTrinity Health SystemComment on above:Performed By: #### URC #### [address] [place] [address] Bobj Developer: Tyler Domingo MD [facility] Lab [address] [place] [address] [place] [address] Bobj Developer: Tevin Gupta MDNorth Shore Health UrineNegativeMarietta Osteopathic Clinic Comment on above:Performed By: #### URC #### [facility] [address] [place] [address] Bobj Developer: Tyler Domingo MD [facility] Lab [address] [place] [address] Dr. [place] [phone] Bobj Developer: YUNIEL Malhotralarity (ClearNormalCLEARGerman Hospital Comment on above:Performed By: #### URC #### [facility] [address] [place] [address] Bobj Developer: Tyler Domingo MD [facility] Lab [address] [place] [address] [place] [address] Bobj Developer: YUNIEL Malhotraolor (U)YellowNoSumma Health Akron Campus Comment on above:Performed By: #### URC #### [address] [place] [address] Bobj Developer: Tyler Domingo MD [address] [place], [place] 9463283 Bobj Developer: Tevin Gupta MDGlucose Ql (U)NegativeNormalNEGGerman HospitalComment on above:Performed By: #### URC #### [address] [address] Bobj Developer: Tyler Domingo MD [address] [place], [place] 8505783 Bobj Developer: Tevin Gupta MDKetones Ql (U)NegativeNormalNEGGerman HospitalComment on above:Performed By: #### URC #### [address] [address] Bobj Developer: Tyler Domingo MD [address] Oliveros, [facility]83 Bobj Developer: Tevin Gupta MDLeukocyte esterase Test strip Ql (U)TRACEAbnormal NEGGerman HospitalComment on above:Performed By: #### URC #### [facility] [address] [place] [address] Bobj Developer: Tyler Domingo MD [address] Oliveros, [facility]83 Bobj Developer: Tevin Gupta MDNitrite,UrNegativeNormalTrinity Health System Comment on above:Performed By: #### URC #### [address] [address] Bobj Developer: Tyler Domingo MD [address] [place] [address] Bobj Developer: Tevin Gupta [facility],Ur7.7Eqqrcl9.0-9.0Mer[facility] Augusta HospitalComment on above:Performed By: #### URC #### [facility] [address] [place] [address] Bobj Developer: Tyler Domingo MD [address] [place] [address] Bobj Developer: CT Malhotrarotein Ql (U)NegativeNormalNEGMercy Augusta HospitalComment on above:Performed By: #### URC #### [facility] [address] [place] [address] Bobj Developer: Tyler Domingo MD [address] [place], [place] 4693883 Bobj Developer: LEE Malhotrapec. [place],Ur1.541Trcrbp1.010-1.020Mercy Augusta HospitalComment on above:Performed By: #### URC #### [address] [address] Bobj Developer: Tyler Domingo MD [address] [place] [address] Bobj Developer: Tevin Gupta MDUrobilinogen,UrNormalNormal0.0-1.0Mercy Augusta HospitalComment on above:Performed By: #### URC #### [address] [address] Bobj Developer: Tyler Domingo MD [address] [place] [phone] Bobj Developer: Tevin Gupta MDUrinalysis,Microon 74-10-6255Dsomaacm8+Abnormal NONEMercy Augusta HospitalComment on above:Performed By: #### URC #### [facility] [address] [place] [address] Bobj Developer: Tyler Domingo MD [address] [place] [address] Bobj Developer: Tevin Gupta MDEpithelial cells LM Ql (Urine sed)5 TO 10Normal 0-25German HospitalComment on above:Performed By: #### URC #### [facility] [address] [place] [address] Bobj Developer: Tyler Domingo MD [facility] [address] [place] [address] Dr. [place], [place] [phone] Bobj Developer: Cris Malhotra RBC'sNoneNormal0-2MClinton Memorial Hospital Comment on above:Performed By: #### URC #### [facility] [address] [place] [address] Bobj Developer: Tyler Domingo MD [facility] Lab [address] [place] [address] [place] [address] Bobj Developer: Cris Malhotra WBC's0 TO 6Eawaaa2-5LukffGerman Hospital Comment on above:Performed By: #### URC #### [facility] [address] [place] [address] Bobj Developer: Tyler Domingo MD [facility] Lab [address] [place] [address] Dr. [place] [phone] Bobj Developer: David Malhotra,Urineon 81-39-8303Woym,UrineSpecimen Description .CLEAN CATCH URINE Special Requests Site: Urine Culture NO GROWTH Report Status FINAL 12/18/2024CentervilleComment on above: Performed By: #### URC #### [facility] [address] [place] [address] Bobj Developer: Tyler Domingo MD [facility] [address] [place] [address] [place] [address] Bobj Developer: LD Malhotra OB FOLLOW UP TRANSABDOMINAL APPROACHon 32-86-8111LY OB FOLLOW UP TRANSABDOMINAL DRNARBUT29.3 WK IUP EFW:77.5% (7lb 9oz) CL:not visualized d/t head position ONIEL:11.4 cm HR:134 bpm Anterior placenta, cephalic presentation Active movements. Interpreted by: Darius Patel APRN - Wen Charles DO Signed by: Wen Fox DO 12/16/24 Final resultNormCincinnati VA Medical CenterRule Out Grp.B Strepon 76-84-2127Jbkz Out Grp.B StrepSpecimen Description .VAGINA Special Requests Site: Genital Culture NEGATIVE FOR GROUP B STREPTOCOCCI Report Status FINAL 12/13/2024NoSouthern [place] Medical CenterComment on above: Performed By: #### ROGBS #### [facility] [address] [place], [place] [id number] Bobj Developer: Tyler Domingo MD [facility] [address] [place] [address] Bobj Developer: Tevin Gupta MDUrinalysison 97-95-2654Zxfdlcoes Ql (U)Negative NEGATIVEBon Secours Mercy HealthClarity (U)ClearClearBon Secours Ohiohealthy Health Color (U)YellowYellowBon Secours Mercy HealthGlucose Test strip (U) [Mass/Vol] NegativeNEGATIVE mg/dLBon Secours Mercy HealthHemoglobin Auto test strip Ql (U) NegativeNEGATIVEBon Secours Mercy HealthInterpretation and review of laboratory resultsAbnormalBon Secours Mercy HealthKetones (U) [Mass/Vol]NegativeNEGATIVE mg/dLBon Secours Mercy HealthLeukocyte esterase Test strip Ql (U)Negative NEGATIVEBon Secours Mercy HealthNitrite Ql (U)NegativeNEGATIVEBon Secours Mercy HealthpH (U)6.0 [pH]5.0 - 9.0Bon [facility]cy HealthProtein (U) [Mass/Vol] NegativeNEGATIVE mg/dLBon Secours Mercy HealthSpecific gravity (U) [Rel density] 1.567Nnzh3.010 - 1.020Bon Secours Mercy HealthUrobilinogen Qn (U)Normal0.0 - 1.0 EU/dLBon Secours Mercy HealthBon Secours Mercy HealthUrinalysis, Routineon 29-83-1062Obbvsqbun, SemiQt,UrNegativeNormalNEGGerman HospitalComment on above:Performed By: #### URC #### [facility] [address] [place] [address] Bobj Developer: Tyler Domingo MD [facility] [address] [place] [address] Dr. Oliveros, [place] [phone] Bobj Developer: Travis Malhotra, UrineNegativeCrittenton Behavioral HealthalTrinity Health System Comment on above:Performed By: #### URC #### [address] [address] Bobj Developer: Tyler Domingo MD [facility] [address] [place] [address] Dr. Oliveros, [place] [phone] Bobj Developer: YUNIEL Malhotralarity (U)ClearNormalCLEARGerman Hospital Comment on above:Performed By: #### URC #### [address] [address] Bobj Developer: Tyler Domingo MD [facility] [address] [place] [address] Dr. Oliveros, [place] [phone] Bobj Developer: YUNIEL Malhotraolor (U)YellowNoalYCleveland Clinic [facility] Comment on above:Performed By: #### URC #### [address] [address] Bobj Developer: Tyler Domingo MD [facility] Lab [address] [place] [address] Dr. Oliveros, [place] [phone] Bobj Developer: Tevin Gupta MDGlucose Ql (U)NegativeNormalNEGGerman HospitalComment on above:Performed By: #### URC #### [facility] [address] [place] [address] Bobj Developer: Tyler Domingo MD [facility] [address] [place] [address] Dr. Oliveros, [place] [phone] Bobj Developer: Tevin Gupta MDKetones Ql (U)NegativeNormalNEGGerman HospitalComment on above:Performed By: #### URC #### [facility] [address] [place] [address] Bobj Developer: Tyler Domingo MD [address] Oliveros, [place] [phone] Bobj Developer: Tevin Gupta MDLeukocyte esterase Test strip Ql (U)NegativeNormal NEGMercy Mt. Sinai HospitalComment on above:Performed By: #### URC #### [facility] [address] [place] [address] Bobj Developer: Tyler Domingo MD [address] [place] [phone] Bobj Developer: Margarita Malhotra,UrNegativeNormCleveland Clinic Foundation Comment on above:Performed By: #### URC #### [address] [address] Bobj Developer: Tyler Domingo MD [address] Oliveros, [facility]83 Bobj Developer: CT Malhotra,Ur6.3Eyamlg9.0-9.0MerThe Institute of LivingComment on above:Performed By: #### URC #### [address] [address] Bobj Developer: Tyler Domingo MD [address] Oliveros, [facility]83 Bobj Developer: Seymour Malhotra Ql (U)NegativeNormalNEGGerman HospitalComment on above:Performed By: #### URC #### [facility] [address] [place] [address] Bobj Developer: Tyler Domingo MD [facility] [address] [place] [address] Dr. Oliveros, [facility]83 Bobj Developer: LEE Malhotrapec. [place],Ur1.379Dfyu3.010-1.020German HospitalComment on above:Performed By: #### URC #### [facility] [address] [place], [place] 4961308 Bobj Developer: Tyler Domingo MD [facility] [address] [place] [address] Dr. Oliveros, [place] 6826483 Bobj Developer: Aziza Malhotrabilinogen,UrNormalNormal0.0-1.0German HospitalComment on above:Performed By: #### URC #### [facility] [address] [place] [address] Bobj Developer: Tyler Domingo MD [facility] [address] [place] [address] Dr. Oliveros, [place] [phone] Bobj Developer: Tevin Gupta MDUS OB FOLLOW UP TRANSABDOMINAL APPROACHon 53-64-6341YZ OB FOLLOW UP TRANSABDOMINAL DVDRZUOM08.3 WK IUP EFW:70.2% (3lb 14oz) CL:4.5cm ONIEL:15.7cm HR:138bpm anterior placenta, cephalic presentation Active movements Grade 2 placenta Interpreted by: Darius Patel, [employer] [facility] Wen Fox DO Signed by: Wen Fox DO 10/26/24 Final resultNormalOhio State East HospitalCBC WITH AUTO DIFFERENTIALon 58-52-8162KTYLYSHLQ ABSOLUTE COUNT0.02 K/mcLNormal0.00-0.30SRussell Medical Center Comment on above:Performed By: #### [id number] #### [facility] [address] [place], [place] [address] Anselmo Cohen M.D. [id number]/100 WBC (Bld)0.2 %Protestant HospitalComment on above: Performed By: #### [id number] #### [facility] [address] [place], [place] [address] Anselmo Cohen M.D. [id number] (Bld) [#/Vol]0.05 10*3/uLNormal0.00-0.50[facility] Comment on above:Performed By: #### [id number] #### [facility] LAB [address] [place] [address] Anselmo Cohen M.D. [id number]/100 WBC (Bld)0.6 %[facility] HospitalComment on above: Performed By: #### [id number] #### [address] [place] [address] Anselmo Cohen M.D. [id number] distribution width (RBC) [Ratio]13.3 %Pzqlhv73.6-14.8 [facility] IslandComment on above:Performed By: #### [id number] #### [address] [place] [address] Anselmo Cohen M.D. [id number] (Bld) [Volume fraction]34.0 %Low36.0-46.0[facility] Comment on above:Performed By: #### [id number] #### [facility] LAB [address] [place] [address] Anselmo Cohen M.D. [id number] (Bld) [Mass/Vol]11.0 g/dLLow12.0-16.0[facility] IslandComment on above:Performed By: #### [id number] #### [address] [place] [address] Anselmo Cohen M.D. [id number] ABSOLUTE0.10 K/mcLNormal0.00-0.30Sst. lawrence health system HospitalComment on above: Performed By: #### [id number] #### [address] [place] [address] Anselmo Cohen M.D. [id number] PERCENT1.10 %Protestant HospitalComment on above:Result Comment: The IG parameter is the percentage of metamyelocytes, myelocytes and promyelocytes.An immature granulocyte count (IG) of 1% or more suggests the possibility of infection, an IG countof 3% is very likely related to an infection.Performed By: #### [id number] #### [facility] LAB [address] [place] [address] Anselmo Cohen M.D. [id number] (Bld) [#/Vol]0.33 10*3/uLLow0.90-4.00[facility] Comment on above:Performed By: #### [id number] #### [facility] LAB [address] [place] [address] Anselmo Cohen M.D. [id number]/100 WBC (Bld)3.7 %NormalRehabilitation Hospital Of Rhode IslandComment on above: Performed By: #### [id number] #### [address] [place] [address] Anselmo Cohen M.D. [id number] (RBC) [Entitic mass]29.0 haKhmsbo75.0-34.0[facility] HospitalComment on above:Performed By: #### [id number] #### [facility] LAB [address] [place] [address] Anselmo Cohen M.D. [id number] (RBC) [Entitic vol]89.7 yXDqqvwb93.0-100.0[facility] IslandComment on above:Performed By: #### [id number] #### [facility] LAB [address] [place] [address] Anselmo Cohen M.D. [id number] CORPUSCULAR HEMOGLOBIN CONC32.4 g/uMLikyxk35.0-37.0[facility] IslandComment on above:Performed By: #### [id number] #### [facility] LAB [address] [place] [address] Anselmo Cohen M.D. [id number] (Bld) [#/Vol]0.89 10*3/uLNormal0.30-0.90[facility] Comment on above:Performed By: #### [id number] #### [facility] LAB [address] [place] [address] Anselmo Cohen M.D. [id number]/100 WBC (Bld)10.0 %[facility] HospitalComment on above: Performed By: #### [id number] #### [facility] LAB [address] [place] [address] Anselmo Cohen M.D. [id number] ABSOLUTE COUNT7.55 K/mcLHigh1.70-7.00[facility] Comment on above:Performed By: #### [id number] #### [facility] LAB [address] [place] [address] Anselmo Cohen M.D. [id number]/100 WBC (Bld)84.4 %[facility] HospitalComment on above: Performed By: #### [id number] #### [facility] LAB [address] [place] [address] Anselmo Cohen M.D. [id number] mean volume (Bld) [Entitic vol]10.1 fLNormal9.4-12.4Sst. lawrence health system HospitalComment on above:Performed By: #### [id number] #### [facility] LAB [address] [place] [address] Anselmo Cohen M.D. [id number] (Bld) [#/Vol]142 10*3/bYSex979-840Darpem HospitalComment on above:Performed By: #### [id number] #### [facility] LAB [address] [place] [address] Anselmo Cohen M.D. [id number] (Bld) [#/Vol]3.79 10*6/uLLow4.00-5.20Sst. [facility] HospitalComment on above:Performed By: #### [id number] #### [facility] LAB [address] [place] [address] Anselmo Cohen M.D. [id number] (Bld) [#/Vol]8.94 10*3/uLNormal4.50-11.00[facility] HospitalComment on above:Performed By: #### [id number] #### [facility] LAB [address] [place] [address] Anselmo Cohen M.D. [id number] METABOLIC PANELon 90-10-9399Jycdqxj [Mass/Vol]3.3 g/dL Normal3.2-5.2SHelen Hayes Hospital on above:Order Comment: [facility] has implemented the eGFR calculation approach that does not have a coefficient for race that conforms to the NKF-ASN Task Force Recommendations.Performed By: #### [id number] #### SH LAB [address] [place] [address] Anselmo Cohen M.D. [id number] [Catalytic activity/Vol]99 U/RCpmckh61-143Olwnwr HospitalCommclaren [place]land on above:Order Comment: [facility] has implemented the eGFR calculation approach that does not have a coefficient for race that conforms to the NKF-ASN Task Force Recommendations.Performed By: #### [id number] #### [place] [address] Anselmo Cohen M.D. [id number] [Catalytic activity/Vol]18 U/LNormal0-35 U/[facility] HospitalCommclaren oakland on above:Order Comment: [facility] has implemented the eGFR calculation approach that does not have a coefficient for race that conforms to the NKF-ASN Task Force Recommendations.Performed By: #### [id number] #### [address] [place] [address] Anselmo Cohen M.D. [id number] gap [Moles/Vol]17 mmol/EGjqlfj94-58Nrhyrq HospitalCommclaren oakland on above:Order Comment: [facility] has implemented the eGFR calculation approach that does not have a coefficient for race that conforms to the NKF-ASN Task Force Recommendations.Performed By: #### [id number] #### [address] [place] [address] Anselmo Cohen M.D. [id number] [Catalytic activity/Vol]31 U/LNormal0-35 U/LSst. lawrence health system HospitalCommclaren oakland on above:Order Comment: [facility] has implemented the eGFR calculation approach that does not have a coefficient for race that conforms to the NKF-ASN Task Force Recommendations.Performed By: #### [id number] #### LAB [address] [place] [address] Anselmo Cohen M.D. [id number] TOTAL<Normal0.0-1.3SHelen [facility] Hospital on above:Order Comment: [facility] has implemented the eGFR calculation approach that does not have a coefficient for race that conforms to the NKF-ASN Task Force Recommendations.Performed By: #### [id number] #### SH [place] [address] Anselmo Cohen M.D. [id number] [Mass/Vol]9.1 mg/dLNormal8.4-10.2SHelen [facility] Hospital on above:Order Comment: [facility] has implemented the eGFR calculation approach that does not have a coefficient for race that conforms to the NKF-ASN Task Force Recommendations.Performed By: #### [id number] #### [place] [address] Anselmo Cohen M.D. [id number] [Moles/Vol]99 mmol/LUukjjj66-949IbczjpRockland Psychiatric Center on above:Order Comment: [facility] has implemented the eGFR calculation approach that does not have a coefficient for race that conforms to the NKF-ASN Task Force Recommendations.Performed By: #### [id number] #### [place] [address] Anselmo Cohen M.D. [id number] [Mass/Vol]0.56 mg/dLNormal0.40-1.10[facility] on above:Order Comment: [facility] has implemented the eGFR calculation approach that does not have a coefficient for race that conforms to the NKF-ASN Task Force Recommendations.Performed By: #### [id number] #### SH [place] [address] Anselmo Cohen M.D. [id number] mL/min/1.73 c2Brepnj>=60[facility] on above:Order Comment: [facility] has implemented the eGFR calculation approach that does not have a coefficient for race that conforms to the NKF-ASN Task Force Recommendations.Result Comment: Estimated GFR was calculated using the 2020 CKD-EPI creatinine equation.Performed By: #### [id number] #### SH [place] [address] Anselmo Cohen M.D. [id number] [Mass/Vol]84 mg/mRPhvdrn77-19QobrgiRockland Psychiatric Center on above: Order Comment: [facility] has implemented the eGFR calculation approach that does not have a coefficient for race that conforms to the NKF-ASN Task Force Recommendations.Performed By: #### [id number] #### [place] [address] Anselmo Cohen M.D. [id number] (Bld) [Moles/Vol]23 mmol/VSuvjgv74-09TroevqRockland Psychiatric Center on above:Order Comment: [facility] has implemented the eGFR calculation approach that does not have a coefficient for race that conforms to the NKF-ASN Task Force Recommendations.Performed By: #### [id number] #### [place] [address] Anselmo Cohen M.D. [id number] [Moles/Vol]3.9 mmol/LNormal3.5-5.1SHelen Hayes Hospital on above:Order Comment: [facility] has implemented the eGFR calculation approach that does not have a coefficient for race that conforms to the NKF-ASN Task Force Recommendations.Performed By: #### [id number] #### SH LAB [address] [place] [address] Anselmo Cohen M.D. [id number] [Mass/Vol]6.6 g/dLNormal6.0-8.0[facility] on above:Order Comment: [facility] has implemented the eGFR calculation approach that does not have a coefficient for race that conforms to the NKF-ASN Task Force Recommendations.Performed By: #### [id number] #### [place] [address] Anselmo Cohen M.D. [id number] [Moles/Vol]135 mmol/HUpnkff423-124RuyrtjRockland Psychiatric Center on above:Order Comment: [facility] has implemented the eGFR calculation approach that does not have a coefficient for race that conforms to the NKF-ASN Task Force Recommendations.Performed By: #### [id number] #### LAB [address] [place] [address] Anselmo Cohen M.D. [id number] nitrogen [Mass/Vol]7 mg/dLLow8-25[facility] on above: Order Comment: [facility] has implemented the eGFR calculation approach that does not have a coefficient for race that conforms to the NKF-ASN Task Force Recommendations.Performed By: #### [id number] #### [place] [address] Anselmo Cohen M.D. [id number] nitrogen/Creatinine [Mass ratio]12.5 mg/gkTpehog44.0-20.0[facility] on above:Order Comment: [facility] has implemented the eGFR calculation approach that does not have a coefficient for race that conforms to the NKF-ASN Task Force Recommendations.Performed By: #### [id number] #### [place] [id number] Anselmo Cohen M.D. [id number]/INFLUENZA A,B MOLECULARon 58-91-7500EEFL-CoV-2 (COVID-19) Ab IA WsZNTL-HZC-1 ([place]) Not Detected INFLUENZA A ([place]) Detected INFLUENZA B ([place]) Not DetectedAbnormalNot DetectedRockland Psychiatric Center on above:Performed By: #### [id number] #### [place] [id number] Anselmo Cohen M.D. [id number] Prov Noteon [id number] Prov NoteED PROVIDER NOTE [facility] EM[facility] NAME: Nicole Patricia AGE: 24 y.o. : 2000 VISIT DATE: 10/17/2024 CSN: [id number] PCP: No, Physician Chief Complaint Patient presents with Emesis Sore Throat Headache Ms. Patricia is a 24-year-old white female with past medical history of preeclampsia and vertigo. 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 Patient presents with a complaint of a sore throat. Patient states it hurts to swallow. She is also been vomiting for the last 3 days. Whenever she ingests she vomits even water. She has been experiencing a migraine headache. That started 2 days ago. The pain is like someone is hammering nails into her forehead. She rates the pain at 9.5 out of 10. Pain is exacerbated by light. She also reports a fever 101 at this morning. Patient states that she tried taking Tylenol earlier today but she vomited the pills. She denies any ill contacts. Patient is a G4 para 2 history of preeclampsia Past Medical History: Diagnosis Date Preeclampsia Vertigo History reviewed. No pertinent surgical history. History reviewed. No pertinent family history. Social History Socioeconomic History Marital status: Single Tobacco Use Smoking status: Never Smokeless tobacco: Former Types: Chew Vaping Use Vaping status: Former Substance and Sexual Activity Alcohol use: Not Currently Social Drivers of Health Housing Stability: Unknown (10/11/2024) [facility] Stability Vital Sign Homeless in the Last Year: No Previous Medications Medication Sig aspirin 81 MG EC tablet Take 1 (one) tablet (81 mg total) by mouth daily . No Known Allergies Review of Systems Constitutional: Positive for fever. Gastrointestinal: Positive for nausea and vomiting. Neurological: Positive for headaches. All other systems reviewed and are negative. Patient Vitals for the past 24 hrs: BP Temp Temp src Pulse Resp SpO2 Height Weight 10/17/24 1721 123/69 -- -- 98 16 97 % -- -- 10/17/24 1446 (!) 109/56 98 degrees F (36.7 degrees C) Oral (!) 130 18 96 % 5' 5 89.8 kg (198 lb) Physical Exam Vitals and nursing note reviewed. Constitutional: General: She is not in acute distress. Appearance: She is well-developed. She is not ill-appearing or toxic-appearing. HENT: Head: Normocephalic and atraumatic. Right Ear: Ear canal normal. Left Ear: Ear canal normal. Mouth/Throat: Mouth: Mucous membranes are moist. Pharynx: Oropharynx is clear. Eyes: Conjunctiva/sclera: Conjunctivae normal. Pupils: Pupils are equal, round, and reactive to light. Cardiovascular: Rate and Rhythm: Regular rhythm. Tachycardia present. Heart sounds: Normal heart sounds. Musculoskeletal: Cervical back: Normal range of motion and neck supple. Pulmonary: Effort: Pulmonary effort is normal. Breath sounds: Normal breath sounds. Abdominal: General: Bowel sounds are normal. Palpations: Abdomen is soft. Comments: uterus Skin: General: Skin is warm and dry. Capillary Refill: Capillary refill takes less than 2 seconds. Neurological: General: No focal deficit present. Mental Status: She is alert and oriented to person, place, and time. Psychiatric: Mood and Affect: Mood normal. Behavior: Behavior normal. Laboratory & Radiographic Imaging (if done): Results for orders placed or performed during the hospital encounter of 10/17/24 COVID-19/Influenza A,B Molecular Specimen: Nasopharyngeal; Swab Result Value Ref Range SARS-CoV-2 Not Detected Not Detected Influenza A Detected (A) Not Detected Influenza B Not Detected Not Detected Rapid Strep Screen Specimen: Throat; Swab Result Value Ref Range Strep Group A Molecular Not Detected Not Detected CMP Result Value Ref Range Sodium 135 135 - 145 mmol/L Potassium 3.9 3.5 - 5.1 mmol/L Chloride 99 98 - 108 mmol/L Bicarbonate 23 21 - 32 mmol/L Anion Gap 17 10 - 20 mmol/L Glucose 84 65 - 99 mg/dL BUN 7 (L) 8 - 25 mg/dL Creatinine 0.56 0.40 - 1.10 mg/dL eGFR 132 >=60 mL/min/1.73 m2 BUN/Creatinine Ratio 12.5 10.0 - 20.0 Total Protein 6.6 6.0 - 8.0 g/dL Albumin 3.3 3.2 - 5.2 g/dL Calcium 9.1 8.4 - 10.2 mg/dL Alkaline Phosphatase 99 40 - 140 U/L AST 31 0-35 U/L U/L ALT 18 0-35 U/L U/L Total Bilirubin <0.2 0.0 - 1.3 mg/dL Urinalysis Result Value Ref Range Color, Urine Yellow Colorless, Yellow Clarity, Urine Cloudy (A) Clear Specific [place] 1.020 1.005 - 1.025 pH, Urine 7.0 5.0 - 7.0 Protein, Urine Negative Negative mg/dL Glucose, Urine Negative Negative, >=1000 mg/dL Ketones, Urine Negative Negative mg/dL Bilirubin, Urine Negative Negative Urobilinogen, Urine <2.0 <2.0 mg/dL Blood, Urine Negative Negative Nitrite, Urine Negative Negative Leukocyte Esterase, Urine Negative Negative WBCs, Urine 2 0 - 5 /hpf Bacteria, Urine Rare (A) None Seen /hpf Squamous Epithelial 3 0 - 4 /hpf Amorphous Crystals Many (A) None S (more content not included)...NormalRehabilitation Hospital Of Rhode IslandRAPID STREP SCREENon 10-17-2024S. pyogenes Ag IA Ql (Unsp spec)Not detectedNormalNot [facility] on above:Order Comment: Test Method: Nucleic Acid AmplificationPerformed By: #### [id number] #### [place] [address] Anselmo Cohen M.D. [id number] [id number] CRYSTALSManyAbnormalNone Seen, Rare [facility] on above:Order Comment: Microscopic examination is performed on all urinalysis samples and only positive findings are reported. The test for blood on the chemical analytic portion of urinalysis may also be pos itive due to hemoglobinuria and myoglobinuria and if red blood cells are present they are quantified by microscopic examination.Performed By: #### [id number] #### [place] [address] Anselmo Cohen M.D. [id number], URINERareAbnormalNone [facility] on above: Order Comment: Microscopic examination is performed on all urinalysis samples and only positive findings are reported. The test for blood on the chemical analytic portion of urinalysis may also be positive due to hemoglobinuria and myoglobinuria and if red blood cells are present they are quantified by microscopic examination.Performed By: #### [id number] #### [place] [address] Anselmo Cohen M.D. [id number], URINENegativeNormalNegativeSHelen Hayes Hospital on above: Order Comment: Microscopic examination is performed on all urinalysis samples and only positive findings are reported. The test for blood on the chemical analytic portion of urinalysis may also be positive due to hemoglobinuria and myoglobinuria and if red blood cells are present they are quantified by microscopic examination.Performed By: #### [id number] #### [place] [address] Anselmo Cohen M.D. [id number], URINENegativeNormalNegativeSHelen Hayes Hospital on above: Order Comment: Microscopic examination is performed on all urinalysis samples and only positive findings are reported. The test for blood on the chemical analytic portion of urinalysis may also be positive due to hemoglobinuria and myoglobinuria and if red blood cells are present they are quantified by microscopic examination.Performed By: #### [id number] #### [place] [address] Anselmo Cohen M.D. [id number] (U)CloudyAbnormalClearSHelen Hayes Hospital on above:Order Comment: Microscopic examination is performed on all urinalysis samples and only positive findings are reported. The test for blood on the chemical analytic portion of urinalysis may also be positive due to hemoglobinuria and myoglobinuria and if red blood cells are present they are quantified by microscopic examination.Performed By: #### [id number] #### [place] [address] Anselmo Cohen M.D. [id number] (U)YellowNormalColorless, YellowRockland Psychiatric Center on above: Order Comment: Microscopic examination is performed on all urinalysis samples and only positive findings are reported. The test for blood on the chemical analytic portion of urinalysis may also be positive due to hemoglobinuria and myoglobinuria and if red blood cells are present they are quantified by microscopic examination.Performed By: #### [id number] #### SH LAB [address] [place] [address] Anselmo Cohen M.D. [id number] Ql (U)NegativeNormalNegative, >=1000[facility] on above:Order Comment: Microscopic examination is performed on all urinalysis samples and only positive findings are reported. The test for blood on the chemical analytic portion of urinalysis may also be positive due to hemoglobinuria and myoglobinuria and if red blood cells are present they are quantified by microscopic examination.Performed By: #### [id number] #### [place] [address] Anselmo Cohen M.D. [id number] Ql (U)NegativeNormalDetwiler Memorial Hospital on above: Order Comment: Microscopic examination is performed on all urinalysis samples and only positive findings are reported. The test for blood on the chemical analytic portion of urinalysis may also be positive due to hemoglobinuria and myoglobinuria and if red blood cells are present they are quantified by microscopic examination.Performed By: #### [id number] #### [place] [address] Anselmo Cohen M.D. [id number] esterase Test strip Ql (U)NegativeNoBronson Battle [facility] on above:Order Comment: Microscopic examination is performed on all urinalysis samples and only positive findings are reported. The test for blood on the chemical analytic portion of urinalysis may also be positive due to hemoglobinuria and myoglobinuria and if red blood cells are present they are quantified by microscopic examination.Performed By: #### [id number] #### [place] [address] Anselmo Cohen M.D. [id number], URINENegativeNormalNegRegency Hospital Toledo on above: Order Comment: Microscopic examination is performed on all urinalysis samples and only positive findings are reported. The test for blood on the chemical analytic portion of urinalysis may also be positive due to hemoglobinuria and myoglobinuria and if red blood cells are present they are quantified by microscopic examination.Performed By: #### [id number] #### [place] [address] Anselmo Cohen M.D. [id number] (U)7.0 [pH]Normal5.0-7.0[facility] on above:Order Comment: Microscopic examination is performed on all urinalysis samples and only positive findings are reported. The test for blood on the chemical analytic portion of urinalysis may also be positive due to hemoglobinuria and myoglobinuria and if red blood cells are present they are quantified by microscopic examination.Performed By: #### [id number] #### [place] [address] Anselmo Cohen M.D. [id number], URINENegativeNormalNegativeSHelen Hayes Hospital on above: Order Comment: Microscopic examination is performed on all urinalysis samples and only positive findings are reported. The test for blood on the chemical analytic portion of urinalysis may also be positive due to hemoglobinuria and myoglobinuria and if red blood cells are present they are quantified by microscopic examination.Performed By: #### [id number] #### [place] [address] Anselmo Cohen M.D. [id number] gravity (U) [Rel density]1.101Lebrgg9.005-1.025[facility] on above:Order Comment: Microscopic examination is performed on all urinalysis samples and only positive findings are reported. The test for blood on the chemical analytic portion of urinalysis may also be positive due to hemoglobinuria and myoglobinuria and if red blood cells are present they are quantified by microscopic examination.Performed By: #### [id number] #### [place] [address] Anselmo Cohen M.D. [id number] EPITHELIAL3 /hpfNormal0-4SHelen Hayes Hospital on above: Order Comment: Microscopic examination is performed on all urinalysis samples and only positive findings are reported. The test for blood on the chemical analytic portion of urinalysis may also be positive due to hemoglobinuria and myoglobinuria and if red blood cells are present they are quantified by microscopic examination.Performed By: #### [id number] #### LAB [address] [place] [address] Anselmo Cohen M.D. [id number], URINE<2.0Normal<2.0Shelby HospitalComment on above:Order Comment: Microscopic examination is performed on all urinalysis samples and only positive findings are reported. The test for blood on the chemical analytic portion of urinalysis may also be positive due to hemoglobinuria and myoglobinuria and if red blood cells are present they are quantified by microscopic examination.Performed By: #### [id number] #### SH LAB [address] [place] [address] Anselmo Cohen M.D. [id number] LM.HPF (Urine sed) [#/Area]2 /[HPF]Normal0-[address] [place] [address] on above:Order Comment: Microscopic examination is performed on all urinalysis samples and only positive findings are reported. The test for blood on the chemical analytic portion of urinalysis may also be positive due to hemoglobinuria and myoglobinuria and if red blood cells are present they are quantified by microscopic examination.Performed By: #### [id number] #### LAB [address] [place] [address] Anselmo Cohen M.D. [id number],Urineon [id number],UrineSpecimen Description .CLEAN CATCH URINE Special Requests Site: Urine Culture NO SIGNIFICANT GROWTH Report Status FINAL 09/16/2024NoMer[facility] on above: Performed By: #### URTPRT #### [facility] [address] [place] [address] Bobj Developer: Tevin Gupta, MDMicroscopic Urinalysison 39-49-5748Gialkqiy LM Ql (Urine sed)1+AbnormalNoneBon Doctors HospitalCrystals LM Nom (Urine sed)0 TO 2 CALCIUM OXALATEAbnormalNone /HPFBon Doctors HospitalEpithelial cells LM.HPF (Urine sed) [#/Area]10 TO 20Bon Doctors HospitalInterpretation and review of laboratory resultsAbnormalWythe County Community HospitalRBC LM.HPF (Urine sed) [#/Area]5 TO 10Bon Doctors HospitalWBC LM.HPF (Urine sed) [#/Area]2 TO 5Bon [facility] Medical CenterUrinalysison 09-15-2024 Bilirubin Ql (U)NegativeNEGATIVEBon [facility] HealthClarity (U)ClearClearBon SecCleveland Clinic Akron GeneralColor (U)YellowYellowBon Doctors HospitalGlucose Test strip (U) [Mass/Vol]NegativeNEGATIVE mg/dLBon Doctors HospitalHemoglobin Auto test strip Ql (U)2+AbnormalNEGATIVEBon Doctors HospitalInterpretation and review of laboratory resultsAbnormalBon Doctors HospitalKetones (U) [Mass/Vol]NegativeNEGATIVE mg/dLBon Doctors HospitalLeukocyte esterase Test strip Ql (U)TRACEAbnormalNEGATIVEBon Doctors HospitalNitrite Ql (U)Negative NEGATIVEBon SecChristus St[facility] HealthpH (U)6.5 [pH]5.0 - 9.0[facility] Protein (U) [Mass/Vol]NegativeNEGATIVE mg/dLBon Doctors HospitalSpecific gravity (U) [Rel density]1.0201.010 - 1.020Bon Doctors HospitalUrobilinogen Qn (U)Normal0.0 - 1.0 EU/dLBon [facility] Urinalysis, Routineon 32-27-7743Idwyataos, SemiQt,UrNegativeNormalNEGGerman HospitalComment on above:Performed By: #### URTPRT #### [facility] [address] [place], [place] [id number] Bobj Developer: Travis Malhotra, Urine2+AbnormalNEGGerman Hospital Comment on above:Performed By: #### URTPRT #### [facility] [address] [place] [address] Bobj Developer: YUNIEL Malhotralamelissa (ClearNormalCLEARGerman Hospital Comment on above:Performed By: #### URTPRT #### [facility] [address] [place] [address] Bobj Developer: YUNIEL Malhotraolor (U)YellowNormalYCleveland Clinic [facility] Comment on above:Performed By: #### URTPRT #### [facility] [address] [place] [address] [place], [place] [phone] Bobj Developer: Tevin Gupta MDGlucose Ql (U)NegativeNormalNEGGerman HospitalComment on above:Performed By: #### URTPRT #### [facility] [address] [place] [address] Dr[place], [place] [phone] Bobj Developer: Tevin Gupta MDKetones Ql (U)NegativeNormalNEGRegency Hospital Toledocy Augusta HospitalComment on above:Performed By: #### URTPRT #### [address] [place], [place] [id number] Bobj Developer: Tevin Gupta MDLeukocyte esterase Test strip Ql (U)TRACEAbnormal NEGGerman HospitalComment on above:Performed By: #### URTPRT #### [address] [place] [address] Bobj Developer: Tevin Gupta MDNitrite,UrNegativeNormalTrinity Health System Comment on above:Performed By: #### URTPRT #### [facility] [address] [place] [address] Dr[place], [place] [phone] Bobj Developer: CT Malhotra,Ur6.3Hpheha5.0-9.0German HospitalComment on above:Performed By: #### URTPRT #### [facility] [address] [place] [address] [place], [place] [phone] Bobj Developer: CT Malhotrarotein Ql (U)NegativeNormalNEGGerman HospitalComment on above:Performed By: #### URTPRT #### [facility] [address] [place] [address] [place], [place] [phone] Bobj Developer: LEE Malhotrapec. [place],Ur1.282Qctmlh5.010-1.020German HospitalComment on above:Performed By: #### URTPRT #### [facility] [address] [place] [address] Bobj Developer: Tevin Gupta MDUrobilinogen,UrNormalNormal0.0-1.0German HospitalComment on above:Performed By: #### URTPRT #### [facility] [address] [place], [facility] Bobj Developer: Tevin Gupta MDUrinalysis,Microon 94-86-9751Txtdmfmo5+Abnormal NONEGerman HospitalComment on above:Performed By: #### URTPRT #### [facility] [address] [place], [place] [phone] Bobj Developer: YUNIEL Malhotrarystals LM Nom (Urine sed)0 TO 2AbnormalNONEMercYale New Haven Psychiatric HospitalComment on above:Result Comment: CALCIUM OXALATEPerformed By: #### URTPRT #### [facility] [address] [place], [place] [phone] Bobj Developer: Tevin Gupta MDEpithelial cells LM Ql (Urine sed)10 TO 20Normal 0-25German HospitalComment on above:Performed By: #### URTPRT #### [facility] [address] [place] [address] Bobj Developer: Tevin Gupta MDUrine RBC's5 TO 66Ubaxnj1-6PurqyClinton Memorial Hospital Comment on above:Performed By: #### URTPRT #### [facility] [address] [place] [address] Bobj Developer: Tevin Gupta MDUrine WBC's2 TO 7Jhoohf7-7FmwflGerman Hospital Comment on above:Performed By: #### URTPRT #### [facility] [address] [place], [place] [id number] Bobj Developer: Tevin Gupta MDUS OB 14 PLUS WEEKS SINGLE OR FIRST GESTATIONon [id number] OB 14 PLUS WEEKS SINGLE OR FIRST UZIYFINEB27.3 WK IUP CL:3.7cm HR:148bpm Anterior placenta, transverse presentation Ovaries: both seen, wnl Gender: male Active movements All visualized anatomy WNL Interpreted by: Darius Patel, [employer] - CNM Wen Fox DO Signed by: Wen Fox DO 08/27/24 Final resultNoOhioHealth Hardin Memorial HospitalCult,Urineon 08-26-2024 Cult,UrineSpecimen Description .CLEAN CATCH URINE Special Requests Site: Urine Culture NO SIGNIFICANT GROWTH Report Status FINAL 08/26/2024CentervilleComment on above: Performed By: #### URC #### [facility] [address] [place] [address] Bobj Developer: Tyler Domingo MD [facility] [address] [place] [address] Bobj Developer: OLY Malhotraicroscopic Urinalysison [id number] LM Ql (Urine sed)1+AbnormalNoneBon Secours Mercy HealthEpithelial cells LM.HPF (Urine sed) [#/Area]10 TO 20Bon [facility] HealthInterpretation and review of laboratory resultsAbnormalBon Secours Mercy HealthRBC LM.HPF (Urine sed) [#/Area]0 TO 2Bon [facility] HealthWBC LM.HPF (Urine sed) [#/Area]0 TO 2Bon [facility] HealthBon Secours Mercy HealthUrinalysison 40-35-5528Oefwaygak Ql (U)NegativeNEGATIVEBon Secours Mercy HealthClarity (U)ClearClearBon Secours Mercy HealthColor (U)YellowYellowBon Secours Mercy HealthGlucose Test strip (U) [Mass/Vol]NegativeNEGATIVE mg/dLBon Secours Mercy HealthHemoglobin Auto test strip Ql (U)NegativeNEGATIVEBon Secours Mercy HealthInterpretation and review of laboratory resultsAbnormalBon Secours Mercy HealthKetones (U) [Mass/Vol] NegativeNEGATIVE mg/dLBon Doctors HospitalLeukocyte esterase Test strip Ql (U)TRACEAbnormalNEGATIVEBon SecChristus St. [facility] Hospital HealthNitrite Ql (U)NegativeNEGATIVE Bon [facility]Christ[facility] HealthpH (U)6.5 [pH]5.0 - 9.0Bon [facility] HealthProtein (U) [Mass/Vol]NegativeNEGATIVE mg/dLBon [facility] HealthSpecific gravity (U) [Rel density]1.079Vsct2.010 - 1.020Bon Doctors HospitalUrobilinogen Qn (U) Normal0.0 - 1.0 EU/[address] Mary'S [facility], Ir[facility] CampusBon Doctors HospitalUrinalysis, Routineon 70-97-6271Ririydein, SemiQt,UrNegativeNormalNEGGerman Hospital Comment on above:Performed By: #### URTPRT #### [facility] [address] [place] [address] Dr[place] [id number] Bobj Developer: Travis Malhotra, UrineNegativermalTrinity Health System Comment on above:Performed By: #### URTPRT #### [facility] [address] [place] [address] Dr. [place] [id number] Bobj Developer: YUNIEL Malhotralarity (ClearNoalCLEARGerman Hospital Comment on above:Performed By: #### URTPRT #### [facility] [address] [place], [facility] Bobj Developer: YUNIEL Malhotraolor (U)YellowNoalYCleveland Clinic [facility] Comment on above:Performed By: #### URTPRT #### [facility] [address] [place] [address] [place] [address] Bobj Developer: Tevin Gupta MDGlucose Ql (U)NegativeNormalNEGGerman HospitalComment on above:Performed By: #### URTPRT #### [facility] [address] [place] [address] [place] [address] Bobj Developer: Tevin Gupta MDKetchrissy Ql (U)NegativeNormalNEGMercy Augusta HospitalComment on above:Performed By: #### URTPRT #### [address] [place], [place] [id number] Bobj Developer: Tevin Gupta MDLeukocyte esterase Test strip Ql (U)TRACEAbnormal NEGMerKeenan Private Hospital HospitalComment on above:Performed By: #### URTPRT #### [address] [place] [address] Bobj Developer: Margarita Malhotra,UrNegativeNormalTrinity Health System Comment on above:Performed By: #### URTPRT #### [address] [place], [facility] Bobj Developer: ALISON Malhotra,Ur6.8Senfvp8.0-9.0Mercy [facility]. Sinai HospitalComment on above:Performed By: #### URTPRT #### [address] [place] [address] Bobj Developer: Seymour Malhotra Ql (U)NegativeNormalNEGMerKeenan Private Hospital HospitalComment on above:Performed By: #### URTPRT #### [address] [place], [place] [address] Bobj Developer: LEE Malhotrapec. [place],Ur1.982Djfu0.010-1.020Mercy Augusta HospitalComment on above:Performed By: #### URTPRT #### [address] [place], [place] [address]83 Bobj Developer: Aziza Malhotrabilinogen,UrNormalNormal0.0-1.0Mercy Augusta HospitalComment on above:Performed By: #### URTPRT #### [address] [place], [place] [address]83 Bobj Developer: Tevin Gupta MDUrinalysis,Microon 71-36-1479Ngdnprdx6+Abnormal NONEMercy Augusta HospitalComment on above:Performed By: #### URTPRT #### [facility] [address] [place] [address] Bobj Developer: Tevin Gupta MDEpithelial cells LM Ql (Urine sed)10 TO 20Normal 0-25Mercy Augusta HospitalComment on above:Performed By: #### URTPRT #### [facility] [address] [place], [place] [id number] Bobj Developer: Tevin Gupta MDUrine RBC's0 TO 5Tfoent4-2Qrvya [facility] Comment on above:Performed By: #### URTPRT #### [facility] [address] [place], [place] [id number] Bobj Developer: Cris Malhotra WBC's0 TO 3Slmlkp7-9Uchkz [facility] Comment on above:Performed By: #### URTPRT #### [facility] [address] [place], [place] [address]83 Bobj Developer: Tevin Gupta MDUS GALLBLADDER RUQon 85-89-9778MM GALLBLADDER RUQ EXAMINATION: RIGHT UPPER QUADRANT ULTRASOUND 08/05/2024 10:38 am COMPARISON: None. HISTORY: ORDERING SYSTEM PROVIDED HISTORY: Rib pain on right side TECHNOLOGIST PROVIDED HISTORY: pain after eating FINDINGS: LIVER: The liver demonstrates normal echogenicity without evidence of intrahepatic biliary ductal dilatation. BILIARY SYSTEM: Gallbladder is unremarkable without evidence of pericholecystic fluid, wall thickening or stones. Negative sonographic Navarro's sign. Common bile duct is within normal limits measuring 2.1 mm. RIGHT KIDNEY: The right kidney is grossly unremarkable without evidence of hydronephrosis. Mildly prominent right renal pelvis without significant intrarenal dilatation. PANCREAS: Visualized portions of the pancreas are unremarkable. Pancreas is largely obscured by overlying bowel gas. OTHER: No evidence of right upper quadrant ascites. IMPRESSION: Unremarkable gallbladder ultrasound Interpreted by: Loc Werner MD Signed by: Loc Werner MD 08/05/24 Final resultNormalMercy Charlene Toledo Gallbladderon 17-68-7851Kbdllheigfkg gallbladder ultrasound [facility] CONSOLIDATEDEXAMINATION: RIGHT UPPER QUADRANT ULTRASOUND 08/05/2024 10:38 am COMPARISON: None. HISTORY: ORDERING SYSTEM PROVIDED HISTORY: Rib pain on right side TECHNOLOGIST PROVIDED HISTORY: pain after eating FINDINGS: LIVER: The liver demonstrates normal echogenicity without evidence of intrahepatic biliary ductal dilatation. BILIARY SYSTEM: Gallbladder is unremarkable without evidence of pericholecystic fluid, wall thickening or stones. Negative sonographic Navarro's sign. Common bile duct is within normal limits measuring 2.1 mm. RIGHT KIDNEY: The right kidney is grossly unremarkable without evidence of hydronephrosis. Mildly prominent right renal pelvis without significant intrarenal dilatation. PANCREAS: Visualized portions of the pancreas are unremarkable. Pancreas is largely obscured by overlying bowel gas. OTHER: No evidence of right upper quadrant ascites. [facility] Loc Del Rio MD - 08/05/2024 EXAMINATION: RIGHT UPPER QUADRANT ULTRASOUND 08/05/2024 10:38 am COMPARISON: None. HISTORY: ORDERING SYSTEM PROVIDED HISTORY: Rib pain on right side TECHNOLOGIST PROVIDED HISTORY: pain after eating FINDINGS: LIVER: The liver demonstrates normal echogenicity without evidence of intrahepatic biliary ductal dilatation. BILIARY SYSTEM: Gallbladder is unremarkable without evidence of pericholecystic fluid, wall thickening or stones. Negative sonographic Navarro's sign. Common bile duct is within normal limits measuring 2.1 mm. RIGHT KIDNEY: The right kidney is grossly unremarkable without evidence of hydronephrosis. Mildly prominent right renal pelvis without significant intrarenal dilatation. PANCREAS: Visualized portions of the pancreas are unremarkable. Pancreas is largely obscured by overlying bowel gas. OTHER: No evidence of right upper quadrant ascites. IMPRESSION: Unremarkable gallbladder ultrasound [facility] CareeriseRadiology Study observation (narrative)[facility] Careerise GallbladderOrdered By: Loc Werner on [id number] [employer]ise Work Phone: Cytology Reporton [id number] report Cyto stain.thin prep Doc (Cvx/Vag)(NOTE) Path Number: [id number] DIAGNOSIS Imaged ThinPrep Pap - Cervical (1 monolayer slide): Specimen Adequacy: Satisfactory for evaluation. - Endocervical/transformation zone component present. - Bacterial cytolysis. Descriptive Diagnosis: Negative for intraepithelial lesion or malignancy. Comments: Specimen was screened at [facility], [address] [place] [address] Cytotech Screener: EZEKIEL Electronically Signed Out CHARISMA Gonzalez (ASCP) cs/06/26/2024 Source of Specimen: A: Imaged ThinPrep Pap - Cervical (1 monolayer slide) Clinical History Z12.4 Encounter for screening for malignant neoplasm of cervix LMP: 03/02/24 Processing Lab: [address] [id number] Interpretation [place] [address] This Pap Test has been evaluated with the assistance of the ThinPrep Pap Test Imaging System. The Pap smear is a screening test primarily for squamous epithelial lesions, which is subject to both false negative and false positive results. Your patient should be reminded to consult you immediately if she experiences any suspicious signs or symptoms, regardless of her Pap smear result. GYNECOLOGIC CYTOLOGY REPORT Patient Name: NICOLE PATRICIAShay [facility] Rec: [id number] [facility] ANATOMIC PATHOLOGY [address] [facility] [place], [place] [address] NoSouthern [place] Medical CenterHCG ( test) Ql (U)on 16-19-6162Tdsh HCG ( test) Ql (U)PositiveAbnormalNEGProMedica Alhambra Hospital Medical CenterComment on above:Performed By: #### 2106-3 #### [facility] ([id number]) [address] [place] [id number] MACROSCOPIC NURon 10-15-7530PGSMDTEMA NURNegativeNormalNEG Pro[facility] Hospital Medical CenterComment on above:Performed By: #### NUM #### [facility] ([id number]) [address] [place] [id number]/HGB NURNegativeNormalNEGProCleveland Clinic South Pointe Hospitalca Alhambra Hospital Medical CenterComment on above:Performed By: #### NUM #### [facility] ([id number]) [address] [place] [id number] NURNegativeNormalNEGProBaylor Scott & White Medical Center – HillcrestComment on above:Performed By: #### NUM #### [facility] ([id number]) [address] [place] [id number] NURNegativeNormalNEGProBaylor Scott & White Medical Center – HillcrestComment on above:Performed By: #### NUM #### [facility] ([id number]) [address] [place] [id number] ESTERASE NURSmallAbnormalNEGProBaylor Scott & White Medical Center – HillcrestComment on above:Performed By: #### NUM #### [facility] ([id number]) [address] [place] [address] [id number] NURNegativeNormalNEGProBaylor Scott & White Medical Center – HillcrestComment on above:Performed By: #### NUM #### [facility] ([id number]) [address] [place] [id number] NUR6.1Pfsved0.0-8.5ProMedica Alh[facility]ra Hospital Medical CenterComment on above:Performed By: #### NUM #### [facility] ([id number]) [address] [place] [address] [id number] NURNegativeNormalNEGProBaylor Scott & White Medical Center – HillcrestComment on above:Performed By: #### NUM #### [facility] ([id number]) [address] [place] [address] [id number] GRAVITY CASSY>=1.290Mxhvck7.003-1.035ProBaylor Scott & White Medical Center – HillcrestComment on above:Performed By: #### NUM #### [facility] ([id number]) [address] [place] [address] [place] [address]YFMKOWZQZGIO NUR0.2 eu/dLNormal<1.1[facility] Comment on above:Performed By: #### NUM #### [facility] ([id number]) [address] [facility], [place], [place] [address]MF OB TRANSVAGINALon 35-19-5116FM OB TRANSVAGINAL6.0 WK IUP CL:4.4cm HR:123bpm RT. OVARY:seen, wnl LT. OVARY:seen, corpus luteum cyst vidal- 2.2cmx 1.8cm x 1.5cm Small SCB visualize to right of gest sac vidal- 2.3cm x 1.1cm x 0.3cm Interpreted by: Darius Patel, [employer] - M Wen Fox DO Signed by: Wen Fox DO 05/15/24 Final resultNoOhioHealth Hardin Memorial HospitalChlamydia/GC DNA, Uron 79-16-5532Kvusrqtiu Probe, UrNegativeNormalNEGMerThe Institute of LivingComment on above:Result Comment: CHLAMYDIA TRACHOMATIS DNA not detected by nucleic acid amplification. This test is intended for medical purposes only and is not valid for the evaluation of suspected sexual abuse or for other forensic purposes. In certain contexts, culture may be required to meet applicable laws and regulations for diagnosis of C. trachomatis and N. gonorrhoeae infections. Per 2014 CDC recommendations, this test does not include confirmation of positive results by an alternative nucleic acid target.Performed By: #### [facility] #### [facility] [address] [place] [address] Bobj Developer: Tyler Domingo MDGonorrhea Probe, UrNegativeNormalNEGMerThe Institute of LivingComment on above:Result Comment: NEISSERIA GONORRHOEAE DNA not detected by nucleic acid amplification. This test is intended for medical purposes only and is not valid for the evaluation of suspected sexual abuse or for other forensic purposes. In certain contexts, culture may be required to meet applicable laws and regulations for diagnosis of C. trachomatis and N. gonorrhoeae infections. Per 2014 CDC recommendations, this test does not include confirmation of positive results by an alternative nucleic acid target.Performed By: #### UCGP #### [facility] [address] [place] [address] Bobj Developer: David Mccarthy,Urineon 44-71-5514Tzng,UrineSpecimen Description .CLEAN CATCH URINE Special Requests Site: Urine Culture NO SIGNIFICANT GROWTH Report Status FINAL 04/24/2024NormalGerman HospitalComment on above: Performed By: #### URC #### [address] [address] Bobj Developer: Tyler Domingo MD [address] [place] [address] Bobj Developer: YUNIEL Malhotralakeview hospital Metabolic Profon [id number] [Mass/Vol] 4.0 g/dLNormal3.5-5.2MFulton County Health Center HospitalComment on above:Performed By: #### UR #### [address] [address] Bobj Developer: Tyler Domingo MD [address] [place] [address] Bobj Developer: Tevin Gupta MDAlbumin/Glob Ratio1.3Zchrkp6.0-2.5German HospitalComment on above:Performed By: #### URC #### [address] [address] Bobj Developer: Tyler Domingo MD [facility] [address] [place] [address] [place] [address] Bobj Developer: Negar Malhotrakaline Phos98 U/KKvetfy22-931NhjzdGerman HospitalComment on above:Performed By: #### URC #### [address] [address] Bobj Developer: Tyler Domingo MD [address] [place] [address] Bobj Developer: Tevin Gupta MDALT [Catalytic activity/Vol]12 U/LNormal5-33German HospitalComment on above:Performed By: #### URC #### [facility] [address] [place] [address] Bobj Developer: Tyler Domingo MD [facility] [address] [place] [address] Dr. [place] [id number] Bobj Developer: Tevin Gupta MDAnion gap [Moles/Vol]10 mmol/LNormal9-17German HospitalComment on above:Performed By: #### URC #### [facility] [address] [place] [address] Bobj Developer: Tyler Domingo MD [address] [place] [address] Bobj Developer: Tevin Gupta MDAST [Catalytic activity/Vol]19 U/LNormal<32German HospitalComment on above:Performed By: #### URC #### [facility] [address] [place] [address] Bobj Developer: Tyler Domingo MD [address] [place] [address] Bobj Developer: Tevin Gupta MDBilirubin [Mass/Vol]0.3 mg/dLNormal0.3-1.2Mer[facility]. Sinai HospitalComment on above:Performed By: #### URC #### [facility] [address] [place] [address] Bobj Developer: Tyler Domingo MD [address] [place] [address] Bobj Developer: Tevin Gupta MDBUN/CRE Largw47Wvpuqw9-41Utbjv [facility] Comment on above:Performed By: #### URC #### [facility] [address] [place] [address] Bobj Developer: Tyler Domingo MD [address] [place], [place] 43[address]783 Bobj Developer: YUNIEL Malhotraalcium [Mass/Vol]8.8 mg/dLNormal8.6-10.4[facility] HospitalComment on above:Performed By: #### URC #### [facility] [address] [place] [address] Bobj Developer: Tyler Domingo MD [address] [place], [place] 532[address]83 Bobj Developer: YUNIEL Malhotrahloride [Moles/Vol]102 mmol/VPopjju23-511Qzpni Tiffin HospitalComment on above:Performed By: #### URC #### [facility] [address] [place] [address] Bobj Developer: Tyler Domingo MD [address] [place], [place] 8[address]83 Bobj Developer: YUNIEL MalhotraO2 [Moles/Vol]26 mmol/LMutqbm19-33Tefph Tiffin HospitalComment on above:Performed By: #### URC #### [facility] [address] [place] [address] Bobj Developer: Tyler Domingo MD [address] [place], [place] 7894[address] Bobj Developer: YUNIEL Malhotrareatinine [Mass/Vol]0.7 mg/dLNormal0.5-0.9[facility] HospitalComment on above:Performed By: #### URC #### [facility] [address] [place] [address] Bobj Developer: Tyler Domingo MD [address] [place], [place] 033[address]83 Bobj Developer: Tevin Gupta MDGFR/1.73 sq M.predicted among non-blacks MDRD (S/P/Bld) [Vol rate/Area]mL/min/{1.73_m2}Normal>60MerThe Institute of LivingComment on above:Result Comment: These results are not intended for use in patients <18 years of age. eGFR results are calculated without a race factor using the 2020 CKD-EPI equation. Careful clinical correlation is recommended, particularly when comparing to results calculated using previous equations. The CKD-EPI equation is less accurate in patients with extremes of muscle mass, extra-renal metabolism of creatine, excessive creatine ingestion, or following therapy that affects renal tubular secretion.Performed By: #### URC #### [address] [address] Bobj Developer: Tyler Domingo MD [address] [place] [address] Bobj Developer: Tevin Gupta MDGlucose [Mass/Vol]70 mg/oIRmytty62-83Fmjcc Augusta HospitalComment on above:Performed By: #### URC #### [address] [address] Bobj Developer: Tyler Domingo MD [address] [place] [address] Bobj Developer: Tevin Gupta MDPotassium [Moles/Vol]4.6 mmol/LNormal3.7-5.3Mohiohealth o'bleness hospitaly Augusta HospitalComment on above:Performed By: #### URC #### [address] [address] Bobj Developer: Tyler Domingo MD [address] [place] [address] Bobj Developer: Tevin Gupta MDProtein [Mass/Vol]7.5 g/dLNormal6.4-8.3Mohiohealth o'bleness hospitaly Augusta HospitalComment on above:Performed By: #### URC #### [address] [address] Bobj Developer: Tyler Domingo MD [facility] [address] [place] [address] Dr. [place], [place] [phone] Bobj Developer: LEE Malhotraodium [Moles/Vol]138 mmol/CGwdlwa826-138LgwwlGerman HospitalComment on above:Performed By: #### URC #### [facility] [address] [place], [place] [id number] Bobj Developer: Tyler Domingo MD [facility] [address] [place] [address] [place], [place] [address] Bobj Developer: Tevin Gupta MDUrea nitrogen [Mass/Vol]14 mg/dLNormal6-20German HospitalComment on above:Performed By: #### URC #### [facility] [address] [place] [address] Bobj Developer: Tyler Domingo MD [address] [place] [address] Bobj Developer: Tevin Gupta [facility] – FAIRFAXomprehensive Metabolic Panelon 52-74-2730Wpuxbjx [Mass/Vol]4.0 g/dL3.5 - 5.2 g/dLBON NAVAL [facility] HEALTHAlbumin/Globulin [Mass ratio]1.1 {ratio}1.0 - 2.5BON SECOCEAN BEACH HOSPITALY HEALTHALP [Catalytic activity/Vol]98 U/L35 - 104 U/LBON SECELIZABETH HOSPITAL HEALTHALT [Catalytic activity/Vol]12 U/L5 - 33 U/LBON SECOURS MERCY HEALTHAnion gap [Moles/Vol]10 mmol/L9 - 17 mmol/LBON SECOURS GALION HOSPITALY HEALTHAST [Catalytic activity/Vol]19 U/LNINF - 32 U/LBON SECOURS GALION HOSPITALY HEALTHBilirubin [Mass/Vol]0.3 mg/dL0.3 - 1.2 mg/dLBON SECELIZABETH HOSPITAL HEALTH Calcium [Mass/Vol]8.8 mg/dL8.6 - 10.4 mg/dLBON SECOURS GALION HOSPITALY HEALTHChloride [Moles/Vol]102 mmol/L98 - 107 mmol/LBON SECOURS GALION HOSPITALY HEALTHCO2 [Moles/Vol]26 mmol/L20 - 31 mmol/LBON S[facility] MEDICAL CENTERCreatinine [Mass/Vol]0.7 mg/dL0.5 - 0.9 mg/dLBON SOUTHERN OHIO MEDICAL CENTEREst, Glom Filt Rate- PINFBON SOUTHERN OHIO MEDICAL CENTERComment on above: These results are not intended for use in patients <18 years of age. eGFR results are calculated without a race factor using the 2020 CKD-EPI equation. Careful clinical correlation is recommended, particularly when comparing to results calculated using previous equations. The CKD-EPI equation is less accurate in patients with extremes of muscle mass, extra-renal metabolism of creatine, excessive creatine ingestion, or following therapy that affects renal tubular secretion. Glucose [Mass/Vol]70 mg/dL70 - 99 mg/dLBON [facility] HEALTHPotassium [Moles/Vol]4.6 mmol/L3.7 - 5.3 mmol/LBON [facility] HEALTHProtein [Mass/Vol] 7.5 g/dL6.4 - 8.3 g/dLBON SOUTHERN [facility] MEDICAL CENTERSodium [Moles/Vol]138 mmol/L135 - 144 mmol/LBON SOUTHERN [facility]IO MEDICAL CENTERUrea nitrogen [Mass/Vol]14 mg/dL6 - 20 mg/dL BON [facility] MEDICAL CENTERUrea nitrogen/Creatinine [Mass ratio]20 mg/mg9 - 20BON [facility] CENTERBON SOUTHER[facility] MEDICAL CENTERHCG, Quanton [id number], Quant 353.0 mIU/mLHigh<5German HospitalComment on above:Result Comment: Non-preg premeno <=5 Postmeno <=8 Male <=3 If HCG results do not concur with clinical observations, additional testing to confirm results is recommended.Performed By: #### BHCG #### [facility] [address] [place] [address] Bobj Developer: Tevin Gupta MDHIV Ag/Abon 11-56-6164QES Ag/AbNon-ReactiveNormal NRGerman HospitalComment on above:Result Comment: No laboratory evidence of HIV infection. If acute HIV infection is suspected, consider testing for HIV-1 RNA.Performed By: #### URC #### [facility] [address] [place] [address] Bobj Developer: Tyler Domingo MD [address] [place] [address] Bobj Developer: Tevin Gupta MDHIV Screenon [id number] 1+2 Ab+HIV1 p24 Ag IA QlNon-ReactiveNONREACTIVEInova Health System on above:No laboratory evidence of HIV infection. If acute HIV infection is suspected, consider testing for HIV-1 RNA. [facility]ICAL CENTERHep C Abon [id number] C AbNon-ReactiveNormalNRHenry County Hospital on above:Result Comment: The hepatitis C procedure used in our laboratory is a Chemiluminescent test specific for three recombinant HCV antigens. A negative anti-HCV result indicates that the antibodies to hepatitis C virus are not present at this time. Individuals with reactive anti-HCV should be considered infected and infectious until proven otherwise. Confirmation of all equivocal or reactive results is recommended by ordering HCV RNA by PCR.Performed By: #### URC #### [address] [address] Bobj Developer: Tyler Domingo MD [address] [place] [address] Bobj Developer: Tevin Gupta MDHepatitis C Antibodyon [id number] Ab IA Ql Non-ReactiveNONREACTIVEInova Health System on above: The hepatitis C procedure used in our laboratory is a Chemiluminescent test specific for three recombinant HCV antigens. A negative anti-HCV result indicates that the antibodies to hepatitis C virus are not present at this time. Individuals with reactive anti-HCV should be considered infected and infectious until proven otherwise. Confirmation of all equivocal or reactive results is recommended by ordering HCV RNA by PCR. [facility] [employer] CoPRENATAL TYPE AND SCREENon [id number] and Rh group Nom (Bld)Blood group O Rh(D) positiveRIVERSIDE REGIONAL MEDICAL CENTERBlood group antibodies identified NomNegativeBATH COMMUNITY HOSPITALPrenatal Profileon 04-23-2024T.pallidum Ab ScreenNon-[facility] Geaug[facility] Medical CenterComment on above:Result Comment: T. pallidum antibodies are not detected. There is no serological evidence of infection with T. pallidum (early primary syphilis cannot be excluded). Retest in 2-4 weeks if syphilis is clinically suspect.Performed By: #### PRENAT #### [address] [address] Bobj Developer: Tyler Domingo MD [address] [place] [address] Bobj Developer: Kurt Malhotra B Surf AgNon-[facility] Hospitals Geauga Medical CenterComment on above:Performed By: #### PRENAT #### [address] [address] Bobj Developer: Tyler Domingo MD [address] [place] [phone] Bobj Developer: Cristo Malhotra Ab, IgG11.5 IU/mLNormalGerman HospitalComment on above:Result Comment: <10 NON REACTIVE Negative for Anti-Rubella IgG >=10 REACTIVE Positive for Anti Rubella IgG The presence of IgG antibody to Rubella virus is an indication of previous exposure either by prior infection or vaccination.Performed By: #### PRENAT #### [address] [address] Bobj Developer: Tyler Domingo MD [address] [place] [address] Bobj Developer: MDAbs. Roscoe Basophil0.05 k/uLNormal0.00-0.20German HospitalComment on above:Performed By: #### PRENAT #### [address] [address] Bobj Developer: Tyler Domingo MD [address] [place], [place] [address] Bobj Developer: MDAbs. RoscoeImm.Granulocyte<0.55Gjyvyg6.00-0.30[facility] Healthcare HospitalComment on above:Performed By: #### PRENAT #### [facility] [place] [address] Bobj Developer: Tyler Domingo MD [address] [place] [address] Bobj Developer: MDAbs. RoscoeNeutrophil (Seg)5.92 k/uLNormal1.50-8.10[facility] Healthcare HospitalComment on above:Performed By: #### PRENAT #### [address] [address] Bobj Developer: Tyler Domingo MD [address] [place] [address] Bobj Developer: Tevin Gupta MDBasophils/100 WBC (Bld)1 %Normal0-2Mohiohealth o'bleness hospitaly Augusta HospitalComment on above:Performed By: #### PRENAT #### [place] [address] Bobj Developer: Tyler Domingo MD [address] [place] [address] Bobj Developer: Tevin Gupta MDEosinophils (Bld) [#/Vol]0.18 10*3/uLNormal 0.00-0.44Uk Healthcare HospitalComment on above:Performed By: #### PRENAT #### [address] [address] Bobj Developer: Tyler Dominog MD [address] [place] [address] Bobj Developer: Tevin Gupta MDEosinophils/100 WBC (Bld)2 %Normal1-4Uk Healthcare HospitalComment on above:Performed By: #### PRENAT #### [address] [address] Bobj Developer: Tyler Domingo MD [address] [place] [id number] Bobj Developer: Tevin Gupta MDErythrocyte distribution width (RBC) [Ratio]13.2 % Ndttfr70.8-14.4German HospitalComment on above:Performed By: #### PRENAT #### [address] [address] Bobj Developer: Tyler Domingo MD [address] [place] 3934783 Bobj Developer: Tevin Gupta MDHematocrit (Bld) [Volume fraction]40.5 %Normal 36.3-47.1MClinton Memorial HospitalComment on above:Performed By: #### PRENAT #### [address] [address] Bobj Developer: Tyler Domingo MD [address] [place] 3934783 Bobj Developer: Tevin Gupta MDHemoglobin (Bld) [Mass/Vol]13.4 g/dLNormal 11.9-15.1MClinton Memorial HospitalComment on above:Performed By: #### PRENAT #### [address] [address] Bobj Developer: Tyler Domingo MD [address] [place] [id number] Bobj Developer: Tevin Gupta MDImmature granulocytes/100 WBC (Bld)0 %Gsmiqi7GowbiGerman HospitalComment on above:Performed By: #### PRENAT #### [address] [address] Bobj Developer: Tyler Domingo MD [address] [place]os [facility] Bobj Developer: Tevin Gupta MDLymphocytes (Bld) [#/Vol]2.08 10*3/uLNormal 1.10-3.70German HospitalComment on above:Performed By: #### PRENAT #### [address] [address] Bobj Developer: Tyler Domingo MD [address] [place] [address] Bobj Developer: Rashawn Malhotramphocytes/100 WBC (Bld)23 %Adx87-96SbczeGerman HospitalComment on above:Performed By: #### PRENAT #### [address] [address] Bobj Developer: Tyler Domingo MD [address] [place] [address] Bobj Developer: ZEINA Malhotra (RBC) [Entitic mass]28.9 qzAcfhmp60.2-33.5 German HospitalComment on above:Performed By: #### PRENAT #### [address] [address] Bobj Developer: Tyler Domingo MD [address] [place] [address] Bobj Developer: ZEINA MalhotraC (RBC) [Mass/Vol]33.1 g/hUUvwxpb72.4-34.8German HospitalComment on above:Performed By: #### PRENAT #### [address] [address] Bobj Developer: Tyler Domingo MD [address] [place], [place] [address]83 Bobj Developer: OLY MalhotraCV (RBC) [Entitic vol]87.5 rRXiivtf53.6-102.9 [facility] Augusta HospitalComment on above:Performed By: #### PRENAT #### [facility] [address] [place] [address] Bobj Developer: Tyler Domingo MD [address] [place], [place] 9582183 Bobj Developer: Tevin Gupta MDMonocytes (Bld) [#/Vol]0.65 10*3/uLNormal0.10-1.20 German HospitalComment on above:Performed By: #### PRENAT #### [address] [address] Bobj Developer: Tyler Domingo MD [address] [place] 3934783 Bobj Developer: Tevin Gupta MDMonocytes/100 WBC (Bld)7 %Normal3-12German HospitalComment on above:Performed By: #### PRENAT #### [address] [address] Bobj Developer: Tyler Domingo MD [address] [place] 3934783 Bobj Developer: Tevin Gupta MDNeutrophil (Seg)67 %Glux43-45ArxqbGerman Hospital Comment on above:Performed By: #### PRENAT #### [address] [address] Bobj Developer: Tyler Domingo MD [facility] [address] [place] [address] [place] [address] Bobj Developer: Tevin Gupta MDNRBC Automated0.0 per 100 WBCNormal0.0German HospitalComment on above:Performed By: #### PRENAT #### [facility] [address] [place] [address] Bobj Developer: Tyler Domingo MD [address] [place] [phone] Bobj Developer: Burke Malhotra mean volume (Bld) [Entitic vol]10.5 fL Normal8.1-13.5German HospitalComment on above:Performed By: #### PRENAT #### [address] [address] Bobj Developer: Tyler Domingo MD [address] [place] [address] Bobj Developer: Deuce Malhotra (Bld) [#/Vol]257 10*3/wSBxarnx929-059 German HospitalComment on above:Performed By: #### PRENAT #### [address] [address] Bobj Developer: Tyler Domingo MD [address] [place] [address] Bobj Developer: AISLINN Malhotra (Bld) [#/Vol]4.63 10*6/uLNormal3.95-5.11German HospitalComment on above:Performed By: #### PRENAT #### [address] [address] Bobj Developer: Tyler Domingo MD [address] [place] [address] Bobj Developer: Tevin Gupta MDLUKE (Bld) [#/Vol]8.9 10*3/uLNormal3.5-11.3MClinton Memorial HospitalComment on above:Performed By: #### PRENAT #### [address] [address] Bobj Developer: Tyler Domingo MD [address] [place] [address] Bobj Developer: Antony Malhotraatal Profile Ion 70-29-0162Tqrvwrohv (Bld) [#/Vol]0.05 10*3/uLBON SECOURS MERCY HEALTHBasophils/100 WBC (Bld)1 %0 - 2 %[facility] HEALTHEosinophils (Bld) [#/Vol]0.18 10*3/uLBON SECOURS MERCY HEALTHEosinophils/100 WBC (Bld)2 %1 - 4 %[facility]ITALY HEALTHErythrocyte distribution width (RBC) [Ratio]13.2 %11.8 - 14.4 %[facility]ITALY HEALTHHBV surface Ag IA QlNon-ReactiveNONREACTIVEBON SECOURS [facility] HEALTHHematocrit (Bld) [Volume fraction]40.5 %36.3 - 47.1 %[facility] HEALTHHemoglobin (Bld) [Mass/Vol]13.4 g/dL11.9 - 15.1 g/dLBON SECOURS HIGHLAND DISTRICT HOSPITALImmature granulocytes (Bld) [#/Vol][facility] HOSPITALImmature granulocytes/100 WBC (Bld)0 %0B[facility] G[facility] HOSPITALY HEALTHInterpretation and review of laboratory resultsAbnormalBON SECOURS MERCY HEALTHLymphocytes/100 WBC (Bld)23 %Low24 - 43 %[facility] HOSPITALY HEALTHLymphocytes/100 WBC (Bld)2.08 %B[facility] SEC[facility] MEM[facility]IAL HOSPITALH (RBC) [Entitic mass]28.9 pg25.2 - 33.5 pgBON SECOURS AULTMAN HOSPITALHC (RBC) [Mass/Vol]33.1 g/dL 28.4 - 34.8 g/dLBON SECOURS AULTMAN HOSPITALV (RBC) [Entitic vol]87.5 fL82.6 - 102.9 fLBON SECOURS MERCY HEALTHMonocytes/100 WBC (Bld)7 %3 - 12 %[facility] HEALTHMonocytes/100 WBC (Bld)0.65 %[facility] HEALTHNeutrophils/100 WBC (Bld)67 %High36 - 65 %[facility] HOSPITALY HEALTHNucleated RBC/100 WBC (Bld) [Ratio]0.0 %0.0 per 100 WBCBON SECOURS [facility]AMPUS HEALTHPlatelet mean volume (Bld) [Entitic vol]10.5 fL8.1 - 13.5 fLRIVERSIDE REGIONAL MEDICAL CENTERPlatelets (Bld) [#/Vol] 257 10*3/uLBON SOUTHERN OHIO MEDICAL CENTERRBC (Bld) [#/Vol]4.63 10*6/uL3.95 - 5.11 m/uL R[facility]ERS[facility] REGIONAL MEDICAL CENTERRubella virus IgG IA Ql11.5IU/mLRIVERSIDE REGIONAL MEDICAL [facility]ENTER Comment on above: <10 NON REACTIVE Negative for Anti-Rubella IgG >=10 REACTIVE Positive for Anti Rubella IgG The presence of IgG antibody to Rubella virus is an indication of previous exposure either by prior infection or vaccination. Segmented neutrophils/100 WBC (Bld)5.92 %[facility] REGIONAL MEDICAL CENTERT. pallidum Ab IA Ql (S)Non-ReactiveNONREACTIVERIVERSIDE REGIONAL MEDICAL CENTERComment on above: T. pallidum antibodies are not detected. There is no serological evidence of infection with T. pallidum (early primary syphilis cannot be excluded). Retest in 2-4 weeks if syphilis is clinically suspect. WBC other (Bld) [#/Vol]8.9[facility] Type + Scrnon 56-50-4489Lrfivbmk Type + ScrnNegativeNormalMerThe Institute of LivingComment on above:Performed By: #### URC #### [facility] [address] [place] [address] Bobj Developer: Tyler Domingo MD [facility] [address] [place] [address] Bobj Developer: CT Malhotrarotein / Creatinine Ratio, Urineon 04-23-2024 Creatinine (U) [Mass/Vol]112.1 mg/dL28.0 - 217.0 mg/dLB[facility] Protein (U) [Mass/Vol]6 mg/dLBON SOUTHERN OHIO MEDICAL CENTERComment on above:No normal range established.Urine Total Protein Creatinine Ratio0.050.00 - 0.20B[facility] SURGICAL CENTERProtein,Tot,[place] Uron 18-48-5632Alafqqxoza [Mass/Vol]112.1 mg/jOGvzzws14.0-217.0German HospitalComment on above: Performed By: #### URTPRT #### [facility] [address] [place] [address] Bobj Developer: Tevin Gupta MDTot Prot. Conc.6 mg/dLNormalGerman Hospital Comment on above:Result Comment: No normal range established.Performed By: #### URTPRT #### [facility] [address] [place] [address] Dr[place], [place] 4617283 Bobj Developer: Tevin Gupta MDTP/Cre Ratio0.00Awtuko5.00-0.20German HospitalComment on above:Performed By: #### URTPRT #### [address] [place], [place] 29[address]783 Bobj Developer: Tevin Gupta MDhCG, Quantitative, Pregnancyon 64-75-7930SFO.beta subunit Qn353.0 m[IU]/mLHighNICRITICAL ACCESS HOSPITALComment on above: Non-preg premeno <=5 Postmeno <=8 Male <=3 If HCG results do not concur with clinical observations, additional testing to confirm results is recommended. Interpretation and review of laboratory resultsAbEureka Community Health Services / Avera HealthHC.beta subunit IA 3rd IS Qnon 43-18-2373ZGG.beta subunit Qn124 m[IU]/mLNormalParkwood HospitalComment on above:Result Comment: NEW REFERENCE RANGE WEEKS (SINCE LMP) MIU/mL 3 WEEKS 5 - 50 4 WEEKS 5 - 426 5 WEEKS 18 - 7,340 6 WEEKS 1,080 - 56,500 7-8 WEEKS 7,650 - 229,000 9-12 WEEKS 25,700 - 288,000 13-16 WEEKS 13,300 - 254,000 17-24 WEEKS 4,060 - 165,400 25-40 WEEKS 3,640 - 117,000 MALES AND NON- FEMALES - <5 MIU/mL This test has been FDA approved for use in only. Elevated levels are not necessarily diagnostic for trophoblastic or nontrophoblastic neoplasms. Performed By: #### 94653-8 #### [facility] ([id number]) [address] [place] [address], [address] [place], [place] [address]JIX ( test) Ql (U)on 71-22-6958Ngeg HCG ( test) Ql (U)PositiveAbnormalNEGProCentervilleComment on above:Performed By: #### 2106-3 #### [facility] ([id number]) [address] [place] [address]O. pyogenes Ag Ql (Throat)on 73-18-0312SFVSLN STREP ANegative NormalNEGProCentervilleComment on above:Performed By: #### 91064-6 #### [facility] ([id number]) [address] [place] [address], [address] [place] [address] #### 54131-3 #### [facility] ([id number]) [address] [place] [address]X. pyogenes DNA NAI+probe Nom (Unsp spec)on 71-33-0765HVFSK PCR THROATNegativeNormalNEGProCentervilleComment on above:Result Comment: Streptococcus Group A NOT detected by nucleic acid amplification.Performed By: #### 60225-9 #### [facility] ([id number]) [address] [place] [address], [address] [place] [address] #### 38169-6 #### [facility] ([id number]) [address] [place] [address]NVQQ/FLU A+B/RSV by NAAT/Molecularon 99-20-7929XWQN/FLU A+B/RSV by NAAT/MolecularFLU A PCR Negative (qualifier value) FLU B [...] operators who are performing tests using either ADP DX or [employer] systems and is limited to laboratories that [...] specimen repeat. Fact Sheet for Healthcare Providers: https://www.fda.gov/media/255913/download Fact Sheet for Patients: https://www.fda.gov/media/238120/downloadNormalProMedica Select Medical Ohiohealth Rehabilitation HospitalComment on above:Performed By: #### COVFLR #### [facility] ([id number]) [address] [place] [address]JAI AND AUTO DIFFon 12-11-2691ZYCOTMCR BASOPHIL0.1 X10E9/L Normal0.0-0.2PUpper Valley Medical CenterComment on above:Performed By: #### VAIBHAV, 3040-3, CBCA #### [facility] ([id number]) [address] [place] [address]PXYIOOAW NEUTROPHIL6.6 X10E9/LNormal1.5-6.6Parkwood HospitalComment on above:Performed By: #### VAIBHAV, 3039-3, CBCA #### [facility] ([id number]) [address] [place] [address]Dlmfwrgto/100 WBC (Bld)0.6 %NormalParkwood Hospital Comment on above:Performed By: #### VAIBHAV, 3039-3, CBCA #### [facility] ([id number]) [address] [place] [address]Rbternuucwl (Bld) [#/Vol]0.2 10*3/uLNormal0.0-0.4Parkwood HospitalComment on above:Performed By: #### VAIBHAV, 0-3, CBCA #### [facility] ([id number]) [address] [place] [address]Jrsnojwbjoa/100 WBC (Bld)1.8 %NormalParkwood Hospital Comment on above:Performed By: #### VAIBHAV, 0-3, CBCA #### [facility] ([id number]) [address] [place] [address]Mjzpfspdwya distribution width (RBC) [Ratio]14.2 %Normal 11.5-15.0Parkwood HospitalComment on above:Performed By: #### VAIBHAV, 3039-3, CBCA #### [facility] ([id number]) [address] [place] [address]Amqqedublj (Bld) [Volume fraction]39.3 %Zctfgj78-10GbmRydkgw Fremont HospitalComment on above:Performed By: #### CMP, 3040-3, CBCA #### [facility] ([id number]) [address] [place] [address]Ykkgvtijnd (Bld) [Mass/Vol]13.1 g/vPAaswux17.7-15.5PUpper Valley Medical CenterComment on above:Performed By: #### VAIBHAV, 3040-3, CBCA #### [facility] ([id number]) [address] [place] [address]Tcpvsnlwsdm (Bld) [#/Vol]2.4 10*3/uLNormal1.0-3.5PUpper Valley Medical CenterComment on above:Performed By: #### VAIBHAV, 3040-3, CBCA #### [facility] ([id number]) [address] [place] [address]Qdholjdjxrp/100 WBC (Bld)24.1 %NormalParkwood Hospital Comment on above:Performed By: #### VAIBHAV, 3040-3, CBCA #### [facility] ([id number]) [address] [place] [address]PRG (RBC) [Entitic mass]28.7 umYvhhfs49-15NsgEzknjzBaylor Scott & White Medical Center – HillcrestComment on above:Performed By: #### VAIBHAV, 3040-3, CBCA #### [facility] ([id number]) [address] [place] [address]HOLO (RBC) [Mass/Vol]33.5 g/bFQpleln08-25OjxWbmnboBaylor Scott & White Medical Center – HillcrestComment on above:Performed By: #### CMP, 3040-3, CBCA #### [facility] ([id number]) [address] [place] [address]IDO (RBC) [Entitic vol]86 eIDmaryk12-301MhnVereii Waldron HospitalComment on above:Performed By: #### CMP, 3040-3, CBCA #### [facility] ([id number]) [address] [place] [address] 7[address]Exulvvkmk (Bld) [#/Vol]0.6 10*3/uLNormal0-0.9Parkwood HospitalComment on above:Performed By: #### VAIBHAV, 0-3, CBCA #### [facility] ([id number]) [address] [place] [address] 817[address]Ucvdcrvru/100 WBC (Bld)6.4 %[facility] Comment on above:Performed By: #### VAIBHAV, 0-3, CBCA #### [facility] ([id number]) [address] [place] [address]Nyybcynqgce/100 WBC (Bld)67.1 %[facility] Comment on above:Performed By: #### VAIBHAV, 3040-3, CBCA #### [facility] ([id number]) [address] [place] [address]Bjefhesa mean volume (Bld) [Entitic vol]9.1 fLNormal7-12 Parkwood HospitalComment on above:Performed By: #### VAIBHAV, 3040-3, CBCA #### [facility] ([id number]) [address] [place] [address]Lyqtoelig (Bld) [#/Vol]236 10*3/jUOipubz911-052MxnCjffwn Fremont HospitalComment on above:Performed By: #### VAIBHAV, 3040-3, CBCA #### [facility] ([id number]) [address] [place] [address] 236[address]BBS COUNT4.59 X10E12/LNormal3.80-5.20[facility] Comment on above:Performed By: #### VAIBHAV, 3040-3, CBCA #### [facility] ([id number]) [address] [place] [address]QFI (Bld) [#/Vol]9.8 10*3/uLNormal4.0-11.0ProBaylor Scott & White Medical Center – HillcrestComment on above:Performed By: #### VAIBHAV, 0-3, CBCA #### [facility] ([id number]) [address] [place] [address]FRAIAOSTLEVUL METABOLIC PANELon 39-17-3198Ieyppjp [Mass/Vol]4.1 g/dLNormal3.2-5.3PUpper Valley Medical CenterComment on above:Performed By: #### VAIBHAV, 3040-3, CBCA #### [facility] ([id number]) [address] [place] [address], [place] [address]ILM [Catalytic activity/Vol]94 U/GXwihfn92-382WfrFfiawfBaylor Scott & White Medical Center – HillcrestComment on above:Performed By: #### VAIBHAV, 0-3, CBCA #### [facility] ([id number]) [address] [place] [address], [place] [address]HBD [Catalytic activity/Vol]15 U/LNormal0-31PUpper Valley Medical CenterComment on above:Performed By: #### VAIBHAV, 3040-3, CBCA #### [facility] ([id number]) [address] [place] [address], [place] [address]Npxrd gap [Moles/Vol]9 mmol/LNormal5-15ProBaylor Scott & White Medical Center – HillcrestComment on above:Performed By: #### VAIBHAV, 3040-3, CBCA #### [facility] ([id number]) [address] [place] [address], [place] [address]IZR [Catalytic activity/Vol]22 U/LNormal0-41ProRegional Medical Center HospitalComment on above:Performed By: #### VAIBHAV, 3040-3, CBCA #### [facility] ([id number]) [address] [place] [address], [place] [address]Mtiltzxxt [Mass/Vol]0.8 mg/dLNormal0.3-1.2PUpper Valley Medical CenterComment on above:Performed By: #### VAIBHAV, 3040-3, CBCA #### [facility] ([id number]) [address] [place] [address], [place] [address]Bdppkpy [Mass/Vol]8.9 mg/dLNormal8.5-10.5PUpper Valley Medical CenterComment on above:Performed By: #### VAIBHAV, 0-3, CBCA #### [facility] ([id number]) [address] [place] [address], [place] [address]Gxuojnro [Moles/Vol]104 mmol/XSkddyv80-938XzmSwgzigParkwood HospitalComment on above:Performed By: #### VAIBHAV, 3040-3, CBCA #### [facility] ([id number]) [address] [place] [address], [place] [address]KF0 [Moles/Vol]24 mmol/SBnnjpr99-04VveHkdfgkUpper Valley Medical Center Comment on above:Performed By: #### VAIBHAV, 3040-3, CBCA #### [facility] ([id number]) [address] [place] [address], [place] [address]Xttvxzvukd [Mass/Vol]0.67 mg/dLNormal0.40-1.00ProBaylor Scott & White Medical Center – HillcrestComment on above:Result Comment: METHOD TRACEABLE TO IDMS STANDARD Performed By: #### VAIBHAV, 3040-3, CBCA #### [facility] ([id number]) [address] [place] [address] 24990hLIL (CKD-EPI) NON-RACE DEPENDENT>90Normal>59ProBaylor Scott & White Medical Center – HillcrestComment on above:Result Comment: Reported eGFR is based on the CKD-EPI 2020 equation that does not use a race coefficient.Performed By: #### VAIBHAV, 3040-3, CBCA #### [facility] ([id number]) [address] [place] [address], [place] [address]Pxlidcl [Mass/Vol]112 mg/uDLwfw48-33EefZtxxioBaylor Scott & White Medical Center – Hillcrest Comment on above:Performed By: #### VAIBHAV, 3040-3, CBCA #### [facility] ([id number]) [address] [place] [address], [place] [address]Atiteqvmb [Moles/Vol]3.4 mmol/LLow3.5-5.0ProBaylor Scott & White Medical Center – HillcrestComment on above:Performed By: #### VAIBHAV, 3039-3, CBCA #### [facility] ([id number]) [address] [place] [address], [place] [address]Khickqn [Mass/Vol]8.0 g/dLNormal6.0-8.0ProBaylor Scott & White Medical Center – HillcrestComment on above:Performed By: #### VAIBHAV, 3040-3, CBCA #### [facility] ([id number]) [address] [place] [address], [place] [address]Nlaqew [Moles/Vol]137 mmol/AGqvvdl343-059PiiUuztng Fremont HospitalComment on above:Performed By: #### VAIBHAV, 3039-3, CBCA #### [facility] ([id number]) [address] [place] [address], [place] [address]Pqka nitrogen [Mass/Vol]12 mg/dLNormal5-23ProBaylor Scott & White Medical Center – HillcrestComment on above:Performed By: #### VAIBHAV, 3040-3, CBCA #### [facility] ([id number]) [address] [place] [address], [place] [address]HON ( test) Ql (U)on 51-58-7803Kdvn HCG ( test) Ql (U)NegativeNormalNEGProBaylor Scott & White Medical Center – HillcrestComment on above: Performed By: #### 2106-3 #### [facility] ([id number]) [address] [facility], [place], [place] [address]JIWEGYsq 74-79-9553Dyaare [Catalytic activity/Vol]33 U/LNormal 17-40ProMedica [facility]amb[facility] Hospital Medical CenterComment on above:Performed By: #### CMP, 3040-3, CBCA #### [facility] ([id number]) [address] [place] [address] 46303DBEO/FLU A+B/RSV by NAAT/Molecularon 10-70-1230FQAN/FLU A+B/RSV by NAAT/MolecularFLU A PCR Negative (qualifier value) FLU B [...] operators who are performing tests using either GeneXParclick.com DX or GeneIm[employer] Infinity systems and is limited to laboratories that [...] specimen repeat. Fact Sheet for Healthcare Providers: https://www.fda.gov/media/557448/download Fact Sheet for Patients: https://www.fda.gov/media/474039/downloadNormalProBaylor Scott & White Medical Center – HillcrestComment on above:Performed By: #### COVFLR #### [facility] ([id number]) [address] [place] [address] 43591RNJ MACROSCOPIC NURon 32-49-3223RZVCSEOBA NURNegativeNormalNEG Parkwood HospitalComment on above:Performed By: #### NUM #### [facility] ([id number]) [address] [place] [address] 21799LJMPY/HGB NURNegativeNormalNEGProBaylor Scott & White Medical Center – HillcrestComment on above:Performed By: #### NUM #### [facility] ([id number]) [address] [place] [address] 20639ZNBJDYR NURNegativeNormalNEGParkwood HospitalCommclaren oakland on above:Performed By: #### NUM #### [facility] ([id number]) [address] [place] [address] 876[address]MVTZOMN NURNegativeNormalNEGProBaylor Scott & White Medical Center – HillcrestCommclaren oakland on above:Performed By: #### NUM #### [facility] ([id number]) [address] [place] [address] 06263VQCHGMZRB ESTERASE NURTraceAbnormalNEGParkwood HospitalCommclaren oakland on above:Performed By: #### NUM #### [facility] ([id number]) [address] [place] [address] 20393WMBTQMK NURNegativeNormalNEGProBaylor Scott & White Medical Center – HillcrestComment on above:Performed By: #### NUM #### [facility] ([id number]) [address] [place] [address] 99055HU NUR6.2Hznjry5.0-8.5PUpper Valley Medical CenterComment on above:Performed By: #### NUM #### [facility] ([id number]) [address] [place] [address] [id number] NURNegativeNormalNEGProBaylor Scott & White Medical Center – HillcrestComment on above:Performed By: #### NUM #### [facility] ([id number]) [address] [place] [address] [id number] GRAVITY CASSY>=1.184Hqafma1.003-1.035ProBaylor Scott & White Medical Center – HillcrestComment on above:Performed By: #### NUM #### [facility] ([id number]) [address] [place] [address] [id number] NUR0.2 eu/dLNormal<1.1PUpper Valley Medical Center Comment on above:Performed By: #### NUM #### [facility] ([id number]) [address] [place] [address] [id number] URINEon [id number] URINEIsolate 1 Escherichia coli >100,000 cfu/mL of ORGANISM 1 Escherichia coli ANTIBIOTIC M.I.C RX STATUS Ampicillin >=32 R F Ampicillin/Sulbactam 8 S F Piperacillin/Tazobactam <=4 S F Cefazolin <=4 S F Ceftazidime <=1 S F Ceftriaxone <=1 S F Ertapenem <=0.5 S F Imipenem <=0.25 S F Amikacin <=2 S F Gentamicin <=1 S F Tobramycin <=1 S F Ciprofloxacin <=0.25 S F Levofloxacin 0.5 S F Nitrofurantoin 32 S F Trimethoprim/Sulfamethoxazole <=20 S FNOhioHealth Grady Memorial HospitalComment on above:Performed By: #### DAJA PIZARRO #### [facility] [address] [address] [address] Zaheer Andrew AUTO DIFFon [id number] #0.0 103/ulNormal0.0-0.1The [facility] Medical CenterComment on above:Performed By: #### LESLIE PHOENIX UMICRO #### [facility] [address] [address] [address] Zaheer BridgesBasophils/100 WBC (Bld)0.2 %Normal0.2-2.0The [facility] Comment on above:Performed By: #### LESLIE PHOENIX UMICRO #### [facility] [address] [place] [address] Dr. Schwab ChangEGerda #0.1 103/ulNormal0.0-0.7The [facility] Medical CenterComment on above: Performed By: #### LESLIE PHOENIX UMICRO #### [facility] [address] [address] [address] Zaheer Roqueosinophils/100 WBC (Bld)0.7 %Critically low0.9-7.0The [facility] Medical CenterComment on above:Performed By: #### LESLIE PHOENIX UMICRO #### [facility] [address] [place] [address] Dr. Zaheer Roquerythrocyte distribution width (RBC) [Ratio]14.6 %Ylumpy93.0-15.0 The [facility] CenterComment on above:Performed By: #### JONO PHOENIXU UMICRO #### [facility] [address] [place] [address] Dr. Zaheer BridgesHematocrit (Bld) [Volume fraction]36.3 %Ruhasa71.0-48.0The [facility] CenterComment on above:Performed By: #### LIZETT PREGU, UMICRO #### [facility] [address] [place] [address] Dr. Zaheer BridgesHemoglobin (Bld) [Mass/Vol]12.0 g/cZZbhdph97.0-16.0The [facility] CenterComment on above:Performed By: #### ERUR, PREGU, UMICRO #### [facility] [address] [address] [address] Zaheer Ramirez #0.07 10e3/ulCritically high0.00-0.03The [facility] Comment on above:Performed By: #### ERUR, PREGU, UMICRO #### [facility] [address] [place] [address] Dr. Zaheer Ramirez %0.5 %Normal0.0-0.5The [facility] CenterComment on above: Performed By: #### ERUR, PREGU, UMICRO #### [facility] [address] [place] [address] Dr. Zaheer Hanks #1.4 103/ulNormal1.2-3.8The [facility] CenterComment on above:Performed By: #### ERUR, PREGU, UMICRO #### [facility] [address] [place] [address] Dr. Zaheer Flanneryhocytes/100 WBC (Bld)9.4 %Critically low20.5-60.0The [facility] CenterComment on above:Performed By: #### ERUR, PREGU, UMICRO #### [facility] [address] [place] [address] Dr. Zaheer ChowdhuryUAL DIFF REQNONormalThe [facility] CenterComment on above: Performed By: #### ERUR, PREGU, UMICRO #### [facility] [address] [place] [address] Dr. Zaheer BridgesNICHOLAS [facility] (RBC) [Entitic mass]27.4 czRdcjbf68.7-34.0The [facility] CenterComment on above:Performed By: #### ERUR, PREGU, UMICRO #### [facility] [address] [place] [address] Dr. Zaheer Layton (RBC) [Mass/Vol]33.1 g/gMQhfzot50.9-35.2The [facility] CenterComment on above:Performed By: #### MARYSOLR PREGU, UMICRO #### [facility] [address] [address] [address] Zaheer Barros (RBC) [Entitic vol]82.9 iLNepdrp00.0-99.0The [facility] CenterComment on above:Performed By: #### ERUR, PREGU, UMICRO #### [facility] [address] [address] [address] Zaheer Hutchins #1.1 103/ulCritically high0.3-0.8The [facility] Comment on above:Performed By: #### ERUR, PREGU, UMICRO #### [facility] [address] [place] [address] Dr. Zaheer Heatonocytes/100 WBC (Bld)6.9 %Normal1.7-12.0[facility] Comment on above:Performed By: #### LIZETT PREGU, UMICRO #### [facility] [address] [place] [address] Dr. Zaheer Chase #12.7 103/ulCritically high1.4-6.5The [facility] Comment on above:Performed By: #### MARYSOLR, PREGU, UMICRO #### [facility] [address] [place] [address] Dr. Zaheer Reynoldsutrophils/100 WBC (Bld)82.3 %Critically high43.0-75.0The [facility] CenterComment on above:Performed By: #### ERUR, PREGU, UMICRO #### [facility] [address] [place] [address] Dr. Zaheer Sololet mean volume (Bld) [Entitic vol]9.7 fLNormal9.5-13.5The [facility] CenterComment on above:Performed By: #### ERUR, PREGU, UMICRO #### [facility] [address] [place] [address] Dr. Zaheer BridgesPLT227 103/puNjfvdn045-814Zlh [facility] CenterComment on above: Performed By: #### ERUR, PREGU, UMICRO #### [facility] [address] [place] [address] Dr. Zaheer BridgesRBC4.38 106/ulNormal4.20-5.40The [facility] CenterComment on above:Performed By: #### ERUR, PREGU, UMICRO #### [facility] [address] [place] [address] Dr. Zaheer BridgesWBC15.4 103/ulCritically high4.0-11.0The [facility] CenterComment on above:Performed By: #### ERUR, PREGU, UMICRO #### [facility] [address] [place] [address] Dr. Zaheer Kiran URINE PROFILEon 80-15-1007Yxvdywsns Ql (U)NegativeNormal NEGATIVEKettering Health Main CampusComment on above:Performed By: #### ERUR, PREGU, UMICRO #### [facility] [address] [place] [address] Dr. Zaheer Emarity (U)CLEARNormalCLEARThe [facility] CenterComment on above: Performed By: #### ERUR, PREGU, UMICRO #### [facility] [address] [place] [address] Dr. Zaheer Mcdowell (U)LT. YELLOWNormalYELLOWKettering Health Main CampusComment on above:Performed By: #### ERUR, PREGU, UMICRO #### [facility] [address] [place] [address] Dr. Zaheer BoseDA micrscopic examination will be performed if indicated. NormalThe [facility] CenterComment on above:Performed By: #### ERUR, PREGU, UMICRO #### [facility] [address] [place] [address] Dr. Zaheer BridgesGlucose Ql (U)NegativeNormalNEGATIVEKettering Health Main CampusComment on above:Performed By: #### ERUR, PREGU, UMICRO #### [facility] [address] [place] [address] Dr. Yilan ChangHemoglobin Ql (U)TRACE-INTACTAbnormalNEGATIVEThe [facility] CenterComment on above:Performed By: #### ERUR, PREGU, UMICRO #### [facility] [address] [address] [address] Zaheer BridgesKetones Ql (U)NegativeNormalNEGATIVEThe [facility] CenterComment on above:Performed By: #### ERUR, PREGU, UMICRO #### [facility] [address] [place] [address] Dr. Zaheer BridgesLEUKOCYTESLARGEAbnormalNEGATIVEThe [facility] CenterComment on above:Performed By: #### ERUR, PREGU, UMICRO #### [facility] [address] [place] [address] Dr. Zaheer BridgesNitrite Ql (U)PositiveAbnormalNEGMiami Valley Hospital Comment on above:Performed By: #### ERUR, PREGU, UMICRO #### [facility] [address] [place] [address] Dr. Zaheer BridgespH (U)7.0 [pH]Normal5-9The [facility] CenterComment on above: Performed By: #### ERUR, PREGU, UMICRO #### [facility] [address] [place] [address] Dr. Zaheer BridgesSPEC GRAVITY1.750Kdniey9.005-<=1.025The [facility] CenterComment on above:Performed By: #### ERUR, PREGU, UMICRO #### [facility] [address] [place] [address] Dr. Zaheer Hartmann PROTEINNegativeNormalNEGATIVE/ TRACEThe [facility] Comment on above:Performed By: #### ERUR, PREGU, UMICRO #### [facility] [address] [place] [address] Dr. Zaheer BridgesUR MICRO INDINDICATEDNormalThe [facility] CenterComment on above: Performed By: #### ERUR, PREGU, UMICRO #### [facility] [address] [place] [address] Dr. Zaheer BridgesUrobilinogen Qn (U)0.2 {Tereza'U}/dLNormal0.2 - 1.0The [facility] CenterComment on above:Performed By: #### ERUR, PREGU, UMICRO #### [facility] [address] [address] [address] Zaheer BridgesPREGNANCY URon [id number], QUALNegativeNormalNEGATIVEThe [facility] CenterComment on above:Performed By: #### ERUR, PREGU, UMICRO #### [facility] [address] [place] [address] Dr. Zaheer BridgesPROF CHEM 8 (BAS METB)on 99-85-5823Nkvfm gap [Moles/Vol]12.4 mmol/LNormalThe [facility] CenterComment on above:Performed By: #### ERUR, PREGU, UMICRO #### [facility] [address] [place] [address] Dr. Zaheer BridgesCalcium [Mass/Vol]9.1 mg/dLNormal8.5-10.1The [facility] Comment on above:Performed By: #### ERUR, PREGU, UMICRO #### [facility] [address] [place] [address] Dr. Zaheer BridgesChloride [Moles/Vol]104 mmol/OVjoxmd41-945Gaa [facility] Comment on above:Performed By: #### ERUR, PREGU, UMICRO #### [facility] [address] [place] [address] Dr. Zaheer BridgesCO2 [Moles/Vol]28.0 mmol/IBzlcxz22.0-32.0The [facility] Comment on above:Performed By: #### ERUR, PREGU, UMICRO #### [facility] [address] [place] [address] Dr. Zaheer BridgesCreatinine [Mass/Vol]0.82 mg/dLNormal0.55-1.02The [facility] CenterComment on above:Performed By: #### ERUR, PREGU, UMICRO #### [facility] [address] [address] [address] Zaheer RoqueGFR-AF ZIMBABWEAN>60Normal>=60The [facility] CenterComment on above:Performed By: #### ERUR, PREGU, UMICRO #### [facility] [address] [address] [address] Zaheer RoqueGFR-NON AF ZIMBABWEAN>60Normal>=60The [facility] CenterComment on above:Performed By: #### ERUR, PREGU, UMICRO #### [facility] [address] [address] [address] Zaheer BridgesGlucose [Mass/Vol]95 mg/pEMzwlzy17-924Yso [facility] Comment on above:Performed By: #### ERUR, PREGU, UMICRO #### [facility] [address] [address] [address] Zaheer BridgesPotassium [Moles/Vol]3.4 mmol/LCritically low3.5-5.1The [facility] CenterComment on above:Performed By: #### ERUR, PREGU, UMICRO #### [facility] [address] [address] [address] Zaheer BridgesSodium [Moles/Vol]141 mmol/GPgnoae450-114Phs [facility] Comment on above:Performed By: #### ERUR, PREGU, UMICRO #### [facility] [address] [address] [address] Zaheer BridgesUrea nitrogen [Mass/Vol]11.0 mg/dLNormal7.0-18.0The [facility] CenterComment on above:Performed By: #### ERUR, PREGU, UMICRO #### [facility] [address] [place] [address] Dr. Zaheer BridgesUrea nitrogen/Creatinine [Mass ratio]13.4 mg/mgNormalThe [facility] CenterComment on above:Performed By: #### ERUR, PREGU, UMICRO #### [facility] [address] [place] [address] Dr. Zaheer Collins MICROSCOPIC ONLYon 18-65-6973XIYYASPNHPRLLMrebnjucZUBU SEEN The [facility] on above:Performed By: #### ERUR, PREGU, UMICRO #### [facility] [address] [address] [address] Zaheer Anderson identified Cx Nom (U)INDICATEDNoalThSalem City HospitalCommclaren oakland on above:Performed By: #### ERUR, PREGU, UMICRO #### [facility] [address] [address] [address] Zaheer BridgesCASTNONE SEENNormalNONE SEENCleveland Clinic Foundation on above:Performed By: #### ERUR, PREGU, UMICRO #### [facility] [address] [address] [address] Zaheer Caroystals LM Nom (Urine sed)NONE SEENNormalNONE SEENThe [facility] on above:Performed By: #### ERUR, PREGU, UMICRO #### [facility] [address] [address] [address] Schwab ChangEpithelial cells LM Ql (Urine sed)FEWAbnormalNONE SEEN /RAREThe [facility] on above:Performed By: #### ERUR, PREGU, UMICRO #### [facility] [address] [address] [address] Zaheer OconnorCOUSNONE SEENNormalNONE SEENCleveland Clinic Foundation on above:Performed By: #### ERUR, PREGU, UMICRO #### [facility] [address] [address] [address] Zaheer BridgesNquxlQSE1-88Cyryzyku8-0Skt [facility] on above:Performed By: #### ERUR, PREGU, UMICRO #### [facility] [address] [address] [address] Zaheer BridgesHvcyvVGH56-02LyyrqxrjARZN SEENThe [facility] on above: Performed By: #### ERUR, PREGU, UMICRO #### [facility] [address] [address] [address] Zaheer BridgesXR CSPINE 2_3 VIEWSon [id number] CSPINE 2_3 VIEWSEXAMINATION: XR CSPINE 2_3 VIEWS HISTORY: Unspecified fall [...] Electronically authenticated by: KRISTIE PAULINO Date: 2022-12-11 14:42[facility] A STREP CULTUREon 11-29-2022S. pyogenes Ag Ql (Unsp spec) Culture Observations: NEGATIVE FOR GROUP A STREPTOCOCCUS.NormalThe [facility] CenterComment on above: Performed By: #### LIZETT PREGU UMICRO #### [facility] [address] [place] [address] Dr. Zaheer BridgesPREGNANCY URon [id number], QUALNegativeNormalNEGATIVEThe [facility] CenterComment on above:Performed By: #### LESLIE PHOENIX UMICRO #### [facility] [address] [place] [address] Dr. Zaheer BridgesSTREPT SCREENon [id number] SCREEN ANegativeNormalNEGATIVEThe [facility] CenterComment on above:Performed By: #### LIZETT PREGU, UMICRO #### [facility] [address] [place] [address] Dr. Zaheer BridgesCULTURE URINEon [id number] URINEIsolate 1 Escherichia coli >100,000 cfu/mL of ORGANISM 1 Escherichia coli ANTIBIOTIC M.I.C RX STATUS Ampicillin <=2 S F Ampicillin/Sulbactam <=2 S F Piperacillin/Tazobactam <=4 S F Cefazolin <=4 S F Ceftazidime <=1 S F Ceftriaxone <=1 S F Ertapenem <=0.5 S F Imipenem <=0.25 S F Amikacin <=2 S F Gentamicin <=1 S F Tobramycin <=1 S F Ciprofloxacin <=0.25 S F Levofloxacin <=0.12 S F Nitrofurantoin <=16 S F Trimethoprim/Sulfamethoxazole <=20 S FNormalThe [facility] CenterComment on above:Performed By: #### DAJA PIZARRO #### [facility] [address] [place] [address] Dr. Zaheer Angeld-19 PCR ([facility])on 14-46-5128QZAT-CoV-2 (COVID-19) RNA NAI+probe Ql (Unsp spec)Not detectedNormalNOT DETECTEDThe [facility] Comment on above:Result Comment: This test is not yet approved or cleared by the [place] FDA. When there are no FDA-approved or cleared tests available, and other criteria are met, FDA can make tests available under an emergency access mechanism called an Emergency Use Authorization (EUA). The EUA for this test is supported by the [employer] of Health and Human Service's (HHS's) declaration that circumstances exist to justify the emergency use of in vitro diagnostics for the detection and/or diagnosis of the virus that causes COVID- 19. This EUA will remain in effect (meaning [...] of clinical signs and symptoms consistent with SARS-CoV-2.Performed By: #### LESLIE PHOENIX UMICRO #### [facility] [address] [place] [address] Dr. Zaheer Kiran URINE PROFILEon 20-10-6857Llvulrdbn Ql (U)NegativeNormal NEGATIVEThe [facility] CenterComment on above:Performed By: #### LESLIE PHOENIX UMICRO #### [facility] [address] [place] [address] Dr. Yilan ChangClarity (U)SL CLOUDYAbnormalCLEARThSalem City HospitalComment on above:Performed By: #### ERUR, PREGU, UMICRO #### [facility] [address] [address] [address] Zaheer Mcdowell (U)LT. YELLOWNormalYELLOWKettering Health Main CampusComment on above:Performed By: #### ERUR, PREGU, UMICRO #### [facility] [address] [address] [address] Zaheer Baron micrscopic examination will be performed if indicated. NormalKettering Health Main CampusComment on above:Performed By: #### ERUR, PREGU, UMICRO #### [facility] [address] [address] [address] Zaheer BridgesGlucose Ql (U)NegativeNormalNEGATIVEKettering Health Main CampusComment on above:Performed By: #### ERUR, PREGU, UMICRO #### [facility] [address] [address] [address] Zaheer BridgesHemoglobin Ql (U)MODERATEAbnormalNEGSCCI Hospital [facility] on above:Performed By: #### ERUR, PREGU, UMICRO #### [facility] [address] [address] [address] Zaheer Up Ql (U)NegativeNormalNEGATIVEKettering Health Main CampusComment on above:Performed By: #### ERUR, PREGU, UMICRO #### [facility] [address] [address] [address] Zaheer BridgesLEUKOCYTESSMALLAbnormalNEGATIVEKettering Health Main CampusComment on above:Performed By: #### ERUR, PREGU, UMICRO #### [facility] [address] [address] [address] Zaheer Mckeontrite Ql (U)NegativeNormalNEGATIVEKettering Health Main CampusComment on above:Performed By: #### ERUR, PREGU, UMICRO #### [facility] [address] [address] [address] Zaheer BridgespH (U)5.5 [pH]Normal5-9The [facility] Northment on above: Performed By: #### LESLIE PHOENIX UMICRO #### [facility] [address] [place] [address] Dr. Zaheer BridgesProtein (U) [Mass/Vol]30 mg/dLAbnormalNEGATIVE/ TRACEThe [facility] CenterComment on above:Performed By: #### LESLIE PHOENIX UMICRO #### [facility] [address] [place] [address] Dr. Zaheer BridgesSPEC GRAVITY1.195Tfgthk2.005-<=1.025The [facility] on above:Performed By: #### LESLIE PHOENIX UMICRO #### [facility] [address] [place] [address] Dr. Zaheer Adkins MICRO INDINDICATEDCincinnati Children's Hospital Medical CenterComment on above: Performed By: #### LESLIE PHOENIX UMICRO #### [facility] [address] [place] [address] Dr. Zaheer Resendez Qn (U)0.2 {Tereza'U}/dLNormal0.2 - 1.0[facility] on above:Performed By: #### LESLIE PHOENIX UMICRO #### [facility] [address] [place] [address] Dr. Zaheer GeorgesNZA A AND B AGon [id number] Hospital [place] on above:Result Comment: Negative for Flu A protein angiten. Infection due to Flu A cannot be ruled out. FluA angiten in the sample may be below the detection limit of the test.Performed By: #### LESLIE PHOENIX UMICRO #### [facility] [address] [place] [address] Dr. Zaheer BridgesINFLUBNEGSt. Rita's Hospital on above: Result Comment: Negative for Flu B protein antigen. Infection due to Flu B cannot be ruled out. FluB antigen in the sample may be below the detection limit of the test.Performed By: #### ERUR, PREGU, UMICRO #### [facility] [address] [place] [address] Dr. Zaheer Pineda AGNegativeNormalNEGATIVE SEE COMMENTThe [facility] on above:Performed By: #### ERUR, PREGU, UMICRO #### [facility] [address] [place] [address] Dr. Zhaeer Gilbert AGNegativeNormalNEGATIVE SEE COMMENTThe [facility] on above:Performed By: #### MARYSOLR, PREGU, UMICRO #### [facility] [address] [place] [address] Dr. Zaheer BridgesINTERNAL CONTROLSWithin Normal LimitsNormalWithin Normal Limits The [facility] on above:Performed By: #### MARYSOLR PREGU, UMICRO #### [facility] [address] [place] [address] Dr. Zaheer ReeseANCY URon [id number], QUALNegativeNormalNEGATIVEThe [facility] on above:Performed By: #### MARYSOLR, PREGU, UMICRO #### [facility] [address] [place] [address] Dr. Zaheer Collins MICROSCOPIC ONLYon [id number]K SEEN [facility] CampusCommclaren [place] on above:Performed By: #### ERUR, PREGU, UMICRO #### [facility] [address] [place] [address] Dr. Zaheer Anderson identified Cx Nom (U)INDICATEDCincinnati Children's Hospital Medical CenterCommclaren [place] on above:Performed By: #### ERUR, PREGU, UMICRO #### [facility] [address] [place] [address] Dr. Zaheer BridgesCASTJACINTA SEENNormalNONE SEENThe [facility] on above:Performed By: #### ERUR, PREGU, UMICRO #### [facility] [address] [address] [address] Zaheer BridgesCrystals LM Nom (Urine sed)NONE SEENNormalNONE SEENKettering Health Main CampusComment on above:Performed By: #### ERUR, PREGU, UMICRO #### [facility] [address] [address] [address] Schwab ChangEpithelial cells LM Ql (Urine sed)RARENormalNONE SEEN /RAREThe [facility] CenterComment on above:Performed By: #### ERUR, PREGU, UMICRO #### [facility] [address] [place] [address] Dr. Zaheer BridgesMUCOUSNONE SEENNormalNONE SEENThe [facility] CenterComment on above:Performed By: #### ERUR, PREGU, UMICRO #### [facility] [address] [place] [address] Dr. Zaheer BridgesTnohnIMR73-77Wpxhasho7-2Yqj [facility] CenterComment on above: Performed By: #### ERUR, PREGU, UMICRO #### [facility] [address] [place] [address] Dr. Zaheer Baron (U) [#/Vol]/uLAbnormalNONE SEENKettering Health Main CampusCommclaren [place]land on above:Performed By: #### ERUR, PREGU, UMICRO #### [facility] [address] [place] [address] Dr. Zaheer BridgesCHLAMYDIA/GONOCOCCUS NAI (SWAB/URINE/PAPon [id number] trachomatis, NAANegativeNormalNegativeThe [facility] Medical CenterComment on above: Performed By: #### ERUR, PREGU, UMICRO #### [facility] [address] [place] [address] Dr. Zaheer BridgesNeisseria gonorrhoeae, NAANegativeNormalNegativeThe [facility] CenterComment on above:Performed By: #### ERUR, PREGU, UMICRO #### [facility] [address] [place] [address] Dr. Zaheer John URINEon [id number] URINEIsolate 1 Streptococcus agalactiae 10,000 cfu/mL of ORGANISM 1 Streptococcus agalactiae ANTIBIOTIC M.I.C RX STATUS Benzylpenicillin <=0.06 S F Ampicillin <=0.25 S F Cefotaxime <=0.12 S F Ceftriaxone <=0.12 S F Levofloxacin 0.5 S F Inducible Clindamycin Resistance Neg NEG F Erythromycin <=0.12 S F Clindamycin <=0.25 S F Linezolid <=2 S F Vancomycin 0.5 S F Tetracycline >=16 R FNormalKettering Health Main CampusComment on above:Performed By: #### DAJA PIZARRO #### [facility] [address] [place] [address] Dr. Zaheer Kiran URINE PROFILEon [id number] Ql (U)NegativeNormal NEGATIVEKettering Health Main CampusComment on above:Performed By: #### LESLIE FARNSWORTH, ERUR #### [facility] [address] [place] [address] Dr. Zaheer BridgesClarity (U)CLOUDYAbnormalCLEARThSalem City HospitalComment on above:Performed By: #### LESLIE FARNSWORTH, ERUR #### [facility] [address] [place] [address] Dr. Zaheer Mcdowell (U)YELLOWNormalYELLOWKettering Health Main CampusComment on above: Performed By: #### LESLIE FARNSWORTH, ERUR #### [facility] [address] [place] [address] Dr. Zaheer Baron micrscopic examination will be performed if indicated. NormalKettering Health Main CampusComment on above:Performed By: #### JONO FARNSWORTHU, ERUR #### [facility] [address] [place] [address] Dr. Zaheer Ferraraose Ql (U)NegativeNormalNEGATIVEKettering Health Main CampusComment on above:Performed By: #### JONO FARNSWORTHU, ERUR #### [facility] [address] [address] [address] Zaheer BridgesHemoglobin Ql (U)NegativeNormalNEGATIVEKettering Health Main Campus Comment on above:Performed By: #### DAJA PREGU, ERUR #### [facility] [address] [address] [address] Zaheer BridgesKetones Ql (U)NegativeNormalNEGATIVEKettering Health Main CampusComment on above:Performed By: #### UMYOSVANY PREGU, ERUR #### [facility] [address] [address] [address] Zaheer BridgesLEUKOCYTESMODERATEAbnormalNEGATIVEKettering Health Main CampusComment on above:Performed By: #### JONO FARNSWORTHU, ERUR #### [facility] [address] [address] [address] Zaheer BridgesNitrite Ql (U)NegativeNormalNEGATIVEKettering Health Main CampusComment on above:Performed By: #### DAJA PREGU, ERUR #### [facility] [address] [address] [address] Zaheer BridgespH (U)6.0 [pH]Normal5-9K[facility] Main CampusComment on above: Performed By: #### DAJA PREGU, ERUR #### [facility] [address] [address] [address] Zaheer BridgesSPEC GRAVITY>=1.423Csetswlo5.005-<=1.025The [facility] Comment on above:Performed By: #### UMYOSVANY, PREGU, ERUR #### [facility] [address] [address] [address] Zaheer BridgesUA PROTEINNegativeNormalNEGATIVE/ TRACEThe [facility] Comment on above:Performed By: #### UMICANGEL PREGU, ERUR #### [facility] [address] [address] [address] Zaheer Adkins MICRO INDINDICATEDNormalThSalem City HospitalComment on above: Performed By: #### UMYOSVANY PREGU, ERUR #### [facility] [address] [address] [address] Zaheer Resendez Qn (U)0.2 {Tereza'U}/dLNormal0.2 - 1.0The [facility] CenterComment on above:Performed By: #### DAJA, PREGU, ERUR #### [facility] [address] [place] [address] Dr. Zaheer ReeseANCY URon [id number], QUALNegativeNormalNEGATIVEThe [facility] CenterComment on above:Performed By: #### UMICRO, PREGU, ERUR #### [facility] [address] [place] [address] Dr. Zaheer WU ONLYon [id number]GLJX SEENThe [facility] CenterComment on above:Performed By: #### DAJA PREGU, ERUR #### [facility] [address] [place] [address] Dr. Zaeher Anderson identified Cx Nom (U)INDICATEDNoAdams County HospitalComment on above:Performed By: #### UMICANGEL, PREGU, ERUR #### [facility] [address] [place] [address] Dr. Zaheer Sousa OX CRYSTALSMODERATECincinnati Children's Hospital Medical CenterComment on above:Performed By: #### UMICANGEL, PREGU, ERUR #### [facility] [address] [place] [address] Dr. Zaheer Larsen SEENNormalNONE SEENKettering Health Main CampusComment on above:Performed By: #### UMICRO, PREGU, ERUR #### [facility] [address] [place] [address] Dr. Zaheer Bob LM Nom (Urine sed)SEENAbcenterpoint medical centeralBANNERE SEENKettering Health Main CampusComment on above:Performed By: #### UMICRO, PREGU, ERUR #### [facility] [address] [place] [address] Dr. Yilan ChangEpithelial cells LM Ql (Urine sed)MANYAbnormalNONE SEEN /RAREThe [facility] CenterComment on above:Performed By: #### JONO FARNSWORTHU, ERUR #### [facility] [address] [address] [address] Zaheer BridgesMUCOUSNONE SEENNormalNONE SEENThe [facility] CenterComment on above:Performed By: #### JONO FARNSWORTHU, ERUR #### [facility] [address] [address] [address] Zaheer AmadorCNKACI SEENAbnormal0-2The [facility] CenterComment on above: Performed By: #### LESLIE FARNSWORTH, ERUR #### [facility] [address] [address] [address] Zaheer Baron5-10AbnormalNONE SEENKettering Health Main CampusCommclaren oakland on above: Performed By: #### LESLIE FARNSWORTH, ERUR #### [facility] [address] [place] [address] Dr. Zaheer Bose PREPon [id number] CELLSSEENAbnormalNONE SEENThe [facility] CenterComment on above:Performed By: #### WP #### [facility] [address] [place] [address] Dr. Zaheer Cook ELEMENTSNONE SEENNormalNONE SEENKettering Health Preble on above:Performed By: #### WP #### [facility] [address] [address] [address] Zaheer Biggs -WET PREPRAREAbnormalNONE SEENThe [facility] CenterComment on above:Performed By: #### WP #### [facility] [address] [address] [address] Zaheer CastilloHOMONASNONE SEENNormalNONE SEENKettering Health Main CampusComment on above:Performed By: #### WP #### [facility] [address] [address] [address] Zaheer Baron- WET PREPMODERATEAbnormalNONE SEENThe [facility] Comment on above:Performed By: #### WP #### [facility] [address] [address] [address] Zaheer Bose PREP BACTERIARAREAbrmalNONE SEENKettering Health Main Campus Comment on above:Performed By: #### WP #### [facility] [address] [address] [address] Zaheer Kiran URINE PROFILEon [id number] Ql (U)NegativeNormal NEGATIVEKettering Health Main CampusComment on above:Performed By: #### ERUR, PREGU, UMICRO #### [facility] [address] [address] [address] Zaheer BridgesClarity (U)CLEARNormalCLEARKettering Health Main CampusComment on above: Performed By: #### ERUR, PREGU, UMICRO #### [facility] [address] [address] [address] Zaheer Mcdowell (U)LT. YELLOWNormalYMartin Memorial HospitalComment on above:Performed By: #### ERUR, PREGU, UMICRO #### [facility] [address] [address] [address] Zaheer Baron micrscopic examination will be performed if indicated. NormalThe [facility] CenterComment on above:Performed By: #### ERUR, PREGU, UMICRO #### [facility] [address] [address] [address] Zaheer BridgesGlucose Ql (U)NegativeNormalNEGATIVEKettering Health Main CampusComment on above:Performed By: #### ERUR, PREGU, UMICRO #### [facility] [address] [address] [address] Zaheer BridgesHemoglobin Ql (U)NegativeNormalNEGATIVEKettering Health Main Campus Comment on above:Performed By: #### ERUR, PREGU, UMICRO #### [facility] [address] [address] [address] Zaheer BridgesKetones Ql (U)NegativeNormalNEGATIVEKettering Health Main CampusComment on above:Performed By: #### ERUR, PREGU, UMICRO #### [facility] [address] [address] [address] Zaheer BridgesLEUKOCYTESNegativeNormalNEGATIVEThe [facility] CenterComment on above:Performed By: #### ERUR, PREGU, UMICRO #### [facility] [address] [address] [address] Zaheer Patrick Ql (U)NegativeNormalNEGATIVEThe [facility] HospitalComment on above:Performed By: #### ERUR, PREGU, UMICRO #### [facility] [address] [address] [address] Zaheer Olmstead (U)6.5 [pH]Normal5-9The [facility] CenterComment on above: Performed By: #### ERUR, PREGU, UMICRO #### [facility] [address] [address] [address] Zaheer BridgesSPEC GRAVITY1.832Knqtyx6.005-<=1.025The [facility] CenterComment on above:Performed By: #### ERUR, PREGU, UMICRO #### [facility] [address] [address] [address] Zaheer Hartmann PROTEINNegativeNormalNEGATIVE/ TRACEThe [facility] Comment on above:Performed By: #### ERUR, PREGU, UMICRO #### [facility] [address] [place] [address] Dr. Zaheer Adkins MICRO INDNOT INDICATEDNormClinton Memorial Hospitale [facility] CenterComment on above:Performed By: #### ERUR, PREGU, UMICRO #### [facility] [address] [address] [address] Zaheer Resendez Qn (U)0.2 {Tereza'U}/dLNormal0.2 - 1.0The [facility] CenterComment on above:Performed By: #### ERUR, PREGU, UMICRO #### [facility] [address] [place] [address] Dr. Zaheer BridgesPREGNANCY URon [id number], QUALNegativeNormalNEGATIVEThe [facility] CenterComment on above:Performed By: #### ERUR, PREGU, UMICRO #### [facility] [address] [place] [address] Dr. Zaheer BridgesCBC AUTO DIFFon [id number] #0.1 103/ulNormal0.0-0.1The [facility] CenterComment on above:Performed By: #### ERUR, PREGU, UMICRO #### [facility] [address] [place] [address] Dr. Zaheer BridgesBasophils/100 WBC (Bld)0.4 %Normal0.2-2.0The [facility] Comment on above:Performed By: #### ERUR, PREGU, UMICRO #### [facility] [address] [place] [address] Dr. Zaheer Pritchard #0.2 103/ulNormal0.0-0.7The [facility] CenterComment on above: Performed By: #### ERUR, PREGU, UMICRO #### [facility] [address] [place] [address] Dr. Zaheer Roqueosinophils/100 WBC (Bld)1.6 %Normal0.9-7.0[facility] Comment on above:Performed By: #### ERUR, PREGU, UMICRO #### [facility] [address] [place] [address] Dr. Zaheer Roquerythrocyte distribution width (RBC) [Ratio]14.6 %Eakmye08.0-15.0 The [facility] CenterComment on above:Performed By: #### ERUR, PREGU, UMICRO #### [facility] [address] [place] [address] Dr. Zaheer BridgesHematocrit (Bld) [Volume fraction]26.1 %Critically low36.0-48.0 The [facility] CenterComment on above:Performed By: #### ERUR, PREGU, UMICRO #### [facility] [address] [address] [address] Zaheer BridgesHemoglobin (Bld) [Mass/Vol]8.2 g/dLCritically low12.0-16.0The [facility] CenterComment on above:Performed By: #### ERUR, PREGU, UMICRO #### [facility] [address] [place] [address] Dr. Zaheer Ramirez #0.10 10e3/ulCritically high0.00-0.03The [facility] Comment on above:Performed By: #### ERUR, PREGU, UMICRO #### [facility] [address] [place] [address] Dr. Zaheer Ramirez %0.9 %Critically high0.0-0.5The [facility] CenterComment on above:Performed By: #### ERUR, PREGU, UMICRO #### [facility] [address] [place] [address] Dr. Zaheer Hanks #2.7 103/ulNormal1.2-3.8The [facility] CenterComment on above:Performed By: #### MARYSOLR, PREGU, UMICRO #### [facility] [address] [place] [address] Dr. Zaheer Flanneryhocytes/100 WBC (Bld)23.3 %Hsfzor93.5-60.0The [facility] CenterComment on above:Performed By: #### ERUR, PREGU, UMICRO #### [facility] [address] [place] [address] Dr. Zaheer Clayton DIFF REQNONormalThe [facility] CenterComment on above: Performed By: #### ERUR, PREGU, UMICRO #### [facility] [address] [place] [address] Dr. Zaheer Robles (RBC) [Entitic mass]25.8 pgCritically low26.7-34.0The [facility] CenterComment on above:Performed By: #### ERUR, PREGU, UMICRO #### [facility] [address] [place] [address] Dr. Zaheer Layton (RBC) [Mass/Vol]31.4 g/xZYclsqa76.9-35.2The [facility] CenterComment on above:Performed By: #### ERUR, PREGU, UMICRO #### [facility] [address] [place] [address] Dr. Zaheer Layton (RBC) [Entitic vol]82.1 bSGlbirw28.0-99.0The [facility] HospitalComment on above:Performed By: #### ERUR, PREGU, UMICRO #### [facility] [address] [place] [address] Dr. Zaheer Hutchins #1.1 103/ulCritically high0.3-0.8The [facility] Comment on above:Performed By: #### ERUR, PREGU, UMICRO #### [facility] [address] [place] [address] Dr. Zaheer Heatonocytes/100 WBC (Bld)9.1 %Normal1.7-12.0The [facility] Comment on above:Performed By: #### ERUR, PREGU, UMICRO #### [facility] [address] [place] [address] Dr. Zaheer Chase #7.5 103/ulCritically high1.4-6.5The [facility] Comment on above:Performed By: #### ERUR, PREGU, UMICRO #### [facility] [address] [place] [address] Dr. Zaheer Reynoldsutrophils/100 WBC (Bld)64.7 %Qvztos41.0-75.0The [facility] CenterComment on above:Performed By: #### ERUR, PREGU, UMICRO #### [facility] [address] [place] [address] Dr. Zaheer Arora mean volume (Bld) [Entitic vol]10.7 fLNormal9.5-13.5The [facility] CenterComment on above:Performed By: #### ERUR, PREGU, UMICRO #### [facility] [address] [address] [address] Zaheer BridgesPLT172 103/imAqpwda427-520Wso [facility] CenterComment on above: Performed By: #### ERUR, PREGU, UMICRO #### [facility] [address] [place] [address] Dr. Zaheer BridgesRBC3.18 106/ulCritically low4.20-5.40The [facility] CenterComment on above:Performed By: #### ERUR, PREGU, UMICRO #### [facility] [address] [place] [address] Dr. Zaheer BridgesWBC11.6 103/ulCritically high4.0-11.0The [facility] CenterComment on above:Performed By: #### ERUR, PREGU, UMICRO #### [facility] [address] [place] [address] Dr. Zaheer Andrew AUTO DIFFon [id number] #0.0 103/ulNormal0.0-0.1The [facility] CenterComment on above:Performed By: #### ERUR, PREGU, UMICRO #### [facility] [address] [place] [address] Dr. Zaheer BridgesBasophils/100 WBC (Bld)0.3 %Normal0.2-2.0[facility] Comment on above:Performed By: #### ERUR, PREGU, UMICRO #### [facility] [address] [place] [address] Dr. Zaheer Pritchard #0.1 103/ulNormal0.0-0.7The [facility] CenterComment on above: Performed By: #### ERUR, PREGU, UMICRO #### [facility] [address] [place] [address] Dr. Zaheer Roqueosinophils/100 WBC (Bld)1.0 %Normal0.9-7.0The [facility] Comment on above:Performed By: #### ERUR, PREGU, UMICRO #### [facility] [address] [place] [address] Dr. Zaheer Roquerythrocyte distribution width (RBC) [Ratio]14.6 %Xqvuow84.0-15.0 The [facility] CenterComment on above:Performed By: #### LIZETT PREGU UMICRO #### [facility] [address] [place] [address] Dr. Zaheer BridgesHematocrit (Bld) [Volume fraction]32.2 %Critically low36.0-48.0 The [facility] CenterComment on above:Performed By: #### LIZETT PREGU, UMICRO #### [facility] [address] [address] [address] Zaheer BridgesHemoglobin (Bld) [Mass/Vol]10.0 g/dLCritically low12.0-16.0The [facility] CenterComment on above:Performed By: #### JONO PHOENIXU UMICRO #### [facility] [address] [place] [address] Dr. Zaheer Ramirez #0.09 10e3/ulCritically high0.00-0.03The [facility] Comment on above:Performed By: #### JONO PHOENIXU UMICRO #### [facility] [address] [place] [address] Dr. Zaheer Ramirez %0.7 %Critically high0.0-0.5The [facility] Northment on above:Performed By: #### LIZETT PREGU, UMICRO #### [facility] [address] [place] [address] Dr. Zaheer Hanks #1.9 103/ulNormal1.2-3.8The [facility] CenterComment on above:Performed By: #### MARYSOLR PREGU, UMICRO #### [facility] [address] [place] [address] Dr. Zaheer Flanneryhocytes/100 WBC (Bld)15.7 %Critically low20.5-60.0The [facility] CenterComment on above:Performed By: #### MARYSOLR PREGU UMICRO #### [facility] [address] [place] [address] Dr. Zaheer Clayton DIFF REQNONormalThe [facility] CenterComment on above: Performed By: #### ERUR, PREGU, UMICRO #### [facility] [address] [place] [address] Dr. Zaheer BridgesN[facility] (RBC) [Entitic mass]25.5 pgCritically low26.7-34.0The [facility] CenterComment on above:Performed By: #### ERUR, PREGU, UMICRO #### [facility] [address] [place] [address] Dr. Zaheer BridgesST[facility] (RBC) [Mass/Vol]31.1 g/yZCduftp34.9-35.2The [facility] CenterComment on above:Performed By: #### ERUR, PREGU, UMICRO #### [facility] [address] [place] [address] Dr. Zaheer Layton (RBC) [Entitic vol]82.1 iNJspugd52.0-99.0The [facility] CenterComment on above:Performed By: #### ERUR, PREGU, UMICRO #### [facility] [address] [place] [address] Dr. Zaheer Hutchins #1.0 103/ulCritically high0.3-0.8ThSalem City [facility] Comment on above:Performed By: #### ERUR, PREGU, UMICRO #### [facility] [address] [place] [address] Dr. Zaheer Heatonocytes/100 WBC (Bld)8.2 %Normal1.7-12.0[facility] Comment on above:Performed By: #### ERUR, PREGU, UMICRO #### [facility] [address] [place] [address] Dr. Zaheer Chase #9.1 103/ulCritically high1.4-6.5The [facility] Comment on above:Performed By: #### ERUR, PREGU, UMICRO #### [facility] [address] [place] [address] Dr. Zahere Reynoldsutrophils/100 WBC (Bld)74.1 %Mkxmyu64.0-75.0The [facility] CenterComment on above:Performed By: #### LESLIE PHOENIX UMICRO #### [facility] [address] [place] [address] Dr. Zaheer BridgesPlatelet mean volume (Bld) [Entitic vol]10.9 fLNormal9.5-13.5The [facility] CenterComment on above:Performed By: #### LESLIE PHOENIX UMICRO #### [facility] [address] [place] [address] Dr. Zaheer BridgesPLT234 103/szEharag447-462Xaj [facility] CenterComment on above: Performed By: #### LESLIE PHOENIX UMICRO #### [facility] [address] [place] [address] Dr. Zaheer BridgesRBC3.92 106/ulCritically low4.20-5.40The [facility] CenterComment on above:Performed By: #### LESLIE PHOENIX UMICRO #### [facility] [address] [place] [address] Dr. Zaheer BridgesWBC12.3 103/ulCritically high4.0-11.0The [facility] CenterComment on above:Performed By: #### LESLIE [place]EN[place] UMICRO #### [facility] [address] [place] [address] Dr. Zaheer BridgesCovid-19 PCR ([facility])on [id number]-CoV-2 (COVID-19) RNA NAI+probe Ql (Unsp spec)Not detectedNormalNOT DETECTEDThe [facility] Comment on above:Result Comment: When diagnostic testing is negative, the [...] for this test is supported by the [place] of Health and Human Service's declaration that circumstances exist to justify the emergency use of in vitro diagnostics for the detection and/or diagnosis of the virus that causes COVID-19. This EUA will remain in effect for the duration of the COVID-19 declaration justifying emergency of IVDs, unless it is terminated or revoked by the FDA (after which the test may no longer be used).Performed By: #### ERUR, JONOU, UMICRO #### [facility] [address] [place] [address] Dr. Zaheer BridgesDRUG SCREEN RAPID (URINE)on [id number]F [facility] on above:Performed By: #### DRUGRPD #### [facility] [address] [place] [address] Dr. Zaheer BridgesBARNegativeNormalNEGATIVEKettering Health Main CampusComment on above: Performed By: #### DRUGRPD #### [facility] [address] [place] [address] Dr. Zaheer BridgesBUPNegativeNormalNEGATIVEKettering Health Main CampusCommclaren oakland on above: Performed By: #### DRUGRPD #### [facility] [address] [place] [address] Dr. Zaheer BridgesBZONegativeNormalNEGATIVEKettering Health Main CampusComment on above: Performed By: #### DRUGRPD #### [facility] [address] [place] [address] Dr. Zaheer BridgesCOCNegativeNormalNEGMiami Valley HospitalComment on above: Performed By: #### DRUGRPD #### [facility] [address] [place] [address] Dr. Zaheer SabaLouis Stokes Cleveland VA Medical CenterComment on above: Result Comment: AMP (Amphetamine): 500ng/mL, BAR (Barbituates): 200 ng/mL, BZO (Benzodiazepines): 150 ng/mL, BUP (Buprenorphine): 10 ng/mL, TAYLOR (Cocaine): 150 ng/mL, mAMP (Methamphetamine): 500 ng/mL, MTD (Methadone): 200 ng/mL, OPI (Opiates): 100 ng/mL, OXY (Oxycodone): 100 ng/mL, PCP (Phencyclidine): 25 ng/mL, PPX (Propoxyphene): 300 ng/mL, THC (Cannabinoids): 50 ng/mL, TCA (Trycyclic Antidepressants): 300 ng/mLPerformed By: #### DRUGRPD #### [facility] [address] [place] [address] Dr. Zaheer BridgesDRUG CUT HEADERDRUG CLASS TEST SYSTEM CUT-OFF CONCENTRATIONS ARE FOLLOWS:NormalKettering Health Main CampusComment on above:Performed By: #### DRUGRPD #### [facility] [address] [place] [address] Dr. Zaheer BridgesmAMPNegativeNormalNEGATIVEKettering Health Main CampusComment on above: Performed By: #### DRUGRPD #### [facility] [address] [place] [address] Dr. Zaheer BridgesMTDNegativeNormalNEGATIVEKettering Health Main CampusComment on above: Performed By: #### DRUGRPD #### [facility] [address] [place] [address] Dr. Zaheer BridgesOPINegativeNormalNEGATIVEKettering Health Main CampusComment on above: Performed By: #### DRUGRPD #### [facility] [address] [place] [address] Dr. Zaheer BridgesOXYNegativeNormalNEGATIVEKettering Health Main CampusComment on above: Performed By: #### DRUGRPD #### [facility] [address] [place] [address] Dr. Zaheer BridgesPCPNegativeNormalNEGATIVEKettering Health Main CampusComment on above: Performed By: #### DRUGRPD #### [facility] [address] [place] [address] Dr. Zaheer BridgesPPXNegativeNormalNEGATIVEKettering Health Main CampusComment on above: Performed By: #### DRUGRPD #### [facility] [address] [place] [address] Dr. Zaheer BridgesTCANegativeNormalNEGATIVEKettering Health Main CampusCommclaren oakland on above: Performed By: #### DRUGRPD #### [facility] [address] [place] [address] Dr. Zaheer BridgesTHCNegativeNormalNEGATIVEKettering Health Main CampusCommclaren oakland on above: Performed By: #### DRUGRPD #### [facility] [address] [place] [address] Dr. Zaheer BridgesTYPE AND SCREENon [id number] AND SCREENNegativermalThe [facility] Medical CenterCommclaren oakland on above:Performed By: #### UACSHIMANSHU UMICRO #### [facility] [address] [place] [address] Dr. Zaheer BridgesCHLAMYDIA/GONOCOCCUS NAI (SWAB/URINE/PAPon [id number] trachomatis, NAAPositiveAbnormalNegativeKettering Health Main CampusCommclaren oakland on above: Result Comment: .Performed By: #### ERUJONO IvoryU UMICRO #### [facility] [address] [place] [address] Dr. Zaheer BridgesNeisseria gonorrhoeae, NAANegativeNormalNegativeKettering Health Main CampusCommclaren oakland on above:Performed By: #### LESLIE [place] UMICRO #### [facility] [address] [place] [address] Dr. Zaheer Wong B STREP CULTUREon 04-17-2022. agalactiae Ag Ql (Unsp spec) Culture Observations: NEGATIVE FOR GROUP B STREPTOCOCCUS.NormalThe [facility] CenterCommclaren oakland on above: Performed By: #### UACSHIMANSHU UMICRO #### [facility] [address] [place] [address] Dr. Zaheer Hartmann (CLEAN/CATCH) SENIOR PYTHON DEVELOPER/MICRO IF IND.on [id number] Ql (U) NegativeNormalNEGATIVEKettering Health Main CampusComment on above:Performed By: #### ERUR PREGU, UMICRO #### [facility] [address] [address] [address] Zaheer BridgesClarity (U)CLEARNormalCLEARKettering Health Main CampusComment on above: Performed By: #### ERUR, PREGU, UMICRO #### [facility] [address] [address] [address] Zaheer Stocktonlor (U)YELLOWNormalYELLOWKettering Health Main CampusComment on above: Performed By: #### ERUR, PREGU, UMICRO #### [facility] [address] [address] [address] Zaheer BridgesGlucose Ql (U)NegativeNormalNEGATIVEKettering Health Main CampusComment on above:Performed By: #### ERUR, PREGU, UMICRO #### [facility] [address] [address] [address] Zaheer BridgesHemoglobin Ql (U)NegativeNormalNEGATIVEThe [facility] on above:Performed By: #### ERUR, PREGU, UMICRO #### [facility] [address] [address] [address] Zaheer BridgesKetones Ql (U)NegativeNormalNEGATIVEKettering Health Main CampusComment on above:Performed By: #### ERUR, PREGU, UMICRO #### [facility] [address] [address] [address] Zaheer BridgesLEUKOCYTESNegativeNormalNEGATIVEKettering Health Main CampusComment on above:Performed By: #### ERUR, PREGU, UMICRO #### [facility] [address] [address] [address] Zaheer BridgesNitrite Ql (U)NegativeNormalNEGATIVEKettering Health Main CampusComment on above:Performed By: #### ERUR, PREGU, UMICRO #### [facility] [address] [address] [address] Zaheer BridgespH (U)6.0 [pH]Normal5-9The [facility] CenterComment on above: Performed By: #### ERUR, PREGU, UMICRO #### [facility] [address] [place] [address] Dr. Zaheer BridgesSPEC GRAVITY>=1.009Uihdmlwr7.005-<=1.025The [facility] Comment on above:Performed By: #### ERUR, PREGU, UMICRO #### [facility] [address] [place] [address] Dr. Zaheer Hartmann PROTEINNegativeNormalNEGATIVE/ TRACEThe [facility] Comment on above:Performed By: #### ERUR, PREGU, UMICRO #### [facility] [address] [place] [address] Dr. Zaheer BridgesUR MICRO INDNOT INDICATEDNoAdams County HospitalComment on above:Performed By: #### ERUR, PREGU, UMICRO #### [facility] [address] [place] [address] Dr. Zaheer Allisonbilinogen Qn (U)1.0 {Tereza'U}/dLNormal0.2 - 1.0The [facility] CenterComment on above:Performed By: #### ERUR, PREGU, UMICRO #### [facility] [address] [place] [address] Dr. Zaheer Hartmann (CLEAN/CATCH) SENIOR PYTHON DEVELOPER/MICRO IF IND.on 14-13-0591Svoaabaqg Ql (U) NegativeNormalNEGATIVEKettering Health Main CampusComment on above:Performed By: #### UACSHIMANSHU, UMICRO #### [facility] [address] [place] [address] Dr. Zaheer Fuentes (U)CLEARNormalCLEARKettering Health Main CampusComment on above: Performed By: #### UACSHIMANSHU, UMICRO #### [facility] [address] [place] [address] Dr. Zaheer Mcdowell (U)YELLOWNormalYELLOWThe [facility] CenterComment on above: Performed By: #### UACSHIMANSHU, UMICRO #### [facility] [address] [place] [address] Dr. Yilan ChangGlucose Ql (U)NegativeNormalNEGATIVEKettering Health Main CampusComment on above:Performed By: #### UACSIND, UMICRO #### [facility] [address] [address] [address] Zaheer BridgesHemoglobin Ql (U)NegativeNormalNEGATIVEKettering Health Main Campus Comment on above:Performed By: #### UACSIND, UMICRO #### [facility] [address] [address] [address] Zaheer BridgesKetones Ql (U)NegativeNormalNEGATIVEKettering Health Main CampusComment on above:Performed By: #### UACSIND, UMICRO #### [facility] [address] [place] [address] Dr. Zaheer BridgesLEUKOCYTESNegativeNormalNEGATIVEKettering Health Main CampusComment on above:Performed By: #### UACSIND, UMICRO #### [facility] [address] [place] [address] Dr. Zaheer BridgesNitrite Ql (U)NegativeNormalNEGATIVEKettering Health Main CampusComment on above:Performed By: #### UACSHIMANSHU, UMICRO #### [facility] [address] [place] [address] Dr. Zaheer BridgespH (U)6.5 [pH]Normal5-9K[facility] Main CampusComment on above: Performed By: #### UACSHIMANSHU, UMICRO #### [facility] [address] [place] [address] Dr. Zaheer BridgesSPEC GRAVITY1.985Gobwnw2.005-<=1.025K[facility] Main CampusComment on above:Performed By: #### UACSIND, UMICRO #### [facility] [address] [place] [address] Dr. Zaheer BridgesUA PROTEINNegativeNormalNEGATIVE/ TRACEThe [facility] Comment on above:Performed By: #### UACSIND, UMICRO #### [facility] [address] [place] [address] Dr. Zaheer BridgesUR MICRO INDNOT INDICATEDNoAdams County HospitalComment on above:Performed By: #### JUAREZ UMICRO #### [facility] [address] [address] [address] Zaheer Allisonbilinogen Qn (U)1.0 {Tereza'U}/dLNormal0.2 - 1.0The [facility] CenterComment on above:Performed By: #### JUAREZ UMICRO #### [facility] [address] [address] [address] Zaheer BridgesCULTURE URINEon 98-06-7457ZSIIZIK URINECulture Observations: MODERATE GROWTH OF MIXED GENITAL VIJAYA. NO POTENTIAL PATHOGENS SEEN.NormalKettering Health Main CampusComment on above:Performed By: #### JUAREZ UMICRO #### [facility] [address] [place] [address] Dr. Zaheer Hartmann (CLEAN/CATCH) SENIOR PYTHON DEVELOPER/MICRO IF IND.on 89-73-3999Wimsalmxg Ql (U) NegativeNormalNEGATIVEKettering Health Main CampusComment on above:Performed By: #### JUAREZ UMICRO #### [facility] [address] [address] [address] Zaheer BridgesClarity (U)CLEARNormalCLEARKettering Health Main CampusComment on above: Performed By: #### JUAREZ UMICRO #### [facility] [address] [place] [address] Dr. Zaheer BridgesColor (U)BROWNAbnormalYELLOWKettering Health Main CampusComment on above:Performed By: #### JUAREZ UMICRO #### [facility] [address] [address] [address] Zaheer BridgesGlucose Ql (U)NegativeNormalNEGATIVEKettering Health Main CampusComment on above:Performed By: #### JUAREZ UMICRO #### [facility] [address] [place] [address] Dr. Zaheer BridgesHemoglobin Ql (U)TRACE-LYSEDAbnormalNEGATIVEKettering Health Preble on above:Performed By: #### JUAREZ UMICRO #### [facility] [address] [address] [address] Zaheer Up Ql (U)TRACEAbnormalNEGATIVEThe [facility] CenterComment on above:Performed By: #### JUAREZ UMICRO #### [facility] [address] [address] [address] Zaheer BridgesLEUKOCYTESSMALLAbnormalNEGATIVEThe [facility] CenterComment on above:Performed By: #### JUAREZ UMICRO #### [facility] [address] [place] [address] Dr. Zaheer Mckeontrbrad Ql (U)NegativeNormalNEGATIVEThe [facility] CenterComment on above:Performed By: #### JUAREZ UMICRO #### [facility] [address] [place] [address] Dr. Zaheer BridgespH (U)6.0 [pH]Normal5-9The [facility] CenterComment on above: Performed By: #### JUAREZ UMICRO #### [facility] [address] [place] [address] Dr. Zaheer BridgesSPEC GRAVITY>=1.572Wnjhuozj0.005-<=1.025The [facility] Comment on above:Performed By: #### JUAREZ UMICRO #### [facility] [address] [place] [address] Dr. Zaheer BridgesUA PROTEINNegativeNormalNEGATIVE/ TRACEThe [facility] Comment on above:Performed By: #### JUAREZ UMICRO #### [facility] [address] [place] [address] Dr. Zaheer Adkins MICRO INDINDICATEDNormalThe [facility] CenterComment on above: Performed By: #### JUAREZ UMICRO #### [facility] [address] [place] [address] Dr. Zaheer Allisonbilinogen Qn (U)1.0 {Tereza'U}/dLNormal0.2 - 1.0The [facility] CenterComment on above:Performed By: #### JUAREZ UMICRO #### [facility] [address] [address] [address] Zaheer Collins MICROSCOPIC ONLYon [id number]J SEEN [facility] on above:Performed By: #### JUAREZ UMICRO #### [facility] [address] [address] [address] Zaheer Anderson identified Cx Nom (U)INDICATEDNoalThThe [facility] on above:Performed By: #### JUAREZ UMICRO #### [facility] [address] [address] [address] Zaheer Larsen SEENNormalNONE [facility] on above:Performed By: #### JUAREZ UMICRO #### [facility] [address] [place] [address] Dr. Zaheer Caroystals LM Nom (Urine sed)NONE SEENNormalNONE SEENCleveland Clinic Foundation on above:Performed By: #### JUAREZ UMICRO #### [facility] [address] [address] [address] Schwab ChangEpithelial cells LM Ql (Urine sed)MANYAbnormalNONE SEEN /RARECleveland Clinic Foundation on above:Performed By: #### JUAREZ UMICRO #### [facility] [address] [address] [address] Zaheer JosephE SEENNormalNONE SEENCleveland Clinic Foundation on above:Performed By: #### JUAREZ UMICRO #### [facility] [address] [address] [address] Zaheer BridgesYfrlsJFT8-15Sveomfbh6-1TnvCleveland Clinic Foundation on above:Performed By: #### JUAREZ UMICRO #### [facility] [address] [address] [address] Zaheer BridgesLuuryLPB94-41NswvzqfdDCGC SEENThe Saulo HospitalComment on above: Performed By: #### UACSIND, UMICRO #### [facility] [address] [address] [address] Zaheer John URINEon [id number] URINECulture Observations: HEAVY GROWTH OF MIXED GENITAL VIJAYA. NO POTENTIAL PATHOGENS SEEN.NormalRiverside Methodist Hospital HospitalComment on above:Performed By: #### UACSIND, UMICRO #### [facility] [address] [address] [address] Zaheer Hartmann (CLEAN/CATCH) SENIOR PYTHON DEVELOPER/MICRO IF IND.on [id number] Ql (U) NegativeNormalNEGATIVEKettering Health Main CampusComment on above:Performed By: #### ERUR, PREGU, UMICRO #### [facility] [address] [address] [address] Zaheer BridgesClarity (U)CLEARNormalCLEARKettering Health Main CampusComment on above: Performed By: #### ERUR, PREGU, UMICRO #### [facility] [address] [address] [address] Zaheer BridgesColor (U)YELLOWNormalYELLOWKettering Health Main CampusComment on above: Performed By: #### ERUR, PREGU, UMICRO #### [facility] [address] [address] [address] Zaheer BridgesGlucose Ql (U)NegativeNormalNEGATIVEKettering Health Main CampusComment on above:Performed By: #### ERUR, PREGU, UMICRO #### [facility] [address] [address] [address] Zaheer BridgesHemoglobin Ql (U)NegativeNormalNEGATIVEKettering Health [facility]ble on above:Performed By: #### ERUR, PREGU, UMICRO #### [facility] [address] [address] [address] Zaheer BridgesKetones Ql (U)TRACEAbnormalNEGATIVEKettering Health Main CampusComment on above:Performed By: #### ERUR, PREGU, UMICRO #### [facility] [address] [address] [address] Zaheer CavanaughOCYTESSMALLAbnormalNEGATIVEThe [facility] CenterComment on above:Performed By: #### LIZETT PREGU, UMICRO #### [facility] [address] [address] [address] Zaheer Patrick Ql (U)NegativeNormalNEGATIVEThe [facility] CenterComment on above:Performed By: #### LIZETT, PREGU, UMICRO #### [facility] [address] [address] [address] Zaheer BridgespH (U)6.0 [pH]Normal5-9The [facility] CenterComment on above: Performed By: #### LIZETT PREGU, UMICRO #### [facility] [address] [place] [address] Dr. Zaheer BridgesSPEC GRAVITY>=1.880Qhwgctbj6.005-<=1.025The [facility] on above:Performed By: #### LIZETT PREGU, UMICRO #### [facility] [address] [address] [address] Zaheer Hartmann PROTEINTRACENormalNEGATIVE/ TRACEThe [facility] CenterComment on above:Performed By: #### LIZETT PREGU, UMICRO #### [facility] [address] [place] [address] Dr. Zaheer Adkins MICRO INDINDICATEDNormalThe [facility] CenterComment on above: Performed By: #### LIZETT PREGU, UMICRO #### [facility] [address] [place] [address] Dr. Zaheer Resendez Qn (U)1.0 {Tereza'U}/dLNormal0.2 - 1.0The [facility] CenterComment on above:Performed By: #### ERUR, PREGU, UMICRO #### [facility] [address] [place] [address] Dr. Zaheer Collins MICROSCOPIC ONLYon [id number]QTE SEEN [facility] CampusComment on above:Performed By: #### ERUR, PREGU, UMICRO #### [facility] [address] [address] [address] Zaheer Anderson identified Cx Nom (U)INDICATEDNoalThSalem City HospitalComment on above:Performed By: #### ERUR, PREGU, UMICRO #### [facility] [address] [address] [address] Zaheer Larsen SEENNormalNONE SEENKettering Health Main CampusCommclaren oakland on above:Performed By: #### ERUR, PREGU, UMICRO #### [facility] [address] [address] [address] Zaheer Bob LM Nom (Urine sed)NONE SEENNormalNONE SEENThe [facility] on above:Performed By: #### ERUR, PREGU, UMICRO #### [facility] [address] [address] [address] Schwab ChangEpithelial cells LM Ql (Urine sed)FEWAbnormalNONE SEEN /RAREThe [facility] CenterCommclaren [place]land on above:Performed By: #### ERUR, PREGU, UMICRO #### [facility] [address] [address] [address] Zaheer SewellUSTRACEAbnormalNONE SEENCleveland Clinic Foundation on above:Performed By: #### ERUR, PREGU, UMICRO #### [facility] [address] [address] [address] Zaheer BiggsPlgulEJA5-9Cncynw5-1Plj [facility] on above:Performed By: #### ERUR, PREGU, UMICRO #### [facility] [address] [address] [address] Zaheer BridgesWBC5-10AbnormalNONE SEENCleveland Clinic Foundation on above: Performed By: #### ERUR, PREGU, UMICRO #### [facility] [address] [address] [address] Zaheer FerraraOSE - [facility] 22-37-7513Mdeowgw [Mass/Vol]98 mg/hHGdcdvp30-097 The [facility] CenterComment on above:Performed By: #### ERUR, PREGU, UMICRO #### [facility] [address] [place] [address] Dr. Zaheer BridgesHEMOGRAM AND PLATELon 94-07-7166Jhxxmlraag (Bld) [Volume fraction]33.1 %Critically low36.0-48.0The [facility]odds[facility] HospitalComment on above: Performed By: #### ERUR, PREGU, UMICRO #### [facility] [address] [place] [address] Dr. Zaheer BridgesHemoglobin (Bld) [Mass/Vol]10.7 g/dLCritically low12.0-16.0The [facility] CenterComment on above:Performed By: #### ERUR, PREGU, UMICRO #### [facility] [address] [place] [address] Dr. Zaheer Layton (RBC) [Entitic mass]28.6 nvHsvfea11.7-34.0The [facility] CenterComment on above:Performed By: #### ERUR, PREGU, UMICRO #### [facility] [address] [place] [address] Dr. Zaheer Layton (RBC) [Mass/Vol]32.3 g/wNKtnzdt79.9-35.2The [facility] CenterComment on above:Performed By: #### ERUR, PREGU, UMICRO #### [facility] [facility] [address] [place] [address] Dr. Zaheer Layton (RBC) [Entitic vol]88.5 bSImibnp08.0-99.0The [facility] [place] [facility] CenterComment on above:Performed By: #### ERUR, PREGU, UMICRO #### [facility] [place] [facility] [address] [place] [address] Dr. Zaheer BridgesPLT230 103/mjVcmgbu303-580Gox [facility] [place] [facility] CenterComment on above: Performed By: #### ERUR, PREGU, UMICRO #### [facility] [place] [facility] [address] [address] [address] Zaheer BridgesRBC3.74 106/ulCritically low4.20-5.40The [facility] [place] [facility] CenterComment on above:Performed By: #### ERUR, JONOU, UMICRO #### [facility] [address] [address] [address] Zaheer BridgesWBC10.4 103/ulNormal4.0-11.0The [facility] [place] [facility] CenterComment on above:Performed By: #### ERUR, PREGU, UMICRO #### [facility] [address] [address] [address] Zaheer Stauffer-19, RapidOrdered By: Kari Amaya on 30-75-5229GODX-CoV-2 (COVID-19) RNA NAI+probe Ql (Unsp spec)Not detectedNot DetectedMarietta Memorial Hospital [employer] Phone: comment on above: Rapid NAAT: The specimen is [...] management decisions. Fact sheet for Healthcare Providers: https://www.fda.gov/media/546460/download Fact sheet for Patients: https://www.fda.gov/media/232569/download Methodology: Isothermal Nucleic Acid Amplification Specimen Description.NASOPHARYNGEAL SWABMarietta Memorial Hospital [employer] Work Phone: [facility] Phone: HCG, ,Urineon 44-33-4951Setm HCG ( test) Ql (U)NegativeNormalNEGNewark HospitalComment on above:Result Comment: Specimens with hCG levels near the threshold of the test (25 mIU/mL) may give a negative or indeterminate result. In such cases, another test should be performed with a new specimen in 48-72 hours. If early is suspected clinically in this setting, correlation with quantitative serum b-hCG level is suggested.Performed By: #### UHCG #### [facility] [address] [place] [address] Bobj Developer: Andry Corona DOHCG, ,UrineOrdered By: Kari Amaya on 46-38-8735Klis HCG ( test) Ql (U)NegativeNEGATIVEMarietta Memorial Hospital [employer] Phone: comment on above:Specimens with hCG levels near the threshold of the test (25 mIU/mL) may give a negative or indeterminate result. In such cases, another test should be performed with a new specimen in 48-72 hours. If early is suspected clinically in this setting, correlation with quantitative serum b-hCG level is suggested. [employer] Phone: [phone]-ReF-2on 92-46-9291CNJX-CoV-2 (COVID-19) RNA NAI+probe Ql (Unsp spec)Not detectedNormalNOTDEWestern Reserve Hospital Comment on above:Result Comment: Rapid NAAT: The specimen is NEGATIVE [...] management decisions. Fact sheet for Healthcare Providers: https://www.fda.gov/media/033734/download Fact sheet for Patients: https://www.fda.gov/media/274070/download Methodology: Isothermal Nucleic Acid AmplificationPerformed By: #### COVRB #### [place] [facility] [address] [place] [address] Bobj Developer: Andry Corona DOXR CHEST PORTABLEon 38-02-5512PP CHEST PORTABLEEXAMINATION: ONE XRAY VIEW OF THE CHEST 07/31/2021 [...] Signed by: Saud Singh MD 07/31/21 Final resultNormalMercy Summa Health [facility] Rittman Medical CenterXR CHEST PORTABLEOrdered By: Kari Amaya on 25-20-4689Js acute cardiopulmonary disease.[employer] Phone: eXAMINATION: ONE XRAY VIEW OF THE CHEST 07/31/2021 11:24 am COMPARISON: None. HISTORY: ORDERING SYSTEM PROVIDED HISTORY: cough x 2 weeks TECHNOLOGIST PROVIDED HISTORY: cough x 2 weeks Reason for Exam: cough x 2 weeks Acuity: Unknown Type of Exam: Unknown FINDINGS: Overlying brassiere related metal.Nipple piercings. Top-normal cardiac silhouette for AP technique. Mediastinal structures midline and WNL. No localized pulmonary opacity or blunting of the costophrenic angles. Slight convex-right curvature thoracic spine. Bones otherwise WNL.[employer] Phone: eRaven hernandez Incoming Radiant Results From [employer]/[place]ala - 07/31/2021 11:44 AM EDT EXAMINATION: ONE [...] otherwise WNL. IMPRESSION: No acute cardiopulmonary disease. [employer] Phone: [employer] Phone: XR LUMBAR SPINE (2-3 VIEWS)on 55-85-7337XD LUMBAR SPINE (2-3 VIEWS)EXAMINATION: THREE XRAY VIEWS OF THE LUMBAR SPINE [...] Signed by: Alec Rehman MD 07/10/21 Final resultNoOhioHealth Berger HospitalXR LUMBAR SPINE (2-3 VIEWS)Ordered By: Sr Herman on 68-42-1554Lheyyakkhfli examination of the lumbar spine.[employer] Phone: eXAMINATION: THREE XRAY VIEWS OF THE LUMBAR SPINE 07/10/2021 11:06 am COMPARISON: None. HISTORY: ORDERING SYSTEM PROVIDED HISTORY: Lumbar pain TECHNOLOGIST PROVIDED HISTORY: Reason for Exam: no injury, since giving lower back pain has occupied, ongoing x 2 months FINDINGS: Lumbar vertebral bodies are normal in height and alignment. No evidence of fracture. Visualized sacrum is unremarkable. No significant degenerative changes.[employer] Phone: edavid, mari Incoming Radiant Results From [employer] - 07/10/2021 11:43 AM EDT EXAMINATION: THREE [...] IMPRESSION: Unremarkable examination of the lumbar spine. [place] Work Phone: [facility] ToledoNavigatorMD Work Phone: coding Summaryon 85-93-2261Nvsmwi SummaryMLBase 64 OdesysoxCSo8dZn+PGhlYWQ+CH4TNMNyU33kzQHdyT6KS9hODD4SXRYCZNRGSZ6XMO0ldSR8IXhxN3Hv biAv [file] cHN (more content not included)...[facility] HospitalCoding SummaryHTMLBase 64 CwzbrimtMEh5xHl+PGhlYWQ+JS4GGJZhO74xtFOtzC9ZR6fJXS6SREJAPUCBCS6SMQ0mnPC3DZutX4Ia biAv [file] cHN (more content not included)...NormalNorwalk Memorial Hospitaluder HospitalCoding SummaryHTMLBase 64 AemmhkszVBd5pIx+PGhlYWQ+JF9OXNYmM59inVZkqU3KJ3bGZA5LLIHEBOQKJV3KRG3vdMF2HXjaF6Pg biAv [file] ci1 (more content not included)...[facility] HospitalED Clinical Summaryon 46-41-1907JY Clinical [facility] - Emergency Department [address] [place], [place] [id number] ED Clinical Summary PERSON INFORMATION Name: NICOLE PATRICIA Age: 21 Years Sex: FEMALE : 2000 MRN: Acct#: Visit Reason: Throat pain - Adult; HEADACHE, THROAT PAIN Arrival: 04/14/2021 13:29:22 Discharge: 04/14/2021 14:10:00 LOS: 000 00:41 Check In: 04/14/2021 13:29:22 Checkout:04/14/2021 14:10:00 Address: [address] [place] [address] PCP: Provider, None PROVIDER INFORMATION Provider Role Assigned Unassigned SAUD FRAGA ED PA 04/14/2021 13:33:03 Adam Romero FUSION ANALYST Nurse 04/14/2021 13:35:30 04/14/2021 13:35:49 Grace Torres FUSION ANALYST Nurse 04/14/2021 13:43:51 VITALS INFORMATION Vital Sign Triage Latest Temperature Tympanic Temperature Temporal Artery Pulse Rate 100 bpm 100 bpm O2 Sat 96 % 96 % Respiratory Rate 16 br/min 16 br/min Blood Pressure /66 mmHg /66 mmHg MEDICAL INFORMATION Medications Given: Allergy Information: No Known Medication Allergies PHYSICIAN DOCUMENTATION Patient: NICOLE PATRICIA Age: 21 years Sex: FEMALE : [...] clear, tympanic membranes pearly mayer. NECK: -Supple (haha-iq-daxuh): non-tender. -Kernig's and Brudzinski sign are negative [...] I would recommend c (more content not included)...Normal [facility] Note - Physicianon 70-30-3396FV Note - PhysicianPatient: NICOLE PATRICIA Age: 21 years Sex: FEMALE : [...] clear, tympanic membranes pearly mayer. NECK: -Supple (fsse-zz-thjjh): non-tender. -Kernig's and Brudzinski sign are negative [...] ibuprofen for aches and pains, nasal decongestant hway-qhc-ezmevwp, Vicks VapoRub for congestion, honey for any [...] be discharged Impression and Plan Diagnosis Pharyngitis (GPB16-YW J02.9, Discharge, Medical) Sinus congestion (CIJ72-KT R09.81, Discharge, Medical) Plan Condition: Stable. Disposition: Discharged: to home. Prescriptions: (more content not included)...[facility] Note-Nursingon 63-89-5972OT Note-NursingPatient arrives via private car for c/o sore throat, cough, and body aches for 48 hours. Patient Jhoan/O X4. She denied any needs. Will continue to monitor.[facility] Patient Summaryon 63-25-3495LK [facility]Tr[facility] [address] [place] [address] PATIENT DISCHARGE INSTRUCTIONS Patient Information Name: NICOLE PATRICIA Age: 21 Years Date of : 2000 Reason For Visit: Throat pain - Adult; HEADACHE, THROAT PAIN Arrival Time: 04/14/2021 13:29:22 Primary Care Physician: Provider, None Attending Physician: Luigi Syed MD Comment: Visit Diagnosis: Diagnoses This Visit Pharyngitis (J02.9) Sinus congestion (R09.81) Throat pain - Adult ([id number]) Prescription Information: If you have been given a prescription for narcotics, seek immediate medical attention if you have any difficulty breathing or any sudden status changes such as confusion andsleepiness. If you or anyone you know is experiencing suicidal thoughts, mental health, alcohol and/or drug addiction problems; contact the [facility] 29/04 Crisis Hotline -Text 4HDTH de 210276. If you received any narcotics, sedation, or [...] documents With: Address: When: Miguel Angel Aponte [facility], [address] [id number] [facility] (1) Within 3 to 5 days Comments: [...] taking antibiotics. With: Address: When: Glenda Murillo [phone] EXT: [phone] Call for family Physician Within 3 to 5 days Medication Information: The exam and treatment you received today in the [facility] Emergency Department were for an urgent problem and are not intended as complete care. It is important for you to follow up with a doctor, nurse practitioner, or physician?s payroll administrative assistant for ongoing care. If your symptoms become worse or you donot improve as expected and you are unable [...] so we can reach you if necessary. [facility] Emergency Department has provided you with a complete list of medications post discharge. Please inform your primary school principal/provider of your visit and for further instruction on these medications. Any specific questions regarding your chronic medications and dosages should be discussed with your primary care physician(s) and/or pharmacist. New Medications Printed Prescriptions amoxicillin-clavulanate (Augmentin 875 mg-125 mg oral tablet) 1 [...] No Problems found Pa (more content not included)...[facility] City HospitalCTCALDWELL MEDICAL CENTERon 05-17-2020C. trachomatis InterpAbnormalSee [facility] ([place])Comment on above:Result Comment: DNA detection by non-culture technique (PCR). Sensitivity testing not available with this method. This organism causes a reportable disease Results have been reported to the [place] [facility] See [facility] PPerformed By: #### CTPCR, NGPCR1 #### [address] [address]C.trachomatis PCRPositiveAbnormalNegativeScionhealth ([place])Comment on above:Result Comment: Molecular (PCR) assay performed on the Sydney Stephanie 4800 system.Performed By: #### CTPCR, NGPCR1 #### [address] [address]Rtzdv SourceAtrium Health Union West ([place])Comment on above:Performed By: #### CTPCR, NGPCR1 #### [address] [address]TGLPV9ci 20-29-8908PT PCR [facility] ([place])Comment on above:Performed By: #### CTPCR, NGPCR1 #### [facility] [address] [place] [address]C. gonorrhoeae (PCR)NegativeNormalNegUNC Health Blue Ridge - Valdese ([place])Comment on above:Result Comment: Molecular (PCR) assay performed on the Sydney Stephanie 4800 System.Performed By: #### CTPCR, NGPCR1 #### [facility] [address] [place] [address]Z. gonorrhoeae InterpNormalSee NG [facility] ([place])Comment on above:Result Comment: N. gonorrhoeae DNA not detected. Specimen is presumptive negative for N. gonorrhoeae. A negative result does not preclude Neisseria gonorrhoeae infection because results depend on adequate specimen collection, absence of inhibitors, and sufficient DNA to be detected. See [facility] NPerformed By: #### CTPCR, NGPCR1 #### [address] [address].Urinalysis Microscopic (AO)on 42-97-3764JNM (U) [#/Vol]0-5 AbnormalCritical access hospital ([place])Comment on above:Performed By: #### PREGU, UA, UAMICAO #### [address] [address]KN Bacteria1+ /hpfAbnoDuke Raleigh Hospital ([place]) Comment on above:Performed By: #### PREGU, UA, UAMICAO #### [address] [address]VM Squam Epithelial5-10AbnProMedica Defiance Regional Hospital ([place])Comment on above:Performed By: #### PREGU, UA, UAMICAO #### [address] [address]OP WBC5-10AbnProMedica Defiance Regional Hospital ([place]) Comment on above:Performed By: #### PREGU, UA, UAMICAO #### [address] [address]FNJEAyt 88-90-9825AEP ( test) Ql (U)NegativeNormal [facility] ([place])Comment on above:Performed By: #### PREGU, UA, UAMICAO #### [address] [address]Jlqbzfcdx test (u) intHCG not detected.[facility] ([place])Comment on above:Performed By: #### PREGU, UA, UAMICAO #### [address] [address]IBqg 32-64-4463Wlyel (U)YellowCarolinas ContinueCARE Hospital at [facility] ([place])Comment on above:Performed By: #### PREGU, UA, UAMICAO #### [address] [address]Oeekyll (U) [Mass/Vol]NegativeNormYadkin Valley Community Hospital ([place])Comment on above:Performed By: #### PREGU, UA, UAMICAO #### [address] [address]Juqlobh Ql (U)NegativeNoCritical access hospital ([place])Comment on above:Performed By: #### PREGU, UA, UAMICAO #### [address] [address]AL AppearCloudyAbnoalClearScionhealth ([place]) Comment on above:Performed By: #### PREGU, UA, UAMICAO #### [address] [address]NF BloodNegativeNormYadkin Valley Community Hospital ([place]) Comment on above:Performed By: #### PREGU, UA, UAMICAO #### [address] [address]ST Leuk EstModerateAbnormYadkin Valley Community Hospital ([place])Comment on above:Performed By: #### PREGU, UA, UAMICAO #### [address] [address]RF NitriteNegativeNormazNegUNC Health Blue Ridge - [facility]dese ([place])Comment on above:Performed By: #### PREGU, UA, UAMICAO #### [address] [address]DC pH6.7Nzayqi5.0 - 8.0[facility] ([place])Comment on above:Performed By: #### PREGU, UA, UAMICAO #### [address] [address]JE ProteinNegativeNormalNegativeScionhealth ([place])Comment on above:Performed By: #### PREGU, UA, UAMICAO #### [address] [address]MT Spec Grav1.453Xjxfpu7.015-1.025[facility] ([place])Comment on above:Performed By: #### PREGU, UA, UAMICAO #### [address] [address]QV Specimen TypeVoidNormalAFormerly [facility] ([place]) Comment on above:Performed By: #### PREGU, UA, UAMICAO #### [address] [address]YS Urobilinogen0.2 E.U./dLNormal0.2-1.0[facility] ([place])Comment on above:Performed By: #### PREGU, UA, UAMICAO #### [address] [address]Nhbxwvzklimm Qn (U)NegativeNormalNegativeScionhealth ([place])Comment on above:Performed By: #### PREGU, UA, UAMICAO #### [address] [address].Auto Diffon 78-65-1762Ygawkdf (P) [Mass/Vol]0.90 10 3/mcL Normal0.15-1.00[facility] ([place])Comment on above:Performed By: #### CBC, ADIFF, ANEU #### [address] [address] #### GLU1P #### [address] [address]Vbewbamke (Bld) [#/Vol]0.10 10 3/mcLNormal0.00-0.19[facility] ([place])Comment on above:Performed By: #### CBC, ADIFF, ANEU #### [address] [address] #### GLU1P #### [address] [address]Yzwiemrue/100 WBC (Bld)0.6 %Normal0.0-2.5AFormerly [facility] ([place])Comment on above:Performed By: #### CBC, ADIFF, ANEU #### [address] [address] #### GLU1P #### [address] [address]Ocbmqwoeayu (Bld) [#/Vol]0.30 10 3/mcLNormal0.00-0.40[facility] ([place])Comment on above:Performed By: #### CBC, ADIFF, ANEU #### [address] [address] #### GLU1P #### [address] [address]Nqoxhnvmlzj/100 WBC (Bld)3.1 %Normal0.0-7.0[facility] ([place])Comment on above:Performed By: #### CBC, ADIFF, ANEU #### [address] [address] #### GLU1P #### [address] [address]Ycfhorpwawr (Bld) [#/Vol]1.50 10 3/mcLNormal0.77-3.85[facility] ([place])Comment on above:Performed By: #### CBC, ADIFF, ANEU #### [address] [address] #### GLU1P #### [address] [address]Zucziddlxui/100 WBC (Bld)13.6 %Bdkyhh74.0-50.0[facility] ([place])Comment on above:Performed By: #### CBC, ADIFF, ANEU #### [address] [address] #### GLU1P #### [address] [address]Ktqsbolpw/100 WBC (Bld)8.7 %Normal1.7-13.0[facility] ([place])Comment on above:Performed By: #### CBC, ADIFF, ANEU #### [address] [address] #### GLU1P #### [address] [address]Tiugqbyrngm/100 WBC (Bld)74.0 %Mvmryp45.0-80.0[facility] ([place])Comment on above:Performed By: #### CBC, ADIFF, ANEU #### [place] [address] #### GLU1P #### [address] [address].NEUABSon 13-16-1382Wohjcmhzgae (Bld) [#/Vol]8.00 10 3/mcLHigh 2.85-6.16[facility] ([place])Comment on above:Performed By: #### CBC, ADIFF, ANEU #### [address] [address] #### GLU1P #### [address] [address]UPAls 96-04-3836Filxdnkfwxh distribution width (RBC) [Ratio] 13.9 %Gokxzl29.5-14.5AFormerly [facility] ([place])Comment on above:Performed By: #### CBC, ADIFF, ANEU #### [address] [address] #### GLU1P #### [address] [address]Kvecuhihvj (Bld) [Volume fraction]38.1 %Jjbqnx05.0-47.0[facility] ([place])Comment on above:Performed By: #### CBC, ADIFF, ANEU #### [address] [address] #### GLU1P #### [address] [address]Hhvlwutpmd (Bld) [Mass/Vol]12.9 G/tKEuavff69.0-16.0[facility] ([place])Comment on above:Performed By: #### CBC, ADIFF, ANEU #### [address] [address] #### GLU1P #### [address] [address]QUR (RBC) [Entitic mass]30.9 ohKllzsp22.0-31.2AFormerly [facility] ([place])Comment on above:Performed By: #### CBC, ADIFF, ANEU #### [address] [address] #### GLU1P #### [address] [address]FUYQ (RBC) [Mass/Vol]34.0 G/hFKuxnqq93.0-37.0[facility] ([place])Comment on above:Performed By: #### CBC, ADIFF, ANEU #### [address] [address] #### GLU1P #### [address] [address]VUZ (RBC) [Entitic vol]90.9 jDAljeuc61.0-94.0[facility] ([place])Comment on above:Performed By: #### CBC, ADIFF, ANEU #### [address] [address] #### GLU1P #### [address] [address]Qqgtrbzo mean volume (Bld) [Entitic vol]9.5 fLNormal7.4-10.4 [facility] ([place])Comment on above:Performed By: #### CBC, ADIFF, ANEU #### [address] [address] #### GLU1P #### [address] [address]Cmsimcojq (Bld) [#/Vol]177 10 3/skPIoqzab501-885FgksptuScionhealth ([place])Comment on above:Performed By: #### CBC, ADIFF, ANEU #### [address] [address] #### GLU1P #### [address] [address]BZH (Bld) [#/Vol]4.19 10 6/mcLLow4.20-5.40[facility] ([place])Comment on above:Performed By: #### CBC, ADIFF, ANEU #### [address] [address] #### GLU1P #### [address] [address]JNF (Bld) [#/Vol]10.90 10 3/mcLHigh4.60-10.80[facility] ([place])Comment on above:Performed By: #### CBC, ADIFF, ANEU #### [address] [address] #### GLU1P #### [address] [address]ZYR8Vzn 60-63-1080Mcixzyd [Mass/Vol]93 mg/eLAcyfxs64-366 [facility] ([place])Comment on above:Performed By: #### CBC, ADIFF, ANEU #### [address] [address] #### GLU1P #### [address] [address] Vital Signs Date TimeVital SignValuePerforming YyrgpxgheZtiqfcem37-52-2451 13:03-0400Body tgbnjthbzal54.01 [degF]Darius Chance CNM Work Phone: [facility]03-22-2025 13:03-0400Diastolic blood cjknoizp55 mm[Hg]Darius Chance CNM Work Phone: [facility] [employer]03-22-2025 13:03-0400Heart rate93 /Edwar Chance CNM Work Phone: [facility] [employer] Qkvxmy22-73-7242 13:03-0400 Respiratory rate16 /Edwar Chance CNM Work Phone: [facility] [employer] [facility] Vccgvd79-61-0514 13:03-2943RrF8% (BldA) [Mass fraction]99 %Darius Chance CNM Work Phone: [facility] [employer]03-22-2025 13:03-0400Systolic blood lsaiksmr546 mm[Hg]Darius Chance CNM Work Phone: [employer] [facility] Bnazgb96-42-9584 13:24-0400Body byedbz266.1 cmSdiogenes Chance CNM Work Phone: [facility] [employer] Cehtsn84-90-5797 13:24-0400Body mass index (BMI) [Ratio]34.95 kg/t3LdnxgDarius Chance CNM Work Phone: [employer] Oqyhcb51-57-4953 13:24-0400Body zgkreb96.25 kgDarius Chance CNM Work Phone: [employer]03-02-2025 10:44-0500Body yzboclxdvwg98.9 [degF]Wilner D'Abreau DO Work Phone: [employer]03-02-2025 10:44-0500Diastolic blood ydvujlyb48 mm[Hg]Wilner D'Abreau DO Work Phone: [facility]03-02-2025 10:44-0500Heart qzot291 /minStephen D'Abreau DO Work Phone: [employer]03-02-2025 10:44-0500 Respiratory rate16 /minStephen D'Abreau DO Work Phone: [facility] [employer]03-02-2025 10:44-8641SjG5% (BldA) [Mass fraction]99 %Wilner Lechuga DO Work Phone: [facility] [employer]03-02-2025 10:44-0500Systolic blood mm[Hg]Wilner Lechuga DO Work Phone: [facility]10-25-2021 11:09-0400Body .6 cmEnrique Edouard MD Work Phone: [facility] [employer] Work Phone: [phone] 658-777210-25-2021 11:09-0400Body mass index (BMI) [Ratio] 30.67 kg/i2OlgknEnrique Edouard MD Work Phone: [facility] [employer] Work Phone: [phone] 307-186610-25-2021 11:09-0400Body qykmidqnoze41.9 [degF]Enrique Edouard MD Work Phone: [facility] [employer] Work Phone: 1(879) 762-616110-25-2021 11:09-0400Body clsaaw08.18 kgEnrique Edouard MD Work Phone: [facility] [employer] Work Phone: 1([phone] 547-762210-25-2021 11:09-0400Diastolic blood bxwyiwsc05 mm[Hg] Enrique Edouard MD Work Phone: [facility] [employer] Work Phone: 1(517) 875-609210-25-2021 11:09-0400Heart rate82 /minEnrique Edouard MD Work Phone: [facility] [employer] Work Phone: 1([phone] 452-714510-25-2021 11:09-0400Respiratory rate16 /minEnrique Edouard MD Work Phone: [facility] [employer] Work Phone: [phone] 340-528810-25-2021 11:09-8370BuU7% (BldA) [Mass fraction]99 % Enrique Edouard MD Work Phone: [facility] [employer] Phone: [phone] 11:09-0400Systolic blood cnwmmbuz206 mm[Hg] Enrique Edouard MD Work Phone: [facility] [employer] Work Phone: Encounters Encounter DateEncounter TypeCare ProviderFacilityStart: 02-10-2025 End: 90-71-0714Pvuijoieu department patient visitNO PCP NO PCPProCleveland Clinic South Pointe Hospitalca [facility] HospitalStart: 12-24-2024 End: 64-78-0359Grpoiybima and management of inpatientSusan Cuauhtemoc Patel APRN - CNM Work Phone: mthz Labor and DeliveryStart: 12-17-2024 End: 93-53-7718saxmdjxfbzDLXEROMOchsner Medical Complex – Iberville HospitalStart: 12-17-2024 End: 52-63-3137Gcczeucchy hospital visit by physicianUniversity Hospitals St[facility] [employer] Sr., DO Work Phone: [facility]ENTERInternet [facility] [place] LABComment on above:Pelvic pain Start: 12-10-2024 End: 33-75-2267lirlqrxvqoTQAINIROchsner Medical Complex – Iberville HospitalStart: 12-10-2024 End: 40-82-6479Szuqtrwerw hospital visit by physicianCasey County Hospitalbecoacht GmbH Sr., DO Work Phone: [facility]ENTERInternet [facility] LABComment on above:37 weeks gestation of pregnancyStart: 12-10-2024 End: 54-29-3732zmctqiatrpTFGXU MICHELLE [facility]ITHMer[facility] Start: 12-06-2024 End: 89-07-4424lpceufijncSRHMYDT D'ABREAUMercy Augusta HospitalStart: 12-06-2024 End: 04-55-3577Hxebuirabc hospital visit by Temo Lechuga DO Work Phone: mth[facility] Labor and DeliveryStart: 10-22-2024 End: 82-44-6322ajmxfaqzneYYFZL MICHELLE SMITHOhio [facility] Hospital Start: 10-17-2024 End: 38-16-1740Zrvpwwqxo department patient visitPHYJ.W. [facility] Start: 09-15-2024 End: 05-81-8401ybenlpnokhSKQZLROOchsner Medical Complex – Iberville HospitalStart: 09-15-2024 End: 55-02-5806Xiolabomgo hospital visit by [facility] Sr., DO Work Phone: mthz LaboratoryComment on above:Acute left flank pain; 24 weeks gestation of pregnancyStart: 08-25-2024 End: 15-96-2945unvxtrochgKBZZIMAOchsner Medical Complex – Iberville HospitalStart: 08-25-2024 End: 20-21-4715Zxfuhwgxow hospital visit by [facility] Sr., DO Work Phone: mthz LaboratoryComment on above:Dysuria during in second trimesterStart: 08-17-2024 End: 63-56-3292fweizomoogRROYL MICHELLE [facility] Start: 08-05-2024 End: 50-34-5442siokducmcaEKRNV MICHELLE [facility] HospitalStart: 08-05-2024 End: 44-27-1312Leuefpqhnf hospital visit by Cesario Patel APRN - [facility] Work Phone: [facility] UltrasoundComment on above:Rib pain on right side; 18 weeks gestation of pregnancyStart: 07-12-2024 End: 61-58-7913Xpkyuiuzg department patient visitNO PCP NO PCPProMedica Waldron HospitalStart: 06-22-2024 End: 66-80-4185fmwzjmddxzEUOZN MICHELLE [facility] HospitalStart: 06-04-2024 End: 20-20-2020Wabwzsyji department patient visitNO PCP NO PCPProMedica Waldron HospitalStart: 05-25-2024 End: 49-21-8335Jjxtlrktx department patient visitNO PCP NO PCPProMedica Waldron HospitalStart: 05-07-2024 End: 58-23-7365uzbbmklvhjUJORQ MICHELLE [facility] Start: 04-23-2024 End: 31-81-8972eipfddzicePTEMW CUAUHTEMOC [facility] HospitalStart: 04-23-2024 End: 45-37-6230Isddayuyrp hospital visit by Jaymie Herman Sr., DO Work Phone: mthz LaboratoryComment on above:Encounter for supervision of other normal in first trimester; Amenorrhea; History of pre-eclampsiaStart: 04-21-2024 End: 13-57-8137izjbrelbelBZKEF Sakshi [facility]EMari[facility] HospitalStart: 04-19-2024 End: 74-94-2817Lfmbassgk department patient visitNO PCP NO PCPProBaronca [facility] HospitalStart: 03-51-9013fizbmwtrtqPawrehnlitw Abdelaziz [facility]art: 11-05-2023 End: 88-36-3107Lbpqcomrm department patient visitNO PCP NO PCPProMedica Waldron HospitalStart: 01-27-2023 End: 49-69-1233pydyzcgqvoPO STEVEN R ZIEBERFacility:Q3Jvdlb: 12-11-2022 End: 10-08-0560wiysmzmzbyOC STEVEN R ZIEBERFacility:P1Uijwr: 11-29-2022 End: 38-21-2676qghfnhnjxiJQ NATALIE GRECHNY .Facility:T7Noyxw: 10-02-2022 End: 44-38-3007wcnmfretchCXNTVUQ D KATKOFacility:M8Hwbvc: 08-23-2022 End: 64-03-9269khlcdjgbggVJCFDUR D KATKOFacility:P0Ubxfj: 07-29-2022 End: 13-09-1591xghqxzzvriJG STEPHEN G REINECKFacility:X1Dytwt: 06-01-2022 End: 62-80-1575baqlhlzzkvEN CHARLES HOUSEFacility:G6Brpfg: 05-15-2022 End: 47-81-8908yrjxyhtdbvAP KRIS [facility], Inccility:R8Zpsyy: 05-10-2022 End: 34-14-5403Kdqgygqqdl and management of inpatientDR MERLENE ECHEVARRIA . Facility:W6Olwzz: 04-17-2022 End: 32-54-9744mszivvgwxmVH GREGORY KARASIK .Facility:O3Aihuw: 03-31-2022 End: 59-31-8071yifrpzuvteWJ COREY FAZIO .Facility:I4Mhykg: 03-28-2022 End: 64-73-2812hqfjjsoebcDK GREGORY KARASIK .Facility:X9Ehhau: 03-20-2022 End: 70-78-9157ultdnatpiuCZ COREY FAZIO .Facility:A5Fwnlf: 03-01-2022 End: 00-17-5932uvgpianwjtRA GREGORY KARASIK .Facility:B2Shvbu: 02-20-2022 End: 07-97-6515uxytkamhkvPQ GREGORY KARASIK .Facility:Q8Uqrho: 07-31-2021 End: 84-25-0113Zsqzrxowa department patient visitSR [facility] HospitalStart: 07-31-2021 End: 28-86-7292Fawqxxznd department patient visitEnrique Edouard MD Work Phone: [facility] EDComment on above:Acute non- recurrent frontal sinusitis (Primary Dx)Start: 07-10-2021 End: 46-14-0471suifkbxoiyLULafayette General Southwest HospitalStart: 07-10-2021 End: 88-86-8640Vvwafjdvcd hospital visit by physicianStc Xr Room [address] [place] [address] RadiologyComment on above:Lumbar pain Procedures DateProcedureProcedure DetailPerforming ClinicianStart: 36-63-7708Seegp count hemoglobinSusadavid Patel APRN - CNM Work Phone: Start: 66-01-7955Vsswq count complete auto&auto difrntl wbcSuerika Patel APRN - CNM Work Phone: Start: 79-57-6256Ylrkq typing serologic aboSusan Cuauhtemoc Patel [employer] - CNM Work Phone: Start: 77-74-5815Xgbdroexqq microscopic onlySusan Cuauhtemoc Patel [employer] - CNM Work Phone: Start: 84-93-6646Yblxo dip stick/tablet rgnt auto w/o microscopySusan Cuauhtemoc Jorge [employer] - CNM Work Phone: Start: 17-07-3112Irmuq dip stick/tablet rgnt auto w/o microscopyStephen D'Abrmoniku DO Work Phone: Start: 63-52-1146Exyovkinlq microscopic onlySusan Cuauhtemoc Jorge [employer] - CNM Work Phone: Start: 65-73-4258Fxrbo dip stick/tablet rgnt auto w/o microscopySusan Cuauhtemoc Patel [employer] - CNM Work Phone: Start: 77-14-0805Rvwrdyhuga microscopic onlySusan Cuauhtemoc Jorge [employer] - CNM Work Phone: Start: 10-36-7268Bnawn dip stick/tablet rgnt auto w/o microscopySusan Cuauhtemoc Patel [employer] - CNM Work Phone: Start: 16-20-7438Yf abdominal real time w/image limitedSuerika Cuauhtemoc Jorge [employer] - CNM Work Phone: Start: 00-88-4474Rlflrufohnl observation [Identifier] in Cervix by Cyto stainSdiogenes Patel [employer] - CNM Work Phone: Start: 04-23-2024 End: 13-02-4931Vzkljcdn hiv-1&hiv-2 single resultSusan Cuauhtemoc Patel [employer] - CNM Work Phone: Start: 36-22-9687Yzeirciaqqvzp metabolic panelSdiogenes Patel [employer] - CNM Work Phone: Start: 71-20-7265Mkqaeez total xcpt refractometry urineSusan Cuauhtemoc Patel [employer] - CNM Work Phone: Start: 82-07-4736Kdhieoxk of Products of Conception, External ApproachSELECT SPECIALTY HOSPITAL - HARRISBURGLinnea DMITRIStart: 82-99-3169Zvrjuaqm of Amniotic Fluid, Therapeutic from Products of Conception, Via Natural or Artificial Opening RAQUEL DMITRIKOStart: 99-77-3199Kjpngcjnaeki of Other Hormone into Peripheral Vein, Percutaneous ApproachJECHAN SOON-SHIONG MEDICAL CENTER AT WINDBERLinnea DMITRIStart: 87-37-5380Boytsf Vulva, External ApproachNICOLE DMITRIPresbyterian Medical Center-Rio Ranchoart: 09-18-5353Wyarfhaqmwkh of Hormone into Female Reproductive, Via Natural or Artificial OpeningJECHAN SOON-SHIONG MEDICAL CENTER AT WINDBERLinnea [facility]OSPITALStart: 07-31-2021 COVID-19, RAPIDAdriroberth De LeónCognii Work Phone: Start: 56-36-2524Fctcy test visual color cmprsn methsAdrienne Nini Amaya WHILL Work Phone: Start: 74-17-7623Ttafnoweog exam chest single view Kari Amaya WHILL Work Phone: Start: 88-28-8470Oswvo spine lumbosacral 2/3 viewsSr Kris Chavez [place] DO Work Phone: Plan of Treatment DateCare ActivityDetailAuthorStart: 01-35-1344Yxsxjqkhbyu Syncytial Virus (RSV) or age 60 yrs+ (1 - 1-dose 60+ series)Respiratory Syncytial Virus (RSV) or age 60 yrs+ (1 - 1-dose 60+ series)[facility]: 08-07-6037QCsW/Tdap/Td vaccine (9 - Td or Tdap)DTaP/Tdap/Td vaccine (9 - Td or Tdap)[facility]: 74-46-6424MBgU/Tdap/Td vaccine (6 - Td or Tdap)DTaP/Tdap/Td vaccine (6 - Td or Tdap)[facility] Work Phone: start: 94-29-2582DMrJ/Tdap/Td vaccine (8 - Td or Tdap) DTaP/Tdap/Td vaccine (8 - Td or Tdap)[facility]: 06-22-2027 Screening for malignant neoplasm of cervixPap smearBon [facility] Start: 95-38-0189Grulxcclys ScreenDepression ScreenWythe County Community Hospital Start: 91-64-2582Fjgilhmee for Chlamydia trachomatisChlamydia/GC screenWythe County Community HospitalStart: 02-08-2025 End: 23-14-0163pvrztgbxxw69/05/2025 1:20 PM EDT Visit [facility] [address] [place] [address] Darius Patel, [employer] - CNSakshi [address] [place] [address] Dr [address] [place] [address] 6 wk PPVZANES[facility] Doctors HospitalComment on above:6 wk PPVStart: 12-31-2024 End: 55-56-4657Suexklj encounter wbazxeexq59/27/2025 1:00 PM EDT Routine [facility] [address] [place] [address] Darius Patel, [employer] - CNSakshi [address] [place] [address] Dr [address] [place] [address] OB FERNANDA 12/31[facility] Doctors HospitalComment on above:OB FERNANDA 12/31Start: 12-24-2024 End: 77-67-5582Gnrabsm encounter eiygxzali97/20/2025 1:00 PM EDT Routine [facility] [address] [place] [address] Darius Patel, [employer] - CNSakshi [address] [place] [address] Dr [address] [place] [address] OB FERNANDA 12/31[facility] & [facility] [place] [facility] HospitalComment on above:OB FERNANDA 12/31Start: 12-21-2024 End: 53-71-7708Zkheqsl encounter rwkujlott38/17/2025 3:30 PM EDT Routine [facility] [address] [place] [address] Darius Patel, [employer] - CN[address] [place] [address] OB--induction 12/24--*[facility] & [facility] [place] [facility] HospitalComment on above:OB--induction 12/24--*CStart: 12-17-2024 End: 49-05-9847Wfaqcgg encounter kmbxrxsir35/13/2025 1:30 PM EDT Routine [address] [place] [address] Darius Patel, [employer] - CNM [address] [place] [address] Dr [address] [place] [address] OB FERNANDA 12/31[facility] HospitalComment on above:OB FERNANDA 12/31Start: 12-10-2024 End: 40-07-3292Yoviqgn encounter euucxobei87/06/2025 1:00 PM EST Routine [address] [place] [address] Darius Patel, [employer] - CN[address] [place] [address] ask about neurology appt pt no showed for on 10/26/24 for [facility]AsZ[facility] Comment on above:ask about neurology appt pt no showed for on 10/26/24 for HAsStart: 12-10-2024 End: 28-24-7229Oisthkqjnchz / ancillary services izgjuucxru66/06/2025 11:30 AM EST Ancillary Procedure [facility] [address] [place] [address] OB--11/30/24-pt aware an US was added and her f/u with Darius is at 1 pm today [facility] Part [facility] CenterComment on above:OB--11/30/24-pt aware an US was added and her f/u with Darius is at 1 pm todayStart: 32-56-6971Xebjwmqqlnr Syncytial Virus (RSV) or age 60 yrs+ (1 - Risk 1-dose series)Respiratory Syncytial Virus (RSV) or age 60 yrs+ (1 - Risk 1-dose series)[facility] CampusStart: 10-26-2024 End: 78-22-7367Cjgjahw encounter alnzsnbyp10/20/2025 11:00 AM EST Office Visit [facility] Part [address] [place] [address] Mehran Avalos MD [address] [place] [address] Dr [address] [facility] [place] [address] Nonintractable headache, unspecified chronicity pattern, unspecified headache typeZANESVILLE CITY [facility] HospitalCommclaren oakland on above:Nonintractable headache, unspecified chronicity pattern, unspecified headache typeStart: 10-22-2024 End: 05-72-8804Juhuysm encounter usghfkynp07/16/2025 2:30 PM EST Routine [facility] Part [address] [place] [address] Darius Patel, MICA - KITA [address] [place] [address] [address] [place] [address] FERNANDA 12/31[facility] HospitalCommclaren oakland on above:FERNANDA 12/31Start: 10-22-2024 End: 28-93-8621Sfkzpzyuluka / ancillary services zawctdvgtj50/16/2025 2:00 PM EST Ancillary Procedure [facility] Part of [address] [place] [address] FERNANDA 12/31[facility] Part [facility] CenterComment on above:FERNANDA 12/31Start: 10-12-2024 End: 34-34-0698Damdlwh encounter procedureZANESVILLE CITY [facility] HospitalComment on above:OB GTTOB GTT, check sugar log prior to glucolaStart: 25-83-1555Hdrz Vaccine during PregnancyTdap Vaccine during PregnancyBon SecCleveland Clinic Akron GeneralStart: 09-14-2024 End: 11-84-8613Xrgoibd encounter ucfxacxpf22/09/2024 2:30 PM EST Routine [facility] Part [address] [place] [address] Darius Patel, [employer] - CNM [address] [place] [address] Dr [address] [place] [address] [facility] & GYNECOLOGY [facility] HospitalComment on above:OBStart: 08-17-2024 End: 55-28-7971Tumrsno encounter lengbvseo60/11/2024 2:00 PM EST Routine [facility] Part [address] [place] [address] Darius Patel, [employer] - CN[address] [place] [address] OB 20 wk [facility] HospitalComment on above:OB 20 wk USStart: 08-17-2024 End: 69-76-1677Htyhpmtmwlax / ancillary services ebdbtzvrvl57/11/2024 1:00 PM EST Ancillary Procedure [facility] Part of [address] [place] [address] OB 20 wk [facility] Comment on above:OB 20 wk USStart: 42-47-7694APXAF-19 Vaccine ( season)COVID-19 Vaccine ( season)[facility]: 13-56-6707PDRRE-19 Vaccine ( season)COVID-19 Vaccine ( season)[facility]: 55-13-4626Peesfbfyy vaccinationFlu vaccine (#1)[facility]: 23-85-1194KDRAI-19 Vaccine ( season)COVID-19 Vaccine ( season)[facility]: 62-10-6064Lupjnbggc for malignant neoplasm of cervixPap smearHenrico Doctors' Hospital—Parham Campusart: 98-24-1897Pzgjrbnqi vaccinationFlu vaccine (#1)[facility] Phone: start: 47-22-4162Rxcondgnv C screeningHepatitis C screenRIVERSIDE REGIONAL MEDICAL CENTERStart: 67-76-6954Jzzvupyzqhnqn B vaccine (1 of 2 - Standard)Meningococcal B vaccine (1 of 2 - Standard)[facility] Start: 71-71-7439Rvtwgmotf for Chlamydia trachomatisRIVERSIDE REGIONAL MEDICAL CENTER Start: 26-21-2980SBL screeningHIV screenHenrico Doctors' Hospital—Parham Campusart: 70-78-0357Grirkiiyt A vaccine (2 of 2 - 2-dose series)Hepatitis A vaccine (2 of 2 - 2-dose series)[facility] Systemsart: 73-29-3057Mgglucxtnh Screen Depression ScreenCommunity Health Systemsart: 33-96-2906Xuroclqhb C screening Hepatitis C screenSt. [facility] Work Phone: End: 43-40-6307Hlativqz identified in Urine by CultureUrine culture Microbiology Routine One Time for 1 Occurrences starting 12/06/2024 until 12/06/2024on Doctors HospitalComment on above:One Time for 1 Occurrences starting 12/06/2024 until 12/06/2024 End: 04-23-2024.trachomatis N.gonorrhoeae DNA, UrineRIVERSIDE REGIONAL MEDICAL CENTER Comment on above:1 Occurrences starting 04/23/2024 until 04/23/2024 End: 90-79-8866Dvkybwx, Strep B Screen, Vaginal/RectalBon SecTraderTools Health Comment on above:1 Occurrences starting 12/10/2024 until 12/10/2024 End: 13-56-3565Dmgflug, UrineBon Secours Mercy HealthComment on above:1 Occurrences starting 08/25/2024 until 08/25/2024 End: 36-69-4448Uuoavif, UrineBon Secours WineNicey HealthComment on above:1 Occurrences starting 09/15/2024 until 09/15/2024 End: 68-71-4674Qkxrvav, UrineBON SECOURS MERCY HEALTHComment on above:1 Occurrences starting 04/23/2024 until 04/23/2024 End: 19-90-5476Rbmowlv, UrineBon SecTraderTools HealthComment on above:1 Occurrences starting 12/17/2024 until 12/17/2024Fetal nonstress testFetal nonstress test OB Routine Daily until discontinued starting 12/07/2024on [employer] Work Phone: Comment on above:Daily until discontinued starting 12/07/2024 End: 33-04-6470VYOUMQ Point of Care Testing Routine One Time for 1 Occurrences starting 12/06/2024 until 12/06/2024on CareeriseComment on above:One Time for 1 Occurrences starting 12/06/2024 until 12/06/2024 Immunizations Immunization DateImmunizationNotesCare NsxcuvglZzszkhxh69-01-3158ngsdpravny, tetanus toxoids and acellular pertussis vaccine, unspecified formulationSdiogenes [facility] Work Phone: Bon LuciduxJohn Randolph Medical CenterKzaaxn01-02-1102gkzzibb, mumps and rubella virus vaccineSlincoln county medical centerdavid [facility] Work Phone: [facility] CenterFabriclyJohn [facility] Medical Center Payers DatePayer CategoryPayerPolicy [id number] 2..840.1.997833.3.57[id number] 2..840.1.620740.3.57[id number] 2.16840.1.790031.3.57[id number] 2.16.840.1.011748.3.579.[id number] 2.16840.1.503760.3.57[id number] 2.16840.1.673176.3.57[id number] 2.16840.1.288576.3.579.2.49632-54-3890Yiawhtd5126642 2.840.1.636429.3.579.2.04787-36-0228Hpujlgv4545419 2.840.1.245817.3.579.2.47836-45-2811Fprfies4076150 2.840.1.266345.3.579.2.80892-03-1431Gcxryne5102231 2.840.1.112181.3.579.2.54952-17-1818Snqzdum0077754 2.840.1.316919.3.579.2.08364-70-8464Vdarjqe1325893 2.840.1.490633.3.579.[id number] 2.840.1.215908.3.579.2.73380-41-0361Cjhyybz6029344 2.840.1.990518.3.579.2.78881-41-2392Onbbuua3496723 2.16840.1.617129.3.579.2.19865-71-3095Nanywzi4249155 2.16840.1.431001.3.579.2.06056-27-1564Pdrdsbh8429883 2.840.1.258111.3.579.2.50548-79-2269Wkfczfc27979776 2.16840.1.701864.3.579.2.122823-42-2543Wzakdcb68265450 2.840.1.175040.3.579.2.208215-39-2935Pyelxew98459451 2.840.1.083088.3.579.2.194889-59-6272Vdvnswx04521532 2.0.1.567654.3.579.2.420552-13-1907Vmgklmz53715349 2.840.1.495867.3.579.2.417047-38-3563Fpmwjom297691544 2.0.1.054856.3.579.2.01271-60-1908Ukbqewa87293451 2.0.1.668556.3.579.2.77454-89-8440Nlfcpau64058815 2.840.1.428331.3.579.2.77061-84-5077Xxpzmgp72397387 2.0.1.245021.3.579.2.99905-95-2779Rhavnzq11772908 2.840.1.746235.3.579.2.37042-22-6550Pfinugm79300587 2.0.1.340916.3.579.2.71686-44-3060Zlmvapm08428111 2.840.1.950283.3.579.2.[id number] 2.840.1.454025.3.579.2.17622-09-4758Ftqcthb52206649 2.840.1.746714.3.579.2.99768-04-0322Bdicyiv90365229 2.16.840.1.313707.3.579.2.70839-51-2084Ntwngnw104152628 2.16.840.1.491862.3.579.2.19930-46-2050Dbjhsfs989681085 2.16.840.1.901771.3.579.2.30281-38-0587Pbvxcnz281338337 2.16.840.1.894372.3.579.[id number] 2.16.840.1.496523.3.579.2.54733-54-8375Imryujy077719557 2.16.840.1.205091.3.579.2.094975-45-9044Whrsczu24047850 2.16.840.1.125846.3.579.2.570791-59-0114Wwiilzb848400397509 1.2.840.699582.1.13.239.2.7.3.559028.315 Social History DateTypeDetailFacilityTobacco smoking status NHISUnknown if ever smokedCognitive Match Phone: start: 41-14-8489Hmy Assigned At BirthNot on fileCognitive Match Phone: start: 07-31-2021 End: 62-83-2705Ureruxa smoking status NHISNever smokerCognitive Match Phone: start: 37-56-9479Rdjmhwh use and exposureNever used Kijamii VillageStart: 07-31-2021 End: 46-05-6109Lwxtdvf intakeEx-drinker (finding)[employer] Phone: exposure to SARS-CoV-2 (event)Not sureRegency Hospital ToledoNavigatorMD Start: 26-34-4811Uvsnjcb use and exposureFormer smokeless tobacco userELIZABETH MASON INFIRMARYSTEFANY HIGHLAND DISTRICT HOSPITALStart: 04-23-2024 End: 65-21-5850Oxsmfxa of Social functionClinch Valley Medical Centerstefany St[facility] CampusStart: 04-23-2024 End: 95-52-4811Bukrqyv use panelWythe County Community HospitalStart: 03-16-2024 PregnancyBON SOUTHERN OHIO MEDICAL CENTERHas the electric, gas, oil, or water company threatened to shut off services in your home in past 12MoNoBon Doctors HospitalPatient Health Questionnaire 9 item (PHQ-9) total score [Reported]0[facility](I/We) worried whether (my/our) food would run out before (I/we) got money to buy more.Never trueBon Doctors HospitalStart: 11-16-2012 SexFemale (finding)Bon Doctors HospitalThe thought of harming myself has occurred to [facility] Medical Equipment Procedure CodeEquipment CodeEquipment Original TextEquipment IdentifierDates1 each by Other route in the morning, at noon, in the evening, and at bedtime - PER INSURANCE [id number]: each by Other route in the morning, at noon, in the evening, and at bedtime One glucometer, test strips, lancets - per insurance [id number]: 08-17-2024 End: each by Other route in the morning, at noon, in the evening, and at bedtime One glucometer, test strips, lancets - per insurance coverage [id number]: 08-17-2024 End: each by Does not apply route 4 times daily 1 each by Other route in the morning, at noon, in the evening, and at bedtime - PER INSURANCE [id number]: 08-18-2024 Clinical Notes 04-14-2021 to 12-26-2024 Note Date & GlagOagbFbbkqvot31-44-8015 Hospital Discharge instructions* Discharge Instructions* Beni Galicia RN - 12/26/2024 2:23 PM EDT Follow up with your OB provider as specified. [facility] OB Department MD Dr. Leslie Colin DO Kathy Pool, KITA Patel, KITA Omer, MOSHE [address] [place], [place] [address] [place] Office: [place] Office: Physical Changes Afterbirth pains are cramps that occur in your lower abdomen; these occur due to the uterus shrinking back to its pre- size. Will likely be stronger during . Usually starts to go away after the 1st week . Empty your bladder often and frequently to reduce abdominal cramps. This allows room for your uterus to shrink back to normal. If the bladder remains full it can cause increased bleeding. Kegel Exercises will help restore bladder control. The 1st bowel movement may take 2-3 days. To avoid constipation, add a mild stool softener. To assist with bowel movement, try putting your feet on a stool, rest your elbows on your knees, and take deep breaths. Hemorrhoids may develop. If they do, avoid straining, use pre-moistened wipes, and apply ice packs and/or witch luzma pads. Eat a well-balanced diet focusing on foods high in fiber and protein. Drink 6-8 glasses of water a day. Swelling is common but should subside in time. Keep your legs elevated when possible. Wear stockings or socks; make sure they are not too tight. Hair loss may occur. Your hair goes through a resting phase. Therefore, you lose less during . Losing hair in large amounts is not unusual for the first 5 months after . Perineal Care/Bleeding Use the taamra-bottle after toileting until the bleeding stops. Always cleanse from front to back. If a tear occurred, stitches would dissolve in 4-6 weeks. Use Epsom salts/sitz baths to alleviate any pain, burning, or itching. Vaginal Bleeding will decrease in amount over the next few weeks. First 1-3 days = Bright to dark red, heavy to medium flow, may have small clots. Blood clots shouldnot be larger than an egg. Days 3-10 = [place] or [place]-tinged, medium to light flow, very few or no small clots. Days 10-14 (but may last longer) = Yellowish-white color, very light flow, no clots or bright red color. You may notice as your activity increases, your flow increases. Listen to your body; this is your body's way of telling you to take things easier and rest. A hemorrhage may occur at any time up to 12 weeks following . Call your provider ifyou are soaking through more than 1 pad in an hour and resting does not help. Incisional Care Leave any dressing following a in place until your 1-2 week follow up. Your provider willremove the dressing in the office and discuss further care. If you have a negative pressure dressing (Prevena), follow up in 2 weeks. If you have a silver dressing (or a PARAS), follow up in 1 week. You may shower as normal with a dressing following a . Keep the shower water to your back and turn around only to rinse. Wash around the dressing with antibacterial soap and water. Do not allow dressing to be submerged in water. When shower is complete, towel dry, but be careful not to disrupt the dressing. If you have a Negative Pressure dressing (Prevena or PARAS), the pump will need disconnected prior to showering. To disconnect the Prevena pump, press the power button to pause the device, clamp the tubing with the provided clamp (if applicable), unscrew the two ports connected, and place the pump somewhere it cannot get wet. Allow the tubing to dangle. Keep it facing downward to ensure water does not enter the tubing. When finished, reconnect the ports, unclamp the tubing, and press the power button to turn back on. Make sure to keep your pump charged. The battery is good for 6-8 hours and takes about a half hour or so to charge. It is best to charge it while you are napping or sleeping. If having issues with the Prevena dressing/pump, call the cash posting representative production operations engineer for further instructions: [facility] Phone number: [phone] If the dressing starts to peel off or becomes soiled before your follow up appointment, call the office, and make an appointment to have your dressing removed. Clean your incision with CHG bath. To disconnect the PARAS pump, press the orange button to pause the device, unscrew the two ports connected and place the pump somewhere it cannot get wet. Allow the tubing to dangle, keep it facing downward to ensure water does not enter the tubing. When finished, reconnect the ports and press the orange button to turn back on, ensure the green light is flashing. If having issues with the PARAS dressing/pump, call the OB office for further instructions. If the dressing starts to peel up or becomes soiled before your appointment, you may remove the dressing and clean your incision with CHG bath. Shower every day. Once dressing is removed, wash your abdomen and incision every day with Chlorhexadine Gluconate (CHG) foam/gel wash that was given to you by the hospital at discharge. After showering, pat the incision area dry, allow to dry completely, and allow the area to remain open to air. Use the CHG foam/gel wash daily until all of it is gone. If steri-strips were used, they should be completely removed by 2 weeks, but you may remove them asthey become loose or soiled. An abdominal binder may be used to provide support for your incision. Use as needed and as desired,but make sure you take it off while you are sleeping at night. Activity Gradually increase your activity; resume regular exercise regimen only after advised by your provider. If you had a , the best way to get out of bed is to roll to your side and use your top armto push yourself up, sit at the side of the bed, use your arm to support your weight, and stand. For support, place a pillow over your incision when coughing or moving. Avoid lifting anything heavier than a gallon of milk for [address] until you are cleared by your provider. Rise slowly from lying to sitting; give yourself time before standing. Climb stairs one at a time and limit the number of times you are using your stairs if able. No sexual activity or anything into the vagina for 4-6 weeks. This includes intercourse, tampons, or douching. Once you are cleared to have intercourse by your provider, if you experience difficulty or discomfort with intercourse you may want to add a water-based lubricant. Women often experience dryness and reduced lubrication due to the hormones associated with and . You may feel tired or have a lack of energy. Continue taking your vitamins to replenish nutrients after delivery. Nap when the baby naps. Managing Pain Take medications as prescribed by your provider; rotate medications to allow for optimal pain management. Rotate Tylenol and Motrin. Use the Clock Method = 12:00/6:00 Tylenol, 3:00/9:00 Motrin. Use topical sprays such as Dermo-plast or witch luzma pads (example: Tucks) as needed. Use ice pads as needed on perineum for any tears. Gas pains can be extremely uncomfortable. Walk, rock, or lay on your left side. Drink warm fluids. Avoid carbonated drinks. Avoid gassy foods. Emotions Baby Blues are normal. About 70-80% of new parents experience some negative feelings, thoughts, or mood swings. However, these feelings should only last for a few days. Common symptoms of Baby Blues: weepiness, impatience, irritability, restlessness, anxiety, feeling tired, insomnia, sadness, mood changes, poor concentration Roughly 1 in 7 people will experience moderate to severe Depression (PPD) or Anxiety (PPA). Symptoms usually develop in the first 3 months but can happen anytime during the 1st year after delivery. Same or similar symptoms to Baby Blues but emotions are felt more intensely, emotions last all day,more bad days than good, and/or emotions are strong enough they make it difficult to function, carefor your , or change your feelings towards your . This can be a serious condition. Follow up with your provider if you have any of these symptoms. Post- Obsessive Compulsive Disorder (OCD) can involve things like excessively washing your hands or repeatedly checking on your due to all-consuming thoughts; these thoughts and concerns take up more than 1 hour a day. Call your OB for help if you are concerned. Post- Psychosis is a rare condition but requires immediate intervention and professional help. This usually occurs within 3-14 days after delivery. If there is a concern that a mother may be experiencing Psychosis, they should not be left alone with the . Get immediate help if you feel the following: Agitation or confusion, feeling afraid and not likinghow you feel, rapid or nonsense speaking pattern, feeling like someone else is controlling you, hearing or seeing things no one else dose, thoughts of hurting yourself or others, feeling like something is crawling on you, having a lot of energy, racing thoughts and not sleeping, and/or forgetting things you have done in the past. If your will not stop crying, contact another adult to help or place in crib/bassineton their back and walk away. Never shake your infant. Breast Care Take medication as prescribed by physician for pain. If you develop a warm, red, tender area on your breast or develop a fever, contact your OB provider. This could indicate mastitis which is an infection of breast tissue. For Moms: Your milk supply usually comes in 2-5 days after delivery. When this occurs, your breasts may become engorged. Feeding may be more difficult or painful for 1-2 days. To ease discomfort, hand express some milk so that the infant can latch on more easily. Apply warm compresses for a few minutes prior to feeding. If you notice a pea-size lump or an area on your breast that feels engorged, you may have developeda clogged milk duct. Feed your on the side of the clogged duct as usual. Use a cool compress and tap lightly over affected area. While , continue taking your vitamins as directed by your provider. Refer to your booklet given during your stay for more information. If you need assistance or have questions, reach out to Dianne NEWBERRY, RN, IBCLC for an appointment or phone consult by calling . For Non- Moms: Apply ice packs to your breasts over your bra for 20mins at a time for comfort. Avoid stimulation to your breasts; when showering, allow the warm water to hit your back, not your breasts. Wear a good fitting bra until your milk dries up. Most women who give recover without problems. But any woman can have complications after giving . Watch for these post- warning signs and seek medical attention: Call 911 if you have: Pain in your chest Difficulty breathing or shortness of breath. Seizures Thoughts of hurting yourself or someone else Call your provider if you have: Bleeding, soaking through one pad an hour or blood clots the size of an egg or bigger. Incision that is not healing Red or swollen leg that is painful or warm to the touch. Temperature of 100.4oF or higher. Headache that does not get better even after taking medicine, or a bad headache with vision changes. Call your physician for the following as well: If your abdomen is tender to the touch If you are experiencing extreme weakness or dizziness If you are having flu-like symptoms or muscle aches and pains If there is a foul smell or green color to your vaginal bleeding or discharge If you have pain that cannot be relieved If you have frequency and burning with urination If your incision is not healing and you notice swelling, bleeding, drainage, foul odor, redness, orwarmth in/around the area. If you have concerns about your personal well-being, if you are unable to sleep and eat, or are having thoughts of harming yourself of your baby. [facility] History of Present illness Narrative* Wilner Lechuga DO - 12/26/2024 1:20 PM EDT Subjective: 24 y.o. @ 39w1d Day 1: Vaginal Delivery on 12/25/2024 The patient feels well. The patient denies emotional concerns. Pain is well controlled with currentmedications.The patient is ambulating well. The patient is tolerating a normal diet. Objective: Patient Vitals for the past 8 hrs: BP Temp Temp src Pulse Resp SpO2 12/26/24 0920 (!) 112/54 98.1 F (36.7 C) Oral 96 18 97 % General: alert, appears stated age, and cooperative Bowel Sounds: active Lochia: appropriate Uterine Fundus: Firm @ U-2 Perineum: Intact DVT Evaluation: No evidence of DVT seen on physical exam. Assessment: Status post Vaginal Delivery. Plan: 1.Routine care. 2. Discharge Planning initiated Wilner Lechuga DO, SACHIN, FACOOG December 26, 2024 * Rosette Rankin RN - 12/25/2024 4:05 AM EDT Patient desires up to BR. Patient assisted to sitting on side of bed and allowed to dangle. Patient denies dizziness and lightheadedness. Patient assisted up to x 2 assistants with yuly steady without difficulty to BR. Patient voided blood tinged urine. Pericare taught and demonstration returned.Patient informed on pericare and instructions given of use of tucks pads and dermaplast spray. Linens and gown changed. Patient assisted back to bed and call light within reach. Patient instructed to call for assistance with next void. Patient verbalized understanding. * Rosette Rankin RN - 12/25/2024 12:28 AM EDT Ricardo Patel CNM updated with pt's current status. CNM in route to facility. * Rosette Rankin RN - 12/24/2024 10:17 PM EDT Ricardo Patel CNM notified and updated of pt's current status. No new orders at this time. Visitors at bedside, call light in reach will con to monitor. * Rosette Rankin RN - 12/24/2024 8:50 PM EDT Epidural complete pt semi fowlers pillow tilt towards left. * Rosette Rankin RN - 12/24/2024 8:44 PM EDT Epi test dose pt tolerate well. * Rosette Rankin RN - 12/24/2024 8:35 PM EDT DARRIAN Ghassan at bedside for epidural and set up. * Rosette Rankin RN - 12/24/2024 8:13 PM EDT Pt ready for epiduralJorge CNM aware. CONSERVATION WORKER notified. * Rosette Rankin RN - 12/24/2024 8:08 PM EDT Ricardo Patel CNM at bedside. * Sloane Fragoso RN - 12/24/2024 5:11 PM EDT [facility] calls in for update. CNM states she will be in around 20:30 to AR[facility] and let patient know. Transport Assistant updates patient on plan of care, pt v.u. * Sloane Fragoso RN - 12/24/2024 1:07 PM EDT Patient arrives for scheduled elective induction. Pt states her support person will be here shortly. Patient to bathroom to put gown on and give urine specimen. [facility] course Narrative* Wilner Lechuga DO - 12/26/2024 1:20 PM EDT Obstetric Discharge Summary Reasons for Admission on 12/24/2024 1:07 PM Onset of Labor Procedures None Intrapartum Procedures Vaginal Delivery Procedures None Data Information for the patient's : Sree Patricia [[id number]] male Weight: 3.715 kg (8 lb 3 oz) Discharge With Mother Complications: No Discharge Diagnosis Patient Active Problem List Diagnosis Date Noted Normal delivery 12/25/2024 39 weeks gestation of 12/24/2024 Uterine contractions during 12/06/2024 Discharge Information Current Discharge Medication List START taking these medications Details acetaminophen (TYLENOL) 500 MG tablet Take 2 tablets by mouth every 6 hours as needed for Pain Qty: 120 tablet, Refills: 3 ibuprofen (ADVIL;MOTRIN) 800 MG tablet Take 1 tablet by mouth every 8 hours as needed for Pain Qty: 120 tablet, Refills: 3 docusate sodium (COLACE, DULCOLAX) 100 MG CAPS Take 100 mg by mouth 2 times daily as needed for Constipation Qty: 30 capsule, Refills: 1 CONTINUE these medications which have NOT CHANGED Details ewgjqdtxgw-hoqjoipjdwszy-hgiddort (FIORICET, ESGIC) 50-325-40 MG per tablet 1-2 tablets every 6 hours prn headache, no more than 6 tablets in 24 hours Qty: 30 tablet, Refills: 1 Associated Diagnoses: Headache in , antepartum, first trimester aspirin 81 MG EC tablet Take 1 tablet by mouth daily Qty: 90 tablet, Refills: 2 Lancets MISC 1 each by Does not apply route 4 times daily 1 each by Other route in the morning, at noon, in the evening, and at bedtime - PER INSURANCE COVERAGE Qty: 100 each, Refills: 5 blood glucose monitor strips 1 each by Other route in the morning, at noon, in the evening, and at bedtime - PER INSURANCE COVERAGE Qty: 100 strip, Refills: 0 Comments: (1) Identify specific brand and product. (2) Include specific quantity. (3) Include frequency. Blood Glucose Monitoring Suppl (BLOOD GLUCOSE MONITORING 333) MIKE 1 Device by Does not apply route4 times daily 1 each by Other route in the morning, at noon, in the evening, and at bedtime - PER INSURANCE COVER Qty: 1 each, Refills: 0 !! blood glucose monitor supplies 1 each by Other route in the morning, at noon, in the evening, and at bedtime One glucometer, test strips, lancets - per insurance coverage Qty: 150 each, Refills: 4 Associated Diagnoses: Hypoglycemia !! blood glucose monitor supplies 1 each by Other route in the morning, at noon, in the evening, and at bedtime One glucometer, test strips, lancets - per insurance coverage Qty: 150 each, Refills: 4 Associated Diagnoses: Hypoglycemia !! - Potential duplicate medications found. Please discuss with provider. STOP taking these medications Vit-Fe Fumarate-FA ( VITAMINS) 28-0.8 MG TABS Comments: Reason for Stopping: Discharge to: Home Condition on discharge: Stable Discharge Date: December 26, 2024 Wilner Lechuga DO, SACHIN, FACOOG, FACOG December 26, 2024 1:20 PM documented in [facility] encounter[facility] History of Present illness Narrative* Felisha Ovalles RN - 12/06/2024 11:38 AM EST Discharge instructions reviewed with patient. Patient verbalized understanding and denies any questions. Discharge papers then given to patient. Patient discharged home from unit accompanied by familly members with understanding of follow up care. No signs of distress noted. * Felisha Ovalles RN - 12/06/2024 11:11 AM EST Nicole Patricia is here in L&D at 36w3d for:rule out uterine contractions Maternal Vitals Temp: 97.9 F (36.6 C) Temp Source: Oral BP: (!) 110/59 Pulse: (!) 101 Respirations: 16 Findings Baseline: 130 BPM Baseline Classification: Normal Variability: Moderate Decelerations: None Acoustic Stimulator: No Movement: Yes Multiple Gestation?: No Uterine contractions/10 min.: 0 Interpretation: Reactive Interpreted by: Dianelys Ovalles RN/Nini Kirk RN NST Time start: 1050 NST Time stop: 1110 NST is reactive. Quality of tracing is satisfactory. * Felisha Ovalles RN - 12/06/2024 11:07 AM EST Pt arrives to department complaining of contractions she states have been 4-6min apart at home, rating them 9/10 and vaginal pressure that she has been experiencing since last OB visit. Pt able to walk up to department from ER and provide urine specimen. Oriented to room 200. No contractions noted on monitor at this time. Dr Lechuga in department. Updated on pt. Orders received for NST and UA. Pt may be discharged home if UA is normal. [facility] Discharge instructions* Discharge Instructions* Felisha Ovalles RN - 12/06/2024 11:29 AM EST OUTPATIENT DISCHARGE Dr[facility] Parag [facility] Dr. Davion Patel [address] [facility] [id number] [place] [address] or [place] ACTIVITY LIMITATIONS: ( x )Up and about as desired and tolerated ( )Up to bathroom only ( )Lay on either side ( )Avoid heavy lifting or exercise ( x )No sex ( x )No nipple stimulation ( )Complet bedrest ( )Avoid using stairs ( x )Increase fluids DRINK AT LEAST eight-8oz. Glasses of water daily. Call your Doctor if: ( x )Contractions are every 5 minutes apart (from start of one to the start of the next contraction) lasting 60 seconds for at least 1 hour, strong enough you can not walk or talk through the contraction and regular. ( x )Bag of water breaks ( x )Vaginal bleeding ( x )Unusual pain occurs ( x )Decreased movement Keep your scheduled follow up appointment. IN CASE OF EMERGENCY CONTACT LABOR AND DELIVERY . documented in this encounterW[facility]04-[facility]23 NotePROCEDURE: XR HIP LT 2 3V W PELVIS HISTORY: Pain in left leg after falling on stairs; left hip pain COMPARISON: None. FINDINGS: BONES:No fracture, acute abnormality, or significant arthropathy. SOFT TISSUES:No visible soft tissue swelling. EFFUSION:None visible. OTHER: Negative. IMPRESSION: 1. No acute bone abnormality. Electronically authenticated by: KRISTIE PAULINO Date: 2023-01-27 13:47[facility]04-23-2023 NotePROCEDURE: XR KNEE LT 4V or > HISTORY: Pain in left leg after falling on stairs COMPARISON: None. FINDINGS: BONES:No fracture, acute abnormality, or significant arthropathy. SOFT TISSUES:No visible soft tissue swelling. EFFUSION:None visible. OTHER: Negative. IMPRESSION: 1. No acute bone abnormality. Electronically authenticated by: KRISTIE PAULINO Date: 2023-01-27 13:46[facility]07-09-2021 NoteEducation Materials ENT Sinus Headache A sinus headache [...] migraines or tension headaches because those headaches canalso cause facial pain and nasal symptoms. What [...] a nasal saline wash. Medicines ? Take atyq-eit-vmyigef and prescription medicines only as told by [...] provider. Document Revised: 09/05/2018 Document Reviewed: 07/04/2018 [employer] Patient Education ? 2020 [employer] Infectious Disease Sinusitis, Adult Sinusitis is inflammation of your sinuses. Sinuses are hollow spaces in the bones around your face.Your sinuses are located: ? Around your eyes. [...] ? Infection from f (more content not included)...[facility] note* Diagnosis Lumbar pain Lumbago documented in this encounter [employer] Phone: evaluation note* Diagnosis Acute non-recurrent frontal sinusitis- Primary documented in this encounter [employer] Phone: evaluation note* Diagnosis Rib pain on right side Chest pain, unspecified 18 weeks gestation of state, incidental documented in this encounter 2,10E+07 note* Diagnosis Dysuria during in second trimester documented in this encounter 2,10E+07 note* Diagnosis Acute left flank pain Abdominal pain, unspecified site 24 weeks gestation of state, incidental documented in this encounter 2,10E+07 note* Diagnosis Encounter for supervision of other normal in first trimester Amenorrhea Absence of menstruation History of pre-eclampsia documented in this encounter [facility] note* Diagnosis Uterine contractions during - Primary documented in this encounter 2,10E+07 note* Diagnosis 37 weeks gestation of state, incidental documented in this encounter 2,10E+07 note* Diagnosis Pelvic pain [facility] Diagnosis 39 weeks gestation of - Primary state, incidental Normal delivery [facility]* Attachments The following attachments cannot be sent through Care Everywhere. * Sinusitis (Spanish) documented in [facility] encounterReg[facility] Work Phone: Summary Purpose Family History No Family History Records FoundNo Family History Records FoundNo Family History Records FoundNo Family History Records FoundNo Family History Records FoundNo Family History Records FoundNo Family History Records FoundNo Family History Records FoundNo Family History Records FoundNo Family History Records Found Advance Directives No Advanced Directives Records Found Date ActivatedDate InactivatedComments12/06/2024 11:00 AMDate ActivatedDate InactivatedComments12/06/2024 11:00 AM12/06/2024 1:41 PMDate ActivatedDate InactivatedComments12/24/2024 1:11 PM12/25/2024 2:08 AMDate ActivatedDate InactivatedComments12/06/2024 11:00 AM12/06/2024 1:41 PM Reason for Referral SpecialtyDiagnoses / ProceduresReferred By ContactReferred To ContactRadiology Diagnoses Rib pain on right side 18 weeks gestation of Procedures US GALLBLADDER Darius Montoya, [employer]UCK [employer]IVER - CN [address] [place] [address] Referral IDStatusReasonStart DateExpiration DateVisits RequestedVisits [id number]/[id number] Additional Source Comments INFORMATION SOURCE (unrecogn ized section and content) DATE CREATED AUTHOR 05/17/2020 [facility] ([place]) DATE CREATED AUTHOR AUTHOR'S ORGANIZ ATION 04/25/2021 [facility] DATE CREATED AUTHOR AUTHOR'S ORGANIZ ATION 07/31/2021 [facility] DATE CREATED AUTHOR AUTHOR'S ORGANIZ ATION 01/29/2023 [facility] DATE CREATED AUTHOR AUTHOR'S ORGANIZ ATION 01/08/2024 [facility] DATE CREATED AUTHOR AUTHOR'S ORGANIZ ATION 07/13/2024 [facility] DATE CREATED AUTHOR AUTHOR'S ORGANIZ ATION 10/25/2024 [facility] DATE CREATED AUTHOR AUTHOR'S ORGANIZ ATION 01/28/2025 [facility] DATE CREATED AUTHOR AUTHOR'S ORGANIZ ATION 02/11/2025 [facility] DATE CREATED AUTHOR AUTHOR'S ORGANIZ ATION 02/13/2025 [facility] Reason for Visit (unrecogniz ed section and content) ReasonCommentsCoughSpecialtyDiagnoses / ProceduresReferred By ContactReferred To ContactRadiology Diagnoses Rib pain on right side 18 weeks gestation of Procedures US GALLBLADDER RUQ Darius Patel, MICA - KITA [address] [place] [address] Referral IDStatusReasonStart DateExpiration DateVisits RequestedVisits [id number] CommentsScheduled InductionSpecialtyDiagnoses / ProceduresReferred By Contact Referred To Contact Diagnoses 39 weeks gestation of Darius Patel, MICA - KITA [address] [place] [address] Phone: tel: fax: [facility] [address] [place] [address] Referral IDStatusReasonStart DateExpiration DateVisits RequestedVisits [id number] Ordered Prescriptions (unrec ognized section and content) PrescriptionSigDispensedRefillsStart DateEnd Date amoxicillin-clavulanate (AUGMENTIN) 875-125 MG per tablet Take 1 tablet by mouth 2 times daily for 10 days 20 tablet /rescriptionSigDispense QuantityRefillsLast FilledStart DateEnd Date docusate sodium (COLACE, DULCOLAX) 100 MG CAPS Take 100 mg by mouth 2 times daily as needed for Constipation 30 capsule ibuprofen (ADVIL;MOTRIN) 800 MG tablet Take 1 tablet by mouth every 8 hours as needed for Pain 120 tablet acetaminophen (TYLENOL) 500 MG tablet Take 2 tablets by mouth every 6 hours as needed for Pain 120 tablet Care Teams (unrecognized sec tion and content) Team MemberRelationshipSpecialtyStart Kris Villeda SrShay, DO [address] [facility] [place] [address] PCP - GeneralFamily Zoddnhci35/4/21Team MemberRelationshipSpecialtyStart Kris Villeda SrShay, DO [address] [facility] [place] [address] PCP - GeneralFamily Cfzrzhme72/4/21Team MemberRelationshipSpecialtyStart Kris Villeda Sr., DO [address] [facility] [place] [address] PCP - GeneralFamily Gvdupfcg49/4/21Team MemberRelationshipSpecialtyStart Kris Villeda Sr., DO [address] [facility] [place] [address] PCP - GeneralFamily Wusllvdr15/4/21Team MemberRelationshipSpecialtyStart Kris Villeda Sr., DO [address] [facility] [place] [address] PCP - GeneralFamily Lrclqtxr19/4/21Team MemberRelationshipSpecialtyStart Kris Villdea Sr., DO [address] [facility] [place] [address] PCP - GeneralFamily Xikkmzug50/4/21Team MemberRelationshipSpecialtyStart Kris Villeda Sr., DO [address] [place] [address] PCP - GeneralFamily Gzjkmmip46/4/21 Scheduled Active and Recently Administ ered Medications (unrecognized section and content) Medication Order// measles, mumps & rubella vaccine (MMR) injection 0.5 mL 0.5 mL, SubCUTAneous, PRIOR TO DISCHARGE, 1 dose, Starting on Sat12/25/24 at 0208, Until Discontinued, PRN prior to discharge if patient is known to be rubella non-immune or equivocal status. , sodium chloride flush 0.9 % injection 5-40 mL 5-40 mL, IntraVENous, EVERY 12 HOURS SCHEDULED (2 times per day), First dose on Sat12/25/24 at 0900, Until Discontinued, For Line Patency: Peripheral IV = 5 mL; Midline or Central Line = 10 mL/lumen.If following IV push medication, administer flush at same rate as the IV push. Flush volume is determined by type of infusion therapy being given. For non-viscous solutions use: Peripheral IV = 5 mL Midline or Central Line = 10 mL/lumen For viscous solutions (i.e. blood components, parenteral nutrition, contrast media, or after obtaining blood sample) use: Peripheral IV = 10 mL Midline or CentralLine = 20 mL/lumen, * 0900 (Due) * 2100 (Due) * 0900 (Due) * 2100 (Due) uxkwhct-bjrntd-nsysp pertussis (BOOSTRIX) injection 0.5 mL 0.5 mL, IntraMUSCular, PRIOR TO DISCHARGE, 1 dose, Starting on Sat12/25/24 at 0208, Until Discontinued, If not previously administered during at 27- 36 weeks as recommended by CDC., Medication Order lactated ringers infusion (CANCELED) IntraVENous, at 125 mL/hr, CONTINUOUS, Starting on Sat12/24/24 at 1330, Labor and Delivery * 1338 (New Bag - Provider: Sloane Fragoso RN) * 1358 (Rate/Dose Verify - Provider: Sloane Fragoso RN) * 1453 (Rate/Dose Verify - Provider: Sloane Fragoso RN) * 1610 (Rate/Dose Verify - Provider: Sloane Fragoso RN) * 2028 (Rate/Dose Change - Provider: Rosette Rankin RN) * 2037 (Rate/Dose Change - Provider: Rosette Rankin RN) * 2037 (Rate/Dose Change - Provider: Rosette Rankin RN) * 2127 (Rate/Dose Change - Provider: Rosette Rankin RN) * 2128 (Rate/Dose Verify - Provider: Rosette Rankin RN) * 224 (Rate/Dose Change - Provider: Rosette Rankin RN) * 2250 (Rate/Dose Change - Provider: Rosette Rankin RN) * 0046 (Rate/Dose Change - Provider: Rosette Rankin RN) * 0049 (Rate/Dose Verify - Provider: Rosette Rankin RN) * 0103 (Rate/Dose Change - Provider: Rosette Rankin RN) * 0156 (Stopped - Provider: Rosette Rankin RN) oxytocin (PITOCIN) 30 units in 500 mL infusion (CANCELED) 1-24 josefina-units/min (1-24 mL/hr), IntraVENous, CONTINUOUS, Starting on Sat12/24/24 at 1330, Until Sat12/25/24 at 0208, Begin infusion at 1 josefina-unit/min (1 josefina-unit per min = 1 mL per hour) . Then increase by 2 josefina-units/min as needed, no faster than every 30 minutes, until labor is achieved.Labor is defined as contractions every 2-3 minutes with cervical changes or [place] units (MVU) greater than 200 in a 10-minute window. Maximum infusion rate: 24 josefina-unit/min. Contact provider if maximum rate does not achieve desired response. Provider may order alternative titration goal or other clinically appropriate goal of titration rate (s). Smaller titration increments of 1 josefina-units/min, not faster than every 30 minutes, may be used when approaching therapeutic goal after discussion with provider. If unable to increase call provider and let them know. At time of needed increase, Labor and Delivery * 1348 (New Bag - Provider: Sloane Fragoso RN) * 1419 (Rate/Dose Change - Provider: Sloane Fragoso RN) * 1452 (Rate/Dose Change - Provider: Sloane Fragoso RN) * 1529 (Rate/Dose Change - Provider: Sloane Fragoso RN) * 1559 (Rate/Dose Change - Provider: Sloane Fragoso, RN) * 1632 (Rate/Dose Change - Provider: Sloane Fragoso, RN) * 1703 (Rate/Dose Change - Provider: Sloane Fragoso RN) * 1734 (Rate/Dose Change - Provider: Sloane Fragoso RN) * 1814 (Rate/Dose Change - Provider: Sloane Fragoso RN) * 1846 (Rate/Dose Change - Provider: Sloane Fragoso RN) * 1854 (Rate/Dose Verify - Provider: Sloane Fragoso RN) * 1953 (Rate/Dose Change - Provider: Rosette Rankin RN) * 2128 (Rate/Dose Change - Provider: Rosette Rankin RN) * 2129 (Rate/Dose Verify - Provider: Rosette Rankin RN) * 2251 (Rate/Dose Change - Provider: Rosette Rankin RN) * 0049 (Rate/Dose Verify - Provider: Rosette Rankin RN) * 0146 (Rate/Dose Change - Provider: Rosette Rankin RN) * 0158 (Rate/Dose Change - Provider: Rosette Rankin, MEET) * 0158 (Rate/Dose Change - Provider: Rosette Rankin, MEET) * 0200 (Rate/Dose Change - Provider: Rosette Rankin RN) * 0200 (Rate/Dose Change - Provider: Rosette Rankin RN) * 0203 (Stopped - Provider: Rosette Rankin RN) Medication Order12/24/317969/503/ acetaminophen (TYLENOL) tablet 1,000 mg 1,000 mg, Oral, EVERY 6 HOURS PRN, Starting on Sat12/25/24 at 0208, Until Discontinued, Pain Mild (1-3), allowed for higher pain score per patient request, Maximum dose of acetaminophen is 4000mg from all sources in 24 hours. Alternate ibuprofen and acetaminophen every 4 hours., * 0935 (Given - Provider: Yadira Lester, MEET) benzocaine-menthol (DERMOPLAST) 20-0.5 % spray Topical, PRN, Pain, Starting on Sat12/25/24 at 0208, Apply to perineal area. Patient is capable andmay self administer at bedside., * 0701 (Given - Provider: Anika Burrell, RN) calcium carbonate (TUMS) chewable tablet 500 mg (CANCELED) 500 mg, Oral, 4 TIMES DAILY PRN, Starting on Sat12/24/24 at 1609, Until Sat12/25/24 at 0208, Heartburn * 1619 (Given - Provider: Sloane Fragoso RN) carboprost (HEMABATE) injection 250 mcg 250 mcg, IntraMUSCular, PRN, Starting on Sat12/24/24 at 1310, Until Discontinued, PP Bleeding, May repeat every 15 minutes up to a cumulative maximum dose of 1000 mcg, at physician's request. Not foruse in patients with asthma or emphysema. carboprost (HEMABATE) injection 250 mcg 250 mcg, IntraMUSCular, PRN, Starting on Sat12/25/24 at 0208, Until Discontinued, bleeding, May repeat every 15 minutes up to a cumulative maximum dose of 1000 mcg, at physician's request., docusate sodium (COLACE) capsule 100 mg 100 mg, Oral, 2 TIMES DAILY PRN, Starting on Sat12/25/24 at 0208, Until Discontinued, Constipation,Do not crush or break., * 0935 (Given - Provider: Yadira Lester RN) ibuprofen (ADVIL;MOTRIN) tablet 800 mg 800 mg, Oral, EVERY 8 HOURS PRN, Starting on Sat12/25/24 at 0208, Until Discontinued, Pain Mild (1-3), allowed for higher pain score per patient request, Pain Moderate (4-6), allowed for higher pain score per patient request, Once tolerating PO, discontinue Ketorolac and begin ibuprofen 8 hours after the final dose of Ketotolac. Alternate ibuprofen and acetaminophen every 4 hours., * 0244 (Given - Provider: Rosette Rankin RN) * 1737 (Given - Provider: Yadira Lester RN) * 0615 (Given - Provider: Anika Burrell RN) lansinoh lanolin ointment Topical, PRN, Dry Skin, nipple discomfort, Starting on Sat12/25/24 at 0208, methylergonovine (METHERGINE) injection 200 mcg 200 mcg, IntraMUSCular, PRN, Starting on Isela 12/24/24 at 1310, Until Discontinued, Bleeding, Prevention of post- hemorrhage, if not hypertensive. methylergonovine (METHERGINE) injection 200 mcg 200 mcg, IntraMUSCular, PRN, Starting on Sat12/25/24 at 0208, Until Discontinued, Bleeding, PRN forpost- hemorrhage, if not hypertensive., miSOPROStol (CYTOTEC) tablet 800 mcg 800 mcg, Rectal, PRN, 1 dose, Starting on Sat12/25/24 at 0208, Until Discontinued, Post- Hemorrhage, Notify Physician prior to administration., ondansetron (ZOFRAN) injection 4 mg(Linked Group 1) 4 mg, IntraVENous, EVERY 6 HOURS PRN, Starting on Sat12/25/24 at 0208, Until Discontinued, Nausea, Vomiting, Administer if oral route cannot be used., ondansetron (ZOFRAN-ODT) disintegrating tablet 4 mg(Linked Group 1) 4 mg, Oral, EVERY 6 HOURS PRN, Starting on Sat12/25/24 at 0208, Until Discontinued, Nausea, Vomiting, oxytocin (PITOCIN) 10 unit bolus from the bag(Linked Group 2) 999 mL/hr, IntraVENous, PRN, 1 dose, Starting on Isela 12/24/24 at 1310, Until Discontinued, Bleeding,For Post Use Only. Give after delivery of placenta. Bolus for bag to infuse at 999ml/20 minutes. oxytocin (PITOCIN) 30 units in 500 mL infusion(Linked Group 2) 166 josefina-units/min (166 mL/hr), IntraVENous, PRN, 1 dose, Starting on Isela 12/24/24 at 1310, Until Discontinued, Bleeding, For Post Use Only. Give after delivery of placenta. Following Bolus from bag administration, reduce the rate to 166 mL/hr and administer remaining bag tranexamic acid (CYKLOKAPRON) 1,000 mg in sodium chloride 0.9 % 100 mL IVPB (Jscn8Nvj) 1,000 mg, IntraVENous, at 600 mL/hr, Administer over 10 Minutes, ONCE PRN, Post Hemorrhage, Starting on Isela 12/24/24 at 1310, For 1 dose, If bleeding continues, give one more gram within 3 hours of . Use 20mm (Blue) Tcsp0Thl Adapter Preparation instructions: Attach medication vial to [id number] (Blue) Bjol3Anw adapter. Nnamdi fluid bag with adapter, mix, and administer per order. tranexamic acid (CYKLOKAPRON) 1,000 mg in sodium chloride 0.9 % 100 mL IVPB (Zsuc7Fme) 1,000 mg, IntraVENous, at 600 mL/hr, Administer over 10 Minutes, ONCE PRN, Post Hemorrhage, Starting on Sat12/25/24 at 0208, For 1 dose, If bleeding continues, give one more gram within 3 hours of . Use 20mm (Blue) Haum3Cng Adapter Preparation instructions: Attach medication vial to [id number] (Blue) Glox8Xew adapter. Nnamdi fluid bag with adapter, mix, and administer per order., witch luzma-glycerin (TUCKS) pad Topical, PRN, Hemorrhoids, Starting on Sat12/25/24 at 0208, Apply to perineal area. Patient is capable and may self administer at bedside., * 0700 (Given - Provider: Anika Burrell RN) Order Group 1: ondansetron (ZOFRAN-ODT) disintegrating tablet 4 mgJump to med 4 mg, Oral, EVERY 6 HOURS PRN, Starting on Sat12/25/24 at 0208, Until Discontinued, Nausea, Vomiting, Or ondansetron (ZOFRAN) injection 4 mgJump to med 4 mg, IntraVENous, EVERY 6 HOURS PRN, Starting on Sat12/25/24 at 0208, Until Discontinued, Nausea, Vomiting, Administer if oral route cannot be used., Group 2: oxytocin (PITOCIN) 30 units in 500 mL infusionJump to med 166 josefina-units/min (166 mL/hr), IntraVENous, PRN, 1 dose, Starting on Isela 12/24/24 at 1310, Until Discontinued, Bleeding, For Post Use Only. Give after delivery of placenta. Following Bolus from bag administration, reduce the rate to 166 mL/hr and administer remaining bag And oxytocin (PITOCIN) 10 unit bolus from the bagJump to med 999 mL/hr, IntraVENous, PRN, 1 dose, Starting on Isela 12/24/24 at 1310, Until Discontinued, Bleeding,For Post Use Only. Give after delivery of placenta. Bolus for bag to infuse at 999ml/20 minutes. FOR RECORDS PERTAINING TO PATIENTS WHO ARE [...] BE BASED ON THE PRIMARY CLINICAL RECORDS. [employer] [facility]. provides no warranty or guarantee of the accuracy or completeness of information in this document.
--- OUTSIDE RECORDS SUMMARY | 2025-10-02 08:37 | XMS_ITS | Clinical Summary ---
Author Organization Trunk Show tem Address [id number] [address] [place] [address] Care Team Providers Care Family Coach Name Role Phone No Pcp, No Pcp Primary Care Provider Unavailabl e Allergies No known active allergies Medications MedicationSigDispense QuantityRefillsLast FilledStart DateEnd DateStatus ondansetron ODT (ZOFRAN ODT) 4 mg disintegrating tablet Dissolve 1 tablet (4 mg total) on tongue every 8 (eight) hours as needed for nausea for up to 10 doses. 10 tablet 4Active benzonatate (TESSALON PERLES) 100 mg capsule Take 1 capsule (100 mg total) by mouth every 8 (eight) hours. 21 capsule 5Active benzocaine-menthoL (CHLORASEPTIC SORE THROAT) 6-10 mg lozenge Dissolve 1 lozenge in the mouth every 2 (two) hours as needed for sore throat. 100 tablet 5Active fluticasone propionate (FLONASE) 50 mcg/actuation nasal spray Administer 1 spray into each nostril in the morning. 16 g 5Active Active Problems CommentsYes No known active problems Resolved Problems ProblemNoted DateDiagnosed DateResolved DateMigraine without aura and without status migrainosus, not wyictdhfpzg50 Immunizations ImmunizationAdministration DatesNext DueInfluenza, Injectable, quadrivalent (PF) 09/03/2019Tdap111/03/2018 Family History Medical HistoryRelationNameCommentsBreast cancerNeg HxOvarian cancerNeg Hx Social History Tobacco UseTypesPacks/DayYears UsedDateSmoking Tobacco: NeverSmokeless Tobacco: FormerChewQuit: 09/07/2020 Tobacco Cessation:Counseling Given: Not Answered Alcohol UseStandard Drinks/WeekCommentsNever0 (1 standard drink = 0.6 oz pure alcohol)AUDIT-CAnswerDate RecordedFrequency of Alcohol ConsumptionNever 08/31/2019Average Number of DrinksNot on file08/31/2019Frequency of Binge DrinkingNot on file08/31/2019ChildcareAnswerDate RecordedChildcareUnknown 03/16/2019EmploymentAnswerDate XmdwvrfvShfbgstexuLmdywsz04/10/2019Hunger ScreeningAnswerDate RecordedWithin the past 12 months we worried whether our food would run out before we got money to buy more.Never True06/04/2024Within the past 12 months the food we bought just didn't last and we didn't have money to get more.Never True4Purpose - LifeAnswerDate RecordedPurpose and direction in evniSljmbul62/10/2021CommentsYesSex and Gender Information ValueDate RecordedSex Assigned at BirthNot on fileLegal VxwPztdqa88/04/2015 2:06 PM EDTGender IdentityNot on fileSexual OrientationNot on file Last Filed Vital Signs Vital SignReadingTime TakenCommentsBlood Dqdhuuxz739/5705 3:01 PM EDT Rrycw03298/07/2025 3:01 PM BYAMrwxcxdjrfm57.7 ??C (98.1 ??F)02/10/2025 3:01 PM EDTRespiratory Kgcd851402/10/2025 3:01 PM EDTOxygen Imdpwbphvp41%02/10/2025 3:01 PM EDTInhaled Oxygen Concentration--Purreg24.1 kg (170 lb)07/12/2024 1:21 PM EDT Pjexse169.1 cm (5' 5 )07/12/2024 1:21 PM EDTBody Mass Index28.291 1:21 PM EDT Plan of Treatment Health MaintenanceDue DateLast DoneCommentsDepression Wmylrhpsn36/29/2013 Chlamydia Jpisqkkbd74/18/46493404/23/2024, 08/31/2019COVID-19 Vaccine (2 - season)/Influenza Gubvwnt03/Adult BMI Xomzookbk17/03/2024Tobacco Xdwlrutef81/04/2025Pap Smear /TaP,Tdap and Td Vaccines (9 - Td or Tdap)05/12/2032 05/12/2022, 09/03/2019, 05/31/2014, Additional history existsRSV ( or age 60+ yrs) (1 - 1-dose 75+ series)2076 [employer] Not on file Procedures Procedure NamePriorityDate/TimeAssociated DiagnosisCommentsCHLAMYDIA/GC BY PCR TSEPHANIE WLVSOwplsqg47/25/2019 1:33 AM EST from Last 3 Months or Most Recently Relevant to Health Maintenance Results * Chlamydia/GC by PCR Stephanie Swab (08/31/2019 1:33 AM EST)ComponentValueRef Range Test MethodAnalysis TimePerformed AtPathologist SignatureSpecimen source YFCOJISP15/25/2019 1:33 AM ESTSUNQUESTChlamydia DNA PCRNegative Negative^Vciomefl02/25/2019 12:48 PM [facility]Comment: ? Chlamydia trachomatis not detected by nucleic acid amplification. This does not exclude the possibility of infection because results are dependent on adequate specimen collection. ? Gonorrhea DNA PCRNegativeNegative^Cybmrhka92/25/2019 12:48 PM [facility]Comment: ? Neisseria gonorrhoeae not detected by nucleic acid amplification. This does not exclude the possibility of infection because results are dependent on adequate specimen collection. ? Specimen (Source)Anatomical Location / LateralityCollection Method / Volume Collection TimeReceived TimeSwab (specimen) (GENS)08/31/2019 1:33 AM EST 08/31/2019 1:33 AM EST Narrative Authorizing ProviderResult TypeResult StatusSonia Abby DOMICROBIOLOGY - GENERAL ORDERABLESFinal ResultPerforming OrganizationAddressCity/State/ZIP CodePhone Number [facility] [address] [place] [address] from Last 3 Months or Most Recently Relevant to Health Maintenance Insurance * Guarantor: Nicole Potter TypeRelation to PatientDate of PhoneBilling AddressPersonal/HcttxqOqxm[address] [place] [address] Advance Directives * Full Code (Latest Code Status on File) Date ActivatedDate BolwgdgbbhiJeizftdq95/4/2019 1:02 AM09/12/2019 6:45 PM * Full Code Date ActivatedDate SjiedbnlpbgIaclkyhp55/25/2019 12:44 AM09/09/2019 1:02 AM Care Teams Team MemberRelationshipSpecialtyStart DateEnd Date No Pcp, [place] [address] PCP - GeneralFamily Zkkxsyza71/6/24
--- OUTSIDE RECORDS SUMMARY | 2025-10-02 08:37 | XMS_ITS | Clinical Summary ---
Author Organization [facility] Address [address], [address] [place] [address] Care Team Providers Care Checker Dump Grounds Name Role Phone House SrShay, Kris PIZANO Primary Care Provider + Allergies Active AllergyReactionsCriticalityNoted DwcgOnefkcoaHkpfdFkmlUnw65/25/2021 Medications MedicationSigDispense QuantityRefillsLast FilledStart DateEnd DateStatus blood glucose monitor supplies Indications:Hypoglycemia1 each by Other route in the morning, at noon, in the evening, and at bedtime One glucometer, test strips, lancets - per insurance coverage 150 each 4Active Additional Information Patient not taking.Reported on 02/08/2025 acetaminophen (TYLENOL) 500 MG tablet Take 2 tablets by mouth every 6 hours as needed for Pain 120 tablet 5Active ibuprofen (ADVIL;MOTRIN) 800 MG tablet Take 1 tablet by mouth every 8 hours as needed for Pain 120 tablet 5Active Active Problems Patient Care Coordination No te Formatting of this note migh t be different from the original. HX: Pre-Eclampsia, Pre-Term Delivery [place] department of medicaid risk assesment form = Yes Does pt have history of delivery before 37 weeks? No testing = Desires Panorama Ped = [facility] Blood type = Rhogam? = Flu shot = TDAP (27-36 wks)= GBS = ProblemNoted DateDiagnosed DateNormal lecwnjwt97 weeks gestation of bhfsyanqo09/20/2025Uterine contractions during qdqtkkgar91/11/2024 Family History Medical HistoryRelationNameCommentsUnknownFatherBreast CancerMaternal Aunt Alcohol AbuseMaternal GrandfatherColon CancerMaternal GrandfatherHeart Disease Maternal GrandfatherDiabetesMaternal GrandmotherHypertensionMaternal Grandmother Deep Vein ThrombosisMotherUnknownPaternal GrandfatherUnknownPaternal Grandmother No Known ProblemsSisterClotting DisorderNeg HxOvarian CancerNeg HxRelationName StatusCommentsFatherDeceasedMaternal AuntAliveMaternal GrandfatherAliveMaternal GrandmotherAliveMotherAlivePaternal GrandfatherPaternal GrandmotherSisterAlive Social History Tobacco UseTypesPacks/DayYears UsedDateSmoking Tobacco: NeverSmokeless Tobacco: CurrentChew Tobacco Cessation:Ready to Q uit: Not Asked; Counseling Given: Not Answered Alcohol UseStandard Drinks/WeekCommentsYes0 (1 standard drink = 0.6 oz pure alcohol)occasionalAHC UtilitiesAnswerDate RecordedIn the past 12 months has the [employer], gas, oil, or water [employer] threatened to shut off services in your home?No12/24/2024PHQ-2AnswerDate RecordedPHQ-9 Total Yqcli407Hunger Vital SignAnswerDate RecordedWithin the past 12 months, you worried that your food would run out before you got the money to buymore.Never true12/24/2024 Within the past 12 months, the food you bought just didn't last and you didn't have money to get more.Never true12/24/2024PRAPARE - TransportationAnswerDate RecordedIn the past 12 months, has lack of transportation kept you from medical appointments or from getting medications?No12/24/2024In the past 12 months, has lack of transportation kept you from meetings, work, or from getting things needed for daily living?No12/24/2024Edinburgh Depression ScaleAnswer Date RecordedEdinburgh Depression Scale Jlkje875The thought of harming myself has occurred to me.Never12/26/2024Housing Stability Vital Sign AnswerDate RecordedIn the last 12 months, was there a time when you were not able to pay the mortgage or rent on time?No12/24/2024In the past 12 months, how many times have you moved where you were living?t any time in the past 12 months, were you homeless or living in a alf (including now)?No 12/24/2024Food InsecurityAnswerDate RecordedWithin the past 12 months, you worried that your food would run out before you got the money to buymore.1 12/24/2024Within the past 12 months, the food you bought just didn't last and you didn't have money to get more.Interpersonal Safety Domain Source: IP Abuse ScreeningAnswerDate RecordedPhysical lcjhmFrjzuz39/20/2025Verbal abuse Udbqsr3412/24/2024Emotional mvbkcFzcfdh09/20/2025Financial qwfhnTeyklm50/20/2025 Sexual jrbjpWomukx25/20/2025CommentsNoSex and Gender InformationValue Date RecordedSex Assigned at BirthNot on fileLegal YzxJwgwrv12/10/2013 5:42 PM ESTGender IdentityNot on fileSexual OrientationNot on file Last Filed Vital Signs Vital SignReadingTime TakenCommentsBlood Htxxhtls159/78002/08/2025 12:58 PM EDT Orxiu595612/26/2024 1:03 PM CBLMvmnkytjhjw15.7 ??C (98 ??F)12/26/2024 1:03 PM EDT Respiratory Qgyf202412/26/2024 1:03 PM EDTOxygen Sowjaglnah02%12/26/2024 1:03 PM EDTInhaled Oxygen Concentration--Tfitbg68.5 kg (190 lb 12.8 oz)02/08/2025 12:58 PM HRVOqymnj807.1 cm (5' 5 )02/08/2025 12:58 PM EDTBody Mass Index31.75 02/08/2025 12:58 PM EDT Plan of Treatment Health MaintenanceDue DateLast DoneCommentsHepatitis A vaccine (2 of 2 - 2-dose series)11/10//01/2015Chlamydia/GC axhqck332024Flu vaccine (#1)COVID-19 Vaccine (2 - season)2025 02/21/2021epression Eppnty646010/22/2024, 10/22/2024Pap smear06/22/2027 06/22/2024TaP/Tdap/Td vaccine (9 - Td or Tdap)/03/2022, 09/03/2019, 05/31/2014, Additional history existsHepatitis B dmafnkhVoasjzjet98/06/2002, 2001, 2001Hib wovjjjyXunvfpvpn84/06/2002, 2001, 2001 Pneumococcal 0-49 years VaccineAged Out06/12/2002, 2001, 2001No longer eligible based on patient's age to complete this topicPolio vaccine Csteogltm94/29/2006, 06/12/2002, 2001, Additional history existsVaricella ansozwhSzwkxqxqh75/25/2014, 06/12/2002HPV nnrszlnMbuecoxxk05/04/2015, 05/31/2014 HIV qapgplHquhbnimi59/18/2024Hepatitis C opzpcxDiflqowca46/18/2024Meningococcal (ACWY) vaccineAged OutNo longer eligible based on patient's age to complete this topicMeningococcal B vaccineAged OutNo longer eligible based on patient's age to complete this topic Procedures Procedure NamePriorityDate/TimeAssociated DiagnosisCommentsGYN CYTOLOGYRoutine 06/22/2024 12:00 AM EDT HIV UEUQAXPfbmlfy45/18/2024 5:26 PM EDT Encounter for supervision of other normal in first trimester Amenorrhea HEPATITIS C KLUTNXUNCkxmpsa30/18/2024 5:26 PM EDT Encounter for supervision of other normal in first trimester Amenorrhea C.TRACHOMATIS N.GONORRHOEAE DNA, GBLCNJfbuale61/18/2024 3:49 PM EDT Encounter for supervision of other normal in first trimester Amenorrhea from Last 3 Months or Most Recently Relevant to Health Maintenance Results * AUTOMOBILE SERVICE STATION MANAGER Cytology (06/22/2024 12:00 AM EDT)ComponentValueRef RangeTest Method Analysis TimePerformed AtPathologist SignatureCytology ReportPath Number: [id number] DIAGNOSIS Imaged ThinPrep Pap - Cervical (1 monolayer slide): Specimen Adequacy: ? Satisfactory for evaluation. ? - Endocervical/transformation zone component present. ? - Bacterial cytolysis. Descriptive Diagnosis: ? Negative for intraepithelial lesion or malignancy. Comments: ? Specimen was screened at [facility], [address] [place] [address] Cytotech Screener: ??CS Electronically Signed Out CHARISMA Gonzalez (ASCP) cs/06/26/2024 Source of Specimen: A: Imaged ThinPrep Pap - Cervical (1 monolayer slide) Clinical History Z12.4 Encounter for screening for malignant neoplasm of cervix LMP: ??03/02/24 Processing Lab: [address] [address] [place] [address] This Pap Test has been evaluated with [...] result. GYNECOLOGIC CYTOLOGY REPORT Patient Name: NICOLE PATRICIA Med Rec: [id number] [facility] ??[facility] ANATOMIC PATHOLOGY [address] [place] [address]. ??[place], [place] [address] [facility] LABSSpecimen (Source)Anatomical Location / LateralityCollection Method / VolumeCollection TimeReceived Time CERVICAL NJJYSLXO50/ 7:35 AM EDT Narrative Authorizing ProviderResult TypeResult StatusSusan Lavern Patel PLASTICS SCIENTIST - CNM PATHOLOGY/CYTOLOGY ORDERABLESFinal ResultPerforming OrganizationAddress City/State/ZIP CodePhone Number [facility] [address] [place] [address], [facility] [phone] [facility] * Hepatitis C Antibody (04/23/2024 5:26 PM EDT)ComponentValueRef RangeTest MethodAnalysis TimePerformed AtPathologist SignatureHepatitis C AbNONREACTIVE PYLNECJTFVZ18/18/2024 5:26 PM EDTMERCY LABORATORIESComment: ? The hepatitis C procedure used in our laboratory is a Chemiluminescent test specific for three recombinant HCV antigens. ??A negative anti-HCV result indicates that the antibodies to hepatitis C virus are not present at this time. Individuals with reactive anti-HCV should be considered infected and infectious until proven otherwise. ??Confirmation of all equivocal or reactive results is recommended by ordering HCV RNA by PCR. Specimen (Source)Anatomical Location / LateralityCollection Method / Volume Collection TimeReceived TimeBloodBLOOD SPECIMEN / Pfqmqdn0604/23/2024 5:26 PM EDT 04/23/2024 5:26 PM EDT Narrative Authorizing ProviderResult TypeResult StatusSapna Chance CNM IMMUNOLOGY ORDERABLESFinal ResultPerforming OrganizationAddressUniversity Hospitals [facility]/State/ZIP CodePhone Number [facility] [address] [place] [address], [facility] [phone] [phone] * HIV Screen (04/23/2024 5:26 PM EDT)ComponentValueRef RangeTest MethodAnalysis TimePerformed AtPathologist SignatureHIV Ag/IhWUCUUYVUDRLQORIMHHTCEV56/18/2024 5:26 PM EDTMERCY LABORATORIESComment: No laboratory evidence of HIV infection. ??If acute HIV infection is suspected, consider testing for HIV-1 RNA. Specimen (Source)Anatomical Location / LateralityCollection Method / Volume Collection TimeReceived TimeBLOOD SPECIMEN / Kvwhzmp3404/23/2024 5:26 PM EDT 04/23/2024 5:26 PM EDT Narrative Authorizing ProviderResult TypeResult StatusSapna Chance CNM IMMUNOLOGY ORDERABLESFinal ResultPerforming OrganizationAddressCity/State/ZIP CodePhone Number [facility] [address] [place] [address], [facility] [phone] [address], [facility] [phone] * C.trachomatis N.gonorrhoeae DNA, Urine (04/23/2024 3:49 PM EDT)ComponentValue Ref RangeTest MethodAnalysis TimePerformed AtPathologist SignatureSpecimen Description.URINE04/23/2024 3:49 PM EDTMERCY LABORATORIESC. trachomatis DNA ,CezljPLUYJLAUOXTDBLYT76/18/2024 3:49 PM EDTMERCY LABORATORIESComment: CHLAMYDIA TRACHOMATIS DNA not detected by nucleic acid amplification. ? This test is intended for medical purposes only and is not valid for the evaluation of suspected sexual abuse or for other forensic purposes. In certain contexts, culture may be required to meet applicable laws and regulations for diagnosis of C. trachomatis and N. gonorrhoeae infections. Per 2014 ??CDC recommendations, this test does not include confirmation of positive results by an alternative nucleic acid target. N. gonorrhoeae DNA, TofqdFUZTXSJLCTZFPXTS03/18/2024 3:49 PM EDTMERCY LABORATORIESComment: NEISSERIA GONORRHOEAE DNA not detected by nucleic acid amplification. ? This test is intended for medical purposes only and is not valid for the evaluation of suspected sexual abuse or for other forensic purposes. In certain contexts, culture may be required to meet applicable laws and regulations for diagnosis of C. trachomatis and N. gonorrhoeae infections. Per 2014 ??CDC recommendations, this test does not include confirmation of positive results by an alternative nucleic acid target. Specimen (Source)Anatomical Location / LateralityCollection Method / Volume Collection TimeReceived TimeUrine (Urine)04/23/2024 3:49 PM EDT04/23/2024 3:49 PM EDT Narrative Authorizing ProviderResult TypeResult StatusSusadavid Patel APRN - CNSakshi MICROBIOLOGY - GENERAL ORDERABLESFinal ResultPerforming OrganizationAddress City/State/ZIP CodePhone Number [facility] [address] [place] [address], [facility] [phone] [place] [address], [facility] [phone] from Last 3 Months or Most Recently Relevant to Health Maintenance Insurance Advance Directives * Full Code (Latest Code Status on File) Date ActivatedDate InactivatedComments12/24/2024 1:11 PM12/25/2024 2:08 AM * Full Code Date ActivatedDate InactivatedComments12/06/2024 11:00 AM12/06/2024 1:41 PM Care Teams Team MemberRelationshipSpecialtyStart DateEnd Date Kris Ellison Sr., DO [address] [place] [address] PCP - GeneralFamily Qovrdqlr02/4/21
--- OUTSIDE RECORDS SUMMARY | 2025-10-02 08:37 | XMS_ITS | Clinical Summary ---
Author Organization [facility] Address [address] [place] [address] Care Team Providers Care Motor Block Mechanic Name Role Phone No, Physician Primary Care Provider Unavailabl e Allergies No known active allergies Medications MedicationSigDispense QuantityRefillsLast FilledStart DateEnd DateStatus aspirin 81 MG EC tablet Take 1 (one) tablet (81 mg total) by mouth daily .Active ondansetron (ZOFRAN-ODT) 4 MG disintegrating tablet Dissolve 1 (one) tablet (4 mg total) on top of tongue every 8 (eight) hours as needed . 20 tablet 5Active Social History Tobacco UseTypesPacks/DayYears UsedDateSmoking Tobacco: NeverSmokeless Tobacco: FormerChew Tobacco Cessation:Counseling Given: Not Answered Alcohol UseStandard Drinks/WeekCommentsNot Currently0 (1 standard drink = 0.6 oz pure alcohol)CommentsUnknownSex and Gender InformationValueDate Recorded Sex Assigned at BirthNot on fileLegal PmlSzrkmq55/11/2025 2:42 PM ESTGender IdentityNot on fileSexual OrientationNot on file Last Filed Vital Signs Vital SignReadingTime TakenCommentsBlood Gqbgplvz701/69010/17/2024 5:21 PM EST Jtgee7418/11/2025 5:21 PM OUEDzstqjucwqk95.7 ??C (98 ??F)10/17/2024 2:46 PM EST Respiratory Qozo968910/17/2024 5:21 PM ESTOxygen Cqjzsqzidh22%10/17/2024 5:21 PM ESTInhaled Oxygen Concentration--Bnlefd77.8 kg (198 lb)10/17/2024 2:46 PM EST Mjplql324.1 cm (5' 5 )10/17/2024 2:46 PM ESTBody Mass Index32.95010/17/2024 2:46 PM EST Plan of Treatment Not on file Insurance [address] [place] [address] Care Teams Team MemberRelationshipSpecialtyStart DateEnd Date No, Physician [facility] PCP - General10/17/24
--- OUTSIDE RECORDS SUMMARY | 2025-10-02 08:37 | XMS_ITS | Patient Health Record ---
Author Organization [facility] [place] Address [address] [place] [address] Care Team Providers Care Warehouse Associate Name Role Phone Aye Mcdonald Primary Care Provider Ayaz Higginbotham Starr [phone] Allergies No Known Allergies Reason For Referral No Information Medications Medication SIG (Take, Route, Frequency, Duration) Notes Start Date End Date Status Amitriptyline HCl 25 MG 1 tablet at bedt rodo Orally Once a day; Duration: 30 days 5Active Social History Tobacco Use: Social History Observation Description Date Details (start date - stop date) Current Smoker NA - NA Tobacco Control (Standard) Question Answer Notes Tobacco use: Current smoker Additional Findings: Tobacco userSnuff userAUDIT-C (Standard) Question Answer Notes Did you have a drink containing alcohol in the p ast year? Yes How often did you have a drink containing alcohol in the past year?Monthly or less (1 point)How many drinks did you have on a typical day when you were drinking in the past year?3 or 4 drinks (1 point)How often did you have six or more drinks on one occasion in the past year?2 to 4 times a month (2 points) Oxhsec3UfghdkuivoxmrpDdsrwrec Problems Problem Type SNOMED Code ICD Code Onset Dates Problem Status W/U Status Risk Notes Problem Migraine (76192084) Migraine (G43.909) ActiveconfirmedProblemPain in right foot (846494816900609)Right foot pain (M79.671)Activeconfirmed Vital Signs Blood pressure diastolic 70 mm Hg 07/20/2025 Puqrnk54 in07/20/2025lood pressure wubjvfhg768 mm Hg07/20/20254703Abryhz984 lbs 07/20/2025BMI31.61 kg/m207/20/2025 Encounters Encounter Location Date Provider Diagnosis [facility] [address] [place] [address] 07/20/2025 Aye Mcdonald Migraine G43.909 [facility] (PODIATRY) [address] [place] [address] [place] [address] 01/11/2025 Ayaz Higginbotham [facility] [place] [address] [facility] [place], [place] [address]/15/2025Aye Mcdonald Assessments Encounter Date Diagnosis (ICD Code) Assessment Notes Treatment Notes Treatment Clinical Notes Section Notes 07/20/2025 Migraine (ICD-10 - G43.909) samples of nurtec given keep headache diary fu one month Plan Of Treatment No Information Insurance Providers Payer Name Payer Address Payer Phone Subscriber Number Group Number Insured Name Patient Relationship to Insured Coverage Start Date Coverage End Date [employer] [place] [employer] [address] [place] [address] [id number] Kendall Potterelf - patient is the insured Medical (General) History Medical History History ICD Code Vertigo R42
[2025-10-02 09:36] VITALS: BP 107/64; PULSE 77; O2SAT 98
== END 2025-10-02 09:38 | disposition home or self-care (01) ==
LOC: ER 08:33
PROVIDERS: Emergency Provider Student in an Organized Health Care Education/Training Program; PCP Nurse Practitioner Family
DX: N39.0 Urinary tract infection, site not specified (principal); R30.0 Dysuria
CPT/HCPCS: 81001; 84703; 87086; 87088; 87804; 87811; 99283